=== PATIENT | female | born 1990 | race Caucasian/White ===

== ENCOUNTER 2017-02-05 21:52 | Inpatient (IN) ==
[2017-02-05] MEDS ORDERED: ONDANSETRON 4 MG/2 ML VIAL IV ONE (22:19)
[2017-02-05] MEDS ORDERED: 0.9 % SODIUM CHLORIDE 1,000 ML IV ONE (22:19)
[2017-02-05] MEDS: fentaNYL 100 MCG/2 ML VIAL IV PRN (22:35)
[2017-02-05 23:37] LABS: Basophils # (Auto) 0 K/mcL (0.0-0.3); Basophils % (Auto) 0.1 % (0.0-2.0); Eosinophils # (Auto) 0 K/mcL (0.0-0.7); Eosinophils % (Auto) 0 % (0.0-7.0); Granulocytes % (Auto) 93.3 % (38.0-78.0); Lymphocytes % (Auto) 5.9 % (15.5-49.0); Mean Cell Volume 85.3 fL (80.0-100.0); Mean Corpuscular HGB Conc 33.8 g/dL (31.0-36.0); Mean Corpuscular Hemoglobin 28.8 pg (26.0-34.0); Monocytes # (Auto) 0.1 K/mcL (0.1-0.9); Monocytes % (Auto) 0.7 % (1.0-12.0); Platelet Count 200 K/mcL (140-440); RBC 5.39 M/mcL (4.00-5.20); Red Cell Distribution Width 12.8 % (11.5-14.5)
[2017-02-05 23:43] LABS: Appearance,Urine CLEAR; Bacteria,Urine 0 /hpf (0); Bilirubin,Urine NEG (NEG); Color,Urine YELLOW; Glucose,Urine (UA) >=500 mg/dL (NEG); Leukocyte Esterase,Urine NEG /uL (NEG); Mucus,Urine FEW /hpf (0); Nitrate,Urine NEG (NEG); Protein,Urine >=500 mg/dL (NEG); Specific Gravity,Urine 1.023 (1.000-1.035); Urine Blood 0.03 mg/dL (<0.03); Urine Hyaline Cast 21 /lpf (0-2); Urine RBC 1 /hpf (0-1); Urine Squamous Epithelial Cell < 1 /hpf (0-4); Urine Transitional Epi Cells < 1 /hpf (0-2); Urine WBC 1 /hpf (0-4); Urobilinogen,Urine NEG (NEG)
[2017-02-05 23:59] LABS: ALT/SGPT 16 U/l (0-40); Albumin 4.7 gm/dL (3.2-5.2); Albumin/Globulin Ratio 1.4 (1.0-2.3); Alkaline Phosphatase 132 U/L (39-117); Blood Urea Nitrogen 16 mg/dl (6-20); Lipase 24 U/L (7-60)
[2017-02-06] MEDS ORDERED: PROMETHAZINE 25 MG/ML VIAL IV ONE ×3 (00:27→08:00)
[2017-02-06] MEDS ORDERED: INSULIN REGULAR, HUMAN 1 UNIT/0.01 ML UNIT IV ONE (01:25)
[2017-02-06] MEDS ORDERED: 0.9 % SODIUM CHLORIDE 1,000 ML IV ONE ×2 (01:49→08:12)
[2017-02-06] MEDS: INSULIN REGULAR, HUMAN 50 UNIT in 0.9 % SODIUM CHLORIDE 99.5 ML IV SCH ×3 (02:01→20:01)
[2017-02-06] MEDS ORDERED: INSULIN REGULAR, HUMAN 1 UNIT/0.01 ML UNIT ONE (02:01)
[2017-02-06] MEDS: fentaNYL 100 MCG/2 ML VIAL IV PRN (03:27)
[2017-02-06] MEDS ORDERED: ONDANSETRON 4 MG/2 ML VIAL IV ONE (05:14)
[2017-02-06] MEDS ORDERED: METOCLOPRAMIDE 10 MG/2 ML VIAL IV ONE (06:08)
[2017-02-06] MEDS ORDERED: DEXTROSE 5%-1/2NS 1,000 ML IV SCH ×2 (06:15→10:49)
--- NOTE | 2017-02-06 06:28 | Emergency Department Note ---
General Adult HPI - General Chief complaint: Blood Sugar Problem Stated complaint: Ketoacidosis Time Seen by Provider: 02/05/17 22:18 Mode of arrival: ambulatory - History of Present Illness HPI Narrative: This patient has been vomiting since 7 AM this morning. He is a type I diabetic for last 15 years and thinks she might be in DKA. She does have an insulin pump. Has also had a lot of diarrhea - Related Data Home Medications Medication Instructions Recorded Confirmed insulin aspart 100 unit/mL See Dose Instructions SUB-Q 10/06/14 02/05/17 subcutaneous solution .COMPLEX ml medroxyprogesterone 150 mg/mL 150 mg IM ONCE 05/19/15 02/05/17 intramuscular suspension Previous Rx's Medication Instructions Recorded Omeprazole [PriLOSEC] 20 mg PO ACB #30 capsule 03/23/16 Allergies Allergy/AdvReac Type Severity Reaction Status Date / Time Amoxicillin [AMOXICILLIN] Allergy Intermediate Rash Verified 03/08/16 08:47 vancomycin Allergy Mild Itching Verified 08/22/15 16:46 ibuprofen [IBUPROFEN] Allergy Unknown UNKNOWN Verified 08/22/15 16:46 Review of Systems All systems ED: reviewed and negative except as stated. Past Medical History - Past Medical History [facility] Narrative: Medical History Postconcussion syndrome (Acute) Cellulitis (Acute) DKA (diabetic ketoacidoses) (Acute) Gastroenteritis (Acute) Sepsis (Acute) Hyperlipidemia (Acute) Gastroesophageal reflux (Acute) Diabetic ketoacidosis (Acute) Diabetes type 1, uncontrolled (Acute) Cellulitis and abscess of trunk (Acute) Cellulitis (Acute) Past Surgical History History of wisdom tooth extraction (Acute) Family History Unknown Malignant neoplasm of colon Cerebrovascular accident Medical history: Reports: diabetes, other (DKA,History of obesity, type 1 diabetes 16 years) - Social History smoking status: Former smoker Alcohol use: Reports: None Drug use: Reports: none Physical Exam - General Limitations: no limitations General appearance: alert - Head Head exam: atraumatic - Eye Eye exam: Present: normal appearance - ENT ENT exam: normal exam - Neck Neck exam: Present: normal inspection - Chest Chest inspection: Present: normal inspection - Respiratory Respiratory exam: Present: normal lung sounds bilaterally - Cardiovascular Cardiovascular exam: Present: regular rate, normal rhythm, normal heart sounds - Abdominal Exam Abdominal exam: Present: soft. Absent: distention, tenderness - Neurological Exam Neurological exam: Present: alert - Psychiatric Psychiatric exam: Present: normal affect, normal mood - Skin Skin exam: Present: warm, dry, intact Course Vital Signs Temperature 98.8 F 02/05/17 21:53 Pulse Rate 119 H 02/05/17 21:53 Respiratory Rate 18 02/05/17 21:53 Blood Pressure 135/78 02/05/17 21:53 Pulse Oximetry (%) 98 02/05/17 21:53 Temperature 98.8 F 02/05/17 21:53 Pulse Rate 99 H 02/06/17 07:46 Respiratory Rate 20 02/06/17 07:44 Blood Pressure 163/91 02/06/17 07:46 Pulse Oximetry (%) 100 02/06/17 07:46 Medical Decision Making - MDM Narrative Medical decision making narrative: This patient is in DKA we started insulin drip and gave her 10 units of IV insulin. No beds available here or at [facility] or [facility] so she will be transferred to [facility] in [place]. This patient was unable to be transferred until 9 AM. 8 AM we got word that we now have an ICU bed available here so the patient will be admitted by Dr. Calhoun the hospitalist here. - Lab Data Lab results reviewed: Yes I reviewed the patient's lab results. Result diagrams: 02/05/17 22:45 02/05/17 22:45 Lab Results 02/05/17 02/05/17 02/05/17 Range/Units 22:30 22:45 22:45 WBC 17.0 H (4.5-11.0) K/mcL RBC 5.39 H (4.00-5.20) M/mcL Hgb 15.5 H (12.0-15.0) g/dL Hct 45.9 (36.0-48.0) % MCV 85.3 (80.0-100.0) fL MCH 28.8 (26.0-34.0) pg MCHC 33.8 (31.0-36.0) g/dL RDW 12.8 (11.5-14.5) % Plt Count 200 (140-440) K/mcL MPV 12.7 H (7.4-10.4) fL Gran % 93.3 H (38.0-78.0) % Lymph % (Auto) 5.9 L (15.5-49.0) % [place] % (Auto) 0.7 L (1.0-12.0) % Eos % (Auto) 0 (0.0-7.0) % Baso % (Auto) 0.1 (0.0-2.0) % Gran # 15.8 H (1.8-8.0) K/mcL Lymph # (Auto) 1.0 L (1.5-4.8) K/mcL [place] # (Auto) 0.1 (0.1-0.9) K/mcL Eos # (Auto) 0 (0.0-0.7) K/mcL Baso # (Auto) 0 (0.0-0.3) K/mcL Sodium 138 (133-145) mmol/L Potassium 4.1 (3.3-5.1) mmol/L Chloride 94 L (96-108) mmol/L Carbon Dioxide 12 L (22-30) mmol/L Anion Gap 32.0 H (8-16) BUN 16 (6-20) mg/dl Creatinine 1.2 H (0.6-1.1) mg/dl GFR Calculation 62 Glucose 356 H (70-105) mg/dL Calcium 9.4 (8.6-10.4) mg/dl Total Bilirubin 0.3 (0.0-1.0) mg/dL AST 11 (0-37) U/l ALT 16 (0-40) U/l Alkaline Phosphatase 132 H (39-117) U/L Total Protein 8.1 (5.9-8.4) gm/dL Albumin 4.7 (3.2-5.2) gm/dL Globulin 3.4 (2.2-3.7) gm/dL Albumin/Globulin Ratio 1.4 (1.0-2.3) Lipase 24 (7-60) U/L Beta-Hydroxybutyrate (< 0.27) mmol/L Urine Color Yellow Urine Appearance Clear Urine pH 5.0 (5.0-9.0) Ur Specific [place] 1.023 (1.000-1.035) Urine Protein >=500 A (NEG) mg/dL Urine Glucose (UA) >=500 A (NEG) mg/dL Urine Ketones 80 A (NEG) mg/dL Urine Occult Blood 0.03 A (<0.03) mg/dL Urine Nitrate Neg (NEG) Urine Bilirubin Neg (NEG) mg/dL Urine Urobilinogen Neg (NEG) mg/dL Ur Leukocyte Esterase Neg (NEG) /uL Urine RBC 1 (0-1) /hpf Urine WBC 1 (0-4) /hpf Ur Squamous Epith Cells < 1 (0-4) /hpf Ur Transition Epith Cell < 1 (0-2) /hpf Urine Bacteria 0 (0) /hpf Hyaline Casts 21 H (0-2) /lpf Urine Mucus Few (0) /hpf Ur Culture Indicated? No 02/05/17 Range/Units 22:45 WBC (4.5-11.0) K/mcL RBC (4.00-5.20) M/mcL Hgb (12.0-15.0) g/dL Hct (36.0-48.0) % MCV (80.0-100.0) fL MCH (26.0-34.0) pg MCHC (31.0-36.0) g/dL RDW (11.5-14.5) % Plt Count (140-440) K/mcL MPV (7.4-10.4) fL Gran % (38.0-78.0) % Lymph % (Auto) (15.5-49.0) % [place] % (Auto) (1.0-12.0) % Eos % (Auto) (0.0-7.0) % Baso % (Auto) (0.0-2.0) % Gran # (1.8-8.0) K/mcL Lymph # (Auto) (1.5-4.8) K/mcL [place] # (Auto) (0.1-0.9) K/mcL Eos # (Auto) (0.0-0.7) K/mcL Baso # (Auto) (0.0-0.3) K/mcL Sodium (133-145) mmol/L Potassium (3.3-5.1) mmol/L Chloride (96-108) mmol/L Carbon Dioxide (22-30) mmol/L Anion Gap (8-16) BUN (6-20) mg/dl Creatinine (0.6-1.1) mg/dl GFR Calculation Glucose (70-105) mg/dL Calcium (8.6-10.4) mg/dl Total Bilirubin (0.0-1.0) mg/dL AST (0-37) U/l ALT (0-40) U/l Alkaline Phosphatase (39-117) U/L Total Protein (5.9-8.4) gm/dL Albumin (3.2-5.2) gm/dL Globulin (2.2-3.7) gm/dL Albumin/Globulin Ratio (1.0-2.3) Lipase (7-60) U/L Beta-Hydroxybutyrate 8.30 H (< 0.27) mmol/L Urine Color Urine Appearance Urine pH (5.0-9.0) Ur Specific [place] (1.000-1.035) Urine Protein (NEG) mg/dL Urine Glucose (UA) (NEG) mg/dL Urine Ketones (NEG) mg/dL Urine Occult Blood (<0.03) mg/dL Urine Nitrate (NEG) Urine Bilirubin (NEG) mg/dL Urine Urobilinogen (NEG) mg/dL Ur Leukocyte Esterase (NEG) /uL Urine RBC (0-1) /hpf Urine WBC (0-4) /hpf Ur Squamous Epith Cells (0-4) /hpf Ur Transition Epith Cell (0-2) /hpf Urine Bacteria (0) /hpf Hyaline Casts (0-2) /lpf Urine Mucus (0) /hpf Ur Culture Indicated? Disposition Pt seen by PROGRAM REP/PA only: No Clinical Impression: DKA (diabetic ketoacidoses) Disposition: Xfer As Inpt ([facility]) Referrals: Jordyn Banerjee MD [Primary Care Provider] - Time of Disposition: 08:13
[2017-02-06] MEDS ORDERED: DEXTROSE 50% 50 ML VIAL IV ONE ×3 (07:32→16:10)
[2017-02-06 08:31] LABS: Basophils # (Auto) 0 K/mcL (0.0-0.3); Basophils % (Auto) 0.2 % (0.0-2.0); Eosinophils # (Auto) 0.1 K/mcL (0.0-0.7); Eosinophils % (Auto) 0.3 % (0.0-7.0); Granulocytes % (Auto) 87.2 % (38.0-78.0); Lymphocytes # (Auto) 1.4 K/mcL (1.5-4.8); Mean Cell Volume 85.4 fL (80.0-100.0); Mean Corpuscular HGB Conc 33.9 g/dL (31.0-36.0); Monocytes # (Auto) 0.8 K/mcL (0.1-0.9); Monocytes % (Auto) 4.3 % (1.0-12.0); Platelet Count 199 K/mcL (140-440); RBC 4.81 M/mcL (4.00-5.20); Red Cell Distribution Width 12.8 % (11.5-14.5)
[2017-02-06 08:56] LABS: ALT/SGPT 12 U/l (0-40); Albumin 3.8 gm/dL (3.2-5.2); Albumin/Globulin Ratio 1.3 (1.0-2.3); Alkaline Phosphatase 105 U/L (39-117); Beta Hydroxybutyrate 3.66 mmol/L (< 0.27); Blood Urea Nitrogen 15 mg/dl (6-20)
[2017-02-06] MEDS ORDERED: HYDROmorphone 2 MG/ML SYRINGE ONE (09:00)
[2017-02-06] MEDS ORDERED: HYDROmorphone 2 MG/ML SYRINGE IV PRN (09:09)
--- NOTE | 2017-02-06 11:23 | Internal Med History&Physical ---
Medical - H&P: HPI Patient information: Note initiated : 02/06/17 at 11:19 am Patient: Patricia Toussaint 26 y/o F admitted on for Ketoacidosis. Chief Complaint: [Nausea, vomiting, DKA] History of present illness: Ms. Toussaint is a 26 year old female with a long-standing history of type 1 diabetes, controlled with an insulin pump. She notes she has been under a lot of stress with studying for her masters at school, etc. She has been having issues with her insulin pump, and states the tubing keeps folding in on itself. She went to work night before last and was having difficulty with the pump, and then the tubing fell out. She says she then just manually dosed her insulin. She has had difficulty with nausea for several days. Yesterday she started vomiting, and notes that she was bringing up clear fluid, but then she started to see lots of red streaks in the fluid. She knows she was having quite a bit of epigastric pain when she was vomiting. She says her boyfriend thought perhaps she was reacting to changing her diet. She had been on a low carbohydrate diet, and had given up on that, and had noticed increased glucoses over the last several days. She has been having chills and abdominal pain as well, and has been feeling very fatigued. She notes her throat is very sore, but that started after the vomiting started. She does note that when she is vomiting and having the pain she does feel a little short of breath and feels her heart racing. She is also been having loose stools since yesterday, which is apparent the common symptom with her DKA. She denies any dysuria. ER evaluation showed glucose of 356, with bicarb of 12 and beta hydroxybutyrate level of 8.3. She was placed on IV fluids and IV insulin, and referred for admission. She otherwise denies recent fever, headache, new eye or ear symptoms, lymphadenopathy, dysuria. She was previously on omeprazole for reflux, but says she has not taken that for more than a year. Medical History Cellulitis and abscess of trunk (Acute) 08/26/2014 Diabetes type 1, uncontrolled (Acute) Diabetic ketoacidosis (Acute) Gastroesophageal reflux (Acute) Hyperlipidemia (Acute) Postconcussion syndrome (Acute) Sepsis (Acute) Depression Surgical History History of wisdom tooth extraction (Acute) Medications: Insulin pump Depo Provera shots every 3 months Allergies/Adverse Reactions Amoxicillin [AMOXICILLIN] Allergy (Severe, Verified 05/19/15 13:28) Anaphylaxis ibuprofen [IBUPROFEN] Allergy (Unknown, Verified 05/19/15 13:28) UNKNOWN Family History Grandmother had Malignant neoplasm of colon, Cerebrovascular accident Paternal great-grandmother had diabetes Social History She smoked from about age 17 to age 22, and then quit. She drinks alcohol maybe once or twice a month. She says she smokes marijuana once or twice a month. She currently lives with her boyfriend and his parents. She has been working on her masters degree in social work. Medical - H&P: Meds Home Medications Medication Instructions Recorded Confirmed Type insulin aspart 100 unit/mL See Dose Instructions SUB-Q 10/06/14 02/05/17 History subcutaneous solution .COMPLEX ml medroxyprogesterone 150 mg/mL 150 mg IM ONCE 05/19/15 02/05/17 History intramuscular suspension Omeprazole [PriLOSEC] 20 mg PO ACB #30 capsule 03/23/16 02/05/17 Rx Allergies Allergy/AdvReac Type Severity Reaction Status Date / Time Amoxicillin [AMOXICILLIN] Allergy Intermediate Rash Verified 03/08/16 08:47 vancomycin Allergy Mild Itching Verified 08/22/15 16:46 ibuprofen [IBUPROFEN] Allergy Unknown UNKNOWN Verified 08/22/15 16:46 Medical - H&P: Exam - Constitutional Vitals: Temp Pulse Resp BP Pulse Ox 98.8 F 98 H 13 110/61 99 02/05/17 21:53 02/06/17 09:58 02/06/17 10:01 02/06/17 10:01 02/06/17 09:58 On exam, she is an overweight white female, who is intermittently nauseated during our interview. She is otherwise in no acute distress. Head: Normocephalic, atraumatic. Eyes: PERRLA, EOMI, anicteric. Ears: TMs and canals are clear. Pharynx: Pharynx is clear, teeth are in good repair. Neck: Is supple, without lymphadenopathy, JVD, thyromegaly, bruits. cardiac exam: Shows regular rate and rhythm with normal S1 and S2 without murmurs rubs or gallops. Lungs: Clear to auscultation, without rales, rhonchi, wheezes. Abdomen: Is obese. She has fairly diffuse tenderness to even light palpation. She is particularly tender in the epigastric area but also the suprapubic area. There is some guarding but no obvious rebound. Bowel sounds appear active. Extremities: Show no cyanosis, clubbing, edema. Pulses are intact. Neurologic exam: Is grossly nonfocal. Patient is alert and oriented, calm and cooperative. Skin exam: Shows numerous tattoos, but no signs of infection. Medical - H&P: Reslt - Labs CBC & Chem 7: 02/06/17 07:38 02/06/17 14:06 Labs: Short CBC 02/05/17 02/06/17 Range/Units 22:45 07:38 WBC 17.0 H 18.2 H (4.5-11.0) K/mcL Hgb 15.5 H 13.9 (12.0-15.0) g/dL Hct 45.9 41.1 (36.0-48.0) % Plt Count 200 199 (140-440) K/mcL BMP 02/05/17 02/06/17 22:45 07:38 Sodium 138 143 Potassium 4.1 3.7 Chloride 94 L 106 Carbon Dioxide 12 L 16 L BUN 16 15 Creatinine 1.2 H 0.9 Glucose 356 H 234 H Calcium 9.4 8.8 Liver Function 02/05/17 02/06/17 Range/Units 22:45 07:38 Total Bilirubin 0.3 0.2 (0.0-1.0) mg/dL AST 11 10 (0-37) U/l ALT 16 12 (0-40) U/l Alkaline Phosphatase 132 H 105 (39-117) U/L Albumin 4.7 3.8 (3.2-5.2) gm/dL Urine 02/05/17 Range/Units 22:30 Urine Color Yellow Urine Appearance Clear Urine pH 5.0 (5.0-9.0) Ur Specific [place] 1.023 (1.000-1.035) Urine Protein >=500 A (NEG) mg/dL Urine Glucose (UA) >=500 A (NEG) mg/dL February 06: CBC differential: Shows 15,900 neutrophils. Anion gap was initially high at 32. Follow-up this morning is improved to 21. Beta hydroxybutyrate was 8.3 on arrival, and is 3.66 on follow-up this morning. Next Urinalysis showed greater than 500 mg protein, greater than 500 mg glucose, 80 ketones, negative for nitrites and leukocyte esterase. 21 hyaline casts. Next Chest x-ray: Is read as normal. Medical - H&P: A/P (1) Diarrhea Current visit: No Status: Acute (2) DKA (diabetic ketoacidoses) Current visit: No Status: Acute (3) Diabetes type 1, uncontrolled Current visit: No Status: Chronic - Narrative A/P Narrative: #1. Endocrine. Patient presents with severe metabolic acidosis, due to diabetic ketoacidosis. The cause of this is not entirely clear. Patient does have a markedly elevated white blood cell count, but her main symptom is diarrhea, as with previous episodes. Chest x-ray and urinalysis did not show obvious infection. -Aggressive fluid resuscitation. -Monitor labs every hour. -IV insulin, with adjustments based on acid-base status. -Insulin pump is off for now. -Stool studies. -it sounds like she needs to follow-up with either an homicide investigator or an insulin pump singer songwriter, to figure out why her pump is malfunctioning. 2. CODE STATUS: Full code. 3. DVT prophylaxis: Subcu heparin. 4. GI. history of GERD. She also reports blood in her emesis today. She may well have gastritis or esophagitis. -IV proton pump inhibitor. -Monitor hemoglobin. Diarrhea. She often has loose stools with her episodes of DKA, but we will send stool studies to be sure we are not missing an infection. Next 5. Pulmonary. Reported history of asthma, without recent symptoms. Today's visit has taken approximately 70 minutes so far today, to review her case with the ER MD, review her old records, review test results every 2 hours, interview and examine her, and write orders.
[2017-02-06] MEDS: ONDANSETRON 4 MG/2 ML VIAL IV PRN ×3 (12:12→19:55)
--- NOTE | 2017-02-06 12:18 | XRay Report ---
CLINICAL INFORMATION: Diabetic ketoacidosis nausea and vomiting COMPARISON: 11/23/2012 FINDINGS:The heart size, mediastinum and pulmonary vessels are unremarkable. The lungs are clear. There are no effusions. The bones and soft tissues are within normal limits. IMPRESSION: Normal chest. Interpreted and Authenticated by: Carl Franco 02/06/17
[2017-02-06 12:42] LABS: Blood Urea Nitrogen 14 mg/dl (6-20)
[2017-02-06 14:02] LABS: Blood Urea Nitrogen 13 mg/dl (6-20)
[2017-02-06] MEDS: [UNRECOGNIZED DRUG - OTHER] IV SCH (14:31)
[2017-02-06] MEDS: DEXTROSE 5% IV SCH (14:31)
[2017-02-06] MEDS: POTASSIUM PHOSPHATE IV SCH (14:31)
[2017-02-06 15:11] LABS: Blood Urea Nitrogen 11 mg/dl (6-20)
[2017-02-06] MEDS: PROMETHAZINE 25 MG/ML VIAL IV PRN ×2 (15:13→20:23)
[2017-02-06] MEDS ORDERED: POTASSIUM CHLORIDE 20 MEQ in 0.9 % SODIUM CHLORIDE 250 ML IV ONE (16:30)
[2017-02-06 16:41] LABS: Blood Urea Nitrogen 11 mg/dl (6-20)
[2017-02-06] MEDS: PANTOPRAZOLE 40 MG VIAL IV SCH (17:22)
[2017-02-06 18:49] LABS: Blood Urea Nitrogen 10 mg/dl (6-20)
[2017-02-06 20:49] LABS: Blood Urea Nitrogen 9 mg/dl (6-20)
[2017-02-06 23:08] LABS: Blood Urea Nitrogen 9 mg/dl (6-20)
[2017-02-07] MEDS: ONDANSETRON 4 MG/2 ML VIAL IV PRN ×4 (00:01→17:20)
[2017-02-07] MEDS: POTASSIUM PHOSPHATE IV SCH ×4 (00:38→23:59)
[2017-02-07] MEDS: DEXTROSE 5% IV SCH ×2 (00:38→23:59)
[2017-02-07] MEDS: [UNRECOGNIZED DRUG - OTHER] IV SCH (00:38)
[2017-02-07] MEDS: PROMETHAZINE 25 MG/ML VIAL IV PRN ×3 (02:02→13:01)
[2017-02-07 06:45] LABS: Basophils # (Auto) 0 K/mcL (0.0-0.3); Basophils % (Auto) 0.2 % (0.0-2.0); Eosinophils # (Auto) 0 K/mcL (0.0-0.7); Eosinophils % (Auto) 0.1 % (0.0-7.0); Granulocytes % (Auto) 87.5 % (38.0-78.0); Lymphocytes # (Auto) 1.7 K/mcL (1.5-4.8); Lymphocytes % (Auto) 8.9 % (15.5-49.0); Mean Cell Volume 86.6 fL (80.0-100.0); Mean Corpuscular HGB Conc 33.4 g/dL (31.0-36.0); Mean Corpuscular Hemoglobin 28.9 pg (26.0-34.0); Monocytes # (Auto) 0.6 K/mcL (0.1-0.9); Monocytes % (Auto) 3.3 % (1.0-12.0); Platelet Count 167 K/mcL (140-440); RBC 4.55 M/mcL (4.00-5.20); Red Cell Distribution Width 13.1 % (11.5-14.5)
[2017-02-07] MEDS: 0.9 % SODIUM CHLORIDE 10 ML SYRINGE IV SCH ×4 (07:16→21:48)
[2017-02-07 07:21] LABS: ALT/SGPT 11 U/l (0-40); Albumin 3.6 gm/dL (3.2-5.2); Albumin/Globulin Ratio 1.4 (1.0-2.3); Alkaline Phosphatase 108 U/L (39-117); Bilirubin,Direct < 0.2 mg/dL (0.0-0.3); Blood Urea Nitrogen 7 mg/dl (6-20); Gamma Glutamyl Transpeptidase 8 U/L (5-36); Magnesium 1.4 mg/dL (1.6-2.5); Uric Acid 6.2 mg/dL (2.5-8.0)
[2017-02-07] MEDS: PANTOPRAZOLE 40 MG VIAL IV SCH ×2 (07:43→17:03)
[2017-02-07] MEDS ORDERED: POTASSIUM CHLORIDE 40 MEQ in DEXTROSE 5% IN WATER 500 ML IV ONE (08:30)
[2017-02-07] MEDS ORDERED: MAGNESIUM SULFATE 32.48 MEQ in DEXTROSE 5% IN WATER 100 ML IV ONE (08:31)
[2017-02-07] MEDS: WATER IV SCH ×2 (08:45→15:36)
[2017-02-07] MEDS: DEXTROSE 10% IV SCH ×2 (08:45→15:36)
[2017-02-07] MEDS ORDERED: HEPARIN 5,000 UNIT/ML VIAL SQ SCH (09:00)
[2017-02-07] MEDS ORDERED: cefTRIAXone 1 GM in DEXTROSE 5% IN WATER 50 ML IV SCH (09:00)
--- NOTE | 2017-02-07 09:01 | XRay Report ---
CLINICAL INFORMATION: Diabetic ketoacidosis elevated white blood cell count and vomiting COMPARISON: None. FINDINGS: The GI tract is markedly decompressed compatible with history of poor oral intake and vomiting. There is no free air, soft tissue mass, pathologic calcification or organomegaly IMPRESSION: No acute disease. Decompressed GI tract compatible with prolonged poor oral intake and vomiting Interpreted and Authenticated by: Carl Franco 02/07/17
[2017-02-07] MEDS: INSULIN REGULAR, HUMAN 50 UNIT in 0.9 % SODIUM CHLORIDE 99.5 ML IV SCH ×2 (09:30→14:38)
--- NOTE | 2017-02-07 11:59 | XRay Report ---
CLINICAL INFORMATION: Picc position COMPARISON: 02/06/2017. FINDINGS: Right PICC line tip is quite distal and overlies the tricuspid valve plane. The heart is borderline enlarged. Mediastinum and pulmonary vessels are normal. Lungs are clear. No effusions. IMPRESSION: Acute disease. PICC line tip overlies the tricuspid valve. Nurses instructed to withdraw line 7 cm Interpreted and Authenticated by: Carl Franco 02/07/17
--- NOTE | 2017-02-07 12:14 | Internal Med Progress Note ---
Medical - PN: Subj Patient information: Note initiated : 02/07/17 at 12:10 pm Patient: Patricia Toussaint 26 y/o F admitted on 02/06/17 for Ketoacidosis. Interval history: February 06, 2017: History of present illness: Ms. Toussaint is a 26 year old female with a long-standing history of type 1 diabetes, controlled with an insulin pump. She notes she has been under a lot of stress with studying for her masters at school, etc. She has been having issues with her insulin pump, and states the tubing keeps folding in on itself. She went to work night before last and was having difficulty with the pump, and then the tubing fell out. She says she then just manually dosed her insulin. She has had difficulty with nausea for several days. Yesterday she started vomiting, and notes that she was bringing up clear fluid, but then she started to see lots of red streaks in the fluid. She knows she was having quite a bit of epigastric pain when she was vomiting. She says her boyfriend thought perhaps she was reacting to changing her diet. She had been on a low carbohydrate diet, and had given up on that, and had noticed increased glucoses over the last several days. She has been having chills and abdominal pain as well, and has been feeling very fatigued. She notes her throat is very sore, but that started after the vomiting started. She does note that when she is vomiting and having the pain she does feel a little short of breath and feels her heart racing. She is also been having loose stools since yesterday, which is apparent the common symptom with her DKA. She denies any dysuria. ER evaluation showed glucose of 356, with bicarb of 12 and beta hydroxybutyrate level of 8.3. She was placed on IV fluids and IV insulin, and referred for admission. She otherwise denies recent fever, headache, new eye or ear symptoms, lymphadenopathy, dysuria. She was previously on omeprazole for reflux, but says she has not taken that for more than a year. February 07: The patient's acidosis was improving, and then seemed to get worse overnight. We have had a little bit of trouble getting every 2 hour chemistry results. Apparently the lab was also having trouble drawing her blood. As of 2:00, her anion gap is back to normal, and serum bicarb is back to normal. She continues on an IV insulin drip, plus D10 IV fluids with potassium phosphate. She continues to feel quite poorly, and has persistent nausea and vomiting. This is treated with Phenergan, and Zofran is ineffective, and then this makes her fall back asleep again. When she is awake she continues to report abdominal discomfort. She has had some small amounts of loose stool, and C. difficile and stool cultures have been ordered. Otherwise vital signs have been fairly stable. She is still not able to take in anything by mouth. Insulin pump is turned off. She otherwise denies fever or chills, chest pain or palpitations, shortness of breath or cough, constipation, dysuria, but her history is probably unreliable given how groggy she is.. Since IV access is such a significant problem, PICC line was placed today. Medical History Cellulitis and abscess of trunk (Acute) 08/26/2014 Diabetes type 1, uncontrolled (Acute) Diabetic ketoacidosis (Acute) Gastroesophageal reflux (Acute) Hyperlipidemia (Acute) Postconcussion syndrome (Acute) Sepsis (Acute) Depression - Constitutional Vitals: Vital Signs Temp Pulse Resp BP Pulse Ox 99.3 F H 92 H 22 154/78 20 L 02/07/17 07:02 02/07/17 09:01 02/07/17 09:01 02/07/17 10:28 02/07/17 10:28 Period Temp Pulse Resp BP Sys/Butt Pulse Ox Last 24 Hr 97.9 F-99.4 F 78-94 9-23 129-172/70-103 20-100 Intake and Output 02/06/17 02/07/17 02/07/17 21:59 05:59 13:59 Intake Total 1344 / 1344 1073.0909 / 1073.0909 1122.0909 / 1122.0909 Output Total 125 / 125 1200 / 1200 425 / 425 Balance 1219 / 1219 -126.9091 / -126.9091 697.0909 / 697.0909 Intake & Output: Intake & Output 02/06/17 02/07/17 02/07/17 21:59 05:59 13:59 Intake Total 1344 / 1344 1073.0909 / 1073.0909 1122.0909 / 1122.0909 Output Total 125 / 125 1200 / 1200 425 / 425 Balance 1219 / 1219 -126.9091 / -126.9091 697.0909 / 697.0909 Intake: IV 1344 / 1344 1073.0909 / 1073.0909 1122.0909 / 1122.0909 HumuLIN R 50 UNIT In Sodium 1 / 1 57 / 57 63 / 63 Chloride 0.9% 99.5 ml @ 7 UNIT/ HR 14 mls/hr IV DUR PAU Rx#: [id number] Potassium Phosphate 40 Meq In 1009.0909 / 1009.0909 587 / 587 Dextrose 5%-1/2Ns IV Solution 1 ,000 ml @ 100 mls/hr IV .Q10H6M PAU Rx#:[id number] Rocephin 1 gm In Dextrose 5% in 50 / 50 Water 50 ml @ 100 mls/hr IV DAILY PAU Rx#:[id number] Output: Void Amount 125 / 125 1200 / 1200 Urine/Stool Mix 375 / 375 Emesis 50 / 50 Other: # Voids 1 # Emeses 2 2 1 On exam, she is fairly somnolent. She grimaces when she is awakened. Neck is supple without obvious lymphadenopathy or JVD. Lungs are clear to auscultation. Abdomen is soft, but she continues to grimace with palpation of either her upper or her lower abdomen. Bowel sounds are somewhat hypoactive. Extremities show no edema. Neurologic exam: The patient is fairly sedated from IV Phenergan. Medical - PN: Obj Da - Labs CBC & Chem 7: 02/07/17 03:55 02/07/17 14:00 Labs: Abnormal Lab Results 02/07/17 02/07/17 02/06/17 03:55 03:55 22:00 WBC 18.9 H RBC Hgb MPV 12.9 H Gran % 87.5 H Lymph % (Auto) 8.9 L [place] % (Auto) Gran # 16.5 H Lymph # (Auto) Potassium 3.2 L Chloride Carbon Dioxide 20 L Anion Gap 18.0 H Creatinine Glucose 232 H Calcium 8.4 L Phosphorus 2.2 L 2.6 L Magnesium 1.4 L Alkaline Phosphatase Beta-Hydroxybutyrate Urine Protein Urine Glucose (UA) Urine Ketones Urine Occult Blood Hyaline Casts 02/06/17 02/06/17 02/06/17 22:00 19:59 19:59 WBC RBC Hgb MPV Gran % Lymph % (Auto) [place] % (Auto) Gran # Lymph # (Auto) Potassium Chloride 111 H Carbon Dioxide 15 L 17 L Anion Gap 20.0 H 17.0 H Creatinine Glucose 297 H 143 H Calcium 8.0 L 8.2 L Phosphorus 2.5 L Magnesium Alkaline Phosphatase Beta-Hydroxybutyrate Urine Protein Urine Glucose (UA) Urine Ketones Urine Occult Blood Hyaline Casts 02/06/17 02/06/17 02/06/17 18:06 18:06 15:55 WBC RBC Hgb MPV Gran % Lymph % (Auto) [place] % (Auto) Gran # Lymph # (Auto) Potassium Chloride 109 H Carbon Dioxide 20 L Anion Gap Creatinine Glucose 127 H Calcium 8.3 L Phosphorus 2.1 L 1.9 L Magnesium Alkaline Phosphatase Beta-Hydroxybutyrate Urine Protein Urine Glucose (UA) Urine Ketones Urine Occult Blood Hyaline Casts 02/06/17 02/06/17 02/06/17 15:55 14:06 14:06 WBC RBC Hgb MPV Gran % Lymph % (Auto) [place] % (Auto) Gran # Lymph # (Auto) Potassium Chloride 109 H Carbon Dioxide 20 L Anion Gap Creatinine Glucose 116 H Calcium Phosphorus 1.3 L Magnesium 1.4 L Alkaline Phosphatase Beta-Hydroxybutyrate Urine Protein Urine Glucose (UA) Urine Ketones Urine Occult Blood Hyaline Casts 02/06/17 02/06/17 02/06/17 14:06 12:42 10:34 WBC RBC Hgb MPV Gran % Lymph % (Auto) [place] % (Auto) Gran # Lymph # (Auto) Potassium 2.9 L* Chloride 110 H 110 H Carbon Dioxide 17 L 17 L 17 L Anion Gap 18.0 H Creatinine Glucose 663 H* 208 H 197 H Calcium 7.1 L 8.2 L 8.2 L Phosphorus 1.6 L 1.4 L Magnesium Alkaline Phosphatase Beta-Hydroxybutyrate Urine Protein Urine Glucose (UA) Urine Ketones Urine Occult Blood Hyaline Casts 02/06/17 02/06/17 02/05/17 07:38 07:38 22:45 WBC 18.2 H RBC Hgb MPV 12.4 H Gran % 87.2 H Lymph % (Auto) 8.0 L [place] % (Auto) Gran # 15.9 H Lymph # (Auto) 1.4 L Potassium Chloride Carbon Dioxide 16 L Anion Gap 21.0 H Creatinine Glucose 234 H Calcium Phosphorus Magnesium Alkaline Phosphatase Beta-Hydroxybutyrate 3.66 H 8.30 H Urine Protein Urine Glucose (UA) Urine Ketones Urine Occult Blood Hyaline Casts 02/05/17 02/05/17 02/05/17 22:45 22:45 22:30 WBC 17.0 H RBC 5.39 H Hgb 15.5 H MPV 12.7 H Gran % 93.3 H Lymph % (Auto) 5.9 L [place] % (Auto) 0.7 L Gran # 15.8 H Lymph # (Auto) 1.0 L Potassium Chloride 94 L Carbon Dioxide 12 L Anion Gap 32.0 H Creatinine 1.2 H Glucose 356 H Calcium Phosphorus Magnesium Alkaline Phosphatase 132 H Beta-Hydroxybutyrate Urine Protein >=500 A Urine Glucose (UA) >=500 A Urine Ketones 80 A Urine Occult Blood 0.03 A Hyaline Casts 21 H February 07: Labs from 1400: Sodium 137, potassium 3.6, chloride 101, CO2 22, anion gap 14, BUN 4, creatinine 0.7 CBC: White blood cell count 18,900, hemoglobin 13, hematocrit 39, platelets 167, 000. Absolute granulocyte count 16,500 Chest x-ray: Right PICC line tip is quite distal end overlies the tricuspid valve plane. Nurses are instructed to withdraw 7 cm. Abdominal x-ray:IMPRESSION: No acute disease. Decompressed GI tract compatible with prolonged poor oral intake and vomiting February 06: Nasal MRSA screen is negative. CBC differential: Shows 15,900 neutrophils. Anion gap was initially high at 32. Follow-up this morning is improved to 21. Beta hydroxybutyrate was 8.3 on arrival, and is 3.66 on follow-up this morning. Next Urinalysis showed greater than 500 mg protein, greater than 500 mg glucose, 80 ketones, negative for nitrites and leukocyte esterase. 21 hyaline casts. Next Chest x-ray: Is read as normal. Meds: Medications Ceftriaxone Sodium (Rocephin) 1 gm IV Q24H [facility] Diagnostic Test (Pha) (Accu-Chek) 1 each FS Q1 [facility] Last Admin: 02/07/17 10:50 Dose: 1 each Heparin Sodium (Porcine) (Heparin) 5,000 unit SQ Q12 [facility] Last Admin: 02/07/17 09:06 Dose: 5,000 unit Insulin Human Regular 50 unit/ (Sodium Chloride) 100 mls @ 14 mls/hr IV DUR PAU ; 7 UNIT/HR PRN Reason: Protocol Last Titration: 02/07/17 10:50 Dose: 9 unit/hr, 18 mls/hr Potassium Chloride 40 meq/ (Dextrose) 520 mls @ 130 mls/hr IV ONCE ONE Stop: 02/07/17 12:29 Last Admin: 02/07/17 10:45 Dose: 130 mls/hr Potassium Phosphate 40 meq/ (Dextrose) 1,009.0909 mls @ 150 mls/hr IV .Q6H44M PAU Last Admin: 02/07/17 08:45 Dose: 150 mls/hr Ondansetron HCl (Zofran) 4 mg IV Q4-6HP PRN PRN Reason: Nausea And Vomiting Last Admin: 02/07/17 10:20 Dose: 4 mg Pantoprazole Sodium (Protonix) 40 mg IV BIDAC PAU Last Admin: 02/07/17 07:43 Dose: 40 mg Promethazine HCl (Phenergan) 12.5 mg IV Q4-6HP PRN PRN Reason: Nausea And Vomiting Last Admin: 02/07/17 07:14 Dose: 12.5 mg Sodium Chloride (Saline Flush) 10 ml IV Q8 PAU Last Admin: 02/07/17 07:43 Dose: 10 ml Medical - PN: A/P - Time Spent With Patient Total time spent is greater than 50% in coordination of care (as documented) at patient's floor/unit and/or counseling patient: Greater than 35 minutes (1) Diarrhea Status: Acute Current Visit: No (2) DKA (diabetic ketoacidoses) Status: Acute Current Visit: No (3) Diabetes type 1, uncontrolled Status: Chronic Current Visit: No - Narrative A/P Narrative: #1. Endocrine. Patient presents with severe metabolic acidosis, due to diabetic ketoacidosis. The cause of this is not entirely clear. Patient does have a markedly elevated white blood cell count, but her main symptom is diarrhea, as with previous episodes. Chest x-ray and urinalysis did not show obvious infection. -Patient's acidosis was rather slow to clear, but is improved as of 2:00. Unfortunately, she continues to have nausea and vomiting, so cannot maintain oral hydration. She continues on IV fluids and IV insulin. We will start to transition her back to subcu insulin plus sliding scale if she is able to eat. We will hold off on resuming her insulin pump until she is more awake and more able to eat. -it sounds like she needs to follow-up with either an crate opener or an insulin pump tuck pointer helper, to figure out why her pump is malfunctioning. 2. CODE STATUS: Full code. 3. DVT prophylaxis: Subcu heparin. 4. GI. history of GERD. She also reports blood in her emesis today. She may well have gastritis or esophagitis. -IV proton pump inhibitor. -Monitor hemoglobin. Diarrhea. She often has loose stools with her episodes of DKA, but we will send stool studies to be sure we are not missing an infection. 5. Pulmonary. Reported history of asthma, without recent symptoms. 6. Infectious disease. Patient presented with marked leukocytosis. This continues today, and is of uncertain etiology. It may be caused by her DKA, or occult infection. So far, chest x-ray, abdominal x-ray, urinalysis is unrevealing. I went ahead and started empiric Rocephin today, just to be sure we were not missing an intra- abdominal gram-negative infection. Blood cultures are pending. We are awaiting stool studies as well. Approximately 35 minutes has been spent so far today, interviewing and examining her, reviewing plan of care with nurses and other staff, reviewing several sets of labs, and adjusting medications. Medical - PN: Qual - VTE Deep Vein Thrombosis/Pulmonary Embolism Present on Admission: No
[2017-02-07 13:01] LABS: Blood Urea Nitrogen 5 mg/dl (6-20)
[2017-02-07] MEDS ORDERED: ACETAMINOPHEN 1,000 MG/100 ML BOTTLE IV PRN ×2 (14:34→18:16)
[2017-02-07 14:45] LABS: Blood Urea Nitrogen 4 mg/dl (6-20)
[2017-02-07] MEDS ORDERED: 0.9 % SODIUM CHLORIDE 250 ML IV SCH (15:45)
[2017-02-07] MEDS ORDERED: INSULIN GLARGINE, HUMAN 1 UNIT/0.01 ML SQ ONE (15:58)
[2017-02-07] MEDS ORDERED: DEXTROSE 31 GM ORAL.SUSP PO PRN ×2 (15:59→18:16)
[2017-02-07] MEDS ORDERED: DEXTROSE 50% 50 ML VIAL IV PRN ×2 (15:59→18:16)
[2017-02-07] MEDS ORDERED: POTASSIUM PHOSPHATE IV SCH (16:00)
[2017-02-07] MEDS ORDERED: DEXTROSE 5% IV SCH (16:00)
[2017-02-07] MEDS ORDERED: [UNRECOGNIZED DRUG - OTHER] IV SCH (16:00)
[2017-02-07] MEDS ORDERED: INSULIN LISPRO 1 UNIT/0.01 ML UNIT SQ SCH (17:00)
[2017-02-07 17:01] LABS: Blood Urea Nitrogen 4 mg/dl (6-20)
[2017-02-07] MEDS ORDERED: PROMETHAZINE 25 MG/ML VIAL ONE (20:31)
[2017-02-07] MEDS: 0.9 % SODIUM CHLORIDE 250 ML IV SCH (21:13)
[2017-02-07] MEDS: HEPARIN 5,000 UNIT/ML VIAL SQ SCH (21:47)
[2017-02-07] MEDS: INSULIN LISPRO 1 UNIT/0.01 ML UNIT SQ SCH (21:48)
[2017-02-07] MEDS: [UNRECOGNIZED DRUG - OTHER] IV SCH (23:59)
[2017-02-08] MEDS: ONDANSETRON 4 MG/2 ML VIAL IV PRN ×4 (00:09→23:51)
[2017-02-08] MEDS: INSULIN LISPRO 1 UNIT/0.01 ML UNIT SQ SCH ×7 (00:48→21:41)
[2017-02-08] MEDS: PROMETHAZINE 25 MG/ML VIAL IV PRN ×4 (03:47→21:55)
[2017-02-08 06:02] LABS: Basophils # (Auto) 0 K/mcL (0.0-0.3); Basophils % (Auto) 0.3 % (0.0-2.0); Eosinophils # (Auto) 0 K/mcL (0.0-0.7); Eosinophils % (Auto) 0 % (0.0-7.0); Lymphocytes # (Auto) 2.3 K/mcL (1.5-4.8); Lymphocytes % (Auto) 15.5 % (15.5-49.0); Mean Cell Volume 86.5 fL (80.0-100.0); Mean Corpuscular HGB Conc 33.4 g/dL (31.0-36.0); Mean Corpuscular Hemoglobin 28.9 pg (26.0-34.0); Monocytes # (Auto) 0.6 K/mcL (0.1-0.9); Monocytes % (Auto) 4.2 % (1.0-12.0); Platelet Count 151 K/mcL (140-440); RBC 4.48 M/mcL (4.00-5.20); Red Cell Distribution Width 13.3 % (11.5-14.5)
[2017-02-08] MEDS: 0.9 % SODIUM CHLORIDE 10 ML SYRINGE IV SCH ×7 (06:03→21:43)
[2017-02-08 06:21] LABS: ALT/SGPT 11 U/l (0-40); Albumin 3.3 gm/dL (3.2-5.2); Albumin/Globulin Ratio 1.4 (1.0-2.3); Alkaline Phosphatase 113 U/L (39-117); Bilirubin,Direct < 0.2 mg/dL (0.0-0.3); Blood Urea Nitrogen 5 mg/dl (6-20); Gamma Glutamyl Transpeptidase 7 U/L (5-36); Magnesium 1.9 mg/dL (1.6-2.5); Uric Acid 4.7 mg/dL (2.5-8.0)
[2017-02-08] MEDS: POTASSIUM PHOSPHATE IV SCH (07:00)
[2017-02-08] MEDS: [UNRECOGNIZED DRUG - OTHER] IV SCH (07:00)
[2017-02-08] MEDS: DEXTROSE 5% IV SCH (07:00)
[2017-02-08] MEDS: PANTOPRAZOLE 40 MG VIAL IV SCH ×2 (07:18→17:23)
[2017-02-08] MEDS ORDERED: INSULIN GLARGINE, HUMAN 1 UNIT/0.01 ML SQ ONE (07:38)
[2017-02-08] MEDS ORDERED: cefTRIAXone 1 GM VIAL IV SCH (09:00)
[2017-02-08] MEDS: cefTRIAXone 1 GM VIAL IV SCH (09:53)
[2017-02-08] MEDS: HEPARIN 5,000 UNIT/ML VIAL SQ SCH ×2 (09:56→21:42)
[2017-02-08] MEDS: 0.9 % SODIUM CHLORIDE 250 ML IV SCH (10:10)
[2017-02-08] MEDS ORDERED: POTASSIUM CHLORIDE 20 MEQ in DEXTROSE 5% IN WATER 250 ML IV ONE (10:30)
[2017-02-08] MEDS: POTASSIUM CHLORIDE 20 MEQ in 0.45 % SODIUM CHLORIDE 1,000 ML IV SCH ×2 (11:07→21:09)
[2017-02-08] MEDS: METOCLOPRAMIDE 10 MG/2 ML VIAL IV PRN ×2 (11:10→21:45)
[2017-02-08] MEDS: SUCRALFATE 1 GM/10 ML ORAL.SUSP PO SCH ×3 (11:46→21:42)
--- NOTE | 2017-02-08 13:02 | Internal Med Progress Note ---
Medical - PN: Subj Patient information: Note initiated : 02/08/17 at 1:02 pm Service Date, if different from initiated Date: [] Patient: Patricia Toussaint 26 y/o F admitted on 02/06/17 for Ketoacidosis. Chief Complaint: [] Interval history: February 06, 2017: History of present illness: Ms. Toussaint is a 26 year old female with a long-standing history of type 1 diabetes, controlled with an insulin pump. She notes she has been under a lot of stress with studying for her masters at school, etc. She has been having issues with her insulin pump, and states the tubing keeps folding in on itself. She went to work night before last and was having difficulty with the pump, and then the tubing fell out. She says she then just manually dosed her insulin. She has had difficulty with nausea for several days. Yesterday she started vomiting, and notes that she was bringing up clear fluid, but then she started to see lots of red streaks in the fluid. She knows she was having quite a bit of epigastric pain when she was vomiting. She says her boyfriend thought perhaps she was reacting to changing her diet. She had been on a low carbohydrate diet, and had given up on that, and had noticed increased glucoses over the last several days. She has been having chills and abdominal pain as well, and has been feeling very fatigued. She notes her throat is very sore, but that started after the vomiting started. She does note that when she is vomiting and having the pain she does feel a little short of breath and feels her heart racing. She is also been having loose stools since yesterday, which is apparent the common symptom with her DKA. She denies any dysuria. ER evaluation showed glucose of 356, with bicarb of 12 and beta hydroxybutyrate level of 8.3. She was placed on IV fluids and IV insulin, and referred for admission. She otherwise denies recent fever, headache, new eye or ear symptoms, lymphadenopathy, dysuria. She was previously on omeprazole for reflux, but says she has not taken that for more than a year. February 07: The patient's acidosis was improving, and then seemed to get worse overnight. We have had a little bit of trouble getting every 2 hour chemistry results. Apparently the lab was also having trouble drawing her blood. As of 2:00, her anion gap is back to normal, and serum bicarb is back to normal. She continues on an IV insulin drip, plus D10 IV fluids with potassium phosphate. She continues to feel quite poorly, and has persistent nausea and vomiting. This is treated with Phenergan, and Zofran is ineffective, and then this makes her fall back asleep again. When she is awake she continues to report abdominal discomfort. She has had some small amounts of loose stool, and C. difficile and stool cultures have been ordered. Otherwise vital signs have been fairly stable. She is still not able to take in anything by mouth. Insulin pump is turned off. She otherwise denies fever or chills, chest pain or palpitations, shortness of breath or cough, constipation, dysuria, but her history is probably unreliable given how groggy she is.. Since IV access is such a significant problem, PICC line was placed today. February 08: Today, the patient's acidosis and glucoses are much better controlled. She has been started on Lantus to give her a basal insulin rate. At home her usual basal rate with her pump is about 36 units per day, plus another 30 or so to cover meals. Today, she still is quite nauseated and is still having intermittent vomiting, so it is not clear how much oral intake she will have. She continues on IV fluids and IV antiemetics. She continues to have moderate epigastric and substernal discomfort, mainly with vomiting. Otherwise, she denies fever or chills, headaches or dizziness, palpitations, shortness of breath or cough, diarrhea, dysuria. Leukocytosis is improved today, and she continues on IV Rocephin for empiric coverage. Medical History Cellulitis and abscess of trunk (Acute) 08/26/2014 Diabetes type 1, uncontrolled (Acute) Diabetic ketoacidosis (Acute) Gastroesophageal reflux (Acute) Hyperlipidemia (Acute) Postconcussion syndrome (Acute) Sepsis (Acute) Depression - Constitutional Vitals: Vital Signs Temp Pulse Resp BP Pulse Ox 99.5 F H 89 18 162/93 95 02/08/17 07:15 02/07/17 20:00 02/08/17 07:15 02/08/17 07:15 02/08/17 07:15 Period Temp Pulse Resp BP Sys/Butt Pulse Ox Last 24 Hr 97.9 F-100.1 F 84-89 16-20 125-169/73-94 94-98 Intake and Output 02/07/17 02/08/17 02/08/17 21:59 05:59 13:59 Intake Total 2248.0909 / 2248.0909 1104.5455 / 1104.5455 1232.5455 / 1232.5455 Output Total 550 / 550 Balance 1698.0909 / 1698.0909 1104.5455 / 1104.5455 1232.5455 / 1232.5455 Weight 239 lb Intake & Output: Intake & Output 02/07/17 02/08/17 02/08/17 21:59 05:59 13:59 Intake Total 2248.0909 / 2248.0909 1104.5455 / 1104.5455 1232.5455 / 1232.5455 Output Total 550 / 550 Balance 1698.0909 / 1698.0909 1104.5455 / 1104.5455 1232.5455 / 1232.5455 Weight 239 lb Intake: IV 1948.0909 / 1948.0909 1104.5455 / 1104.5455 1232.5455 / 1232.5455 Sodium Chloride 0.9% 250 ml @ 18 / 18 20 mls/hr IV .[id number] PAU Rx#: [id number] HumuLIN R 50 UNIT In Sodium 88 / 88 Chloride 0.9% 99.5 ml @ 7 UNIT/ HR 14 mls/hr IV DUR PAU Rx#: [id number] Potassium Phosphate 40 Meq In 1222.0909 / 1222.0909 Dextrose 10%-Water IV Solution 1,000 ml @ 150 mls/hr IV . Q6H44M PAU Rx#:[id number] Potassium Phosphate 20 Meq In 1004.5455 / 1004.5455 1004.5455 / 1004.5455 Dextrose 5%-1/2Ns IV Solution 1 ,000 ml @ 150 mls/hr IV .Q6H42M PAU Rx#:[id number] Oral 0 / 0 Other 300 / 300 Output: Void Amount 550 / 550 Other: # Voids 1 1 # Bowel Movements 0 0 # [place] 2 On exam, she is fairly somnolent. She does wake up to talk to me, but as soon as we start moving her, she starts to retch again. Neck is supple without obvious lymphadenopathy or JVD. Lungs are clear to auscultation. Abdomen is soft, but she continues to grimace with palpation of mainly her upper abdomen. Bowel sounds are somewhat hypoactive. There is no obvious guarding or rebound. Extremities show no edema. Neurologic exam: She still appears sleepy, but does wake up and answer questions appropriately. Medical - PN: Obj Da - Labs CBC & Chem 7: 02/08/17 04:00 02/08/17 04:00 Labs: Abnormal Lab Results 02/08/17 02/08/17 02/07/17 04:00 04:00 16:06 WBC 14.7 H RBC Hgb MPV 13.0 H Gran % 80.0 H Lymph % (Auto) Murray % (Auto) Gran # 11.8 H Lymph # (Auto) Potassium Chloride Carbon Dioxide 21 L Anion Gap BUN 5 L 4 L Creatinine Glucose 280 H 159 H Calcium 8.3 L 8.2 L Phosphorus 2.3 L Magnesium Alkaline Phosphatase Total Protein 5.7 L Beta-Hydroxybutyrate Urine Protein Urine Glucose (UA) Urine Ketones Urine Occult Blood Hyaline Casts 02/07/17 02/07/17 02/07/17 14:00 12:10 03:55 WBC RBC Hgb MPV Gran % Lymph % (Auto) Murray % (Auto) Gran # Lymph # (Auto) Potassium 3.2 L Chloride Carbon Dioxide 20 L 20 L Anion Gap 17.0 H 18.0 H BUN 4 L 5 L Creatinine Glucose 247 H 298 H 232 H Calcium 8.1 L 8.0 L 8.4 L Phosphorus 2.3 L 2.5 L 2.2 L Magnesium 1.4 L Alkaline Phosphatase Total Protein Beta-Hydroxybutyrate Urine Protein Urine Glucose (UA) Urine Ketones Urine Occult Blood Hyaline Casts 02/07/17 02/06/17 02/06/17 03:55 22:00 22:00 WBC 18.9 H RBC Hgb MPV 12.9 H Gran % 87.5 H Lymph % (Auto) 8.9 L Murray % (Auto) Gran # 16.5 H Lymph # (Auto) Potassium Chloride Carbon Dioxide 15 L Anion Gap 20.0 H BUN Creatinine Glucose 297 H Calcium 8.0 L Phosphorus 2.6 L Magnesium Alkaline Phosphatase Total Protein Beta-Hydroxybutyrate Urine Protein Urine Glucose (UA) Urine Ketones Urine Occult Blood Hyaline Casts 02/06/17 02/06/17 02/06/17 19:59 19:59 18:06 WBC RBC Hgb MPV Gran % Lymph % (Auto) Murray % (Auto) Gran # Lymph # (Auto) Potassium Chloride 111 H Carbon Dioxide 17 L Anion Gap 17.0 H BUN Creatinine Glucose 143 H Calcium 8.2 L Phosphorus 2.5 L 2.1 L Magnesium Alkaline Phosphatase Total Protein Beta-Hydroxybutyrate Urine Protein Urine Glucose (UA) Urine Ketones Urine Occult Blood Hyaline Casts 02/06/17 02/06/17 02/06/17 18:06 15:55 15:55 WBC RBC Hgb MPV Gran % Lymph % (Auto) Murray % (Auto) Gran # Lymph # (Auto) Potassium Chloride 109 H 109 H Carbon Dioxide 20 L 20 L Anion Gap BUN Creatinine Glucose 127 H 116 H Calcium 8.3 L Phosphorus 1.9 L Magnesium Alkaline Phosphatase Total Protein Beta-Hydroxybutyrate Urine Protein Urine Glucose (UA) Urine Ketones Urine Occult Blood Hyaline Casts 02/06/17 02/06/17 02/06/17 14:06 14:06 14:06 WBC RBC Hgb MPV Gran % Lymph % (Auto) Murray % (Auto) Gran # Lymph # (Auto) Potassium 2.9 L* Chloride Carbon Dioxide 17 L Anion Gap BUN Creatinine Glucose 663 H* Calcium 7.1 L Phosphorus 1.3 L Magnesium 1.4 L Alkaline Phosphatase Total Protein Beta-Hydroxybutyrate Urine Protein Urine Glucose (UA) Urine Ketones Urine Occult Blood Hyaline Casts 02/06/17 02/06/17 02/06/17 12:42 10:34 07:38 WBC RBC Hgb MPV Gran % Lymph % (Auto) Murray % (Auto) Gran # Lymph # (Auto) Potassium Chloride 110 H 110 H Carbon Dioxide 17 L 17 L 16 L Anion Gap 18.0 H 21.0 H BUN Creatinine Glucose 208 H 197 H 234 H Calcium 8.2 L 8.2 L Phosphorus 1.6 L 1.4 L Magnesium Alkaline Phosphatase Total Protein Beta-Hydroxybutyrate 3.66 H Urine Protein Urine Glucose (UA) Urine Ketones Urine Occult Blood Hyaline Casts 02/06/17 02/05/17 02/05/17 07:38 22:45 22:45 WBC 18.2 H RBC Hgb MPV 12.4 H Gran % 87.2 H Lymph % (Auto) 8.0 L Murray % (Auto) Gran # 15.9 H Lymph # (Auto) 1.4 L Potassium Chloride 94 L Carbon Dioxide 12 L Anion Gap 32.0 H BUN Creatinine 1.2 H Glucose 356 H Calcium Phosphorus Magnesium Alkaline Phosphatase 132 H Total Protein Beta-Hydroxybutyrate 8.30 H Urine Protein Urine Glucose (UA) Urine Ketones Urine Occult Blood Hyaline Casts 02/05/17 02/05/17 22:45 22:30 WBC 17.0 H RBC 5.39 H Hgb 15.5 H MPV 12.7 H Gran % 93.3 H Lymph % (Auto) 5.9 L Murray % (Auto) 0.7 L Gran # 15.8 H Lymph # (Auto) 1.0 L Potassium Chloride Carbon Dioxide Anion Gap BUN Creatinine Glucose Calcium Phosphorus Magnesium Alkaline Phosphatase Total Protein Beta-Hydroxybutyrate Urine Protein >=500 A Urine Glucose (UA) >=500 A Urine Ketones 80 A Urine Occult Blood 0.03 A Hyaline Casts 21 H February 07: Blood cultures are negative so far. MRSA screen is negative. Labs from 1400: Sodium 137, potassium 3.6, chloride 101, CO2 22, anion gap 14, BUN 4, creatinine 0.7 CBC: White blood cell count 18,900, hemoglobin 13, hematocrit 39, platelets 167, 000. Absolute granulocyte count 16,500 Chest x-ray: Right PICC line tip is quite distal end overlies the tricuspid valve plane. Nurses are instructed to withdraw 7 cm. Abdominal x-ray:IMPRESSION: No acute disease. Decompressed GI tract compatible with prolonged poor oral intake and vomiting February 06: Nasal MRSA screen is negative. CBC differential: Shows 15,900 neutrophils. Anion gap was initially high at 32. Follow-up this morning is improved to 21. Beta hydroxybutyrate was 8.3 on arrival, and is 3.66 on follow-up this morning. Next Urinalysis showed greater than 500 mg protein, greater than 500 mg glucose, 80 ketones, negative for nitrites and leukocyte esterase. 21 hyaline casts. Next Chest x-ray: Is read as normal. Meds: Medications Ceftriaxone Sodium (Rocephin) 1 gm IV Q24H PAU Last Admin: 02/08/17 09:53 Dose: 1 gm Dextrose (Dextrose 50%) 0 ml IV UD PRN PRN Reason: Hypoglycemia Diagnostic Test (Pha) (Accu-Chek) 1 each FS ACHS [facility] [place] Last Admin: 02/08/17 11:14 Dose: 1 each Glucose (Insta-Glucose) 15 gm PO PRN PRN PRN Reason: Hypoglycemia Heparin Sodium (Porcine) (Heparin) 5,000 unit SQ Q12 [facility] [place] Last Admin: 02/08/17 09:56 Dose: 5,000 unit Heparin Sodium (Porcine) (Heparin Flush) 2 ml IV Q12 [facility] [place] Last Admin: 02/08/17 09:55 Dose: 2 ml Acetaminophen (Ofirmev) 1,000 mg in 100 mls @ 200 mls/hr IV Q6HP PRN PRN Reason: PAIN/FEVER > 101 Last Infusion: 02/08/17 01:00 Dose: Infused Potassium Chloride 20 meq/ (Sodium Chloride) 1,010 mls @ 100 mls/hr IV .Q10H6M [facility] [place] Last Admin: 02/08/17 11:07 Dose: 100 mls/hr Insulin Glargine (Lantus) 15 unit SQ BID [facility] [place] Insulin Human Lispro (Humalog) 0 unit SQ [facility] PRN Reason: Protocol Last Admin: 02/08/17 11:14 Dose: Not Given Metoclopramide HCl (Reglan) 5 mg IV TIDAC PRN PRN Reason: Nausea And Vomiting Last Admin: 02/08/17 11:10 Dose: 5 mg Ondansetron HCl (Zofran) 4 mg IV Q4-6HP PRN PRN Reason: Nausea And Vomiting Last Admin: 02/08/17 08:37 Dose: 4 mg Pantoprazole Sodium (Protonix) 40 mg IV BIDAC [facility] [place] Last Admin: 02/08/17 07:18 Dose: 40 mg Promethazine HCl (Phenergan) 12.5 mg IV Q4-6HP PRN PRN Reason: Nausea And Vomiting Last Admin: 02/08/17 10:08 Dose: 12.5 mg Sodium Chloride (Saline Flush) 10 ml IV Q8 [facility] [place] Last Admin: 02/08/17 11:09 Dose: 10 ml Sucralfate (Carafate) 1 gm PO LOCATED WITHIN [facility] Last Admin: 02/08/17 11:46 Dose: 1 gm Medical - PN: A/P - Time Spent With Patient Total time spent is greater than 50% in coordination of care (as documented) at patient's floor/unit and/or counseling patient: 25 - 35 minutes (1) Diarrhea Status: Acute Current Visit: No (2) DKA (diabetic ketoacidoses) Status: Acute Current Visit: No (3) Diabetes type 1, uncontrolled Status: Chronic Current Visit: No - Narrative A/P Narrative: #1. Endocrine. Patient presents with severe metabolic acidosis, due to diabetic ketoacidosis. The cause of this is not entirely clear. Patient does have a markedly elevated white blood cell count, but her main symptom is diarrhea, as with previous episodes. Chest x-ray and urinalysis did not show obvious infection. -Acidosis has essentially resolved. I hope you incision her back to her insulin pump, but so far she is just not felt well enough to do that, so we are covering her with Lantus and sliding scale insulin. I have added Reglan to her regimen of Zofran and Phenergan, to try to get control of her nausea. Continue IV fluids for now. -it sounds like she needs to follow-up with either an senior sas developer or an insulin pump slip maker, to figure out why her pump is malfunctioning. 2. CODE STATUS: Full code. 3. DVT prophylaxis: Subcu heparin. 4. GI. history of GERD. She also reports blood in her emesis today. She may well have gastritis or esophagitis. -We added Carafate slurry today to be given before meals. -IV proton pump inhibitor. -Monitor hemoglobin. Diarrhea. She often has loose stools with her episodes of DKA, but we will send stool studies to be sure we are not missing an infection. I do not believe we have any stool study results yet. 5. Pulmonary. Reported history of asthma, without recent symptoms. 6. Infectious disease. Patient presented with marked leukocytosis. This continues today, and is of uncertain etiology. It may be caused by her DKA, or occult infection. So far, chest x-ray, abdominal x-ray, urinalysis is unrevealing. I went ahead and started empiric Rocephin today, just to be sure we were not missing an intra- abdominal gram-negative infection. Blood cultures are negative so far. We are awaiting stool studies as well. Approximately 30 minutes has been spent so far today, interviewing and examining her, reviewing plan of care with nurses and other staff, reviewing several sets of labs, and adjusting medications. Medical - PN: Qual - VTE Deep Vein Thrombosis/Pulmonary Embolism Present on Admission: No
[2017-02-08] MEDS: INSULIN GLARGINE, HUMAN 1 UNIT/0.01 ML SQ SCH (21:41)
[2017-02-09 05:54] LABS: Basophils # (Auto) 0 K/mcL (0.0-0.3); Basophils % (Auto) 0.4 % (0.0-2.0); Eosinophils # (Auto) 0 K/mcL (0.0-0.7); Eosinophils % (Auto) 0.2 % (0.0-7.0); Granulocytes % (Auto) 67.2 % (38.0-78.0); Lymphocytes # (Auto) 2.3 K/mcL (1.5-4.8); Lymphocytes % (Auto) 25.7 % (15.5-49.0); Mean Cell Volume 85.4 fL (80.0-100.0); Mean Corpuscular HGB Conc 33.3 g/dL (31.0-36.0); Mean Corpuscular Hemoglobin 28.5 pg (26.0-34.0); Monocytes # (Auto) 0.6 K/mcL (0.1-0.9); Monocytes % (Auto) 6.5 % (1.0-12.0); Platelet Count 148 K/mcL (140-440); RBC 4.55 M/mcL (4.00-5.20); Red Cell Distribution Width 12.7 % (11.5-14.5)
[2017-02-09] MEDS: PANTOPRAZOLE 40 MG VIAL IV SCH ×2 (06:54→16:35)
[2017-02-09] MEDS: SUCRALFATE 1 GM/10 ML ORAL.SUSP PO SCH ×4 (06:58→20:45)
[2017-02-09] MEDS: ONDANSETRON 4 MG/2 ML VIAL IV PRN ×3 (06:59→19:38)
[2017-02-09] MEDS: METOCLOPRAMIDE 10 MG/2 ML VIAL IV PRN (07:16)
[2017-02-09] MEDS: POTASSIUM CHLORIDE 20 MEQ in 0.45 % SODIUM CHLORIDE 1,000 ML IV SCH ×3 (07:20→19:48)
[2017-02-09] MEDS: INSULIN LISPRO 1 UNIT/0.01 ML UNIT SQ SCH ×4 (07:26→20:46)
[2017-02-09 07:52] LABS: ALT/SGPT 10 U/l (0-40); Albumin 3.3 gm/dL (3.2-5.2); Albumin/Globulin Ratio 1.4 (1.0-2.3); Alkaline Phosphatase 102 U/L (39-117); Blood Urea Nitrogen 6 mg/dl (6-20)
[2017-02-09] MEDS: HEPARIN 5,000 UNIT/ML VIAL SQ SCH ×2 (08:31→20:46)
[2017-02-09] MEDS: INSULIN GLARGINE, HUMAN 1 UNIT/0.01 ML SQ SCH (08:31)
[2017-02-09] MEDS: 0.9 % SODIUM CHLORIDE 10 ML SYRINGE IV PRN ×2 (08:32→08:34)
[2017-02-09] MEDS: cefTRIAXone 1 GM VIAL IV SCH (08:38)
[2017-02-09] MEDS: PROMETHAZINE 25 MG/ML VIAL IV PRN ×3 (09:38→23:13)
[2017-02-09] MEDS ORDERED: INSULIN GLARGINE, HUMAN 1 UNIT/0.01 ML SQ ONE (11:02)
--- NOTE | 2017-02-09 12:30 | Internal Med Progress Note ---
Medical - PN: Subj Patient information: Note initiated : 02/09/17 at 12:30 pm Service Date, if different from initiated Date: [] Patient: Patricia Toussaint 26 y/o F admitted on 02/06/17 for Ketoacidosis. Chief Complaint: [] Interval history: February 06, 2017: History of present illness: Ms. Toussaint is a 26 year old female with a long-standing history of type 1 diabetes, controlled with an insulin pump. She notes she has been under a lot of stress with studying for her masters at school, etc. She has been having issues with her insulin pump, and states the tubing keeps folding in on itself. She went to work night before last and was having difficulty with the pump, and then the tubing fell out. She says she then just manually dosed her insulin. She has had difficulty with nausea for several days. Yesterday she started vomiting, and notes that she was bringing up clear fluid, but then she started to see lots of red streaks in the fluid. She knows she was having quite a bit of epigastric pain when she was vomiting. She says her boyfriend thought perhaps she was reacting to changing her diet. She had been on a low carbohydrate diet, and had given up on that, and had noticed increased glucoses over the last several days. She has been having chills and abdominal pain as well, and has been feeling very fatigued. She notes her throat is very sore, but that started after the vomiting started. She does note that when she is vomiting and having the pain she does feel a little short of breath and feels her heart racing. She is also been having loose stools since yesterday, which is apparent the common symptom with her DKA. She denies any dysuria. ER evaluation showed glucose of 356, with bicarb of 12 and beta hydroxybutyrate level of 8.3. She was placed on IV fluids and IV insulin, and referred for admission. She otherwise denies recent fever, headache, new eye or ear symptoms, lymphadenopathy, dysuria. She was previously on omeprazole for reflux, but says she has not taken that for more than a year. February 07: The patient's acidosis was improving, and then seemed to get worse overnight. We have had a little bit of trouble getting every 2 hour chemistry results. Apparently the lab was also having trouble drawing her blood. As of 2:00, her anion gap is back to normal, and serum bicarb is back to normal. She continues on an IV insulin drip, plus D10 IV fluids with potassium phosphate. She continues to feel quite poorly, and has persistent nausea and vomiting. This is treated with Phenergan, and Zofran is ineffective, and then this makes her fall back asleep again. When she is awake she continues to report abdominal discomfort. She has had some small amounts of loose stool, and C. difficile and stool cultures have been ordered. Otherwise vital signs have been fairly stable. She is still not able to take in anything by mouth. Insulin pump is turned off. She otherwise denies fever or chills, chest pain or palpitations, shortness of breath or cough, constipation, dysuria, but her history is probably unreliable given how groggy she is.. Since IV access is such a significant problem, PICC line was placed today. February 08: Today, the patient's acidosis and glucoses are much better controlled. She has been started on Lantus to give her a basal insulin rate. At home her usual basal rate with her pump is about 36 units per day, plus another 30 or so to cover meals. Today, she still is quite nauseated and is still having intermittent vomiting, so it is not clear how much oral intake she will have. She continues on IV fluids and IV antiemetics. She continues to have moderate epigastric and substernal discomfort, mainly with vomiting. Otherwise, she denies fever or chills, headaches or dizziness, palpitations, shortness of breath or cough, diarrhea, dysuria. Leukocytosis is improved today, and she continues on IV Rocephin for empiric coverage. February 09: Today, the patient is starting to feel a bit better, but continues to have significant nausea, and vomits every time she tries to eat a few bites of just about anything. She continues to have epigastric and substernal discomfort, but does say that it seems a little better since she started on the oral Carafate. She otherwise denies fever chills, cough or shortness of breath, chest pain or palpitations. She did have a little bit of loose stool this morning. She continues to have significant abdominal discomfort. Blood glucose is still running high, and we are managing with subcu Lantus plus sliding scale. She says she could start herself back on her pump today if we want her to, but her oral intake is still minimal. -I spoke with Dr. Hines of GI this morning, as well as with Dr. Franco of radiology. We are going to try seeing if she could tolerate some oral contrast, and then do a CT of her abdomen and pelvis. If she can drink enough volume, Dr. Franco says he might get a good look at her esophagus, stomach , duodenum as well. Medical History Cellulitis and abscess of trunk (Acute) 08/26/2014 Diabetes type 1, uncontrolled (Acute) Diabetic ketoacidosis (Acute) Gastroesophageal reflux (Acute) Hyperlipidemia (Acute) Postconcussion syndrome (Acute) Sepsis (Acute) Depression - Constitutional Vitals: Vital Signs 9.0 F H 9Temp Pulse Resp BP Pulse Ox temp 99.0 87 20 151/85 94 02/09/17 11:44 02/08/17 20:00 02/09/17 11:44 02/09/17 11:44 02/09/17 11:44 Period Temp Pulse Resp BP Sys/Butt Pulse Ox Last 24 Hr 97.0 F-99.5 F 76-87 18-20 149-173/68-100 94-97 Intake and Output 02/08/17 02/09/17 02/09/17 21:59 05:59 13:59 Intake Total 1003 / 1003 0 / 0 1010 / 1010 Output Total 800 / 800 300 / 300 1250 / 1250 Balance 203 / 203 -300 / -300 -240 / -240 Weight 242 lb 6.4 oz Intake & Output: Intake & Output 02/08/17 02/09/17 02/09/17 21:59 05:59 13:59 Intake Total 1003 / 1003 0 / 0 1010 / 1010 Output Total 800 / 800 300 / 300 1250 / 1250 Balance 203 / 203 -300 / -300 -240 / -240 Weight 242 lb 6.4 oz Intake: IV 1003 / 1003 1010 / 1010 Potassium Chloride 20 Meq In 1003 / 1003 1010 / 1010 Sodium Chloride 0.45% 1,000 ml @ 100 mls/hr IV .Q10H6M COUNTS INCLUDE 234 BEDS AT THE [facility] Rx# :[id number] Oral 0 / 0 Output: Void Amount 800 / 800 300 / 300 1100 / 1100 Emesis 150 / 150 Other: # Bowel Movements 1 0 # Emeses 1 On exam, she is less somnolent than yesterday. Her nurse notes that she tried to eat about 2 tablespoons of applesauce earlier, and immediately vomited. She did just try again a few minutes ago, and has so far not vomited. Neck is supple without obvious lymphadenopathy or JVD. Lungs are clear to auscultation. Abdomen is soft, but she continues to grimace with palpation of mainly her upper abdomen. Bowel sounds are somewhat hypoactive. There is no obvious guarding or rebound. Extremities show no edema. Neurologic exam: She still appears sleepy, but does wake up and answer questions appropriately. Medical - PN: Obj Da - Labs CBC & Chem 7: 02/09/17 04:00 02/09/17 06:42 Labs: Abnormal Lab Results 02/09/17 02/09/17 02/08/17 06:42 04:00 04:00 WBC MPV 12.7 H Gran % Lymph % (Auto) Gran # Potassium Chloride Carbon Dioxide 21 L Anion Gap BUN 5 L Glucose 312 H 280 H Calcium 8.3 L 8.3 L Phosphorus Magnesium Total Protein 5.7 L 5.7 L 02/08/17 02/07/17 02/07/17 04:00 16:06 14:00 WBC 14.7 H MPV 13.0 H Gran % 80.0 H Lymph % (Auto) Gran # 11.8 H Potassium Chloride Carbon Dioxide Anion Gap BUN 4 L 4 L Glucose 159 H 247 H Calcium 8.2 L 8.1 L Phosphorus 2.3 L 2.3 L Magnesium Total Protein 02/07/17 02/07/17 02/07/17 12:10 03:55 03:55 WBC 18.9 H MPV 12.9 H Gran % 87.5 H Lymph % (Auto) 8.9 L Gran # 16.5 H Potassium 3.2 L Chloride Carbon Dioxide 20 L 20 L Anion Gap 17.0 H 18.0 H BUN 5 L Glucose 298 H 232 H Calcium 8.0 L 8.4 L Phosphorus 2.5 L 2.2 L Magnesium 1.4 L Total Protein 02/06/17 02/06/17 02/06/17 22:00 22:00 19:59 WBC MPV Gran % Lymph % (Auto) Gran # Potassium Chloride Carbon Dioxide 15 L Anion Gap 20.0 H BUN Glucose 297 H Calcium 8.0 L Phosphorus 2.6 L 2.5 L Magnesium Total Protein 02/06/17 02/06/17 02/06/17 19:59 18:06 18:06 WBC MPV Gran % Lymph % (Auto) Gran # Potassium Chloride 111 H 109 H Carbon Dioxide 17 L 20 L Anion Gap 17.0 H BUN Glucose 143 H 127 H Calcium 8.2 L 8.3 L Phosphorus 2.1 L Magnesium Total Protein 02/06/17 02/06/17 02/06/17 15:55 15:55 14:06 WBC MPV Gran % Lymph % (Auto) Gran # Potassium Chloride 109 H Carbon Dioxide 20 L Anion Gap BUN Glucose 116 H Calcium Phosphorus 1.9 L 1.3 L Magnesium Total Protein 02/06/17 02/06/17 02/06/17 14:06 14:06 12:42 WBC MPV Gran % Lymph % (Auto) Gran # Potassium 2.9 L* Chloride 110 H Carbon Dioxide 17 L 17 L Anion Gap BUN Glucose 663 H* 208 H Calcium 7.1 L 8.2 L Phosphorus 1.6 L Magnesium 1.4 L Total Protein 02/06/17 10:34 WBC MPV Gran % Lymph % (Auto) Gran # Potassium Chloride 110 H Carbon Dioxide 17 L Anion Gap 18.0 H BUN Glucose 197 H Calcium 8.2 L Phosphorus 1.4 L Magnesium Total Protein February 08: Stool culture is negative so far. February 07: Blood cultures are negative so far. MRSA screen is negative. Labs from 1400: Sodium 137, potassium 3.6, chloride 101, CO2 22, anion gap 14, BUN 4, creatinine 0.7 CBC: White blood cell count 18,900, hemoglobin 13, hematocrit 39, platelets 167, 000. Absolute granulocyte count 16,500 Chest x-ray: Right PICC line tip is quite distal end overlies the tricuspid valve plane. Nurses are instructed to withdraw 7 cm. Abdominal x-ray:IMPRESSION: No acute disease. Decompressed GI tract compatible with prolonged poor oral intake and vomiting February 06: Nasal MRSA screen is negative. CBC differential: Shows 15,900 neutrophils. Anion gap was initially high at 32. Follow-up this morning is improved to 21. Beta hydroxybutyrate was 8.3 on arrival, and is 3.66 on follow-up this morning. Next Urinalysis showed greater than 500 mg protein, greater than 500 mg glucose, 80 ketones, negative for nitrites and leukocyte esterase. 21 hyaline casts. Next Chest x-ray: Is read as normal. Meds: Medications Ceftriaxone Sodium (Rocephin) 1 gm IV Q24H COUNTS INCLUDE 234 BEDS AT THE [facility] Last Admin: 02/09/17 08:38 Dose: 1 gm Dextrose (Dextrose 50%) 0 ml IV UD PRN PRN Reason: Hypoglycemia Diagnostic Test (Pha) (Accu-Chek) 1 each FS ACHS COUNTS INCLUDE 234 BEDS AT THE [facility] Last Admin: 02/09/17 11:52 Dose: 1 each Glucose (Insta-Glucose) 15 gm PO PRN PRN PRN Reason: Hypoglycemia Heparin Sodium (Porcine) (Heparin) 5,000 unit SQ Q12 COUNTS INCLUDE 234 BEDS AT THE [facility] Last Admin: 02/09/17 08:31 Dose: 5,000 unit Heparin Sodium (Porcine) (Heparin Flush) 2 ml IV Q12 COUNTS INCLUDE 234 BEDS AT THE [facility] Last Admin: 02/09/17 08:33 Dose: 2 ml Acetaminophen (Ofirmev) 1,000 mg in 100 mls @ 200 mls/hr IV Q6HP PRN PRN Reason: PAIN/FEVER > 101 Last Infusion: 02/08/17 01:00 Dose: Infused Potassium Chloride 20 meq/ (Sodium Chloride) 1,010 mls @ 100 mls/hr IV .Q10H6M COUNTS INCLUDE 234 BEDS AT THE [facility] Last Admin: 02/09/17 07:20 Dose: 100 mls/hr Insulin Glargine (Lantus) 20 unit SQ BID COUNTS INCLUDE 234 BEDS AT THE [facility] Insulin Human Lispro (Humalog) 0 unit SQ ACHS COUNTS INCLUDE 234 BEDS AT THE [facility] PRN Reason: Protocol Last Admin: 02/09/17 11:56 Dose: 2 unit Metoclopramide HCl (Reglan) 5 mg IV TIDAC PRN PRN Reason: Nausea And Vomiting Last Admin: 02/09/17 07:16 Dose: 5 mg Ondansetron HCl (Zofran) 4 mg IV Q4-6HP PRN PRN Reason: Nausea And Vomiting Last Admin: 02/09/17 06:59 Dose: 4 mg Pantoprazole Sodium (Protonix) 40 mg IV BIDAC COUNTS INCLUDE 234 BEDS AT THE [facility] Last Admin: 02/09/17 06:54 Dose: 40 mg Pneumococcal Polyvalent Vaccine (Pneumovax 23) 0.5 ml IM .ONCE ONE Stop: 11/05/17 10:01 Promethazine HCl (Phenergan) 12.5 mg IV Q4-6HP PRN PRN Reason: Nausea And Vomiting Last Admin: 02/09/17 09:38 Dose: 12.5 mg Sodium Chloride (Saline Flush) 10 ml IV UD PRN PRN Reason: FLUSH Last Admin: 02/09/17 08:34 Dose: 10 ml Sucralfate (Carafate) 1 gm PO ACHS PAU Last Admin: 02/09/17 11:52 Dose: 1 gm Medical - PN: A/P - Time Spent With Patient Total time spent is greater than 50% in coordination of care (as documented) at patient's floor/unit and/or counseling patient: Greater than 35 minutes (1) Diarrhea Status: Acute Current Visit: No (2) DKA (diabetic ketoacidoses) Status: Acute Current Visit: No (3) Diabetes type 1, uncontrolled Status: Chronic Current Visit: No - Narrative A/P Narrative: #1. Endocrine. Patient presents with severe metabolic acidosis, due to diabetic ketoacidosis. The cause of this is not entirely clear. Patient does have a markedly elevated white blood cell count, but her main symptom is diarrhea, as with previous episodes. Chest x-ray and urinalysis did not show obvious infection. -Acidosis has essentially resolved. Blood glucoses are running a bit on the high side, so I will increase her Lantus dose today. When she is feeling better we will resume her insulin pump. Although there is some concern that it may be malfunctioning. -it sounds like she needs to follow-up with either an jammer operator or an insulin pump bird raiser, to figure out why her pump is malfunctioning. 2. CODE STATUS: Full code. 3. DVT prophylaxis: Subcu heparin. 4. GI. history of GERD. She also reports blood in her emesis . She may well have gastritis or esophagitis. -We added Carafate slurry today to be given before meals. She is getting IV Zofran, Phenergan, Reglan to help control her nausea, but it persists. -IV proton pump inhibitor. -Monitor hemoglobin. -Reviewed her case today with both GI and radiology. We are going to attempt a CT scan of her abdomen and pelvis, and maybe get a look at her esophagus as well. I am not confident, however, that she can hold down oral contrast. Diarrhea. She often has loose stools with her episodes of DKA, and stool studies are still pending at this time. 5. Pulmonary. Reported history of asthma, without recent symptoms. 6. Infectious disease. Patient presented with marked leukocytosis. Etiology was uncertain, but she was started on empiric Rocephin when this did not improve. Today her white count is down to normal. Blood cultures are negative so far. We are awaiting stool studies as well. Approximately 35 minutes has been spent so far today, interviewing and examining her, reviewing plan of care with nurses and other staff, given her case with both GI and radiology. Addendum: Patient CT scan: IMPRESSION: No intra-abdominal or intrapelvic abnormality. Possible focal inflammation in Camper's fascia right midabdomen. Please correlate with physical exam I reviewed her CAT scan with Dr. Sen. He says this finding is most likely due to her insulin pump, but could be important if that is where she is having tenderness. He will stop by 2 look at her in the morning. Medical - PN: Qual - VTE Deep Vein Thrombosis/Pulmonary Embolism Present on Admission: No
[2017-02-09] MEDS ORDERED: IOPAMIDOL 100 ML BOTTLE IV ONE (14:44)
--- NOTE | 2017-02-09 15:06 | Cat Scan Report ---
CLINICAL INFORMATION: Epigastric pain nausea and vomiting diabetic ketoacidosis COMPARISON: None. TECHNIQUE: Following enteric contrast, 80 cc of Isovue-300 were injected intravenously, and 60 seconds later, 2.5 mm helical slices were obtained from the mid heart through the subtrochanteric regions. Following reconstruction, 2.5 mm sagittal, coronal and axial reformatted images were processed and reviewed at bone, lung and soft tissue windows. Five minutes later, 5 mm helical slices were obtained from the mid heart through the kidneys and viewed at soft tissue windows. FINDINGS: Lung bases show no abnormality - no effusion. Visualized heart is normal. Images through the abdomen show the gallbladder and bile ducts, liver, both kidneys, adrenal glands, spleen, pancreas and aorta, including aortic branches, to be normal in size, configuration and attenuation without focal lesion. There is no free air, free fluid and no adenopathy. Images through the pelvis show uterus and both ovaries to be unremarkable. The stomach, small and large bowel including the appendix are unremarkable. There is a small amount of edema or inflammation in Camper's fascia the right midabdomen with small amounts of gas. Bone windows show no osseous abnormality IMPRESSION: No intra-abdominal or intrapelvic abnormality. Possible focal inflammation in Camper's fascia right midabdomen. Please correlate with physical exam Interpreted and Authenticated by: Carl Franco 02/09/17
[2017-02-09] MEDS ORDERED: DEXTROSE 50% 50 ML VIAL IV PRN (18:32)
[2017-02-09] MEDS ORDERED: 0.9 % SODIUM CHLORIDE 10 ML SYRINGE IV PRN (18:32)
[2017-02-09] MEDS ORDERED: DEXTROSE 31 GM ORAL.SUSP PO PRN (18:32)
[2017-02-09] MEDS ORDERED: METOCLOPRAMIDE 10 MG/2 ML VIAL IV PRN (18:32)
[2017-02-09] MEDS ORDERED: INSULIN GLARGINE, HUMAN 1 UNIT/0.01 ML SQ SCH ×2 (21:00)
[2017-02-10] MEDS: PROMETHAZINE 25 MG/ML VIAL IV PRN ×2 (04:39→18:59)
[2017-02-10] MEDS: POTASSIUM CHLORIDE 20 MEQ in 0.45 % SODIUM CHLORIDE 1,000 ML IV SCH ×2 (04:40→15:45)
[2017-02-10 06:27] LABS: Basophils # (Auto) 0 K/mcL (0.0-0.3); Basophils % (Auto) 0.6 % (0.0-2.0); Eosinophils # (Auto) 0.1 K/mcL (0.0-0.7); Lymphocytes # (Auto) 2.1 K/mcL (1.5-4.8); Lymphocytes % (Auto) 27.9 % (15.5-49.0); Mean Cell Volume 85.4 fL (80.0-100.0); Mean Corpuscular HGB Conc 33.7 g/dL (31.0-36.0); Mean Corpuscular Hemoglobin 28.8 pg (26.0-34.0); Monocytes # (Auto) 0.6 K/mcL (0.1-0.9); Monocytes % (Auto) 7.5 % (1.0-12.0); Platelet Count 135 K/mcL (140-440); RBC 4.65 M/mcL (4.00-5.20); Red Cell Distribution Width 12.7 % (11.5-14.5)
[2017-02-10 07:08] LABS: ALT/SGPT 9 U/l (0-40); Albumin 3.4 gm/dL (3.2-5.2); Albumin/Globulin Ratio 1.4 (1.0-2.3); Alkaline Phosphatase 101 U/L (39-117); Bilirubin,Direct < 0.2 mg/dL (0.0-0.3); Blood Urea Nitrogen 5 mg/dl (6-20); Gamma Glutamyl Transpeptidase 10 U/L (5-36); Magnesium 1.8 mg/dL (1.6-2.5); Uric Acid 4.1 mg/dL (2.5-8.0)
[2017-02-10] MEDS: INSULIN LISPRO 1 UNIT/0.01 ML UNIT SQ SCH ×4 (07:47→21:17)
[2017-02-10] MEDS: PANTOPRAZOLE 40 MG VIAL IV SCH ×2 (08:04→17:00)
[2017-02-10] MEDS: ONDANSETRON 4 MG/2 ML VIAL IV PRN ×2 (08:04→17:58)
[2017-02-10] MEDS: ACETAMINOPHEN 1,000 MG/100 ML BOTTLE IV PRN ×2 (08:05→22:53)
[2017-02-10] MEDS: SUCRALFATE 1 GM/10 ML ORAL.SUSP PO SCH ×4 (09:54→22:31)
[2017-02-10] MEDS: HEPARIN 5,000 UNIT/ML VIAL SQ SCH ×2 (09:55→21:18)
[2017-02-10] MEDS: INSULIN GLARGINE, HUMAN 1 UNIT/0.01 ML SQ SCH ×2 (09:56→21:17)
[2017-02-10] MEDS: cefTRIAXone 1 GM VIAL IV SCH (09:57)
[2017-02-10] MEDS ORDERED: PNEUMOCOCCAL 23-VAL P-SAC VAC 0.5 ML VIAL IM ONE (10:00)
[2017-02-10] MEDS ORDERED: FLU VACC QS2017-18 36MOS UP/PF 60 MCG/0.5 ML SYRINGE IM ONE (10:00)
--- NOTE | 2017-02-10 10:12 | Internal Med Progress Note ---
Medical - PN: Subj Patient information: Note initiated : 02/10/17 at 10:12 am Service Date, if different from initiated Date: [] Patient: Patricia Toussaint 26 y/o F admitted on 02/06/17 for Ketoacidosis. Chief Complaint: [] Interval history: February 06, 2017: History of present illness: Ms. Toussaint is a 26 year old female with a long-standing history of type 1 diabetes, controlled with an insulin pump. She notes she has been under a lot of stress with studying for her masters at school, etc. She has been having issues with her insulin pump, and states the tubing keeps folding in on itself. She went to work night before last and was having difficulty with the pump, and then the tubing fell out. She says she then just manually dosed her insulin. She has had difficulty with nausea for several days. Yesterday she started vomiting, and notes that she was bringing up clear fluid, but then she started to see lots of red streaks in the fluid. She knows she was having quite a bit of epigastric pain when she was vomiting. She says her boyfriend thought perhaps she was reacting to changing her diet. She had been on a low carbohydrate diet, and had given up on that, and had noticed increased glucoses over the last several days. She has been having chills and abdominal pain as well, and has been feeling very fatigued. She notes her throat is very sore, but that started after the vomiting started. She does note that when she is vomiting and having the pain she does feel a little short of breath and feels her heart racing. She is also been having loose stools since yesterday, which is apparent the common symptom with her DKA. She denies any dysuria. ER evaluation showed glucose of 356, with bicarb of 12 and beta hydroxybutyrate level of 8.3. She was placed on IV fluids and IV insulin, and referred for admission. She otherwise denies recent fever, headache, new eye or ear symptoms, lymphadenopathy, dysuria. She was previously on omeprazole for reflux, but says she has not taken that for more than a year. February 07: The patient's acidosis was improving, and then seemed to get worse overnight. We have had a little bit of trouble getting every 2 hour chemistry results. Apparently the lab was also having trouble drawing her blood. As of 2:00, her anion gap is back to normal, and serum bicarb is back to normal. She continues on an IV insulin drip, plus D10 IV fluids with potassium phosphate. She continues to feel quite poorly, and has persistent nausea and vomiting. This is treated with Phenergan, and Zofran is ineffective, and then this makes her fall back asleep again. When she is awake she continues to report abdominal discomfort. She has had some small amounts of loose stool, and C. difficile and stool cultures have been ordered. Otherwise vital signs have been fairly stable. She is still not able to take in anything by mouth. Insulin pump is turned off. She otherwise denies fever or chills, chest pain or palpitations, shortness of breath or cough, constipation, dysuria, but her history is probably unreliable given how groggy she is.. Since IV access is such a significant problem, PICC line was placed today. February 08: Today, the patient's acidosis and glucoses are much better controlled. She has been started on Lantus to give her a basal insulin rate. At home her usual basal rate with her pump is about 36 units per day, plus another 30 or so to cover meals. Today, she still is quite nauseated and is still having intermittent vomiting, so it is not clear how much oral intake she will have. She continues on IV fluids and IV antiemetics. She continues to have moderate epigastric and substernal discomfort, mainly with vomiting. Otherwise, she denies fever or chills, headaches or dizziness, palpitations, shortness of breath or cough, diarrhea, dysuria. Leukocytosis is improved today, and she continues on IV Rocephin for empiric coverage. February 09: Today, the patient is starting to feel a bit better, but continues to have significant nausea, and vomits every time she tries to eat a few bites of just about anything. She continues to have epigastric and substernal discomfort, but does say that it seems a little better since she started on the oral Carafate. She otherwise denies fever chills, cough or shortness of breath, chest pain or palpitations. She did have a little bit of loose stool this morning. She continues to have significant abdominal discomfort. Blood glucose is still running high, and we are managing with subcu Lantus plus sliding scale. She says she could start herself back on her pump today if we want her to, but her oral intake is still minimal. -I spoke with Dr. Hines of GI this morning, as well as with Dr. Franco of radiology. We are going to try seeing if she could tolerate some oral contrast, and then do a CT of her abdomen and pelvis. If she can drink enough volume, Dr. Franco says he might get a good look at her esophagus, stomach , duodenum as well. February 10: Today, the patient says she feels a bit better, but she still has frequent episodes of nausea and vomiting. Her blood glucose dropped to 54 this morning, and she was given an oral glucose gel. She had to struggle to keep that down. She continues to have severe nausea. Her upper abdominal pain persists, but is less intense than yesterday. She had an abdominal CT last night that showed some minor inflammation in the area of her insulin pump. I have asked Dr. Sen to check in on her today, to see if that finding is important. Otherwise she is not having fever or chills, chest pain or palpitations, shortness of breath, diarrhea or constipation or dysuria. Medical History Cellulitis and abscess of trunk (Acute) 08/26/2014 Diabetes type 1, uncontrolled (Acute) Diabetic ketoacidosis (Acute) Gastroesophageal reflux (Acute) Hyperlipidemia (Acute) Postconcussion syndrome (Acute) Sepsis (Acute) Depression - Constitutional Vitals: Vital Signs Temp Pulse Resp BP Pulse Ox 98.2 F 75 18 143/93 94 02/10/17 07:31 02/10/17 07:31 02/10/17 07:31 02/10/17 07:31 02/10/17 07:31 Period Temp Pulse Resp BP Sys/Butt Pulse Ox Last 24 Hr 98.2 F-99.2 F 75-88 17-20 123-159/76-93 94-97 Intake and Output 02/09/17 02/10/17 02/10/17 22:59 05:59 13:59 Intake Total Output Total Balance Weight Intake & Output: Intake & Output 02/09/17 02/10/17 02/10/17 22:59 05:59 13:59 Intake Total Output Total Balance Weight Intake: IV Potassium Chloride 20 Meq In Sodium Chloride 0.45% 1,000 ml @ 100 mls/hr IV .Q10H6M [facility] Rx# :[id number] Output: Void Amount Emesis On exam, she is less somnolent than yesterday. Neck is supple without obvious lymphadenopathy or JVD. Lungs are clear to auscultation. Abdomen is soft, but she continues to grimace with palpation of mainly her upper abdomen. Bowel sounds are somewhat hypoactive. There is no obvious guarding or rebound. Extremities show no edema. Neurologic exam: She is less sleepy today. Exam is nonfocal. Medical - PN: Obj Da - Labs CBC & Chem 7: 02/10/17 04:30 02/10/17 04:30 Labs: Abnormal Lab Results 02/10/17 02/10/17 02/09/17 04:30 04:30 06:42 WBC Plt Count 135 L MPV 11.7 H Gran % Gran # Carbon Dioxide Anion Gap BUN 5 L Glucose 312 H Calcium 8.3 L Phosphorus Total Protein 5.7 L 02/09/17 02/08/17 02/08/17 04:00 04:00 04:00 WBC 14.7 H Plt Count MPV 12.7 H 13.0 H Gran % 80.0 H Gran # 11.8 H Carbon Dioxide 21 L Anion Gap BUN 5 L Glucose 280 H Calcium 8.3 L Phosphorus Total Protein 5.7 L 02/07/17 02/07/17 02/07/17 16:06 14:00 12:10 WBC Plt Count MPV Gran % Gran # Carbon Dioxide 20 L Anion Gap 17.0 H BUN 4 L 4 L 5 L Glucose 159 H 247 H 298 H Calcium 8.2 L 8.1 L 8.0 L Phosphorus 2.3 L 2.3 L 2.5 L Total Protein February 09: CT of abdomen and pelvis: IMPRESSION: No intra-abdominal or intrapelvic abnormality. Possible focal inflammation in Camper's fascia right midabdomen. Please correlate with physical exam February 08: Stool culture is negative so far. February 07: Blood cultures are negative so far. MRSA screen is negative. Labs from 1400: Sodium 137, potassium 3.6, chloride 101, CO2 22, anion gap 14, BUN 4, creatinine 0.7 CBC: White blood cell count 18,900, hemoglobin 13, hematocrit 39, platelets 167, 000. Absolute granulocyte count 16,500 Chest x-ray: Right PICC line tip is quite distal end overlies the tricuspid valve plane. Nurses are instructed to withdraw 7 cm. Abdominal x-ray:IMPRESSION: No acute disease. Decompressed GI tract compatible with prolonged poor oral intake and vomiting February 06: Nasal MRSA screen is negative. CBC differential: Shows 15,900 neutrophils. Anion gap was initially high at 32. Follow-up this morning is improved to 21. Beta hydroxybutyrate was 8.3 on arrival, and is 3.66 on follow-up this morning. Next Urinalysis showed greater than 500 mg protein, greater than 500 mg glucose, 80 ketones, negative for nitrites and leukocyte esterase. 21 hyaline casts. Next Chest x-ray: Is read as normal. Meds: Medications Ceftriaxone Sodium (Rocephin) 1 gm IV Q24H [facility] Last Admin: 02/10/17 09:57 Dose: 1 gm Dextrose (Dextrose 50%) 0 ml IV UD PRN PRN Reason: Hypoglycemia Diagnostic Test (Pha) (Accu-Chek) 1 each FS ACHS [facility] Last Admin: 02/10/17 08:15 Dose: 1 each Glucose (Insta-Glucose) 15 gm PO PRN PRN PRN Reason: Hypoglycemia Last Admin: 02/10/17 07:49 Dose: 15 gm Heparin Sodium (Porcine) (Heparin) 5,000 unit SQ Q12 [facility] Last Admin: 02/10/17 09:55 Dose: 5,000 unit Heparin Sodium (Porcine) (Heparin Flush) 2 ml IV Q12 [facility] Last Admin: 02/10/17 09:57 Dose: 2 ml Potassium Chloride 20 meq/ (Sodium Chloride) 1,010 mls @ 100 mls/hr IV .Q10H6M [facility] Last Admin: 02/10/17 04:40 Dose: 100 mls/hr Acetaminophen (Ofirmev) 1,000 mg in 100 mls @ 200 mls/hr IV Q6HP PRN PRN Reason: PAIN/FEVER > 101 Last Admin: 02/10/17 08:05 Dose: 200 mls/hr Insulin Glargine (Lantus) 15 unit SQ BID [facility] Last Admin: 02/10/17 09:56 Dose: 15 unit Insulin Human Lispro (Humalog) 0 unit SQ ACHS [facility] PRN Reason: Protocol Last Admin: 02/10/17 07:47 Dose: Not Given Metoclopramide HCl (Reglan) 5 mg IV TIDAC PRN PRN Reason: Nausea And Vomiting Ondansetron HCl (Zofran) 4 mg IV Q4-6HP PRN PRN Reason: Nausea And Vomiting Last Admin: 02/10/17 08:04 Dose: 4 mg Pantoprazole Sodium (Protonix) 40 mg IV BIDAC PAU Last Admin: 02/10/17 08:04 Dose: 40 mg Promethazine HCl (Phenergan) 12.5 mg IV Q4-6HP PRN PRN Reason: Nausea And Vomiting Last Admin: 02/10/17 04:39 Dose: 12.5 mg Sodium Chloride (Saline Flush) 10 ml IV UD PRN PRN Reason: FLUSH Last Admin: 02/09/17 19:39 Dose: 10 ml Sucralfate (Carafate) 1 gm PO ACHS [facility] Last Admin: 02/10/17 09:54 Dose: 1 gm Medical - PN: A/P - Time Spent With Patient Total time spent is greater than 50% in coordination of care (as documented) at patient's floor/unit and/or counseling patient: 15 - 24 minutes (1) Diarrhea Status: Acute Current Visit: No (2) DKA (diabetic ketoacidoses) Status: Acute Current Visit: No (3) Diabetes type 1, uncontrolled Status: Chronic Current Visit: No - Narrative A/P Narrative: #1. Endocrine. Patient presents with severe metabolic acidosis, due to diabetic ketoacidosis. The cause of this is not entirely clear. Patient does have a markedly elevated white blood cell count, but her main symptom is diarrhea, as with previous episodes. Chest x-ray and urinalysis did not show obvious infection. -Acidosis has essentially resolved. Blood glucoses are running a bit on the high side, so I will increase her Lantus dose today. When she is feeling better we will resume her insulin pump. Although there is some concern that it may be malfunctioning. -it sounds like she needs to follow-up with either an latin professor or an insulin pump plant operations coordinator, to figure out why her pump is malfunctioning. 2. CODE STATUS: Full code. 3. DVT prophylaxis: Subcu heparin. 4. GI. history of GERD. She also reports blood in her emesis . She may well have gastritis or esophagitis. -We added Carafate slurry today to be given before meals. She is getting IV Zofran, Phenergan, Reglan to help control her nausea, but it persists. -IV proton pump inhibitor. -Monitor hemoglobin. -Reviewed her case with both GI and radiology. CT scan was done yesterday. Findings as noted above. Have asked Dr. Sen to consult today, to see if he has any other thoughts on why she continues to have pain, nausea, vomiting. My best guess is that she has ongoing gastritis and esophagitis. -Diarrhea. She often has loose stools with her episodes of DKA, and stool studies are still pending at this time. 5. Pulmonary. Reported history of asthma, without recent symptoms. 6. Infectious disease. Patient presented with marked leukocytosis. Etiology was uncertain, but she was started on empiric Rocephin when this did not improve. Today her white count is down to normal. Blood cultures are negative so far. We are awaiting stool studies as well. Approximately 25 minutes has been spent so far today, interviewing and examining her, reviewing plan of care with nurses and other staff,. Medical - PN: Qual - VTE Deep Vein Thrombosis/Pulmonary Embolism Present on Admission: No
--- NOTE | 2017-02-10 12:11 | General Surgery Consult Note ---
History of Present Illness Patient information: Note initiated : 02/10/17 at 12:07 pm Service Date, if different from initiated Date: [] Patient: Patricia Toussaint 26 y/o F admitted on 02/06/17 for Ketoacidosis. Chief Complaint: [] Reason for consult: other (Nausea and vomiting; subcutaneous air right upper abdomen) Requesting physician: Little Em History of present illness: 26-year-old female with juvenile diabetes type 1 who has been previously controlled on an insulin pump. Prior to being admitted she was having difficulty with her pump and was manually dosing her insulin. She had about 4 day history of nausea with vomiting with episodic diarrhea and abdominal pain. She presented to the emergency room and was found to have hyperglycemia with ketosis and has been treated successfully for ketoacidosis. She has some recurrent epigastric pain and postprandial nausea with vomiting. A CT scan of abdomen was done and was not revealing except for subcutaneous air in the superficial fascia and a very small area in the right upper quadrant of her abdomen. Anatomically this correlates with the last spot that she had her pump placed. Her leukocytosis has resolved and she does not have any tenderness in the area of concern. The nausea and vomiting persists and may suggest acute gastritis or gastric ulceration. Patient is counseled for upper endoscopy and this will be done tomorrow. Review of Systems All systems PM: reviewed and no additional remarkable complaints except as stated Past History Past medical history: Gastroesophageal reflux History of depression Prior history of cellulitis of abdominal wall Diabetes type 1 uncontrolled Past surgical history: no surgical procedure Past family history: Diabetes mellitus Colon cancer Past social history: Never smoker Prior history of alcohol use but none in past year Denies drug use Medications and Allergies Home Medications Medication Instructions Recorded Confirmed Type insulin aspart 100 unit/mL See Dose Instructions SUB-Q 10/06/14 02/05/17 History subcutaneous solution .COMPLEX ml medroxyprogesterone 150 mg/mL 150 mg IM ONCE 05/19/15 02/05/17 History intramuscular suspension Omeprazole [PriLOSEC] 20 mg PO ACB #30 capsule 03/23/16 02/05/17 Rx Allergies Allergy/AdvReac Type Severity Reaction Status Date / Time Amoxicillin [AMOXICILLIN] Allergy Intermediate Rash Verified 03/08/16 08:47 vancomycin Allergy Mild Itching Verified 08/22/15 16:46 ibuprofen [IBUPROFEN] AdvReac Intermediate Other Verified 02/08/17 10:24 Exam Temp Pulse Resp BP Pulse Ox 98.4 F 80 16 144/83 97 02/10/17 11:10 02/10/17 11:10 02/10/17 11:10 02/10/17 11:10 02/10/17 11:10 - General physical appearance well developed, well nourished, no distress, obese - Eyes PERRL, normal ocular movement - ENT normal pinna, normal nares, normal mucosa, no hearing loss, no congestion - Head Head exam IM: Present: atraumatic, normal inspection, normocephalic - Neck no masses, no bruits, trachea midline, no lymphadectomy, no venous distension - Cardiovascular Cardiovascular exam IM: Present: normal rate and rhythm, RRR, +S1, +S2. Absent : gallop, JVD, systolic murmur - Respiratory normal expansion, normal respiratory effort, clear to percussion, clear to auscultation - Abdomen Abdomen: Present: soft, tender (Mild epigastric tenderness with guarding; no inflammation or tenderness in the area of concern on recent CT), bowel sounds Hernia: Present: none - Integumentary Present: no rash, no growths, no abnormal pigmentation, other (Multiple old puncture sites with healing on the anterior abdominal wall from insulin pump insertion sites) - Neurologic Present: normal coordination, normal sensation - Musculoskeletal Present: normal gait, normal posture - Psychiatric Present: oriented to time, oriented to person, oriented to place, speech is normal, memory intact Results - Labs 02/10/17 04:30 02/10/17 04:30 Abnormal lab results 02/10/17 02/10/17 Range/Units 04:30 04:30 Plt Count 135 L (140-440) K/mcL MPV 11.7 H (7.4-10.4) fL BUN 5 L (6-20) mg/dl Diabetes panel 02/10/17 Range/Units 04:30 Sodium 141 (133-145) mmol/L Potassium 3.6 (3.3-5.1) mmol/L Chloride 101 (96-108) mmol/L Carbon Dioxide 28 (22-30) mmol/L BUN 5 L (6-20) mg/dl Creatinine 0.6 (0.6-1.1) mg/dl Glucose 70 (70-105) mg/dL Calcium 8.7 (8.6-10.4) mg/dl AST 11 (0-37) U/l ALT 9 (0-40) U/l Alkaline Phosphatase 101 (39-117) U/L Total Protein 5.9 (5.9-8.4) gm/dL Albumin 3.4 (3.2-5.2) gm/dL Triglycerides 123 (<150) mg/dl Calcium panel 02/10/17 Range/Units 04:30 Calcium 8.7 (8.6-10.4) mg/dl Phosphorus 3.5 (2.7-4.5) mg/dL Albumin 3.4 (3.2-5.2) gm/dL Pituitary panel 02/10/17 Range/Units 04:30 Sodium 141 (133-145) mmol/L Potassium 3.6 (3.3-5.1) mmol/L Chloride 101 (96-108) mmol/L Carbon Dioxide 28 (22-30) mmol/L BUN 5 L (6-20) mg/dl Creatinine 0.6 (0.6-1.1) mg/dl Glucose 70 (70-105) mg/dL Calcium 8.7 (8.6-10.4) mg/dl Adrenal panel 02/10/17 Range/Units 04:30 Sodium 141 (133-145) mmol/L Potassium 3.6 (3.3-5.1) mmol/L Chloride 101 (96-108) mmol/L Carbon Dioxide 28 (22-30) mmol/L BUN 5 L (6-20) mg/dl Creatinine 0.6 (0.6-1.1) mg/dl Glucose 70 (70-105) mg/dL Calcium 8.7 (8.6-10.4) mg/dl Total Bilirubin 0.3 (0.0-1.0) mg/dL AST 11 (0-37) U/l ALT 9 (0-40) U/l Alkaline Phosphatase 101 (39-117) U/L Total Protein 5.9 (5.9-8.4) gm/dL Albumin 3.4 (3.2-5.2) gm/dL All other labs normal. Assessment and Plan (1) Nausea and vomiting Her present nausea and vomiting is not related to her ketoacidosis. She has a separate area in the high epigastrium but suggest gastric pathology. Discussed with the patient the need for upper endoscopy and this will be performed in the morning Status: Acute (2) DKA (diabetic ketoacidoses) Is presently controlled Status: Acute (3) Gastroesophageal reflux Not well controlled on present medication Pantoprazole 40 mg IV every 12 h added Upper endoscopy to be done in the morning Status: Acute (4) Diabetes type 1, uncontrolled Status: Chronic
[2017-02-11] MEDS: POTASSIUM CHLORIDE 20 MEQ in 0.45 % SODIUM CHLORIDE 1,000 ML IV SCH ×3 (01:01→12:38)
[2017-02-11 05:43] LABS: Basophils # (Auto) 0 K/mcL (0.0-0.3); Basophils % (Auto) 0.5 % (0.0-2.0); Eosinophils # (Auto) 0.2 K/mcL (0.0-0.7); Eosinophils % (Auto) 2.8 % (0.0-7.0); Granulocytes % (Auto) 53.7 % (38.0-78.0); Lymphocytes # (Auto) 2.4 K/mcL (1.5-4.8); Mean Cell Volume 84.7 fL (80.0-100.0); Mean Corpuscular HGB Conc 33.5 g/dL (31.0-36.0); Mean Corpuscular Hemoglobin 28.4 pg (26.0-34.0); Monocytes # (Auto) 0.5 K/mcL (0.1-0.9); Platelet Count 143 K/mcL (140-440); RBC 4.37 M/mcL (4.00-5.20); Red Cell Distribution Width 12.8 % (11.5-14.5)
[2017-02-11 06:11] LABS: ALT/SGPT 8 U/l (0-40); Albumin 2.9 gm/dL (3.2-5.2); Albumin/Globulin Ratio 1.3 (1.0-2.3); Alkaline Phosphatase 86 U/L (39-117); Bilirubin,Direct < 0.2 mg/dL (0.0-0.3); Blood Urea Nitrogen 5 mg/dl (6-20); Gamma Glutamyl Transpeptidase 10 U/L (5-36); Magnesium 1.6 mg/dL (1.6-2.5); Uric Acid 4.5 mg/dL (2.5-8.0)
[2017-02-11] MEDS: PANTOPRAZOLE 40 MG VIAL IV SCH ×2 (09:08→18:02)
[2017-02-11] MEDS: cefTRIAXone 1 GM VIAL IV SCH (09:09)
[2017-02-11] MEDS: HEPARIN 5,000 UNIT/ML VIAL SQ SCH ×2 (09:09→21:42)
[2017-02-11] MEDS: INSULIN LISPRO 1 UNIT/0.01 ML UNIT SQ SCH ×4 (09:10→21:50)
[2017-02-11] MEDS: SUCRALFATE 1 GM/10 ML ORAL.SUSP PO SCH ×4 (09:45→21:38)
[2017-02-11] MEDS: METOCLOPRAMIDE 10 MG/2 ML VIAL IV SCH ×4 (09:46→23:30)
--- NOTE | 2017-02-11 10:55 | Internal Med Progress Note ---
Medical - PN: Subj Patient information: Note initiated : 02/11/17 at 10:53 am Service Date, if different from initiated Date: [] Patient: Patricia Toussaint 26 y/o F admitted on 02/06/17 for Ketoacidosis. Chief Complaint: [] Interval history: February 06, 2017: History of present illness: Ms. Toussaint is a 26 year old female with a long-standing history of type 1 diabetes, controlled with an insulin pump. She notes she has been under a lot of stress with studying for her masters at school, etc. She has been having issues with her insulin pump, and states the tubing keeps folding in on itself. She went to work night before last and was having difficulty with the pump, and then the tubing fell out. She says she then just manually dosed her insulin. She has had difficulty with nausea for several days. Yesterday she started vomiting, and notes that she was bringing up clear fluid, but then she started to see lots of red streaks in the fluid. She knows she was having quite a bit of epigastric pain when she was vomiting. She says her boyfriend thought perhaps she was reacting to changing her diet. She had been on a low carbohydrate diet, and had given up on that, and had noticed increased glucoses over the last several days. She has been having chills and abdominal pain as well, and has been feeling very fatigued. She notes her throat is very sore, but that started after the vomiting started. She does note that when she is vomiting and having the pain she does feel a little short of breath and feels her heart racing. She is also been having loose stools since yesterday, which is apparent the common symptom with her DKA. She denies any dysuria. ER evaluation showed glucose of 356, with bicarb of 12 and beta hydroxybutyrate level of 8.3. She was placed on IV fluids and IV insulin, and referred for admission. She otherwise denies recent fever, headache, new eye or ear symptoms, lymphadenopathy, dysuria. She was previously on omeprazole for reflux, but says she has not taken that for more than a year. February 07: The patient's acidosis was improving, and then seemed to get worse overnight. We have had a little bit of trouble getting every 2 hour chemistry results. Apparently the lab was also having trouble drawing her blood. As of 2:00, her anion gap is back to normal, and serum bicarb is back to normal. She continues on an IV insulin drip, plus D10 IV fluids with potassium phosphate. She continues to feel quite poorly, and has persistent nausea and vomiting. This is treated with Phenergan, and Zofran is ineffective, and then this makes her fall back asleep again. When she is awake she continues to report abdominal discomfort. She has had some small amounts of loose stool, and C. difficile and stool cultures have been ordered. Otherwise vital signs have been fairly stable. She is still not able to take in anything by mouth. Insulin pump is turned off. She otherwise denies fever or chills, chest pain or palpitations, shortness of breath or cough, constipation, dysuria, but her history is probably unreliable given how groggy she is.. Since IV access is such a significant problem, PICC line was placed today. February 08: Today, the patient's acidosis and glucoses are much better controlled. She has been started on Lantus to give her a basal insulin rate. At home her usual basal rate with her pump is about 36 units per day, plus another 30 or so to cover meals. Today, she still is quite nauseated and is still having intermittent vomiting, so it is not clear how much oral intake she will have. She continues on IV fluids and IV antiemetics. She continues to have moderate epigastric and substernal discomfort, mainly with vomiting. Otherwise, she denies fever or chills, headaches or dizziness, palpitations, shortness of breath or cough, diarrhea, dysuria. Leukocytosis is improved today, and she continues on IV Rocephin for empiric coverage. February 09: Today, the patient is starting to feel a bit better, but continues to have significant nausea, and vomits every time she tries to eat a few bites of just about anything. She continues to have epigastric and substernal discomfort, but does say that it seems a little better since she started on the oral Carafate. She otherwise denies fever chills, cough or shortness of breath, chest pain or palpitations. She did have a little bit of loose stool this morning. She continues to have significant abdominal discomfort. Blood glucose is still running high, and we are managing with subcu Lantus plus sliding scale. She says she could start herself back on her pump today if we want her to, but her oral intake is still minimal. -I spoke with Dr. Hines of GI this morning, as well as with Dr. Franco of radiology. We are going to try seeing if she could tolerate some oral contrast, and then do a CT of her abdomen and pelvis. If she can drink enough volume, Dr. Franco says he might get a good look at her esophagus, stomach , duodenum as well. February 10: Today, the patient says she feels a bit better, but she still has frequent episodes of nausea and vomiting. Her blood glucose dropped to 54 this morning, and she was given an oral glucose gel. She had to struggle to keep that down. She continues to have severe nausea. Her upper abdominal pain persists, but is less intense than yesterday. She had an abdominal CT last night that showed some minor inflammation in the area of her insulin pump. I have asked Dr. Sen to check in on her today, to see if that finding is important. Otherwise she is not having fever or chills, chest pain or palpitations, shortness of breath, diarrhea or constipation or dysuria. February 11 Patient seen examined, no acute overnight issues, she still has signifciant vomiting and nausea if she tries to eat something. She was able to drink some broth yesterday, but after trying to eat solid food, she had significant wretching, nausea and voimting, some abdominal pain. Her CT is negative, she notes she gets some relief with reglan, but not much by zofran or phenergan. The patient is scheduled for EGD today by Dr Sen Pertinent ROS: Denies headache, dizziness Denies chest pain, palpitations Denies cough or shortness of breath Present abdominal pain, nausea and vomiting. - Constitutional Vitals: Vital Signs Temp Pulse Resp BP Pulse Ox 97.9 F 73 16 120/79 97 02/11/17 06:40 02/11/17 03:34 02/11/17 06:40 02/11/17 06:40 02/11/17 06:40 Period Temp Pulse Resp BP Sys/Butt Pulse Ox Last 24 Hr 97.3 F-99.4 F 73-89 14-16 108-159/66-96 95-97 Intake and Output 02/10/17 02/11/17 02/11/17 21:59 05:59 13:59 Intake Total 1720 / 1720 1550 / 1550 Output Total 1150 / 1150 1000 / 1000 Balance 570 / 570 550 / 550 Weight 256 lb Intake & Output: Intake & Output 02/10/17 02/11/17 02/11/17 21:59 05:59 13:59 Intake Total 1720 / 1720 1550 / 1550 Output Total 1150 / 1150 1000 / 1000 Balance 570 / 570 550 / 550 Weight 256 lb Intake: IV 1010 / 1010 1010 / 1010 Potassium Chloride 20 Meq In 1010 / 1010 1010 / 1010 Sodium Chloride 0.45% 1,000 ml @ 100 mls/hr IV .Q10H6M [facility] Rx# :[id number] Oral 710 / 710 540 / 540 Output: Void Amount 1050 / 1050 1000 / 1000 Emesis 100 / 100 Other: Meal Lunch Percent of Meal Consumed 100% Exam: Constitutional; Afebrile, cooperative, alert, not in distress, obese Eyes- No icterus, , No periorbital swelling Ears- Ext ear normal, hearing normal to conversation. Neck- Midline trachea, supple Respiratory system: Air Entry equal on both sides, No crackles or wheezing, no rhonchi. CVS- Rate rhythm regular, S1,S2 heard, no gallop, no rub. Abdomen- Mild epigastric tenderness present,, no organomegaly, no tenderness, no guarding or rigidity, T[employer]ER- AOOx3, moving all extremities, no gross focal deficit noted. Medical - PN: Obj Da - Labs CBC & Chem 7: 02/11/17 04:00 02/11/17 04:00 Labs: Abnormal Lab Results 02/11/17 02/11/17 02/10/17 04:00 04:00 04:30 Plt Count MPV 11.7 H BUN 5 L 5 L Creatinine 0.5 L Glucose Calcium 7.9 L Total Protein 5.1 L Albumin 2.9 L 02/10/17 02/09/17 02/09/17 04:30 06:42 04:00 Plt Count 135 L MPV 11.7 H 12.7 H BUN Creatinine Glucose 312 H Calcium 8.3 L Total Protein 5.7 L Albumin Laboratory Tests 02/11/17 02/11/17 04:00 04:00 WBC 6.6 Hgb 12.4 Plt Count 143 Sodium 135 Potassium 4.9 Anion Gap 10.0 BUN 5 L Creatinine 0.5 L Meds: Medications Ceftriaxone Sodium (Rocephin) 1 gm IV Q24H [facility] Last Admin: 02/11/17 09:09 Dose: 1 gm Dextrose (Dextrose 50%) 0 ml IV UD PRN PRN Reason: Hypoglycemia Diagnostic Test (Pha) (Accu-Chek) 1 each FS ACHS [facility] Last Admin: 02/11/17 07:30 Dose: 1 each Glucose (Insta-Glucose) 15 gm PO PRN PRN PRN Reason: Hypoglycemia Last Admin: 02/10/17 07:49 Dose: 15 gm Heparin Sodium (Porcine) (Heparin Flush) 2 ml IV Q12 [facility] Last Admin: 02/10/17 21:18 Dose: 2 ml Heparin Sodium (Porcine) (Heparin) 5,000 unit SQ Q12 [facility] Last Admin: 02/11/17 09:09 Dose: Not Given Potassium Chloride 20 meq/ (Sodium Chloride) 1,010 mls @ 100 mls/hr IV .Q10H6M [facility] Last Admin: 02/11/17 02:28 Dose: 100 mls/hr Acetaminophen (Ofirmev) 1,000 mg in 100 mls @ 200 mls/hr IV Q6HP PRN PRN Reason: PAIN/FEVER > 101 Last Admin: 02/10/17 22:53 Dose: 200 mls/hr Insulin Glargine (Lantus) 15 unit SQ HS [facility] Insulin Human Lispro (Humalog) 0 unit SQ [facility] PRN Reason: Protocol Last Admin: 02/11/17 09:10 Dose: Not Given Metoclopramide HCl (Reglan) 10 mg IV Q6 [facility] Last Admin: 02/11/17 09:46 Dose: 10 mg Ondansetron HCl (Zofran) 4 mg IV Q4-6HP PRN PRN Reason: Nausea And Vomiting Last Admin: 02/10/17 17:58 Dose: 4 mg Pantoprazole Sodium (Protonix) 40 mg IV BIDAC [facility] Last Admin: 02/11/17 09:08 Dose: 40 mg Sodium Chloride (Saline Flush) 10 ml IV UD PRN PRN Reason: FLUSH Last Admin: 02/09/17 19:39 Dose: 10 ml Sucralfate (Carafate) 1 gm PO ACHS [facility] Last Admin: 02/11/17 09:45 Dose: Not Given Medical - PN: A/P - Time Spent With Patient Total time spent is greater than 50% in coordination of care (as documented) at patient's floor/unit and/or counseling patient: - Narrative A/P Narrative: A/P DKA- Resolved, no e/o infection, etiology unclear, she was treated with rocephin , for possible infectin, of unknown source? she has completed 7 days of same, will d/c rocephin for now. Nausea/ Vomiting/ Abdominal pain: Due to DKA? patient still having issues despite resolution of her DKA< CT Abdomen is neg, Surgery is planning for EGD in AM, plan to keep her on scheduled reglan 10mg q6hrs, she seems to get some benefit from this medication. If EGD is negative, she likely has some gastroparesis secondary to DM, reglan should help. If not consider low dose nortryptline I will consider Gastric emptying study, Functional Gall bladder study to evaluate for her symptoms should they not resolve with IV reglan. DM: Glucose well controlled, on insulin continue lantus and sliding scale, resume pump at discharge Diarrhea: cultures negative, ok for prn imodium. GERD: on ppi and carafate , await EGD Full code DVT sq heparin. Medical - PN: Qual - VTE Deep Vein Thrombosis/Pulmonary Embolism Present on Admission: No
[2017-02-11] MEDS: INSULIN GLARGINE, HUMAN 1 UNIT/0.01 ML SQ SCH (11:10)
[2017-02-11] MEDS ORDERED: ONDANSETRON 4 MG/2 ML VIAL IV PRN ×2 (15:05→16:05)
[2017-02-11] MEDS ORDERED: IPRATROPIUM/ALBUTEROL 3 ML AMPUL.NEB NEB PRN (15:05)
[2017-02-11] MEDS ORDERED: BENZOCAINE/MENTHOL 1 LOZENGE PO PRN ×2 (15:05→16:05)
[2017-02-11] MEDS ORDERED: fentaNYL 100 MCG/2 ML VIAL IV PRN (15:05)
[2017-02-11] MEDS ORDERED: MEPERIDINE 25 MG/ML SYRINGE IV PRN (15:05)
[2017-02-11] MEDS ORDERED: PROMETHAZINE 25 MG/ML VIAL IV PRN ×2 (15:05→16:05)
[2017-02-11] MEDS ORDERED: LACTATED RINGERS 1,000 ML IV SCH ×2 (15:15→16:05)
[2017-02-11] MEDS ORDERED: PROPOFOL 200 MG/20 ML VIAL IV ONE (15:15)
[2017-02-11] MEDS ORDERED: MIDAZOLAM 2 MG/2 ML VIAL IV ONE (15:15)
[2017-02-11] MEDS ORDERED: LIDOCAINE HCL/PF 100 MG/5 ML SYRINGE IV ONE (15:15)
[2017-02-11] MEDS ORDERED: KETAMINE 100 MG/ML ML IV ONE (15:15)
--- NOTE | 2017-02-11 15:46 | Brief Operative Note ---
Date of procedure: 02/11/17 Pre-op diagnosis: EPIGASTRIC AND SUBSTERNAL PAIN Post-op diagnosis: other (GERD WITH DISTAL ESOPHAGITIS AND SUPERFICIAL ULCERATIONS;GASTROPARESIS WITH EROSIVE GASTRITIS) Procedure: EGD WITH BIOPSIES FOR CLOTEST Grafts/Implants: No Anesthesia: other (GENERAL) Findings: ULCERATIONS OF DISTAL ESOPHAGUS AND GE JUNCTION INFLAMMATION OF ANTRUM AND BODY WITH SUPERFICIAL EROSIONS RETAINED FLUID IN STOMACH WITH GASTROPARESIS WITH NO PERISTALTIC WAVES SEEN DURING ENTIRE EXAM Complications: none Surgeon: Adithya Sen Specimens Removed/Pathology: other (ANTRAL BIOPSIES) Condition: stable Disposition: same day
[2017-02-11] MEDS ORDERED: ACETAMINOPHEN 1,000 MG/100 ML BOTTLE IV PRN (16:05)
[2017-02-11] MEDS ORDERED: DEXTROSE 31 GM ORAL.SUSP PO PRN (16:05)
[2017-02-11] MEDS ORDERED: 0.9 % SODIUM CHLORIDE 10 ML SYRINGE IV PRN (16:05)
[2017-02-11] MEDS ORDERED: DEXTROSE 50% 50 ML VIAL IV PRN (16:05)
[2017-02-11] MEDS ORDERED: POTASSIUM CHLORIDE 20 MEQ in 0.45 % SODIUM CHLORIDE 1,000 ML IV SCH (18:00)
[2017-02-11] MEDS ORDERED: INSULIN GLARGINE, HUMAN 1 UNIT/0.01 ML SQ SCH ×2 (21:00)
[2017-02-12] MEDS: METOCLOPRAMIDE 10 MG/2 ML VIAL IV SCH ×2 (05:56→11:57)
[2017-02-12 06:35] LABS: Basophils # (Auto) 0 K/mcL (0.0-0.3); Basophils % (Auto) 0.2 % (0.0-2.0); Eosinophils # (Auto) 0.1 K/mcL (0.0-0.7); Eosinophils % (Auto) 1.4 % (0.0-7.0); Granulocytes % (Auto) 61.7 % (38.0-78.0); Lymphocytes # (Auto) 1.9 K/mcL (1.5-4.8); Lymphocytes % (Auto) 28.5 % (15.5-49.0); Mean Cell Volume 85.8 fL (80.0-100.0); Mean Corpuscular HGB Conc 33.5 g/dL (31.0-36.0); Mean Corpuscular Hemoglobin 28.7 pg (26.0-34.0); Monocytes # (Auto) 0.5 K/mcL (0.1-0.9); Monocytes % (Auto) 8.2 % (1.0-12.0); Platelet Count 136 K/mcL (140-440); RBC 4.33 M/mcL (4.00-5.20); Red Cell Distribution Width 12.9 % (11.5-14.5)
[2017-02-12 07:24] LABS: ALT/SGPT 10 U/l (0-40); Albumin/Globulin Ratio 1.4 (1.0-2.3); Alkaline Phosphatase 88 U/L (39-117); Bilirubin,Direct < 0.2 mg/dL (0.0-0.3); Blood Urea Nitrogen 4 mg/dl (6-20); Gamma Glutamyl Transpeptidase 7 U/L (5-36); Magnesium 1.5 mg/dL (1.6-2.5); Uric Acid 4.9 mg/dL (2.5-8.0)
[2017-02-12] MEDS: SUCRALFATE 1 GM/10 ML ORAL.SUSP PO SCH ×3 (07:59→16:56)
[2017-02-12] MEDS: INSULIN LISPRO 1 UNIT/0.01 ML UNIT SQ SCH ×3 (08:00→16:55)
[2017-02-12] MEDS: PANTOPRAZOLE 40 MG VIAL IV SCH (08:01)
[2017-02-12] MEDS: HEPARIN 5,000 UNIT/ML VIAL SQ SCH (08:12)
[2017-02-12] MEDS ORDERED: MAGNESIUM SULFATE 2 GM/50 ML BAG IV ONE (08:16)
--- NOTE | 2017-02-12 08:24 | Operative Note ---
DATE OF OPERATION: 02/11/2017 PREOPERATIVE DIAGNOSIS: Epigastric and substernal pain. POSTOPERATIVE DIAGNOSIS: 1. Gastroesophageal reflux disease with distal esophagitis with superficial ulcerations. 2. Gastroparesis with erosive gastritis. PROCEDURE: Esophagogastroduodenoscopy with biopsies and CLOtest. SURGEON: Adithya Sen M.D. FINDINGS: Ulcerations of distal esophagus and GE junction. Inflammation of antrum and body with superficial erosions. Retained fluid in the stomach with gastroparesis with no peristaltic waves seen during entire exam. DESCRIPTION: Under general anesthesia, patient turned to the left lateral decubitus position. Bite block was placed. Timeout procedure was carried out as per protocol. Scope was introduced into the retropharynx and the upper esophagus. There was some fluid in the esophagus that was suctioned. There were acute ulcerations above the GE junction in a linear pattern extending down to the GE junction. There were two small ulcerations and inflammation at the GE junction, mostly on the esophageal side. There were no cavitary lesions. There was retained large volume of fluid in the stomach which was a green-waldron color. This was suctioned. There was diffuse inflammation of the body and antrum of the stomach with superficial erosions scattered along the rugae. A very apparent absence of peristalsis was noted. The inflammation extended to the pylorus. Pylorus opened appropriately. There was minimal inflammation in the duodenal bulb. Second and third portions of the duodenum were unremarkable. Scope was pulled back and retroflex view was done. There was no significant hiatal hernia. The inflammation in the body and antrum were noted. Biopsies were taken. Stomach was insufflated partially, and I waited another 5 minutes and there were no point peristaltic waves noted. Air was suctioned from the stomach and the scope was removed. The patient tolerated the procedure well. She was allowed to awaken and was transferred to the postanesthetic care unit in satisfactory condition. RECOMMENDATIONS: 1. The patient's major problem is gastroparesis with retained liquid without peristaltic activity leads to gastroesophageal reflux. This also leads to increased gastric acid production. I would recommend Carafate four times daily for 3 months. 2. Pantoprazole 40 mg twice daily indefinitely. 3. If #1 and #2 are not effective, I would add metoclopramide 5 mg three times daily. Though this is a suboptimal dose, at her young age long-term use at higher doses would probably lead to increased neurologic side effects. LCS:[email or web address] Job ID: [id number] Doc ID: [id number] Adithya Banerjee MD
[2017-02-12 10:22] LABS: Blood Urea Nitrogen 5 mg/dl (6-20)
[2017-02-12] MEDS ORDERED: FLU VACC QS2017-18 36MOS UP/PF 60 MCG/0.5 ML SYRINGE IM ONE (15:15)
--- NOTE | 2017-02-12 15:15 | Discharge Summary ---
Medical - DS: Prov Patient information: Note initiated : 02/12/17 at 3:02 pm Service Date, if different from initiated Date: [] Patient: Patricia Toussaint 26 y/o F admitted on 02/06/17 for Ketoacidosis. Chief Complaint: [] Date of admission: 02/06/17 10:11 Discharge date: 02/12/17 Primary care physician: Jordyn Banerjee Admitting clinician: Little Em Consults: 02/06/17 08:08 Consult to Physician [CONS] Stat Comment: Consulting Provider: Little Em Reason For Exam: Physician to Consult 02/09/17 18:57 Consult to Physician [CONS] Routine Comment: re: abd pain,N/V abnl CT Consulting Provider: Adithya Sen Reason For Exam: Physician to Consult Discharging clinician: Joseph Baldwin Medical - DS: Meds - Discharge Medications Prescriptions: Metoclopramide [Reglan] 5 mg PO ACHS #120 tab Pantoprazole [Protonix] 40 mg PO BIDAC #60 tab Sucralfate [Carafate] 1 gm PO ACHS #120 tab Active and Home Medications: Home Medications insulin aspart 100 unit/mL subcutaneous solution See Dose Instructions SUB-Q .COMPLEX ml 10/06/14 [History Confirmed 02/05/17 Last Taken Unknown] medroxyprogesterone 150 mg/mL intramuscular suspension 150 mg IM ONCE 05/19/15 [ History Confirmed 02/05/17 Last Taken 07/29/15 16:00] Omeprazole [PriLOSEC] 20 mg PO ACB #30 capsule 03/23/16 [Rx Confirmed 02/05/17 Last Taken Unknown] Medical - DS: Hosp Hospital course: Ms. Toussaint is a 26 year old female with a long-standing history of type 1 diabetes, controlled with an insulin pump. She notes she has been under a lot of stress with studying for her masters at school, etc. She has been having issues with her insulin pump, and states the tubing keeps folding in on itself. She went to work night before last and was having difficulty with the pump, and then the tubing fell out. She says she then just manually dosed her insulin. She has had difficulty with nausea for several days. The day before the admission she started vomiting, and notes that she was bringing up clear fluid, but then she started to see lots of red streaks in the fluid. She knows she was having quite a bit of epigastric pain when she was vomiting. She says her boyfriend thought perhaps she was reacting to changing her diet. She had been on a low carbohydrate diet, and had given up on that, and had noticed increased glucoses over the last several days. She has been having chills and abdominal pain as well, and has been feeling very fatigued. She notes her throat is very sore, but that started after the vomiting started. She does note that when she is vomiting and having the pain she does feel a little short of breath and feels her heart racing. She is also been having loose stools since yesterday, which is apparent the common symptom with her DKA. She denies any dysuria. ER evaluation showed glucose of 356, with bicarb of 12 and beta hydroxybutyrate level of 8.3. She was placed on IV fluids and IV insulin, and referred for admission. The patient admitted with DKA DKA: Treated as per protocol, IV FLuids and insulin drip, and then transitioned to sq insulin. Etiology likely inadequate insulin use. She did have elevated wbc on presentation, but no focus of infection was found. non the less she was treated with rocephin x 7 days. AT the time of discharge the patient will be [id number] back to her insulin pump and she will follow up with her pcp for further management. Intractable Nausea and Vomiting: Noted during the hospitalization which did not improve even after improvement of her DKA symptoms, The patient was placed on IV ppi and carafate. She had CT abdomen which was negative. Surgery eval was done, she had EGD which showed distented stomach and severe gastritis. She likely has gastroparesis secondary to diabetes. She responded well to IV reglan scheduled q6hrs. The patient at the time of dischareg will be sent home of reglan 5mg po achs and has been advised to consider titration down after a week or so if she can tolerate. She will likely need outpatient workup with gastric emptying study to further evaluate this. See hospital course below for detailed information. February 07: The patient's acidosis was improving, and then seemed to get worse overnight. We have had a little bit of trouble getting every 2 hour chemistry results. Apparently the lab was also having trouble drawing her blood. As of 2:00, her anion gap is back to normal, and serum bicarb is back to normal. She continues on an IV insulin drip, plus D10 IV fluids with potassium phosphate. She continues to feel quite poorly, and has persistent nausea and vomiting. This is treated with Phenergan, and Zofran is ineffective, and then this makes her fall back asleep again. When she is awake she continues to report abdominal discomfort. She has had some small amounts of loose stool, and C. difficile and stool cultures have been ordered. Otherwise vital signs have been fairly stable. She is still not able to take in anything by mouth. Insulin pump is turned off. She otherwise denies fever or chills, chest pain or palpitations, shortness of breath or cough, constipation, dysuria, but her history is probably unreliable given how groggy she is.. Since IV access is such a significant problem, PICC line was placed today. February 08: Today, the patient's acidosis and glucoses are much better controlled. She has been started on Lantus to give her a basal insulin rate. At home her usual basal rate with her pump is about 36 units per day, plus another 30 or so to cover meals. Today, she still is quite nauseated and is still having intermittent vomiting, so it is not clear how much oral intake she will have. She continues on IV fluids and IV antiemetics. She continues to have moderate epigastric and substernal discomfort, mainly with vomiting. Otherwise, she denies fever or chills, headaches or dizziness, palpitations, shortness of breath or cough, diarrhea, dysuria. Leukocytosis is improved today, and she continues on IV Rocephin for empiric coverage. February 09: Today, the patient is starting to feel a bit better, but continues to have significant nausea, and vomits every time she tries to eat a few bites of just about anything. She continues to have epigastric and substernal discomfort, but does say that it seems a little better since she started on the oral Carafate. She otherwise denies fever chills, cough or shortness of breath, chest pain or palpitations. She did have a little bit of loose stool this morning. She continues to have significant abdominal discomfort. Blood glucose is still running high, and we are managing with subcu Lantus plus sliding scale. She says she could start herself back on her pump today if we want her to, but her oral intake is still minimal. -I spoke with Dr. Hines of GI this morning, as well as with Dr. Franco of radiology. We are going to try seeing if she could tolerate some oral contrast, and then do a CT of her abdomen and pelvis. If she can drink enough volume, Dr. Franco says he might get a good look at her esophagus, stomach , duodenum as well. February 10: Today, the patient says she feels a bit better, but she still has frequent episodes of nausea and vomiting. Her blood glucose dropped to 54 this morning, and she was given an oral glucose gel. She had to struggle to keep that down. She continues to have severe nausea. Her upper abdominal pain persists, but is less intense than yesterday. She had an abdominal CT last night that showed some minor inflammation in the area of her insulin pump. I have asked Dr. Sen to check in on her today, to see if that finding is important. Otherwise she is not having fever or chills, chest pain or palpitations, shortness of breath, diarrhea or constipation or dysuria. February 11 Patient seen examined, no acute overnight issues, she still has significant vomiting and nausea if she tries to eat something. She was able to drink some broth yesterday, but after trying to eat solid food, she had significant wrenching, nausea and voimting, some abdominal pain. Her CT is negative, she notes she gets some relief with reglan, but not much by zofran or phenergan. The patient is scheduled for EGD today by Dr Sen Discharge diagnosis: DKA, DM gastroparesis, Nausea adn Vomiting. - Time Spent with Patient Total time spent providing and/or coordinating discharge services: Greater than 30 minutes Medical - DS: Exam - Constitutional Vitals: Vital Signs Temp Pulse Resp BP BP Pulse Ox 02/12/17 12:00 97.6 F 120/74 94 02/12/17 07:34 97.5 F 14 122/71 94 02/12/17 03:42 97.9 F 73 14 123/78 94 02/11/17 23:33 98.3 F 92 H 14 171/101 95 02/11/17 20:00 98.5 F 98 H 14 164/89 97 02/11/17 15:34 98.5 F 78 16 166/97 Intake and Output 02/12/17 02/12/17 02/12/17 05:59 13:59 21:59 Intake Total 1070 / 1070 460 / 460 Output Total 550 / 550 800 / 800 Balance 520 / 520 -340 / -340 Intake: IV 1010 / 1010 Oral 60 / 60 460 / 460 Output: Void Amount 550 / 550 800 / 800 Other: Meal Breakfast Percent of Meal Consumed 100% Weight 256 lb Patient Weight 02/13/17 05:59 Weight 256 lb Additional comments: Constitutional; Afebrile, cooperative, alert, not in distress. Eyes- No icterus, , No periorbital swelling Ears- Ext ear normal, hearing normal to conversation. Neck- Midline trachea, supple Respiratory system: Air Entry equal on both sides, No crackles or wheezing, no rhonchi. CVS- Rate rhythm regular, S1,S2 heard, no gallop, no rub. Abdomen- Soft nontender abdomen, no organomegaly, no tenderness, no guarding or rigidity, SLOT SERVICE SPECIALIST- AOOx3, moving all extremities, no gross focal deficit noted. Medical - DS: Data Labs on day of discharge: Labs from last 24 hours 02/12/17 02/12/17 02/12/17 09:07 05:00 05:00 WBC 6.6 RBC 4.33 Hgb 12.4 Hct 37.1 MCV 85.8 MCH 28.7 MCHC 33.5 RDW 12.9 Plt Count 136 L MPV 11.9 H Gran % 61.7 Lymph % (Auto) 28.5 Mchenry % (Auto) 8.2 Eos % (Auto) 1.4 Baso % (Auto) 0.2 Gran # 4.1 Lymph # (Auto) 1.9 Mchenry # (Auto) 0.5 Eos # (Auto) 0.1 Baso # (Auto) 0 Sodium 136 134 Potassium 3.9 5.6 H Chloride 98 98 Carbon Dioxide 26 24 Anion Gap 12.0 12.0 BUN 5 L 4 L Creatinine 0.7 0.6 GFR Calculation 119 125 Glucose 192 H 147 H Uric Acid 4.9 Calcium 8.8 8.0 L Phosphorus 3.0 Magnesium 1.5 L Total Bilirubin 0.3 Direct Bilirubin < 0.2 GGT 7 AST 11 ALT 10 Alkaline Phosphatase 88 Lactate Dehydrogenase 187 Total Protein 5.2 L Albumin 3.0 L Globulin 2.2 Albumin/Globulin Ratio 1.4 Triglycerides 80 Medical - DS: A/P - Patient/Caregiver Discharge Instructions Activity: increase activity as tolerated Diet: Consistent Carbohydrate Additional Instructions: You presented with Diabetic Keto acidosis Take your insulin as per the directions of your PCP, on the insulin pump. You also had low Potassium while in the hospital, advised to consume high K diet We suspect you may have diabetic gastroparesis. You will need further workuup for this. YOu have been started n reglan 5mg ACHS to help with this problem. Please discuss this with your PCP and see if you can be weaned off this medication in 1 -2 weeks. Also please take the pantoprazole and carafate for gastritis. FOllow up with PCP in 7-10 days follow up with Dr Sen in 2-3 weeks. GO to the ER if worsening symptoms or any other acute concerns. - Follow up Plan Follow up with: Jordyn Banerjee MD [Primary Care Provider] - Disposition: Home, Self-Care Prognosis: Fair Rehab Potential: Fair I certify that the patient requires SNF services: No Overall status at discharge: patient is back to baseline Medical - DS: Qual - VTE Deep Vein Thrombosis/Pulmonary Embolism Present on Admission: No
[2017-02-12] MEDS ORDERED: PNEUMOCOCCAL 23-VAL P-SAC VAC 0.5 ML VIAL IM ONE (17:00)
--- NOTE | 2017-02-13 10:25 | Surgical Pathology Report ---
HISTOLOGY SPECIMEN MICROSCOPIC DIAGNOSIS STOMACH, ANTRUM, BIOPSY: -- CHRONIC GASTRITIS, MILD, WITHOUT ACTIVITY. -- NO HELICOBACTER ORGANISMS IDENTIFIED ON ALCIAN YELLOW STAIN (ADEQUATE TECHNICAL CONTROL). (DMT:richard) PROCEDURAL IMPRESSION Ulcerations of distal esophagus and GE junction; inflammation of antrum and body with superficial erosions; retained fluid in the stomach with gastroparesis with no peristaltic waves seen during entire exam. GROSS DESCRIPTION Received in formalin labeled antrum biopsy, are two dougherty-brown tissue fragments 0.2 to 0.3 cm. Totally submitted - one cassette. (STM:richard) Electronically Signed by: Justin Alcaraz M.D.
== END 2017-02-12 17:30 | disposition home or self-care (01) | DRG 638 ==
LOC: ED 21:52 → ICU 02-06 09:58 → MEDSUR 02-11 12:28
PROVIDERS: ADMIT Internal Medicine; ATTEND Internal Medicine

== ENCOUNTER 2017-04-09 07:15 | Inpatient (IN) ==
[2017-04-09] MEDS ORDERED: ONDANSETRON ODT 4 MG TABLET ONE (07:40)
[2017-04-09] MEDS ORDERED: INSULIN REGULAR, HUMAN 1 UNIT/0.01 ML UNIT IV ONE ×2 (07:40→09:45)
[2017-04-09] MEDS ORDERED: 0.9 % SODIUM CHLORIDE 1,000 ML IV ONE ×3 (07:42→11:19)
[2017-04-09] MEDS ORDERED: ONDANSETRON 4 MG/2 ML VIAL IV ONE ×3 (07:45→10:31)
[2017-04-09] MEDS ORDERED: INSULIN REGULAR, HUMAN 50 UNIT in 0.9 % SODIUM CHLORIDE 100 ML IV SCH ×2 (07:45→13:30)
[2017-04-09] MEDS ORDERED: ONDANSETRON 4 MG/2 ML VIAL ONE (07:55)
--- NOTE | 2017-04-09 08:18 | Emergency Department Note ---
General Adult HPI - General Chief complaint: Blood Sugar Problem Stated complaint: Vomiting and elevated blood sugar Time Seen by Provider: 04/09/17 07:39 Source: patient Mode of arrival: ambulatory Limitations: no limitations - History of Present Illness HPI Narrative: 26-year-old female comes in with diarrhea and hematemesis for the last 7 hours. No fever chills. reports that she has had been under a lot of stress lately. She is a type I diabetic on an insulin pump. She states over the last week or so she has had trouble keeping up with her insulin needs. Multiple admissions in the past for DKA - Related Data Home Medications Medication Instructions Recorded Confirmed insulin aspart 100 unit/mL See Dose Instructions SUB-Q 10/06/14 04/09/17 subcutaneous solution .COMPLEX ml medroxyprogesterone 150 mg/mL 150 mg IM ONCE 05/19/15 04/09/17 intramuscular suspension Previous Rx's Medication Instructions Recorded Accu-Chek 1 each FS ACHS strip 03/13/17 Allergies Allergy/AdvReac Type Severity Reaction Status Date / Time Amoxicillin [AMOXICILLIN] Allergy Intermediate Rash Verified 04/09/17 07:20 vancomycin Allergy Mild Itching Verified 04/09/17 07:20 ibuprofen [IBUPROFEN] AdvReac Intermediate Other Verified 04/09/17 07:20 Review of Systems All systems ED: reviewed and negative except as stated. Past Medical History - Past Medical History Attestation: Yes: The following information was validated with the patient. Medical history: Reports: DM (Type I with gastroparesis), other Psychiatric history: Reports: anxiety DELIMER history: Reports: non-contributory Surgical history ED: Reports: no surgical history - Social History smoking status: Former smoker Alcohol use: Reports: Occasionally Drug use: Reports: none Physical Exam Ill-appearing female. Normocephalic atraumatic. Conjunctive are clear sclerae white and anicteric. No nasal discharge or congestion. Oropharynx is with dry buccal mucosa. Dark brown patches on the tongue consistent with hematemesis. Neck is supple without lymphadenopathy or thyromegaly. Heart is mildly tachycardic. Lungs are clear to auscultation bilaterally without wheezes rales rhonchi or respiratory distress. Abdomen is soft nondistended but any pressure increases nausea and tenderness. No pedal edema. +2 radial pulse. Alert but mildly confused; irritable Limitations: no limitations Course Vital Signs Temperature 96.8 F L 04/09/17 07:16 Pulse Rate 117 H 04/09/17 07:16 Respiratory Rate 20 04/09/17 07:16 Blood Pressure 118/61 04/09/17 07:16 Pulse Oximetry (%) 100 04/09/17 07:16 Temperature 96.8 F L 04/09/17 07:16 Pulse Rate 116 H 04/09/17 08:16 Respiratory Rate 20 04/09/17 08:16 Blood Pressure 108/52 04/09/17 08:16 Pulse Oximetry (%) 100 04/09/17 08:16 Medical Decision Making - Medical Records Medical records reviewed: Yes I reviewed the patient's medical records. Cursory review of previous admissions shows multiple episodes of DKA In the recent past - Lab Data Lab results reviewed: Yes I reviewed the patient's lab results. Result diagrams: 04/09/17 07:54 04/09/17 07:54 Lab Results 04/09/17 04/09/17 Range/Units 07:54 07:54 WBC 13.2 H (4.5-11.0) K/mcL RBC 4.70 (4.00-5.20) M/mcL Hgb 13.4 (12.0-15.0) g/dL Hct 41.8 (36.0-48.0) % POC Hct 44.0 (36.0-48.0) % MCV 88.9 (80.0-100.0) fL MCH 28.6 (26.0-34.0) pg MCHC 32.2 (31.0-36.0) g/dL RDW 13.3 (11.5-14.5) % Plt Count 214 (140-440) K/mcL MPV 13.5 H (7.4-10.4) fL Band Neutrophils % Not Reportable POC Sodium 134 (133-145) mmol/L POC Potassium 4.0 (3.3-5.1) mmol/L POC Chloride 96 (96-108) mmol/L POC Total CO2 11 L (22-30) mmol/L POC BUN 23 H (6-20) mg/dl POC Creatinine 0.9 (0.6-1.1) mg/dl POC Glucose > 700 H* (70-105) mg/dL POC WB Ioniz Calcium 1.26 (1.16-1.32) mmol/L ABG shows pH 7.19 PCO2 of 18 PO2 of 118 Disposition Pt seen by CLAY TEMPERER/PA only: No Clinical Impression: DKA (diabetic ketoacidoses) Qualifiers: Diabetes mellitus type: type 1 Diabetes mellitus complication detail: without coma Qualified Code(s): E10.10 - Type 1 diabetes mellitus with ketoacidosis without coma Summary: Started IV fluids and insulin drip after bolus insulin given. Laboratory ordered. Zofran for nausea Continued to have nausea and a second dose of Zofran is given. Blood sugars remained elevated over 700 and so a second bolus of insulin was ordered. A medicine ordered. Shift change came and patient is checked out to Dr. Ochoa. The rest of her labs are still pending Disposition: Still a Patient Condition: Critical Referrals: Jordyn Banerjee MD [Primary Care Provider] -
[2017-04-09 08:31] LABS: Mean Cell Volume 88.9 fL (80.0-100.0); Mean Corpuscular HGB Conc 32.2 g/dL (31.0-36.0); Mean Corpuscular Hemoglobin 28.6 pg (26.0-34.0); Platelet Count 214 K/mcL (140-440); Red Cell Distribution Width 13.3 % (11.5-14.5)
[2017-04-09] MEDS: HYDROmorphone 2 MG/ML SYRINGE IV PRN ×2 (08:38→10:41)
[2017-04-09] MEDS ORDERED: INSULIN REGULAR, HUMAN 1 UNIT/0.01 ML UNIT ONE ×2 (08:50→15:20)
[2017-04-09 09:06] LABS: Lymphocytes % 22 % (15-49); Monocytes % (Manual) 2 % (1-12); Platelet Estimate NORMAL (NORMAL); RBC Morphology NORMAL (NORMAL); Segmented Neutrophils % 76 % (38-78)
[2017-04-09 09:08] LABS: ALT/SGPT 13 U/l (0-40); Albumin 4.1 gm/dL (3.2-5.2); Albumin/Globulin Ratio 1.5 (1.0-2.3); Alkaline Phosphatase 143 U/L (39-117); Blood Urea Nitrogen 22 mg/dl (6-20); Magnesium 1.9 mg/dL (1.6-2.5)
--- NOTE | 2017-04-09 10:54 | XRay Report ---
CLINICAL INFORMATION: Elevated white blood cell count COMPARISON: 03/10/2017 FINDINGS: Heart size, mediastinum and pulmonary vessels are normal. Lungs are clear. No effusions. Bones soft tissues normal IMPRESSION: Negative Interpreted and Authenticated by: Carl Franco 04/09/17
--- NOTE | 2017-04-09 11:04 | Emergency Department Note ---
General Adult HPI - General Chief complaint: Blood Sugar Problem Stated complaint: Vomiting and elevated blood sugar Time Seen by Provider: 04/09/17 07:39 Source: patient Mode of arrival: ambulatory Limitations: no limitations - Related Data Home Medications Medication Instructions Recorded Confirmed insulin aspart 100 unit/mL See Dose Instructions SUB-Q 10/06/14 04/09/17 subcutaneous solution .COMPLEX ml medroxyprogesterone 150 mg/mL 150 mg IM ONCE 05/19/15 04/09/17 intramuscular suspension Previous Rx's Medication Instructions Recorded Accu-Chek 1 each FS ACHS strip 03/13/17 Allergies Allergy/AdvReac Type Severity Reaction Status Date / Time Amoxicillin [AMOXICILLIN] Allergy Intermediate Rash Verified 04/09/17 07:20 vancomycin Allergy Mild Itching Verified 04/09/17 07:20 ibuprofen [IBUPROFEN] AdvReac Intermediate Other Verified 04/09/17 07:20 Past Medical History - Past Medical History Medical history: Reports: DM (Type I with gastroparesis), other Psychiatric history: Reports: anxiety 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 Surgical history ED: Reports: no surgical history - Social History smoking status: Former smoker Alcohol use: Reports: Occasionally Drug use: Reports: none Physical Exam Limitations: no limitations Course Vital Signs Temperature 96.8 F L 04/09/17 07:16 Pulse Rate 117 H 04/09/17 07:16 Respiratory Rate 20 04/09/17 07:16 Blood Pressure 118/61 04/09/17 07:16 Pulse Oximetry (%) 100 04/09/17 07:16 Temperature 96.8 F L 04/09/17 07:16 Pulse Rate 113 H 04/09/17 10:31 Respiratory Rate 20 04/09/17 10:31 Blood Pressure 123/60 04/09/17 10:31 Pulse Oximetry (%) 100 04/09/17 10:31 Medical Decision Making - MDM Narrative Medical decision making narrative: patient has DKA with bicarbonate level VII. PH is 7.1. A chest x-ray and UA are negative. So, getting IV fluids and DKA protocol with IV insulin. Chinmay contacted. So will be admitted to the hospitalist service for DKA - Lab Data Result diagrams: 04/09/17 07:54 04/09/17 07:54 Lab Results 04/09/17 04/09/17 04/09/17 Range/Units 07:53 07:54 07:54 WBC 13.2 H (4.5-11.0) K/mcL RBC 4.70 (4.00-5.20) M/mcL Hgb 13.4 (12.0-15.0) g/dL Hct 41.8 (36.0-48.0) % POC Hct 44.0 (36.0-48.0) % MCV 88.9 (80.0-100.0) fL MCH 28.6 (26.0-34.0) pg MCHC 32.2 (31.0-36.0) g/dL RDW 13.3 (11.5-14.5) % Plt Count 214 (140-440) K/mcL MPV 13.5 H (7.4-10.4) fL Total Counted 100 Seg Neutrophils % 76 (38-78) % Band Neutrophils % Not Reportable Lymphocytes % 22 (15-49) % Monocytes % (Manual) 2 (1-12) % Platelet Estimate Normal (NORMAL) RBC Morphology Normal (NORMAL) VBG Lactic Acid 4.4 H* (0.5-2.2) mmol/L POC Sodium 134 (133-145) mmol/L Sodium 134 (133-145) mmol/L POC Potassium 4.0 (3.3-5.1) mmol/L Potassium 4.1 (3.3-5.1) mmol/L POC Chloride 96 (96-108) mmol/L Chloride 87 L (96-108) mmol/L Carbon Dioxide 7 L* (22-30) mmol/L POC Total CO2 11 L (22-30) mmol/L Anion Gap 40.0 H (8-16) POC BUN 23 H (6-20) mg/dl BUN 22 H (6-20) mg/dl Creatinine 1.2 H (0.6-1.1) mg/dl POC Creatinine 0.9 (0.6-1.1) mg/dl GFR Calculation 62 Glucose 783 H* (70-105) mg/dL POC Glucose > 700 H* (70-105) mg/dL Calcium 9.4 (8.6-10.4) mg/dl POC WB Ioniz Calcium 1.26 (1.16-1.32) mmol/L Magnesium 1.9 (1.6-2.5) mg/dL Total Bilirubin 0.5 (0.0-1.0) mg/dL AST 12 (0-37) U/l ALT 13 (0-40) U/l Alkaline Phosphatase 143 H (39-117) U/L Total Protein 6.8 (5.9-8.4) gm/dL Albumin 4.1 (3.2-5.2) gm/dL Globulin 2.7 (2.2-3.7) gm/dL Albumin/Globulin Ratio 1.5 (1.0-2.3) Beta-Hydroxybutyrate (< 0.27) mmol/L 04/09/17 Range/Units 07:54 WBC (4.5-11.0) K/mcL RBC (4.00-5.20) M/mcL Hgb (12.0-15.0) g/dL Hct (36.0-48.0) % POC Hct (36.0-48.0) % MCV (80.0-100.0) fL MCH (26.0-34.0) pg MCHC (31.0-36.0) g/dL RDW (11.5-14.5) % Plt Count (140-440) K/mcL MPV (7.4-10.4) fL Total Counted Seg Neutrophils % (38-78) % Band Neutrophils % Lymphocytes % (15-49) % Monocytes % (Manual) (1-12) % Platelet Estimate (NORMAL) RBC Morphology (NORMAL) VBG Lactic Acid (0.5-2.2) mmol/L POC Sodium (133-145) mmol/L Sodium (133-145) mmol/L POC Potassium (3.3-5.1) mmol/L Potassium (3.3-5.1) mmol/L POC Chloride (96-108) mmol/L Chloride (96-108) mmol/L Carbon Dioxide (22-30) mmol/L POC Total CO2 (22-30) mmol/L Anion Gap (8-16) POC BUN (6-20) mg/dl BUN (6-20) mg/dl Creatinine (0.6-1.1) mg/dl POC Creatinine (0.6-1.1) mg/dl GFR Calculation Glucose (70-105) mg/dL POC Glucose (70-105) mg/dL Calcium (8.6-10.4) mg/dl POC WB Ioniz Calcium (1.16-1.32) mmol/L Magnesium (1.6-2.5) mg/dL Total Bilirubin (0.0-1.0) mg/dL AST (0-37) U/l ALT (0-40) U/l Alkaline Phosphatase (39-117) U/L Total Protein (5.9-8.4) gm/dL Albumin (3.2-5.2) gm/dL Globulin (2.2-3.7) gm/dL Albumin/Globulin Ratio (1.0-2.3) Beta-Hydroxybutyrate 8.45 H (< 0.27) mmol/L Disposition Pt seen by GLASS PRESSER/PA only: No Clinical Impression: DKA (diabetic ketoacidoses) Qualifiers: Diabetes mellitus type: type 1 Diabetes mellitus complication detail: without coma Qualified Code(s): E10.10 - Type 1 diabetes mellitus with ketoacidosis without coma Disposition: Xfer As Inpt ([facility]) Condition: Critical Referrals: Jordyn Banerjee MD [Primary Care Provider] -
--- NOTE | 2017-04-09 11:05 | Internal Med History&Physical ---
Medical - H&P: [facility] Patient information: Note initiated : 04/09/17 at 11:02 am Service Date, if different from initiated Date: [] Patient: Patricia Toussaint 26 y/o F admitted on for Vomiting, Elevated Blood Sugar. Chief Complaint: nausea, vomiting, hyperglycemia History of present illness: Patient is a 26-year-old female with known type 1 diabetes and history of DKA, gastroesophageal reflux, depression and hypercholesterolemia who presents with nausea and vomiting. Patient had onset of nausea and vomiting with some diarrhea about midnight. She had felt well yesterday. She uses an insulin pump to manage her diabetes. Her CBGs in the last few days but running in the 200-400 range. Her insulin pump has been functioning. She's had no ill contacts. She's had no cough or sputum production, no fevers or chills. No dysuria. She did have some pain across her upper chest radiating into her abdomen at presentation, that is improved currently. In the ED she was found to be in diabetic ketoacidosis, bicarbonate 7, lactic acid 4.4, glucose of 783 and beta hydroxybutyrate 8.45. She initially received fluid resuscitation and insulin in the ED and is being admitted to the intensive care unit for treatment of DKA. Patient had no infectious symptoms. Her glucoses have been running elevated and she has been under a lot of psychosocial stress working on her master's degree. Her insulin pump has been infusing. No other trigger for DKA readily apparent. Review of systems: An 11 point review of systems is performed, except as noted in history of present illness, the remainder is negative. Specifically the patient has had no chest pain/tightness/pressure, no hematemesis, no blood in stool, no focal neurologic symptoms. Medical - H&P: [facility] Medical history: Cellulitis and abscess of trunk (Acute) 08/26/2014 Diabetes type 1, uncontrolled (Acute) Diabetic ketoacidosis (Acute), 02/2017, 03/08/2017 Gastroesophageal reflux (Acute), distal esophagitis and erosive gastritis seen on EGD, February 11, 2017. Diabetic gastroparesis associated with type 1 diabetes mellitus Hyperlipidemia (Acute) Postconcussion syndrome (Acute) Sepsis (Acute) Depression Surgical history: History of wisdom tooth extraction (Acute) Pertinent family history: Grandmother had Malignant neoplasm of colon, Cerebrovascular accident Paternal great-grandmother had diabetes Social history: Smoked from 17 to age 22, then quit. Alcohol use once or twice a month. Lives with her boyfriend and his parents, working on masters degree in social work. Medical - H&P: Meds Home Medications Medication Instructions Recorded Confirmed Type insulin aspart 100 unit/mL See Dose Instructions SUB-Q 10/06/14 04/09/17 History subcutaneous solution .COMPLEX ml medroxyprogesterone 150 mg/mL 150 mg IM ONCE 05/19/15 04/09/17 History intramuscular suspension Accu-Chek 1 each FS ACHS strip 03/13/17 04/09/17 Rx Allergies Allergy/AdvReac Type Severity Reaction Status Date / Time Amoxicillin [AMOXICILLIN] Allergy Intermediate Rash Verified 04/09/17 07:20 vancomycin Allergy Mild Itching Verified 04/09/17 07:20 ibuprofen [IBUPROFEN] AdvReac Intermediate Other Verified 04/09/17 07:20 Medical - H&P: Exam - Constitutional Vitals: Temp Pulse Resp BP Pulse Ox 96.8 F L 113 H 20 123/60 100 04/09/17 07:16 04/09/17 10:31 04/09/17 10:31 04/09/17 10:31 04/09/17 10:31 Exam: General: Drowsy, acutely ill-appearing HEENT: Normocephalic. Pupils are equally round and reactive to light. Sclera are anicteric. No conjunctival injection. Oropharynx is with moist mucous membranes, no lip or gum lesions. Tongue is midline. Neck: Supple, no meningismus. No thyromegaly. Chest: Clear to auscultation bilaterally with no rales or wheezes. No accessory muscle use. Cardiovascular: Tachycardic, regular rhythm without murmur gallop or rub. Carotid pulses are 2+ without bruit. There is no lower extremity edema. Abdomen: Soft, mild to moderate epigastric tenderness without guarding or rebound. Rare bowel sounds. No hepatosplenomegaly. Lymphatic: No cervical or supraclavicular lymphadenopathy. Skin: Warm, dry. No rash. Skin turgor is normal Musculoskeletal: No joint erythema or tenderness. Normal range of motion in the upper and lower extremities. Strength 5/5 in upper and lower extremities. Digits without cyanosis or clubbing. Neuro: Drowsy, oriented X3. Cranial nerves II through XII grossly intact. Sensation intact to light touch. Medical - H&P: Reslt - Labs CBC & Chem 7: 04/09/17 07:54 04/09/17 07:54 Labs: Short CBC 04/09/17 04/09/17 04/09/17 Range/Units 07:53 07:54 07:54 WBC 13.2 H (4.5-11.0) K/mcL RBC 4.70 (4.00-5.20) M/mcL Hgb 13.4 (12.0-15.0) g/dL Hct 41.8 (36.0-48.0) % POC Hct 44.0 (36.0-48.0) % MCV 88.9 (80.0-100.0) fL MCH 28.6 (26.0-34.0) pg MCHC 32.2 (31.0-36.0) g/dL RDW 13.3 (11.5-14.5) % Plt Count 214 (140-440) K/mcL MPV 13.5 H (7.4-10.4) fL Total Counted 100 Seg Neutrophils % 76 (38-78) % Band Neutrophils % Not Reportable Lymphocytes % 22 (15-49) % Monocytes % (Manual) 2 (1-12) % Platelet Estimate Normal (NORMAL) RBC Morphology Normal (NORMAL) VBG Lactic Acid 4.4 H* (0.5-2.2) mmol/L POC Sodium 134 (133-145) mmol/L Sodium 134 (133-145) mmol/L POC Potassium 4.0 (3.3-5.1) mmol/L Potassium 4.1 (3.3-5.1) mmol/L POC Chloride 96 (96-108) mmol/L Chloride 87 L (96-108) mmol/L Carbon Dioxide 7 L* (22-30) mmol/L POC Total CO2 11 L (22-30) mmol/L Anion Gap 40.0 H (8-16) POC BUN 23 H (6-20) mg/dl BUN 22 H (6-20) mg/dl Creatinine 1.2 H (0.6-1.1) mg/dl POC Creatinine 0.9 (0.6-1.1) mg/dl GFR Calculation 62 Glucose 783 H* (70-105) mg/dL POC Glucose > 700 H* (70-105) mg/dL Calcium 9.4 (8.6-10.4) mg/dl POC WB Ioniz Calcium 1.26 (1.16-1.32) mmol/L Magnesium 1.9 (1.6-2.5) mg/dL Total Bilirubin 0.5 (0.0-1.0) mg/dL AST 12 (0-37) U/l ALT 13 (0-40) U/l Alkaline Phosphatase 143 H (39-117) U/L Total Protein 6.8 (5.9-8.4) gm/dL Albumin 4.1 (3.2-5.2) gm/dL Globulin 2.7 (2.2-3.7) gm/dL Albumin/Globulin Ratio 1.5 (1.0-2.3) Beta-Hydroxybutyrate 8.45 (< 0.27) mmol/L - EKG Data -: EKG Reviewed by Myself (ST at 112, QTc 486, no acute ischemic changes) - Impressions CXR: Clear lung serrano, no infiltrate. Reviewed. Medical - H&P: A/P (1) DKA (diabetic ketoacidoses) Current visit: Yes Status: Acute (2) Erosive gastritis Current visit: Yes Status: Acute (3) Diabetes type 1, uncontrolled Current visit: Yes Status: Chronic - Narrative A/P Narrative: 26-year-old female with history of type 1 diabetes, poorly controlled recently, 2 recent hospitalizations with DKA presents with nausea, vomiting. Fairly abrupt onset and is found to be in recurrent DKA. Diabetic ketoacidosis. Unclear trigger, may be related to progressive poor glucose control the last few days and psychosocial stress. No evidence of infection. No evidence of acute coronary syndrome. Insulin pump appears to be working, though that has not been fully ruled out. Significant acidosis with elevated lactate and beta hydroxybutyrate. Consistent with DKA. Do not suspect concurrent sepsis. Plan: 1. Inpatient admission to the ICU 2. Insulin drip, transitioned to dextrose in fluids once glucose becoming controlled 3. Monitor acidosis, transition off of IV insulin when gap closes 4. Monitor electrolytes, replete as needed Leukocytosis. As noted, no evidence of infection. Urine analysis remarkable for ketones but not for evidence of UTI. Suspect this may be stress response. Plan: Monitor. Epigastric pain. Patient's recently diagnosed with erosive gastritis, also carries a diagnosis of gastroparesis. Suspect a combination of the 2. Plan: Acid suppression with PPI CODE STATUS is full code Prophylaxis: Lovenox and PPI.
[2017-04-09] MEDS ORDERED: 0.9 % SODIUM CHLORIDE 1,000 ML IV SCH (11:30)
[2017-04-09] MEDS ORDERED: POTASSIUM CHLORIDE 40 MEQ in DEXTROSE 5% IN WATER 500 ML IV ONE (12:05)
[2017-04-09] MEDS ORDERED: NACL 0.9% W/KCL 20MEQ 1,000 ML IV SCH (12:15)
[2017-04-09] MEDS ORDERED: ACETAMINOPHEN 325 MG TABLET PO PRN (12:56)
[2017-04-09] MEDS: NACL 0.9% W/KCL 20MEQ 1,000 ML IV SCH ×2 (13:00→20:25)
[2017-04-09] MEDS: 0.9 % SODIUM CHLORIDE 10 ML SYRINGE IV SCH ×2 (13:20→22:05)
[2017-04-09] MEDS: ONDANSETRON 4 MG/2 ML VIAL IV PRN ×2 (13:21→19:30)
[2017-04-09] MEDS ORDERED: INSULIN REGULAR, HUMAN 50 UNIT in 0.9 % SODIUM CHLORIDE 99.5 ML IV SCH (13:30)
[2017-04-09] MEDS: INSULIN REGULAR, HUMAN 50 UNIT in 0.9 % SODIUM CHLORIDE 99.5 ML IV SCH ×2 (14:15→20:24)
[2017-04-09] MEDS: PROCHLORPERAZINE 10 MG/2 ML VIAL IV PRN ×2 (14:26→18:28)
[2017-04-09 15:13] LABS: ABG Methemoglobin 0.3 % (0.4-1.5); VBG Base Excess -14.1 (-2.0-2.0); VBG HCO3 11.6 mmol/L (24.0-28.0); VBG Oxygen Saturation 89.2 % (40.0-70.0); VBG PH 7.25 U (7.32-7.42); VBG PO2 67 mmHg (25-40); VBG Total CO2 12.4 mmol/L (25.0-29.0)
--- NOTE | 2017-04-09 15:24 | XRay Report ---
CLINICAL INFORMATION: Central line placement COMPARISON: 04/09/2017 FINDINGS: Right IJ central line tip overlies the azygos last SVC junction. There is no pneumothorax or other complication from line placement. The heart is mildly enlarged, but stable. Mediastinum and pulmonary vessels are unremarkable. Lungs are clear. No effusions. IMPRESSION: Right IJ line in satisfactory position. No complication from line placement. Interpreted and Authenticated by: Carl Franco 04/09/17
[2017-04-09 17:12] LABS: Magnesium 1.6 mg/dL (1.6-2.5)
[2017-04-09] MEDS ORDERED: SODIUM CHLORIDE 0.9% IV ONE (17:16)
[2017-04-09] MEDS ORDERED: MAGNESIUM SULFATE IV ONE (17:16)
[2017-04-09] MEDS ORDERED: POTASSIUM PHOSPHATE 20 MEQ in DEXTROSE 5% IN WATER 250 ML IV ONE (17:16)
[2017-04-09] MEDS ORDERED: DEXTROSE 5%-NS W/20MEQ KCL 1,000 ML IV SCH (17:30)
[2017-04-09] MEDS: METOCLOPRAMIDE 10 MG/2 ML VIAL IV PRN (18:27)
[2017-04-09 19:37] LABS: ABG Methemoglobin 0.3 % (0.4-1.5); VBG Base Excess -5.2 (-2.0-2.0); VBG HCO3 19.6 mmol/L (24.0-28.0); VBG Oxygen Saturation 87.4 % (40.0-70.0); VBG PCO2 35.7 mmHg (41.0-51.0); VBG PH 7.36 U (7.32-7.42); VBG PO2 56 mmHg (25-40); VBG Total CO2 20.7 mmol/L (25.0-29.0)
[2017-04-09] MEDS: FAMOTIDINE/PF 20 MG/2 ML VIAL IV SCH (20:33)
[2017-04-09] MEDS ORDERED: DEXTROSE 50% 50 ML VIAL IV ONE ×2 (23:11→23:20)
[2017-04-10] MEDS: PROCHLORPERAZINE 10 MG/2 ML VIAL IV PRN ×6 (00:34→20:45)
[2017-04-10] MEDS: METOCLOPRAMIDE 10 MG/2 ML VIAL IV PRN ×4 (00:35→23:29)
[2017-04-10] MEDS: ONDANSETRON 4 MG/2 ML VIAL IV PRN ×4 (01:28→23:29)
[2017-04-10 02:03] LABS: ABG Methemoglobin 0.3 % (0.4-1.5); VBG HCO3 15.1 mmol/L (24.0-28.0); VBG Oxygen Saturation 89.2 % (40.0-70.0); VBG PCO2 30.9 mmHg (41.0-51.0); VBG PH 7.31 U (7.32-7.42); VBG PO2 72 mmHg (25-40); VBG Total CO2 16.1 mmol/L (25.0-29.0)
[2017-04-10] MEDS: DEXTROSE 5%-NS W/20MEQ KCL 1,000 ML IV SCH ×7 (02:13→21:54)
[2017-04-10] MEDS: INSULIN REGULAR, HUMAN 50 UNIT in 0.9 % SODIUM CHLORIDE 99.5 ML IV SCH ×3 (05:58→19:07)
[2017-04-10] MEDS: 0.9 % SODIUM CHLORIDE 10 ML SYRINGE IV SCH ×3 (05:59→22:04)
[2017-04-10 06:38] LABS: ALT/SGPT 10 U/l (0-40); Albumin 3.5 gm/dL (3.2-5.2); Albumin/Globulin Ratio 1.7 (1.0-2.3); Alkaline Phosphatase 104 U/L (39-117); Bilirubin,Direct < 0.2 mg/dL (0.0-0.3); Blood Urea Nitrogen 10 mg/dl (6-20); Gamma Glutamyl Transpeptidase 10 U/L (5-36); Uric Acid 7.1 mg/dL (2.5-8.0)
[2017-04-10] MEDS ORDERED: POTASSIUM PHOSPHATE 20 MEQ in DEXTROSE 5% IN WATER 250 ML IV ONE (06:48)
[2017-04-10] MEDS: FAMOTIDINE/PF 20 MG/2 ML VIAL IV SCH ×2 (09:09→21:56)
[2017-04-10] MEDS: ENOXAPARIN 40 MG/0.4 ML SYRINGE SQ SCH (09:09)
[2017-04-10] MEDS: PROMETHAZINE 25 MG/ML VIAL IV PRN ×3 (09:37→19:16)
--- NOTE | 2017-04-10 11:20 | Internal Med Progress Note ---
Medical - PN: Subj Patient information: Note initiated : 04/10/17 at 11:18 am Service Date, if different from initiated Date: [] Patient: Patricia Toussaint 26 y/o F admitted on 04/09/17 for Vomiting, Elevated Blood Sugar. Chief Complaint: f/u DKA Interval history: Apr 09 Patient is a 26-year-old female with known type 1 diabetes and history of DKA, gastroesophageal reflux, depression and hypercholesterolemia who presents with nausea and vomiting. Patient had onset of nausea and vomiting with some diarrhea about midnight. She had felt well yesterday. She uses an insulin pump to manage her diabetes. Her CBGs in the last few days but running in the 200-400 range. Her insulin pump has been functioning. She's had no ill contacts. She's had no cough or sputum production, no fevers or chills. No dysuria. She did have some pain across her upper chest radiating into her abdomen at presentation, that is improved currently. In the ED she was found to be in diabetic ketoacidosis, bicarbonate 7, lactic acid 4.4, glucose of 783 and beta hydroxybutyrate 8.45. She initially received fluid resuscitation and insulin in the ED and is being admitted to the intensive care unit for treatment of DKA. Patient had no infectious symptoms. Her glucoses have been running elevated and she has been under a lot of psychosocial stress working on her master's degree. Her insulin pump has been infusing. No other trigger for DKA readily apparent. Apr 10 Continued on insulin drip overnight. Anion gap is slowly closing, still mild gap this morning. Recheck will be at noon. His been repleted phosphorous, potassium. No rhythm problems. Has continued to be nauseated. Abdominal pain is improved from yesterday. Has known gastroparesis. - Constitutional Vitals: Vital Signs Temp Pulse Resp BP Pulse Ox 98.3 F 103 H 9 L 152/92 97 04/10/17 09:00 04/10/17 07:01 04/10/17 09:00 04/10/17 09:00 04/10/17 07:01 Period Temp Pulse Resp BP Sys/Butt Pulse Ox Last 24 Hr 96.8 F-100.0 F 97-121 9-20 111-159/56-117 95-100 Intake and Output 01/05/2604/10/17 04/10/17 21:59 05:59 13:59 Intake Total 1590.5455 / 1590.5455 331 / 331 2138 Output Total 1050 / 1050 600 / 600 350 / 350 Balance 540.5455 / 540.5455 -269 / -269 1788 Weight 242 lb 9.6 oz Intake & Output: Intake & Output 04/09/17 04/10/17 04/10/17 21:59 05:59 13:59 Intake Total 1590.5455 / 1590.5455 331 / 331 2138 Output Total 1050 / 1050 600 / 600 350 / 350 Balance 540.5455 / 540.5455 -269 / -269 1788 Weight 242 lb 9.6 oz Intake: IV 1590.5455 / 1590.5455 51 / 51 2038 Dextrose 5%-Ns W/20Meq KCl 1, 993 / 993 000 ml @ 150 mls/hr IV .Q6H40M [facility] Rx#:[id number] HumuLIN R 50 UNIT In Sodium 110 / 110 51 / 51 46 / 46 Chloride 0.9% 99.5 ml @ 6.5 UNIT/HR 13 mls/hr IV Q8H [facility] Rx #:[id number] NaCl 0.9% W/KCl 20Meq 1000ML 1, 670 / 670 000 ml @ 150 mls/hr IV .Q6H40M [facility] Rx#:[id number] Potassium Chloride 40 Meq In 498 / 498 Dextrose 5% in Water 500 ml @ 130 mls/hr IV ONCE ONE Rx#: [id number] Potassium Phosphate 20 Meq In 254.5455 / 254.5455 Dextrose 5% in Water 250 ml @ 127.273 mls/hr IV ONCE ONE Rx#: [id number] Oral 0 / 0 280 / 280 100 / 100 Output: Void Amount 425 / 425 300 / 300 Urine/Stool Mix 800 / 800 Emesis 250 / 250 175 / 175 50 / 50 Other: Meal Breakfast Percent of Meal Consumed Refused # Emeses 1 Exam: General: Drowsy, uncomfortable-appearing Chest: Clear, no rales Cardiovascular: Regular, no peripheral edema Abdomen: Bowel sounds present but hypoactive. Mild epigastric tenderness to palpation, no guarding or rebound. Neuro: Drowsy, responds appropriately, moves all extremities. Medical - PN: Obj Da - Labs CBC & Chem 7: 04/09/17 07:54 04/10/17 03:37 Labs: Laboratory Results - last 24 hr 04/09/17 04/09/17 04/09/17 11:11 14:45 14:45 POC Hct 41.0 ABG Methemoglobin VBG pH VBG pCO2 VBG pO2 VBG HCO3 VBG Total CO2 VBG O2 Saturation VBG Base Excess Carboxyhemoglobin Total Hemoglobin O2 Delivery Level POC Sodium 141 Sodium 140 POC Potassium 3.2 L Potassium 4.0 POC Chloride 108 Chloride 101 Carbon Dioxide 10 L* POC Total CO2 10 L Anion Gap 29.0 H POC BUN 20 BUN Creatinine POC Creatinine 0.8 GFR Calculation Glucose POC Glucose 404 H Uric Acid Calcium POC WB Ioniz Calcium 1.24 Phosphorus 3.0 Magnesium 1.6 Total Bilirubin Direct Bilirubin GGT AST ALT Alkaline Phosphatase Lactate Dehydrogenase Total Protein Albumin Globulin Albumin/Globulin Ratio Triglycerides 04/09/17 04/09/17 04/09/17 14:45 19:11 19:11 POC Hct ABG Methemoglobin 0.3 L VBG pH 7.25 L VBG pCO2 27.0 L VBG pO2 67 H VBG HCO3 11.6 L VBG Total CO2 12.4 L VBG O2 Saturation 89.2 H VBG Base Excess -14.1 L Carboxyhemoglobin 2.6 H Total Hemoglobin 11.8 L O2 Delivery Level Not Reportable POC Sodium Sodium 143 POC Potassium Potassium 4.2 POC Chloride Chloride 108 Carbon Dioxide 18 L POC Total CO2 Anion Gap 17.0 H POC BUN BUN Creatinine POC Creatinine GFR Calculation Glucose POC Glucose Uric Acid Calcium POC WB Ioniz Calcium Phosphorus 1.8 L Magnesium Total Bilirubin Direct Bilirubin GGT AST ALT Alkaline Phosphatase Lactate Dehydrogenase Total Protein Albumin Globulin Albumin/Globulin Ratio Triglycerides 04/09/17 04/09/17 04/09/17 19:11 19:11 22:15 POC Hct ABG Methemoglobin 0.3 L VBG pH 7.36 VBG pCO2 35.7 L VBG pO2 56 H VBG HCO3 19.6 L VBG Total CO2 20.7 L VBG O2 Saturation 87.4 H VBG Base Excess -5.2 L Carboxyhemoglobin 2.6 H Total Hemoglobin 11.9 L O2 Delivery Level Not Reportable POC Sodium Sodium POC Potassium Potassium POC Chloride Chloride Carbon Dioxide POC Total CO2 Anion Gap POC BUN BUN Creatinine POC Creatinine GFR Calculation Glucose POC Glucose Uric Acid Calcium POC WB Ioniz Calcium Phosphorus Magnesium 1.6 2.4 Total Bilirubin Direct Bilirubin GGT AST ALT Alkaline Phosphatase Lactate Dehydrogenase Total Protein Albumin Globulin Albumin/Globulin Ratio Triglycerides 04/10/17 04/10/17 04/10/17 01:36 01:36 01:36 POC Hct ABG Methemoglobin 0.3 L VBG pH 7.31 L VBG pCO2 30.9 L VBG pO2 72 H VBG HCO3 15.1 L VBG Total CO2 16.1 L VBG O2 Saturation 89.2 H VBG Base Excess -10.0 L Carboxyhemoglobin 2.9 H Total Hemoglobin 11.9 L O2 Delivery Level Not Reportable POC Sodium Sodium 140 POC Potassium Potassium 4.2 POC Chloride Chloride 106 Carbon Dioxide 14 L POC Total CO2 Anion Gap 20.0 H POC BUN BUN Creatinine POC Creatinine GFR Calculation Glucose POC Glucose Uric Acid Calcium POC WB Ioniz Calcium Phosphorus 3.0 Magnesium Total Bilirubin Direct Bilirubin GGT AST ALT Alkaline Phosphatase Lactate Dehydrogenase Total Protein Albumin Globulin Albumin/Globulin Ratio Triglycerides 04/10/17 03:37 POC Hct ABG Methemoglobin VBG pH VBG pCO2 VBG pO2 VBG HCO3 VBG Total CO2 VBG O2 Saturation VBG Base Excess Carboxyhemoglobin Total Hemoglobin O2 Delivery Level POC Sodium Sodium 140 POC Potassium Potassium 4.0 POC Chloride Chloride 106 Carbon Dioxide 17 L POC Total CO2 Anion Gap 17.0 H POC BUN BUN 10 Creatinine 0.8 POC Creatinine GFR Calculation 101 Glucose 254 H POC Glucose Uric Acid 7.1 Calcium 8.1 L POC WB Ioniz Calcium Phosphorus 2.6 L Magnesium 2.0 Total Bilirubin 0.2 Direct Bilirubin < 0.2 GGT 10 AST 8 ALT 10 Alkaline Phosphatase 104 Lactate Dehydrogenase 181 Total Protein 5.6 L Albumin 3.5 Globulin 2.1 L Albumin/Globulin Ratio 1.7 Triglycerides 52 Meds: Medications Acetaminophen (Tylenol) 650 mg PO Q4-6HP PRN PRN Reason: PAIN/FEVER > 101 Diagnostic Test (Pha) (Accu-Chek) 1 each FS Q1 [facility] Last Admin: 04/10/17 11:09 Dose: 1 each Enoxaparin Sodium (Lovenox) 40 mg SQ DAILY [facility] Last Admin: 04/10/17 09:09 Dose: 40 mg Famotidine (Pepcid) 20 mg IV Q12 [facility] Last Admin: 04/10/17 09:09 Dose: 20 mg Insulin Human Regular 50 unit/ (Sodium Chloride) 100 mls @ 13 mls/hr IV Q8H PAU ; 6.5 UNIT/HR PRN Reason: Protocol Last Titration: 04/10/17 11:09 Dose: 3.5 unit/hr, 7 mls/hr Potassium Chloride/Dextrose/Sod Cl (Dextrose 5%-Ns W/20meq Kcl) 1,000 mls @ 150 mls/hr IV .Q6H40M [facility] Last Admin: 04/10/17 08:50 Dose: 150 mls/hr Metoclopramide HCl (Reglan) 10 mg IV Q6HP PRN PRN Reason: Nausea And Vomiting Last Admin: 04/10/17 06:35 Dose: 10 mg Ondansetron HCl (Zofran) 4 mg IV Q4-6HP PRN PRN Reason: Nausea And Vomiting Last Admin: 04/10/17 06:36 Dose: 4 mg Prochlorperazine Edisylate (Compazine) 10 mg IV Q4HP PRN PRN Reason: Nausea And Vomiting Last Admin: 04/10/17 08:32 Dose: 10 mg Promethazine HCl (Phenergan) 12.5 mg IV Q4HP PRN PRN Reason: Nausea And Vomiting Last Admin: 04/10/17 09:37 Dose: 12.5 mg Sodium Chloride (Saline Flush) 10 ml IV Q8 PAU Last Admin: 04/10/17 05:59 Dose: 10 ml - ABG Interpretation ABG results: 04/09/17 04/09/17 04/10/17 14:45 19:11 01:36 ABG Methemoglobin 0.3 L 0.3 L 0.3 L VBG pH 7.25 L 7.36 7.31 L VBG pCO2 27.0 L 35.7 L 30.9 L VBG pO2 67 H 56 H 72 H VBG HCO3 11.6 L 19.6 L 15.1 L VBG Total CO2 12.4 L 20.7 L 16.1 L VBG O2 Saturation 89.2 H 87.4 H 89.2 H VBG Base Excess -14.1 L -5.2 L -10.0 L Medical - PN: A/P - Time Spent With Patient Total time spent is greater than 50% in coordination of care (as documented) at patient's floor/unit and/or counseling patient: Greater than 35 minutes (1) DKA (diabetic ketoacidoses) Status: Acute Current Visit: Yes (2) Erosive gastritis Status: Acute Current Visit: Yes (3) Diabetes type 1, uncontrolled Status: Chronic Current Visit: Yes - Narrative A/P Narrative: 26-year-old female with history of type 1 diabetes, poorly controlled recently, 2 recent hospitalizations with DKA presents with nausea, vomiting. Fairly abrupt onset and is found to be in recurrent DKA. Diabetic ketoacidosis. Unclear trigger, may be related to progressive poor glucose control the last few days and psychosocial stress. No evidence of infection. Saturday late morning. Plan: Continue with DKA protocol, now with fluids and dextrose, continuing insulin infusion to clear acidemia. Given poor oral intake, may require further IV insulin management overnight. Continue to monitor electrolytes and replete as needed. Leukocytosis. As noted, no evidence of infection. Urine analysis remarkable for ketones but not for evidence of UTI. Suspect this may be stress response. Plan: Monitor. Nausea with vomiting. Has gastroparesis. Suspect common initial DAC, gastritis as well as hyperglycemia. Zofran not that effective. Phenergan and Compazine added to her regimen. Plan: Continue with anti-emetics as needed. Epigastric pain. Patient's recently diagnosed with erosive gastritis, also carries a diagnosis of gastroparesis. Suspect a combination of the two. Pain improved on Saturday. Plan: Acid suppression with PPI CODE STATUS is full code Prophylaxis: Lovenox and PPI. Medical - PN: Qual - VTE Deep Vein Thrombosis/Pulmonary Embolism Present on Admission: No
[2017-04-10 15:06] LABS: Blood Urea Nitrogen 7 mg/dl (6-20); Magnesium 1.9 mg/dL (1.6-2.5)
[2017-04-10] MEDS ORDERED: MAGNESIUM SULFATE 2 GM/50 ML BAG IV ONE ×2 (22:19→23:35)
[2017-04-11] MEDS: PROMETHAZINE 25 MG/ML VIAL IV PRN ×4 (02:12→16:53)
[2017-04-11] MEDS: PROCHLORPERAZINE 10 MG/2 ML VIAL IV PRN ×2 (02:13→06:32)
[2017-04-11] MEDS: DEXTROSE 5%-NS W/20MEQ KCL 1,000 ML IV SCH ×2 (02:25→04:30)
[2017-04-11] MEDS: INSULIN REGULAR, HUMAN 50 UNIT in 0.9 % SODIUM CHLORIDE 99.5 ML IV SCH (04:31)
[2017-04-11] MEDS ORDERED: INSULIN REGULAR, HUMAN 1 UNIT/0.01 ML UNIT ONE (04:31)
[2017-04-11] MEDS: 0.9 % SODIUM CHLORIDE 10 ML SYRINGE IV SCH ×3 (05:55→20:51)
[2017-04-11 06:27] LABS: Basophils # (Auto) 0 K/mcL (0.0-0.3); Basophils % (Auto) 0.3 % (0.0-2.0); Eosinophils # (Auto) 0.1 K/mcL (0.0-0.7); Eosinophils % (Auto) 0.7 % (0.0-7.0); Granulocytes % (Auto) 81.3 % (38.0-78.0); Lymphocytes # (Auto) 1.4 K/mcL (1.5-4.8); Lymphocytes % (Auto) 14.5 % (15.5-49.0); Mean Cell Volume 86.6 fL (80.0-100.0); Mean Corpuscular HGB Conc 33.4 g/dL (31.0-36.0); Monocytes # (Auto) 0.3 K/mcL (0.1-0.9); Monocytes % (Auto) 3.2 % (1.0-12.0); Platelet Count 146 K/mcL (140-440); RBC 4.15 M/mcL (4.00-5.20); Red Cell Distribution Width 13.4 % (11.5-14.5)
[2017-04-11] MEDS: ONDANSETRON 4 MG/2 ML VIAL IV PRN (06:32)
[2017-04-11 06:58] LABS: ALT/SGPT 9 U/l (0-40); Albumin 3.4 gm/dL (3.2-5.2); Albumin/Globulin Ratio 1.7 (1.0-2.3); Alkaline Phosphatase 109 U/L (39-117); Bilirubin,Direct < 0.2 mg/dL (0.0-0.3); Blood Urea Nitrogen 2 mg/dl (6-20); Gamma Glutamyl Transpeptidase 10 U/L (5-36); Magnesium 1.9 mg/dL (1.6-2.5); Uric Acid 4.4 mg/dL (2.5-8.0)
[2017-04-11] MEDS ORDERED: DEXTROSE 31 GM ORAL.SUSP PO PRN ×2 (07:22→11:06)
[2017-04-11] MEDS ORDERED: DEXTROSE 50% 50 ML VIAL IV PRN ×2 (07:22→11:06)
[2017-04-11] MEDS ORDERED: PANTOPRAZOLE 40 MG VIAL IV SCH (07:30)
[2017-04-11] MEDS ORDERED: INSULIN LISPRO 1 UNIT/0.01 ML UNIT SQ SCH (07:30)
[2017-04-11] MEDS ORDERED: METOCLOPRAMIDE 10 MG/2 ML VIAL IV SCH (07:30)
[2017-04-11] MEDS: INSULIN GLARGINE, HUMAN 1 UNIT/0.01 ML SQ SCH ×2 (07:39→08:51)
[2017-04-11] MEDS: ENOXAPARIN 40 MG/0.4 ML SYRINGE SQ SCH (09:43)
[2017-04-11] MEDS ORDERED: POTASSIUM CHLORIDE 40 MEQ in DEXTROSE 5% IN WATER 500 ML IV ONE ×2 (10:18→11:06)
--- NOTE | 2017-04-11 10:22 | Internal Med Progress Note ---
Medical - PN: Subj Patient information: Note initiated : 04/11/17 at 10:19 am Service Date, if different from initiated Date: [] Patient: Patricia Toussaint 26 y/o F admitted on 04/09/17 for Vomiting, Elevated Blood Sugar. Chief Complaint: [] Interval history: Apr 09 Patient is a 26-year-old female with known type 1 diabetes and history of DKA, gastroesophageal reflux, depression and hypercholesterolemia who presents with nausea and vomiting. Patient had onset of nausea and vomiting with some diarrhea about midnight. She had felt well yesterday. She uses an insulin pump to manage her diabetes. Her CBGs in the last few days but running in the 200-400 range. Her insulin pump has been functioning. She's had no ill contacts. She's had no cough or sputum production, no fevers or chills. No dysuria. She did have some pain across her upper chest radiating into her abdomen at presentation, that is improved currently. In the ED she was found to be in diabetic ketoacidosis, bicarbonate 7, lactic acid 4.4, glucose of 783 and beta hydroxybutyrate 8.45. She initially received fluid resuscitation and insulin in the ED and is being admitted to the intensive care unit for treatment of DKA. Patient had no infectious symptoms. Her glucoses have been running elevated and she has been under a lot of psychosocial stress working on her master's degree. Her insulin pump has been infusing. No other trigger for DKA readily apparent. Apr 10 Continued on insulin drip overnight. Anion gap is slowly closing, still mild gap this morning. Recheck will be at noon. His been repleted phosphorous, potassium. No rhythm problems. Has continued to be nauseated. Abdominal pain is improved from yesterday. Has known gastroparesis. Apr 11 Patient seen examined, Sleepy this AM, did not have much appetitie, Anion gap closed, patients insulin drip stopped, on clear liquid diet, sq lantus given, patient will be on lantus and sliding scale insulin for now. The patient still has poor appetitie, in the last admisstion, she had EGD which showed gastritis and took a while to improve, needed scheduled reglan. Will change her prn reglan to ACHS and see if this helps. Change IV pepcid to IV pantoprazole. Xfer to med surg status Pertinent ROS: Denies headache, dizziness Denies chest pain, palpitations Denies cough or shortness of breath Denies abdominal pain, some nausea present, no vomiting this AM, poor appetitie. - Constitutional Vitals: Vital Signs Temp Pulse Resp BP Pulse Ox 98.6 F 98 H 19 96/53 96 04/11/17 03:00 04/11/17 08:01 04/11/17 08:01 04/11/17 08:01 04/11/17 08:01 Period Temp Pulse Resp BP Sys/Butt Pulse Ox Last 24 Hr 98.2 F-98.8 F 75-117 10-25 96-171/53-113 96-100 Intake and Output 04/10/17 04/11/17 04/11/17 21:59 05:59 13:59 Intake Total 1973 1091 / 1091 497 / 497 Output Total 451 / 451 970 / 970 800 / 800 Balance 1523 / 1523 121 / 121 -303 / -303 Weight 244 lb 9.6 oz Intake & Output: Intake & Output 04/10/17 04/11/17 04/11/17 21:59 05:59 13:59 Intake Total 1973 1091 / 1091 497 / 497 Output Total 451 / 451 970 / 970 800 / 800 Balance 1523 / 1523 121 / 121 -303 / -303 Weight 244 lb 9.6 oz Intake: IV 1973 1091 / 1091 497 / 497 Dextrose 5%-Ns W/20Meq KCl 1958 990 / 990 488 / 488 000 ml @ 150 mls/hr IV .[id number] PAU Rx#:[id number] HumuLIN R 50 UNIT In Sodium 15 / 15 51 / 51 9 / 9 Chloride 0.9% 99.5 ml @ 6.5 UNIT/HR 13 mls/hr IV Q8H [facility] Rx #:[id number] MAGNESIUM SULFATE 2 gm In 50 ml 50 / 50 As IV .STK-MED ONE Rx#: [id number] Output: Urine Catheter Amount 300 / 300 Void Amount 600 / 600 Urine/Stool Mix 250 / 250 750 / 750 Emesis 150 / 150 120 / 120 50 / 50 Other: Meal Lunch Percent of Meal Consumed Refused # Bowel Movements 1 # Emeses 2 Medical - PN: Obj Da - Labs CBC & Chem 7: 04/11/17 04:03 04/11/17 04:03 Labs: Abnormal Lab Results 04/11/17 04/11/17 04/10/17 04:03 04:03 12:05 WBC Hct 35.9 L MPV 12.1 H Gran % 81.3 H Lymph % (Auto) 14.5 L Gran # 8.1 H Lymph # (Auto) 1.4 L ABG Methemoglobin VBG pH VBG pCO2 VBG pO2 VBG HCO3 VBG Total CO2 VBG O2 Saturation VBG Base Excess VBG Lactic Acid Carboxyhemoglobin Total Hemoglobin POC Potassium Chloride 110 H 112 H Carbon Dioxide 20 L 19 L POC Total CO2 Anion Gap POC BUN BUN 2 L Creatinine Glucose 197 H 116 H POC Glucose Calcium 7.9 L 8.0 L Phosphorus 2.0 L Alkaline Phosphatase Total Protein 5.4 L Globulin 2.0 L Beta-Hydroxybutyrate 04/10/17 04/10/17 04/10/17 03:37 01:36 01:36 WBC Hct MPV Gran % Lymph % (Auto) Gran # Lymph # (Auto) ABG Methemoglobin 0.3 L VBG pH 7.31 L VBG pCO2 30.9 L VBG pO2 72 H VBG HCO3 15.1 L VBG Total CO2 16.1 L VBG O2 Saturation 89.2 H VBG Base Excess -10.0 L VBG Lactic Acid Carboxyhemoglobin 2.9 H Total Hemoglobin 11.9 L POC Potassium Chloride Carbon Dioxide 17 L 14 L POC Total CO2 Anion Gap 17.0 H 20.0 H POC BUN BUN Creatinine Glucose 254 H POC Glucose Calcium 8.1 L Phosphorus 2.6 L Alkaline Phosphatase Total Protein 5.6 L Globulin 2.1 L Beta-Hydroxybutyrate 04/09/17 04/09/17 04/09/17 19:11 19:11 19:11 WBC Hct MPV Gran % Lymph % (Auto) Gran # Lymph # (Auto) ABG Methemoglobin 0.3 L VBG pH VBG pCO2 35.7 L VBG pO2 56 H VBG HCO3 19.6 L VBG Total CO2 20.7 L VBG O2 Saturation 87.4 H VBG Base Excess -5.2 L VBG Lactic Acid Carboxyhemoglobin 2.6 H Total Hemoglobin 11.9 L POC Potassium Chloride Carbon Dioxide 18 L POC Total CO2 Anion Gap 17.0 H POC BUN BUN Creatinine Glucose POC Glucose Calcium Phosphorus 1.8 L Alkaline Phosphatase Total Protein Globulin Beta-Hydroxybutyrate 04/09/17 04/09/17 04/09/17 14:45 14:45 11:11 WBC Hct MPV Gran % Lymph % (Auto) Gran # Lymph # (Auto) ABG Methemoglobin 0.3 L VBG pH 7.25 L VBG pCO2 27.0 L VBG pO2 67 H VBG HCO3 11.6 L VBG Total CO2 12.4 L VBG O2 Saturation 89.2 H VBG Base Excess -14.1 L VBG Lactic Acid Carboxyhemoglobin 2.6 H Total Hemoglobin 11.8 L POC Potassium 3.2 L Chloride Carbon Dioxide 10 L* POC Total CO2 10 L Anion Gap 29.0 H POC BUN BUN Creatinine Glucose POC Glucose 404 H Calcium Phosphorus Alkaline Phosphatase Total Protein Globulin Beta-Hydroxybutyrate 04/09/17 04/09/17 04/09/17 07:54 07:54 07:54 WBC 13.2 H Hct MPV 13.5 H Gran % Lymph % (Auto) Gran # Lymph # (Auto) ABG Methemoglobin VBG pH VBG pCO2 VBG pO2 VBG HCO3 VBG Total CO2 VBG O2 Saturation VBG Base Excess VBG Lactic Acid Carboxyhemoglobin Total Hemoglobin POC Potassium Chloride 87 L Carbon Dioxide 7 L* POC Total CO2 11 L Anion Gap 40.0 H POC BUN 23 H BUN 22 H Creatinine 1.2 H Glucose 783 H* POC Glucose > 700 H* Calcium Phosphorus Alkaline Phosphatase 143 H Total Protein Globulin Beta-Hydroxybutyrate 8.45 H 04/09/17 07:53 WBC Hct MPV Gran % Lymph % (Auto) Gran # Lymph # (Auto) ABG Methemoglobin VBG pH VBG pCO2 VBG pO2 VBG HCO3 VBG Total CO2 VBG O2 Saturation VBG Base Excess VBG Lactic Acid 4.4 H* Carboxyhemoglobin Total Hemoglobin POC Potassium Chloride Carbon Dioxide POC Total CO2 Anion Gap POC BUN BUN Creatinine Glucose POC Glucose Calcium Phosphorus Alkaline Phosphatase Total Protein Globulin Beta-Hydroxybutyrate Meds: Medications Acetaminophen (Tylenol) 650 mg PO Q4-6HP PRN PRN Reason: PAIN/FEVER > 101 Dextrose (Dextrose 50%) 0 ml IV UD PRN PRN Reason: Hypoglycemia Diagnostic Test (Pha) (Accu-Chek) 1 each FS ACHS PAU Last Admin: 04/11/17 07:40 Dose: 1 each Enoxaparin Sodium (Lovenox) 40 mg SQ DAILY [facility] Last Admin: 04/11/17 09:43 Dose: 40 mg Glucose (Insta-Glucose) 15 gm PO PRN PRN PRN Reason: Hypoglycemia Potassium Chloride 40 meq/ (Dextrose) 520 mls @ 130 mls/hr IV ONCE ONE Stop: 04/11/17 14:17 Insulin Glargine (Lantus) 10 unit SQ BID [facility] Last Admin: 04/11/17 08:51 Dose: Not Given Insulin Human Lispro (Humalog) 0 unit SQ [facility] PRN Reason: Protocol Last Admin: 04/11/17 07:40 Dose: 3 unit Metoclopramide HCl (Reglan) 10 mg IV [facility] Last Admin: 04/11/17 07:40 Dose: 10 mg Ondansetron HCl (Zofran) 4 mg IV Q4-6HP PRN PRN Reason: Nausea And Vomiting Last Admin: 04/11/17 06:32 Dose: 4 mg Pantoprazole Sodium (Protonix) 40 mg IV BIDAC [facility] Last Admin: 04/11/17 08:37 Dose: 40 mg Promethazine HCl (Phenergan) 12.5 mg IV Q4HP PRN PRN Reason: Nausea And Vomiting Last Admin: 04/11/17 09:45 Dose: 12.5 mg Sodium Chloride (Saline Flush) 10 ml IV Q8 [facility] Last Admin: 04/11/17 05:55 Dose: 10 ml - ABG Interpretation ABG results: 04/09/17 04/09/17 04/10/17 14:45 19:11 01:36 ABG Methemoglobin 0.3 L 0.3 L 0.3 L VBG pH 7.25 L 7.36 7.31 L VBG pCO2 27.0 L 35.7 L 30.9 L VBG pO2 67 H 56 H 72 H VBG HCO3 11.6 L 19.6 L 15.1 L VBG Total CO2 12.4 L 20.7 L 16.1 L VBG O2 Saturation 89.2 H 87.4 H 89.2 H VBG Base Excess -14.1 L -5.2 L -10.0 L Medical - PN: A/P - Time Spent With Patient Total time spent is greater than 50% in coordination of care (as documented) at patient's floor/unit and/or counseling patient: - Narrative A/P Narrative: 26-year-old female with history of type 1 diabetes, poorly controlled recently, 2 recent hospitalizations with DKA presents with nausea, vomiting. Fairly abrupt onset and is found to be in recurrent DKA. Diabetic ketoacidosis. Resolved, Unclear trigger, may be related to progressive poor glucose control the last few days and psychosocial stress. No evidence of infection. Plan: D/c Insulin drip and D5 IV fluids, Sq insulin given, monitor glucose ACHS , Hypokalemia: Replace K Leukocytosis. As noted, no evidence of infection. Urine analysis remarkable for ketones but not for evidence of UTI. Suspect this may be stress response. Plan: Monitor. Nausea with vomiting. Has gastroparesis. Plan: Continue with anti-emetics as needed. change to scheduled reglan, which had helped her in the past admission. Epigastric pain. Patient's recently diagnosed with erosive gastritis, also carries a diagnosis of gastroparesis. Suspect a combination of the two. Pain improved on Saturday. Plan: Acid suppression with PPI CODE STATUS is full code Prophylaxis: Lovenox and PPI. Plan to xfer to med surg status Medical - PN: Qual - VTE Deep Vein Thrombosis/Pulmonary Embolism Present on Admission: No
[2017-04-11] MEDS ORDERED: POTASSIUM CHLORIDE 40 MEQ in 0.9 % SODIUM CHLORIDE 500 ML IV ONE (10:45)
[2017-04-11] MEDS ORDERED: ACETAMINOPHEN 325 MG TABLET PO PRN (11:06)
[2017-04-11] MEDS: INSULIN LISPRO 1 UNIT/0.01 ML UNIT SQ SCH ×3 (12:00→20:50)
[2017-04-11] MEDS: METOCLOPRAMIDE 10 MG/2 ML VIAL IV SCH ×3 (12:01→20:49)
[2017-04-11] MEDS: PANTOPRAZOLE 40 MG VIAL IV SCH (16:53)
[2017-04-11] MEDS ORDERED: INSULIN GLARGINE, HUMAN 1 UNIT/0.01 ML SQ SCH (21:00)
[2017-04-12] MEDS: PROMETHAZINE 25 MG/ML VIAL IV PRN ×4 (02:48→22:25)
[2017-04-12] MEDS: 0.9 % SODIUM CHLORIDE 10 ML SYRINGE IV SCH ×3 (06:05→22:27)
[2017-04-12 07:00] LABS: Basophils # (Auto) 0 K/mcL (0.0-0.3); Basophils % (Auto) 0.3 % (0.0-2.0); Eosinophils # (Auto) 0 K/mcL (0.0-0.7); Eosinophils % (Auto) 0 % (0.0-7.0); Granulocytes % (Auto) 72.9 % (38.0-78.0); Lymphocytes # (Auto) 1.6 K/mcL (1.5-4.8); Lymphocytes % (Auto) 22.1 % (15.5-49.0); Mean Cell Volume 86.7 fL (80.0-100.0); Mean Corpuscular HGB Conc 33.5 g/dL (31.0-36.0); Monocytes # (Auto) 0.3 K/mcL (0.1-0.9); Monocytes % (Auto) 4.7 % (1.0-12.0); Platelet Count 156 K/mcL (140-440); RBC 4.17 M/mcL (4.00-5.20); Red Cell Distribution Width 13.4 % (11.5-14.5)
[2017-04-12 07:45] LABS: ALT/SGPT 9 U/l (0-40); Albumin 3.1 gm/dL (3.2-5.2); Albumin/Globulin Ratio 1.3 (1.0-2.3); Alkaline Phosphatase 108 U/L (39-117); Bilirubin,Direct < 0.2 mg/dL (0.0-0.3); Blood Urea Nitrogen 4 mg/dl (6-20); Gamma Glutamyl Transpeptidase 9 U/L (5-36); Magnesium 1.6 mg/dL (1.6-2.5); Uric Acid 4.4 mg/dL (2.5-8.0)
[2017-04-12] MEDS: ENOXAPARIN 40 MG/0.4 ML SYRINGE SQ SCH (08:43)
[2017-04-12] MEDS: INSULIN LISPRO 1 UNIT/0.01 ML UNIT SQ SCH ×5 (08:47→22:26)
[2017-04-12] MEDS: INSULIN GLARGINE, HUMAN 1 UNIT/0.01 ML SQ SCH ×2 (08:48→22:27)
[2017-04-12] MEDS: PANTOPRAZOLE 40 MG VIAL IV SCH ×2 (08:52→16:42)
[2017-04-12] MEDS: 0.45 % SODIUM CHLORIDE 1,000 ML IV SCH ×2 (08:52→18:55)
[2017-04-12] MEDS: METOCLOPRAMIDE 10 MG/2 ML VIAL IV SCH ×4 (08:52→22:23)
--- NOTE | 2017-04-12 11:22 | Internal Med Progress Note ---
Medical - PN: Subj Patient information: Note initiated : 04/12/17 at 11:19 am Service Date, if different from initiated Date: [] Patient: Patricia Toussaint 26 y/o F admitted on 04/09/17 for Vomiting, Elevated Blood Sugar. Chief Complaint: [] Interval history: Apr 09 Patient is a 26-year-old female with known type 1 diabetes and history of DKA, gastroesophageal reflux, depression and hypercholesterolemia who presents with nausea and vomiting. Patient had onset of nausea and vomiting with some diarrhea about midnight. She had felt well yesterday. She uses an insulin pump to manage her diabetes. Her CBGs in the last few days but running in the 200-400 range. Her insulin pump has been functioning. She's had no ill contacts. She's had no cough or sputum production, no fevers or chills. No dysuria. She did have some pain across her upper chest radiating into her abdomen at presentation, that is improved currently. In the ED she was found to be in diabetic ketoacidosis, bicarbonate 7, lactic acid 4.4, glucose of 783 and beta hydroxybutyrate 8.45. She initially received fluid resuscitation and insulin in the ED and is being admitted to the intensive care unit for treatment of DKA. Patient had no infectious symptoms. Her glucoses have been running elevated and she has been under a lot of psychosocial stress working on her master's degree. Her insulin pump has been infusing. No other trigger for DKA readily apparent. Apr 10 Continued on insulin drip overnight. Anion gap is slowly closing, still mild gap this morning. Recheck will be at noon. His been repleted phosphorous, potassium. No rhythm problems. Has continued to be nauseated. Abdominal pain is improved from yesterday. Has known gastroparesis. Apr 11 Patient seen examined, Sleepy this AM, did not have much appetitie, Anion gap closed, patients insulin drip stopped, on clear liquid diet, sq lantus given, patient will be on lantus and sliding scale insulin for now. The patient still has poor appetitie, in the last admisstion, she had EGD which showed gastritis and took a while to improve, needed scheduled reglan. Will change her prn reglan to ACHS and see if this helps. Change IV pepcid to IV pantoprazole. Xfer to med surg status Apr 12 patient seen examined, no acute overnight events, still had some retching, but feels a bit better. advance diet to full liquid diet today glucose high, but otherwise ok, increase sq insulin IV fluids Pertinent ROS: Denies headache, dizziness Denies chest pain, palpitations Denies cough or shortness of breath Denies abdominal pain, present nausea and vomiting. - Constitutional Vitals: Vital Signs Temp Pulse Resp BP Pulse Ox 97.7 F 83 16 155/93 98 04/12/17 08:35 04/12/17 03:55 04/12/17 08:35 04/12/17 08:35 04/12/17 08:35 Period Temp Pulse Resp BP Sys/Butt Pulse Ox Last 24 Hr 97.7 F-99.3 F 83-95 16-24 125-167/74-95 92-98 Intake and Output 04/11/17 04/12/17 04/12/17 21:59 05:59 13:59 Intake Total 820 / 820 Output Total 650 / 650 0 / 0 Balance 170 / 170 0 / 0 Weight 240 lb 14 oz Intake & Output: Intake & Output 04/11/17 04/12/17 04/12/17 21:59 05:59 13:59 Intake Total 820 / 820 Output Total 650 / 650 0 / 0 Balance 170 / 170 0 / 0 Weight 240 lb 14 oz Intake: IV 520 / 520 Oral 300 / 300 Output: Void Amount 650 / 650 0 / 0 Other: # Voids 1 # Bowel Movements 1 # Emeses 2 Exam: Constitutional; Afebrile, cooperative, alert, not in distress. Eyes- No icterus, , No periorbital swelling Ears- Ext ear normal, hearing normal to conversation. Neck- Midline trachea, supple Respiratory system: Air Entry equal on both sides, No crackles or wheezing, no rhonchi. CVS- Rate rhythm regular, S1,S2 heard, no gallop, no rub. Abdomen- Soft nontender abdomen, no organomegaly, no tenderness, no guarding or rigidity, RN ACUTE- AOOx3, moving all extremities, no gross focal deficit noted. Medical - PN: Obj Da - Labs CBC & Chem 7: 04/12/17 03:50 04/12/17 03:50 Labs: Abnormal Lab Results 04/12/17 04/12/17 04/11/17 03:50 03:50 04:03 Hct MPV 12.4 H Gran % Lymph % (Auto) Gran # Lymph # (Auto) ABG Methemoglobin VBG pH VBG pCO2 VBG pO2 VBG HCO3 VBG Total CO2 VBG O2 Saturation VBG Base Excess Carboxyhemoglobin Total Hemoglobin POC Potassium Chloride 110 H Carbon Dioxide 20 L POC Total CO2 Anion Gap BUN 4 L 2 L Glucose 300 H 197 H POC Glucose Calcium 8.3 L 7.9 L Phosphorus 2.0 L Total Protein 5.4 L 5.4 L Albumin 3.1 L Globulin 2.0 L 04/11/17 04/10/17 04/10/17 04:03 12:05 03:37 Hct 35.9 L MPV 12.1 H Gran % 81.3 H Lymph % (Auto) 14.5 L Gran # 8.1 H Lymph # (Auto) 1.4 L ABG Methemoglobin VBG pH VBG pCO2 VBG pO2 VBG HCO3 VBG Total CO2 VBG O2 Saturation VBG Base Excess Carboxyhemoglobin Total Hemoglobin POC Potassium Chloride 112 H Carbon Dioxide 19 L 17 L POC Total CO2 Anion Gap 17.0 H BUN Glucose 116 H 254 H POC Glucose Calcium 8.0 L 8.1 L Phosphorus 2.6 L Total Protein 5.6 L Albumin Globulin 2.1 L 04/10/17 04/10/17 04/09/17 01:36 01:36 19:11 Hct MPV Gran % Lymph % (Auto) Gran # Lymph # (Auto) ABG Methemoglobin 0.3 L 0.3 L VBG pH 7.31 L VBG pCO2 30.9 L 35.7 L VBG pO2 72 H 56 H VBG HCO3 15.1 L 19.6 L VBG Total CO2 16.1 L 20.7 L VBG O2 Saturation 89.2 H 87.4 H VBG Base Excess -10.0 L -5.2 L Carboxyhemoglobin 2.9 H 2.6 H Total Hemoglobin 11.9 L 11.9 L POC Potassium Chloride Carbon Dioxide 14 L POC Total CO2 Anion Gap 20.0 H BUN Glucose POC Glucose Calcium Phosphorus Total Protein Albumin Globulin 04/09/17 04/09/17 04/09/17 19:11 19:11 14:45 Hct MPV Gran % Lymph % (Auto) Gran # Lymph # (Auto) ABG Methemoglobin 0.3 L VBG pH 7.25 L VBG pCO2 27.0 L VBG pO2 67 H VBG HCO3 11.6 L VBG Total CO2 12.4 L VBG O2 Saturation 89.2 H VBG Base Excess -14.1 L Carboxyhemoglobin 2.6 H Total Hemoglobin 11.8 L POC Potassium Chloride Carbon Dioxide 18 L POC Total CO2 Anion Gap 17.0 H BUN Glucose POC Glucose Calcium Phosphorus 1.8 L Total Protein Albumin Globulin 04/09/17 04/09/17 14:45 11:11 Hct MPV Gran % Lymph % (Auto) Gran # Lymph # (Auto) ABG Methemoglobin VBG pH VBG pCO2 VBG pO2 VBG HCO3 VBG Total CO2 VBG O2 Saturation VBG Base Excess Carboxyhemoglobin Total Hemoglobin POC Potassium 3.2 L Chloride Carbon Dioxide 10 L* POC Total CO2 10 L Anion Gap 29.0 H BUN Glucose POC Glucose 404 H Calcium Phosphorus Total Protein Albumin Globulin Meds: Medications Acetaminophen (Tylenol) 650 mg PO Q4-6HP PRN PRN Reason: PAIN/FEVER > 101 Dextrose (Dextrose 50%) 0 ml IV UD PRN PRN Reason: Hypoglycemia Diagnostic Test (Pha) (Accu-Chek) 1 each FS [facility] Last Admin: 04/12/17 08:44 Dose: 1 each Enoxaparin Sodium (Lovenox) 40 mg SQ DAILY [facility] Last Admin: 04/12/17 08:43 Dose: 40 mg Glucose (Insta-Glucose) 15 gm PO PRN PRN PRN Reason: Hypoglycemia Sodium Chloride (Sodium Chloride 0.45%) 1,000 mls @ 100 mls/hr IV .Q10H [facility] Last Admin: 04/12/17 08:52 Dose: 100 mls/hr Insulin Glargine (Lantus) 15 unit SQ BID [facility] Last Admin: 04/12/17 08:48 Dose: 15 unit Insulin Human Lispro (Humalog) 0 unit SQ [facility] PRN Reason: Protocol Last Admin: 04/12/17 08:47 Dose: 10 unit Metoclopramide HCl (Reglan) 10 mg IV ACHS [facility] Last Admin: 04/12/17 08:52 Dose: 10 mg Ondansetron HCl (Zofran) 4 mg IV Q4-6HP PRN PRN Reason: Nausea And Vomiting Pantoprazole Sodium (Protonix) 40 mg IV BIDAC [facility] Last Admin: 04/12/17 08:52 Dose: 40 mg Promethazine HCl (Phenergan) 12.5 mg IV Q4HP PRN PRN Reason: Nausea And Vomiting Last Admin: 04/12/17 08:43 Dose: 12.5 mg Sodium Chloride (Saline Flush) 10 ml IV Q8 [facility] Last Admin: 04/12/17 06:05 Dose: 10 ml - ABG Interpretation ABG results: 04/09/17 04/09/17 04/10/17 14:45 19:11 01:36 ABG Methemoglobin 0.3 L 0.3 L 0.3 L VBG pH 7.25 L 7.36 7.31 L VBG pCO2 27.0 L 35.7 L 30.9 L VBG pO2 67 H 56 H 72 H VBG HCO3 11.6 L 19.6 L 15.1 L VBG Total CO2 12.4 L 20.7 L 16.1 L VBG O2 Saturation 89.2 H 87.4 H 89.2 H VBG Base Excess -14.1 L -5.2 L -10.0 L Medical - PN: A/P - Time Spent With Patient Total time spent is greater than 50% in coordination of care (as documented) at patient's floor/unit and/or counseling patient: - Narrative A/P Narrative: 26-year-old female with history of type 1 diabetes, poorly controlled recently, 2 recent hospitalizations with DKA presents with nausea, vomiting. Fairly abrupt onset and is found to be in recurrent DKA. Diabetic ketoacidosis. Resolved, Unclear trigger, it seems she ran out of her insulin? may be related to progressive poor glucose control the last few days and psychosocial stress. No evidence of infection. Plan: glucose still elevated, increase sq lantus, and increase SSI to medium scale. Monitor. Hypokalemia: Replace K Leukocytosis. As noted, no evidence of infection. Urine analysis remarkable for ketones but not for evidence of UTI. Suspect this may be stress response. Plan: Monitor. Nausea with vomiting. Has gastroparesis. Plan: Continue with anti-emetics as needed. change to scheduled reglan, which had helped her in the past admission. Epigastric pain. Patient's recently diagnosed with erosive gastritis, also carries a diagnosis of gastroparesis. Suspect a combination of the two. Pain improved on Saturday. Plan: Acid suppression with PPI, CODE STATUS is full code Prophylaxis: Lovenox and PPI. Medical - PN: Qual - VTE Deep Vein Thrombosis/Pulmonary Embolism Present on Admission: No
[2017-04-12] MEDS: ONDANSETRON 4 MG/2 ML VIAL IV PRN (16:42)
[2017-04-12] MEDS ORDERED: INSULIN GLARGINE, HUMAN 1 UNIT/0.01 ML SQ ONE (22:31)
[2017-04-13] MEDS: 0.45 % SODIUM CHLORIDE 1,000 ML IV SCH ×3 (04:29→23:54)
[2017-04-13 05:59] LABS: Basophils # (Auto) 0 K/mcL (0.0-0.3); Basophils % (Auto) 0.4 % (0.0-2.0); Eosinophils # (Auto) 0 K/mcL (0.0-0.7); Eosinophils % (Auto) 0.5 % (0.0-7.0); Granulocytes % (Auto) 48.6 % (38.0-78.0); Lymphocytes # (Auto) 3.2 K/mcL (1.5-4.8); Lymphocytes % (Auto) 43.4 % (15.5-49.0); Mean Cell Volume 87.1 fL (80.0-100.0); Mean Corpuscular Hemoglobin 28.7 pg (26.0-34.0); Monocytes # (Auto) 0.5 K/mcL (0.1-0.9); Monocytes % (Auto) 7.1 % (1.0-12.0); Platelet Count 166 K/mcL (140-440); RBC 4.33 M/mcL (4.00-5.20); Red Cell Distribution Width 13.5 % (11.5-14.5)
[2017-04-13] MEDS: 0.9 % SODIUM CHLORIDE 10 ML SYRINGE IV SCH ×3 (06:06→23:53)
[2017-04-13 06:19] LABS: ALT/SGPT 8 U/l (0-40); Albumin 3.2 gm/dL (3.2-5.2); Albumin/Globulin Ratio 1.6 (1.0-2.3); Alkaline Phosphatase 107 U/L (39-117); Bilirubin,Direct < 0.2 mg/dL (0.0-0.3); Blood Urea Nitrogen 5 mg/dl (6-20); Gamma Glutamyl Transpeptidase 11 U/L (5-36); Magnesium 1.5 mg/dL (1.6-2.5); Uric Acid 4.8 mg/dL (2.5-8.0)
[2017-04-13] MEDS ORDERED: POTASSIUM CHLORIDE 80 MEQ in DEXTROSE 5% IN WATER 500 ML IV ONE (07:14)
[2017-04-13] MEDS ORDERED: MAGNESIUM SULFATE 32.48 MEQ in DEXTROSE 5% IN WATER 100 ML IV ONE (07:14)
[2017-04-13] MEDS: INSULIN LISPRO 1 UNIT/0.01 ML UNIT SQ SCH ×4 (07:46→20:53)
[2017-04-13] MEDS: METOCLOPRAMIDE 10 MG/2 ML VIAL IV SCH ×4 (07:52→20:47)
[2017-04-13] MEDS: INSULIN GLARGINE, HUMAN 1 UNIT/0.01 ML SQ SCH ×2 (07:52→21:02)
[2017-04-13] MEDS: PANTOPRAZOLE 40 MG VIAL IV SCH ×2 (07:57→16:47)
[2017-04-13] MEDS: ENOXAPARIN 40 MG/0.4 ML SYRINGE SQ SCH (09:04)
[2017-04-13] MEDS: PROMETHAZINE 25 MG/ML VIAL IV PRN ×4 (09:05→21:58)
--- NOTE | 2017-04-13 11:50 | Internal Med Progress Note ---
Medical - PN: Subj Patient information: Note initiated : 04/13/17 at 11:47 am Service Date, if different from initiated Date: [] Patient: Patricia Toussaint 26 y/o F admitted on 04/09/17 for Vomiting, Elevated Blood Sugar. Chief Complaint: [] Interval history: Apr 09 Patient is a 26-year-old female with known type 1 diabetes and history of DKA, gastroesophageal reflux, depression and hypercholesterolemia who presents with nausea and vomiting. Patient had onset of nausea and vomiting with some diarrhea about midnight. She had felt well yesterday. She uses an insulin pump to manage her diabetes. Her CBGs in the last few days but running in the 200-400 range. Her insulin pump has been functioning. She's had no ill contacts. She's had no cough or sputum production, no fevers or chills. No dysuria. She did have some pain across her upper chest radiating into her abdomen at presentation, that is improved currently. In the ED she was found to be in diabetic ketoacidosis, bicarbonate 7, lactic acid 4.4, glucose of 783 and beta hydroxybutyrate 8.45. She initially received fluid resuscitation and insulin in the ED and is being admitted to the intensive care unit for treatment of DKA. Patient had no infectious symptoms. Her glucoses have been running elevated and she has been under a lot of psychosocial stress working on her master's degree. Her insulin pump has been infusing. No other trigger for DKA readily apparent. Apr 10 Continued on insulin drip overnight. Anion gap is slowly closing, still mild gap this morning. Recheck will be at noon. His been repleted phosphorous, potassium. No rhythm problems. Has continued to be nauseated. Abdominal pain is improved from yesterday. Has known gastroparesis. Apr 11 Patient seen examined, Sleepy this AM, did not have much appetitie, Anion gap closed, patients insulin drip stopped, on clear liquid diet, sq lantus given, patient will be on lantus and sliding scale insulin for now. The patient still has poor appetitie, in the last admisstion, she had EGD which showed gastritis and took a while to improve, needed scheduled reglan. Will change her prn reglan to ACHS and see if this helps. Change IV pepcid to IV pantoprazole. Xfer to med surg status Apr 12 patient seen examined, no acute overnight events, still had some retching, but feels a bit better. advance diet to full liquid diet today glucose high, but otherwise ok, increase sq insulin IV fluids Apr 13 patient seen examined, tired still and having some nausea, but improving gradually she was able to tolerate breakfast this AM, well, she still needs IV nauseas meds to help She usually takes a while to recover from DKA, knowing he from previous admissions the patient has neg CT Abdomen and EGD Showing gastritis recently. (no gall stones) ADvance diet to regular to see if she can tolerate same Continue gentle hydration Hypokalemia replaced. Pertinent ROS: Denies headache, dizziness Denies chest pain, palpitations Denies cough or shortness of breath Denies abdominal pain, Prsent nausea no vomiting. - Constitutional Vitals: Vital Signs Temp Pulse Resp BP Pulse Ox 98.2 F 83 16 135/95 97 04/13/17 08:00 04/13/17 01:24 04/13/17 08:00 04/13/17 08:00 04/13/17 08:00 Period Temp Pulse Resp BP Sys/Butt Pulse Ox Last 24 Hr 97.9 F-98.9 F 83-97 16-20 120-181/69-108 95-98 Intake and Output 04/12/17 04/13/17 04/13/17 21:59 05:59 13:59 Intake Total 1100 / 1100 1005 / 1005 0 / 0 Output Total 1800 / 1800 700 / 700 475 / 475 Balance -700 / -700 305 / 305 -475 / -475 Weight 238 lb 6.4 oz Intake & Output: Intake & Output 04/12/17 04/13/17 04/13/17 21:59 05:59 13:59 Intake Total 1100 / 1100 1005 / 1005 0 / 0 Output Total 1800 / 1800 700 / 700 475 / 475 Balance -700 / -700 305 / 305 -475 / -475 Weight 238 lb 6.4 oz Intake: IV 1000 / 1000 955 / 955 Sodium Chloride 0.45% 1,000 ml 1000 / 1000 955 / 955 @ 100 mls/hr IV .Q10H [facility] Rx#: [id number] Oral 100 / 100 50 / 50 0 / 0 Output: Void Amount 1600 / 1600 700 / 700 475 / 475 Emesis 200 / 200 Other: Meal Dinner Percent of Meal Consumed 0% Feeding Ability Assist with Tray Set Up # Voids 1 Exam: Constitutional; Afebrile, cooperative, alert, not in distress. Eyes- No icterus, , No periorbital swelling Ears- Ext ear normal, hearing normal to conversation. Neck- Midline trachea, supple Respiratory system: Air Entry equal on both sides, No crackles or wheezing, no rhonchi. CVS- Rate rhythm regular, S1,S2 heard, no gallop, no rub. Abdomen- Soft nontender abdomen, no organomegaly, no tenderness, no guarding or rigidity, DIRECT MAIL CLERK- AOOx3, moving all extremities, no gross focal deficit noted. Medical - PN: Obj Da - Labs CBC & Chem 7: 04/13/17 04:10 04/13/17 04:10 Labs: Abnormal Lab Results 04/13/17 04/13/17 04/12/17 04:10 04:10 03:50 Hct MPV 11.2 H Gran % Lymph % (Auto) Gran # Lymph # (Auto) Potassium 2.8 L* Chloride Carbon Dioxide BUN 5 L 4 L Glucose 300 H Calcium 8.2 L 8.3 L Phosphorus Magnesium 1.5 L Total Protein 5.2 L 5.4 L Albumin 3.1 L Globulin 2.0 L 04/12/17 04/11/17 04/11/17 03:50 04:03 04:03 Hct 35.9 L MPV 12.4 H 12.1 H Gran % 81.3 H Lymph % (Auto) 14.5 L Gran # 8.1 H Lymph # (Auto) 1.4 L Potassium Chloride 110 H Carbon Dioxide 20 L BUN 2 L Glucose 197 H Calcium 7.9 L Phosphorus 2.0 L Magnesium Total Protein 5.4 L Albumin Globulin 2.0 L 04/10/17 12:05 Hct MPV Gran % Lymph % (Auto) Gran # Lymph # (Auto) Potassium Chloride 112 H Carbon Dioxide 19 L BUN Glucose 116 H Calcium 8.0 L Phosphorus Magnesium Total Protein Albumin Globulin Meds: Medications Acetaminophen (Tylenol) 650 mg PO Q4-6HP PRN PRN Reason: PAIN/FEVER > 101 Dextrose (Dextrose 50%) 0 ml IV UD PRN PRN Reason: Hypoglycemia Diagnostic Test (Pha) (Accu-Chek) 1 each FS ACHS PAU Last Admin: 04/13/17 07:45 Dose: 1 each Enoxaparin Sodium (Lovenox) 40 mg SQ DAILY [facility] Last Admin: 04/13/17 09:04 Dose: 40 mg Glucose (Insta-Glucose) 15 gm PO PRN PRN PRN Reason: Hypoglycemia Sodium Chloride (Sodium Chloride 0.45%) 1,000 mls @ 100 mls/hr IV .Q10H [facility] Last Admin: 04/13/17 04:29 Dose: 100 mls/hr Potassium Chloride 80 meq/ (Dextrose) 540 mls @ 67.5 mls/hr IV ONCE ONE Stop: 04/13/17 15:13 Last Admin: 04/13/17 07:15 Dose: 67.5 mls/hr Insulin Glargine (Lantus) 15 unit SQ BID [facility] Last Admin: 04/13/17 07:52 Dose: 15 unit Insulin Human Lispro (Humalog) 0 unit SQ ACHS [facility] PRN Reason: Protocol Last Admin: 04/13/17 07:46 Dose: Not Given Metoclopramide HCl (Reglan) 10 mg IV ACHS [facility] Last Admin: 04/13/17 07:52 Dose: 10 mg Ondansetron HCl (Zofran) 4 mg IV Q4-6HP PRN PRN Reason: Nausea And Vomiting Last Admin: 04/12/17 16:42 Dose: 4 mg Pantoprazole Sodium (Protonix) 40 mg IV BIDAC [facility] Last Admin: 04/13/17 07:57 Dose: 40 mg Promethazine HCl (Phenergan) 12.5 mg IV Q4HP PRN PRN Reason: Nausea And Vomiting Last Admin: 04/13/17 09:05 Dose: 12.5 mg Sodium Chloride (Saline Flush) 10 ml IV Q8 [facility] Last Admin: 04/13/17 06:06 Dose: 10 ml - ABG Interpretation ABG results: 04/09/17 04/09/17 04/10/17 14:45 19:11 01:36 ABG Methemoglobin 0.3 L 0.3 L 0.3 L VBG pH 7.25 L 7.36 7.31 L VBG pCO2 27.0 L 35.7 L 30.9 L VBG pO2 67 H 56 H 72 H VBG HCO3 11.6 L 19.6 L 15.1 L VBG Total CO2 12.4 L 20.7 L 16.1 L VBG O2 Saturation 89.2 H 87.4 H 89.2 H VBG Base Excess -14.1 L -5.2 L -10.0 L Medical - PN: A/P - Time Spent With Patient Total time spent is greater than 50% in coordination of care (as documented) at patient's floor/unit and/or counseling patient: - Narrative A/P Narrative: 26-year-old female with history of type 1 diabetes, poorly controlled recently, 2 recent hospitalizations with DKA presents with nausea, vomiting. Fairly abrupt onset and is found to be in recurrent DKA. Diabetic ketoacidosis. Resolved, Unclear trigger, it seems she ran out of her insulin? may be related to progressive poor glucose control the last few days and psychosocial stress. No evidence of infection. Plan: glucose still elevated yesterday, but this AM was good, will keep presnt dose of lantus 15 bid, and Medium scale for ssi , Hypokalemia: Replace K, Hypomagnesemia: Replace, try to keep > 2.0 Leukocytosis. As noted, no evidence of infection. Urine analysis remarkable for ketones but not for evidence of UTI. Suspect this may be stress response. Plan: no further intervention needed. Nausea with vomiting. Has gastroparesis. Plan: Continue with anti-emetics as needed IV reglan ACHS, she Epigastric pain. Patient's recently diagnosed with erosive gastritis, also carries a diagnosis of gastroparesis. Suspect a combination of the two. much improved now. Plan: Acid suppression with PPI, consider carafate if patient symptoms recur or worsen. CODE STATUS is full code Prophylaxis: Lovenox and PPI. Medical - PN: Qual - VTE Deep Vein Thrombosis/Pulmonary Embolism Present on Admission: No
[2017-04-13] MEDS: ONDANSETRON 4 MG/2 ML VIAL IV PRN ×2 (16:48→23:51)
[2017-04-13] MEDS: MAGNESIUM OXIDE 400 MG TABLET PO SCH (21:58)
[2017-04-14] MEDS: 0.9 % SODIUM CHLORIDE 10 ML SYRINGE IV SCH ×3 (05:40→22:00)
[2017-04-14 05:56] LABS: ALT/SGPT 7 U/l (0-40); Albumin 3.2 gm/dL (3.2-5.2); Albumin/Globulin Ratio 1.6 (1.0-2.3); Alkaline Phosphatase 95 U/L (39-117); Bilirubin,Direct < 0.2 mg/dL (0.0-0.3); Blood Urea Nitrogen 5 mg/dl (6-20); Gamma Glutamyl Transpeptidase 9 U/L (5-36); Magnesium 1.8 mg/dL (1.6-2.5); Uric Acid 4.8 mg/dL (2.5-8.0)
[2017-04-14] MEDS ORDERED: POTASSIUM CHLORIDE 40 MEQ in DEXTROSE 5% IN WATER 500 ML IV ONE (07:30)
[2017-04-14] MEDS ORDERED: MAGNESIUM SULFATE 2 GM/50 ML BAG IV ONE (07:30)
[2017-04-14] MEDS ORDERED: ERYTHROMYCIN LACTOBIONATE 250 MG in 0.9 % SODIUM CHLORIDE 100 ML IV SCH (07:45)
[2017-04-14] MEDS: PANTOPRAZOLE 40 MG VIAL IV SCH ×2 (09:22→17:19)
[2017-04-14] MEDS: PROMETHAZINE 25 MG/ML VIAL IV PRN ×2 (09:22→17:19)
[2017-04-14] MEDS: METOCLOPRAMIDE 10 MG/2 ML VIAL IV SCH ×4 (09:23→21:06)
[2017-04-14] MEDS: ENOXAPARIN 40 MG/0.4 ML SYRINGE SQ SCH (09:23)
[2017-04-14] MEDS: MAGNESIUM OXIDE 400 MG TABLET PO SCH ×2 (09:24→21:05)
[2017-04-14] MEDS: INSULIN LISPRO 1 UNIT/0.01 ML UNIT SQ SCH ×4 (09:43→21:05)
[2017-04-14] MEDS: INSULIN GLARGINE, HUMAN 1 UNIT/0.01 ML SQ SCH ×2 (09:44→21:06)
--- NOTE | 2017-04-14 09:53 | Internal Med Progress Note ---
Medical - PN: Subj Patient information: Note initiated : 04/14/17 at 9:50 am Service Date, if different from initiated Date: [] Patient: Patricia Toussaint 26 y/o F admitted on 04/09/17 for Vomiting, Elevated Blood Sugar. Chief Complaint: [] Interval history: Apr 09 Patient is a 26-year-old female with known type 1 diabetes and history of DKA, gastroesophageal reflux, depression and hypercholesterolemia who presents with nausea and vomiting. Patient had onset of nausea and vomiting with some diarrhea about midnight. She had felt well yesterday. She uses an insulin pump to manage her diabetes. Her CBGs in the last few days but running in the 200-400 range. Her insulin pump has been functioning. She's had no ill contacts. She's had no cough or sputum production, no fevers or chills. No dysuria. She did have some pain across her upper chest radiating into her abdomen at presentation, that is improved currently. In the ED she was found to be in diabetic ketoacidosis, bicarbonate 7, lactic acid 4.4, glucose of 783 and beta hydroxybutyrate 8.45. She initially received fluid resuscitation and insulin in the ED and is being admitted to the intensive care unit for treatment of DKA. Patient had no infectious symptoms. Her glucoses have been running elevated and she has been under a lot of psychosocial stress working on her master's degree. Her insulin pump has been infusing. No other trigger for DKA readily apparent. Apr 10 Continued on insulin drip overnight. Anion gap is slowly closing, still mild gap this morning. Recheck will be at noon. His been repleted phosphorous, potassium. No rhythm problems. Has continued to be nauseated. Abdominal pain is improved from yesterday. Has known gastroparesis. Apr 11 Patient seen examined, Sleepy this AM, did not have much appetitie, Anion gap closed, patients insulin drip stopped, on clear liquid diet, sq lantus given, patient will be on lantus and sliding scale insulin for now. The patient still has poor appetitie, in the last admisstion, she had EGD which showed gastritis and took a while to improve, needed scheduled reglan. Will change her prn reglan to ACHS and see if this helps. Change IV pepcid to IV pantoprazole. Xfer to med surg status Apr 12 patient seen examined, no acute overnight events, still had some retching, but feels a bit better. advance diet to full liquid diet today glucose high, but otherwise ok, increase sq insulin IV fluids Apr 13 patient seen examined, tired still and having some nausea, but improving gradually she was able to tolerate breakfast this AM, well, she still needs IV nauseas meds to help She usually takes a while to recover from DKA, knowing he from previous admissions the patient has neg CT Abdomen and EGD Showing gastritis recently. (no gall stones) ADvance diet to regular to see if she can tolerate same Continue gentle hydration Hypokalemia replaced. Apr 14 Pt still having ongoing nausea and vomiting, but feels better this AM, remains on vilma IV reglan achs, also prn anti nausea meds trial of po erythromycin (able to take pills) and not availability of IV erythromycin. The patient otherwise has no other complaints, Consider GI consult if above regime fails. Pertinent ROS: Denies headache, dizziness Denies chest pain, palpitations Denies cough or shortness of breath Denies abdominal pain, nausea or vomiting. - Constitutional Vitals: Vital Signs Temp Pulse Resp BP Pulse Ox 97.9 F 72 16 126/73 93 04/14/17 06:37 04/14/17 03:31 04/14/17 06:37 04/14/17 06:37 04/14/17 06:37 Period Temp Pulse Resp BP Sys/Butt Pulse Ox Last 24 Hr 97.4 F-99 F 72-94 16-20 111-152/67-88 93-98 Intake and Output 04/13/17 04/14/17 04/14/17 21:59 05:59 13:59 Intake Total 1660 / 1660 948 / 948 Output Total 300 / 300 700 / 700 Balance 1360 / 1360 248 / 248 Weight 244 lb Intake & Output: Intake & Output 04/13/17 04/14/17 04/14/17 21:59 05:59 13:59 Intake Total 1660 / 1660 948 / 948 Output Total 300 / 300 700 / 700 Balance 1360 / 1360 248 / 248 Weight 244 lb Intake: IV 1540 / 1540 898 / 898 Sodium Chloride 0.45% 1,000 ml 1000 / 1000 898 / 898 @ 100 mls/hr IV .Q10H [facility] Rx#: [id number] Oral 120 / 120 50 / 50 Output: Void Amount 700 / 700 Emesis 300 / 300 Other: # Voids 1 # Bowel Movements 1 # Emeses 2 Exam: Constitutional; Afebrile, cooperative, alert, not in distress. Eyes- No icterus, , No periorbital swelling Ears- Ext ear normal, hearing normal to conversation. Neck- Midline trachea, supple Respiratory system: Air Entry equal on both sides, No crackles or wheezing, no rhonchi. CVS- Rate rhythm regular, S1,S2 heard, no gallop, no rub. Abdomen- Soft nontender abdomen, no organomegaly, no tenderness, no guarding or rigidity, EXCELSIOR PICKER- AOOx3, moving all extremities, no gross focal deficit noted. Medical - PN: Obj Da - Labs CBC & Chem 7: 04/13/17 04:10 04/14/17 04:13 Labs: Abnormal Lab Results 04/14/17 04/13/17 04/13/17 04:13 04:10 04:10 MPV 11.2 H Potassium 2.8 L* BUN 5 L 5 L Glucose 148 H Calcium 8.1 L 8.2 L Magnesium 1.5 L Total Protein 5.2 L 5.2 L Albumin Globulin 2.0 L 2.0 L 04/12/17 04/12/17 03:50 03:50 MPV 12.4 H Potassium BUN 4 L Glucose 300 H Calcium 8.3 L Magnesium Total Protein 5.4 L Albumin 3.1 L Globulin Meds: Medications Acetaminophen (Tylenol) 650 mg PO Q4-6HP PRN PRN Reason: PAIN/FEVER > 101 Dextrose (Dextrose 50%) 0 ml IV UD PRN PRN Reason: Hypoglycemia Diagnostic Test (Pha) (Accu-Chek) 1 each FS ACHS [facility] Last Admin: 04/14/17 09:25 Dose: 1 each Enoxaparin Sodium (Lovenox) 40 mg SQ DAILY [facility] Last Admin: 04/14/17 09:23 Dose: 40 mg Erythromycin (Erythromycin) 250 mg PO Q6 [facility] Glucose (Insta-Glucose) 15 gm PO PRN PRN PRN Reason: Hypoglycemia Sodium Chloride (Sodium Chloride 0.45%) 1,000 mls @ 100 mls/hr IV .Q10H [facility] Last Admin: 04/13/17 23:54 Dose: 100 mls/hr Potassium Chloride 40 meq/ (Dextrose) 520 mls @ 130 mls/hr IV ONCE ONE Stop: 04/14/17 11:29 Last Admin: 04/14/17 07:30 Dose: 130 mls/hr Insulin Glargine (Lantus) 15 unit SQ BID [facility] Last Admin: 04/14/17 09:44 Dose: 15 unit Insulin Human Lispro (Humalog) 0 unit SQ ACHS [facility] PRN Reason: Protocol Last Admin: 04/14/17 09:43 Dose: 2 unit Magnesium Oxide (Magnesium Oxide) 400 mg PO BID [facility] Last Admin: 04/14/17 09:24 Dose: 400 mg Metoclopramide HCl (Reglan) 10 mg IV ACHS [facility] Last Admin: 04/14/17 09:23 Dose: 10 mg Ondansetron HCl (Zofran) 4 mg IV Q4-6HP PRN PRN Reason: Nausea And Vomiting Last Admin: 04/13/17 23:51 Dose: 4 mg [facility] Admin: 04/14/17 09:22 Dose: 40 mg Promethazine HCl (Phenergan) 12.5 mg IV Q4HP PRN PRN Reason: Nausea And Vomiting Last Admin: 04/14/17 09:22 Dose: 12.5 mg Sodium Chloride (Saline Flush) 10 ml IV Q8 [facility] Last Admin: 04/14/17 05:40 Dose: 10 ml - ABG Interpretation ABG results: 04/09/17 04/09/17 04/10/17 14:45 19:11 01:36 ABG Methemoglobin 0.3 L 0.3 L 0.3 L VBG pH 7.25 L 7.36 7.31 L VBG pCO2 27.0 L 35.7 L 30.9 L VBG pO2 67 H 56 H 72 H VBG HCO3 11.6 L 19.6 L 15.1 L VBG Total CO2 12.4 L 20.7 L 16.1 L VBG O2 Saturation 89.2 H 87.4 H 89.2 H VBG Base Excess -14.1 L -5.2 L -10.0 L Medical - PN: A/P - Time Spent With Patient Total time spent is greater than 50% in coordination of care (as documented) at patient's floor/unit and/or counseling patient: - Narrative A/P Narrative: 26-year-old female with history of type 1 diabetes, poorly controlled recently, 2 recent hospitalizations with DKA presents with nausea, vomiting. Fairly abrupt onset and is found to be in recurrent DKA. Diabetic ketoacidosis. Resolved, It seems she ran out of her insulin? may be related to progressive poor glucose control the last few days and psychosocial stress. No evidence of infection. Plan: Glucose seems reasonably controlled. Hypokalemia: Replace K, Hypomagnesemia: Replace, try to keep > 2.0 Leukocytosis. resolved , no evidence of infection. Urine analysis remarkable for ketones but not for evidence of UTI. Suspect this may be stress response. Plan: no further intervention needed. Nausea with vomiting. Has gastroparesis. Plan: Continue with anti-emetics as needed IV reglan ACHS, she will be started on po erythromycin, if no response then GI consult. Epigastric pain. Patient's recently diagnosed with erosive gastritis, also carries a diagnosis of gastroparesis. Suspect a combination of the two. much improved now. Plan: Acid suppression with PPI, CODE STATUS is full code Prophylaxis: Lovenox and PPI. Medical - PN: Qual - VTE Deep Vein Thrombosis/Pulmonary Embolism Present on Admission: No
[2017-04-14] MEDS: 0.45 % SODIUM CHLORIDE 1,000 ML IV SCH ×2 (12:04→22:25)
[2017-04-14] MEDS: ERYTHROMYCIN LACTOBIONATE 250 MG in 0.9 % SODIUM CHLORIDE 100 ML IV SCH ×2 (16:00→21:05)
[2017-04-14] MEDS ORDERED: NORTRIPTYLINE 10 MG CAPSULE PO SCH (21:00)
[2017-04-15] MEDS: 0.9 % SODIUM CHLORIDE 10 ML SYRINGE IV SCH ×2 (04:15→06:05)
[2017-04-15] MEDS: ERYTHROMYCIN LACTOBIONATE 250 MG in 0.9 % SODIUM CHLORIDE 100 ML IV SCH ×2 (06:05)
[2017-04-15 06:07] LABS: ALT/SGPT 8 U/l (0-40); Albumin 3.3 gm/dL (3.2-5.2); Albumin/Globulin Ratio 1.8 (1.0-2.3); Alkaline Phosphatase 88 U/L (39-117); Bilirubin,Direct < 0.2 mg/dL (0.0-0.3); Blood Urea Nitrogen 8 mg/dl (6-20); Gamma Glutamyl Transpeptidase 9 U/L (5-36); Magnesium 1.9 mg/dL (1.6-2.5); Uric Acid 5.2 mg/dL (2.5-8.0)
[2017-04-15] MEDS: 0.45 % SODIUM CHLORIDE 1,000 ML IV SCH (06:09)
[2017-04-15] MEDS: INSULIN LISPRO 1 UNIT/0.01 ML UNIT SQ SCH (07:44)
[2017-04-15] MEDS: PANTOPRAZOLE 40 MG VIAL IV SCH (08:03)
[2017-04-15] MEDS: METOCLOPRAMIDE 10 MG/2 ML VIAL IV SCH ×2 (08:03→12:23)
[2017-04-15] MEDS: INSULIN GLARGINE, HUMAN 1 UNIT/0.01 ML SQ SCH (08:04)
[2017-04-15] MEDS ORDERED: INSULIN LISPRO 1 UNIT/0.01 ML UNIT SQ SCH (08:59)
--- NOTE | 2017-04-15 08:59 | Discharge Summary ---
Medical - DS: Prov Patient information: Note initiated : 04/15/17 at 8:56 am Service Date, if different from initiated Date: [] Patient: Patricia Toussaint 26 y/o F admitted on 04/09/17 for Vomiting, Elevated Blood Sugar. Chief Complaint: [] Date of admission: 04/09/17 12:45 Discharge date: 04/15/17 Primary care physician: Jordyn Banerjee Admitting clinician: Mariella Carrington Consults: 04/09/17 10:42 Consult to Physician [CONS] Stat Comment: Consulting Provider: Marielal Carrington Reason For Exam: Physician to Consult 04/09/17 11:53 Consult to Physician [CONS] Stat Comment: Consulting Provider: Darwin Umaña Reason For Exam: Physician to Consult Discharging clinician: Joseph Baldwin Medical - DS: Meds - Discharge Medications Prescriptions: Magnesium Oxide 400 mg PO BID #60 tab Metoclopramide [Reglan] 5 mg PO ACHS #120 tab Omeprazole [PriLOSEC] 20 mg PO ACB #30 cap Active and Home Medications: Home Medications insulin aspart 100 unit/mL subcutaneous solution See Dose Instructions SUB-Q .COMPLEX ml 10/06/14 [History Confirmed 04/09/17 Last Taken Unknown] medroxyprogesterone 150 mg/mL intramuscular suspension 150 mg IM ONCE 05/19/15 [ History Confirmed 04/09/17 Last Taken 07/29/15 16:00] Accu-Chek 1 each FS ACHS strip 03/13/17 [Rx Confirmed 04/09/17 Last Taken Unknown] Medical - DS: Hosp Hospital course: Apr 09 Patient is a 26-year-old female with known type 1 diabetes and history of DKA, gastroesophageal reflux, depression and hypercholesterolemia who presented to the ER with nausea and vomiting, Patient had onset of nausea and vomiting with some diarrhea about midnight at presentation. She had felt well yesterday. She uses an insulin pump to manage her diabetes. Her CBGs in the last few days but running in the 200-400 range. Her insulin pump has been functioning. She' s had no ill contacts. In the ED she was found to be in diabetic ketoacidosis, bicarbonate 7, lactic acid 4.4, glucose of 783 and beta hydroxybutyrate 8.45. She initially received fluid resuscitation and insulin in the ED and is being admitted to the intensive care unit for treatment of DKA. Patient had not infectious etiology for the trigger of her DKA, the patient had some leucocytosis which resolved without any treatment. DKA: Was treated with IV fluids and insulin drip, patient responded well to treatment, was transitioned over the sq insulin lantus and humalog. Patient has remained off DKA since. 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 the patient now has her insulin for her insulin pump for atleast 1 month and plans to go online and look for health care coverage. Gastroparesis/ Nausea and vomiting: The patient had intractable nausea and vomiting while in the hospital, which took a while to resolve, she has had a CT abdomen and an EGD scopy (gastritis) in the recent past, its believed she has Diabetic gastroparesis. she will be discharged home on reglan 5mg achs and follow up with PCP and GI for further management, will also start her on prilosec 20mg once daily Hypomagnesemia: Due to Mg losses, poor intake, mag oxide bid x 1 month to replete stores. Today the patient had low glucose overnight which resolved with food intake, she feels well and was able to tolerate all her meals yesterday. Plan to discharge her home today with follow up with GI and PCP in the near future for ongoing management Pt educated that should she loose insurance, there are cheaper alternatives available to her which she can use so that she does not go in DKA. Discharge diagnosis: DKA< gastroparesis - Time Spent with Patient Total time spent providing and/or coordinating discharge services: Greater than 30 minutes Medical - DS: Exam - Constitutional Vitals: Vital Signs Temp Pulse Resp BP BP BP Pulse Ox 04/15/17 06:27 97.5 F 18 135/87 98 04/15/17 04:00 97.8 F 69 18 113/76 96 04/15/17 00:00 98.3 F 83 18 123/74 96 04/14/17 19:28 98 F 90 18 114/66 98 04/14/17 14:51 98.1 F 16 135/69 95 04/14/17 11:33 98.5 F 16 146/89 94 Intake and Output 0104/15/17 04/15/17 21:59 05:59 13:59 Intake Total 500 / 500 1500 / 1500 Output Total 200 / 200 900 / 900 Balance 500 / 500 1300 / 1300 -900 / -900 Intake: IV 100 / 100 1200 / 1200 Sodium Chloride 0.45% 1,000 ml 1000 / 1000 @ 100 mls/hr IV .Q10H PAU Rx#: [id number] Erythrocin Lactobionate 250 mg 100 / 100 200 / 200 In Sodium Chloride 0.9% 100 ml @ 100 mls/hr IV Q6H PAU Rx#: [id number] Oral 400 / 400 300 / 300 Output: Void Amount 200 / 200 900 / 900 Other: # Voids 3 2 Weight 243 lb Medical - DS: Data Labs on day of discharge: Labs from last 24 hours 04/15/17 04:20 Sodium 142 Potassium 3.9 Chloride 104 Carbon Dioxide 25 Anion Gap 13.0 BUN 8 Creatinine 0.7 GFR Calculation 119 Glucose 115 H Uric Acid 5.2 Calcium 8.3 L Phosphorus 4.7 H Magnesium 1.9 Total Bilirubin 0.2 Direct Bilirubin < 0.2 GGT 9 AST 12 ALT 8 Alkaline Phosphatase 88 Lactate Dehydrogenase 174 Total Protein 5.1 L Albumin 3.3 Globulin 1.8 L Albumin/Globulin Ratio 1.8 Triglycerides 156 H Medical - DS: A/P - Patient/Caregiver Discharge Instructions Activity: increase activity as tolerated Diet: Low Fat, Low Fiber, Renal/Consistent Carbs Additional Instructions: You were admitted to the hospital with Diabetic Ketoacidosis, which is now fixed Please take your insulin via the insulin pump as before admission Please follow up with your PCP and adjust the dosing of your insulin pump as needed Please follow up with GI (Aleisha Valdovinos) in 2-3 weeks for evaluation of nausea/ vomiting likely diabetic gastroparesis. If you run out of insulin, there are cheaper options available for around 25 dollars a month with [facility] or other pharmacies, please talk with your PCP for switch, if you are not able to procure insurance. This will help prevent DKA episodes should you run out of insulin. GO to the ER if worsening symptoms, or any other significant concerns. - Follow up Plan Follow up with: Jordyn Banerjee MD [Primary Care Provider] - 04/16/17 9:30 am Disposition: Home, Self-Care Prognosis: Fair Rehab Potential: Fair I certify that the patient requires SNF services: No Overall status at discharge: patient is progressing back to baseline Medical - DS: Qual - VTE Deep Vein Thrombosis/Pulmonary Embolism Present on Admission: No
[2017-04-15] MEDS: ENOXAPARIN 40 MG/0.4 ML SYRINGE SQ SCH (11:33)
[2017-04-15] MEDS: MAGNESIUM OXIDE 400 MG TABLET PO SCH (11:33)
[2017-04-15] MEDS ORDERED: ERYTHROMYCIN BASE 250 MG CAPSULE PO SCH (12:00)
[2017-04-15] MEDS ORDERED: ERYTHROMYCIN BASE 250 MG TABLET PO SCH (12:00)
== END 2017-04-15 14:27 | disposition home or self-care (01) | DRG 639 ==
LOC: ED 07:15 → ICU 12:42 → MEDSUR 04-13 08:23
PROVIDERS: ADMIT Internal Medicine; ATTEND Internal Medicine

== ENCOUNTER 2017-09-29 11:25 | Inpatient (IN) ==
[2017-09-29] MEDS ORDERED: LACTATED RINGERS 1,000 ML IV ONE (11:52)
[2017-09-29] MEDS ORDERED: PROMETHAZINE 25 MG/ML VIAL IV ONE (12:18)
[2017-09-29] MEDS ORDERED: INSULIN REGULAR, HUMAN 50 UNIT in 0.9 % SODIUM CHLORIDE 99.5 ML IV SCH ×2 (12:30→14:29)
--- NOTE | 2017-09-29 12:46 | Emergency Department Note ---
ED Note Addendum Note Addendum: I examined this patient and agree with the assessment and plan of the mid-level provider. This patient has diabetic ketoacidosis and was started on insulin drip hydration and have discussed the case with Dr. Nieto for admission to the ICU.
--- NOTE | 2017-09-29 12:47 | Emergency Department Note ---
Abdominal Pain HPI - General Chief Complaint: Abdominal Pain Stated Complaint: ABD pain, vomiting Time Seen by Provider: 09/29/17 11:42 Source: patient Mode of arrival: ambulatory - History of Present Illness HPI Narrative: Patient presents today with acute nausea, vomiting, abdominal pain and discomfort, reports her blood sugars began to be erratic approximately 2 days ago, woke this morning with a lot of discomfort and pain combined with the nausea and dizziness, vomiting and brought herself to the ER. Reports she has a history of type 1 diabetes, has struggled the last 3-4 months with the nausea vomiting and abdominal pain, reports seems to occur monthly and has been treated here previously for similar. Reports her blood sugars usually run between 120-200. Onset (ago): hour(s) Consistency: constant Location: diffuse Severity: moderate Severity scale (1-10): 7 Quality: cramping Radiation: none Migration to: no migration Improves with: nothing Context: other (Diabetic - Type 1) Associated symptoms: Reports: nausea, vomiting, diarrhea, hematemesis - Related Data Home Medications Medication Instructions Recorded Confirmed insulin aspart U-100 100 unit/mL See Dose Instructions SUB-Q 10/06/14 04/09/17 subcutaneous solution .COMPLEX ml medroxyprogesterone 150 mg/mL 150 mg IM ONCE 05/19/15 04/09/17 intramuscular suspension Previous Rx's Medication Instructions Recorded Accu-Chek 1 each FS ACHS strip 03/13/17 Magnesium Oxide 400 mg PO BID #60 tab 04/15/17 Metoclopramide [Reglan] 5 mg PO ACHS #120 tab 04/15/17 Allergies Allergy/AdvReac Type Severity Reaction Status Date / Time Amoxicillin [AMOXICILLIN] Allergy Intermediate Rash Verified 09/29/17 11:32 ibuprofen [IBUPROFEN] AdvReac Severe GI BLEED Verified 09/29/17 11:32 vancomycin AdvReac Mild Itching Verified 09/29/17 11:32 Review of Systems All systems ED: reviewed and negative except as stated. Abdominal Pain PMH - Past Medical History Medical history: Reports: DM (Type I with gastroparesis), other Psychiatric history: Reports: anxiety [employer] ST[employer]ER history: Reports: non-contributory - Social History Smoking status: Former smoker Alcohol use: Reports: Occasionally Drug use: Reports: none Physical Exam General appearance: anxious, in distress Head: atraumatic, normocephalic Respiratory: Present: normal lung sounds bilaterally Cardiovascular: Present: normal heart sounds Abdominal: Present: distention, tenderness, guarding, rebound, rigidity. Absent : normal bowel sounds Back: Present: tenderness Neurological: Present: alert, oriented X3 Psychiatric: Present: anxious Skin: Present: warm, dry. Absent: rash Course Vital Signs Temperature 97.0 F 09/29/17 11:26 Pulse Rate 130 H 09/29/17 11:26 Respiratory Rate 20 09/29/17 11:26 Blood Pressure 109/68 09/29/17 11:26 Pulse Oximetry (%) 97 09/29/17 11:26 Temperature 97.0 F 09/29/17 11:26 Pulse Rate 115 H 09/29/17 14:25 Respiratory Rate 20 09/29/17 14:25 Blood Pressure 135/72 09/29/17 14:25 Pulse Oximetry (%) 100 09/29/17 14:25 Abdominal Pain - Lab Data Lab results reviewed: Yes I reviewed the patient's lab results. Result diagrams: 09/29/17 12:30 09/29/17 12:30 Lab Results 09/29/17 09/29/17 09/29/17 Range/Units 12:30 12:30 12:30 WBC 11.0 (4.5-11.0) K/mcL RBC 4.76 (4.00-5.20) M/mcL Hgb 13.8 (12.0-15.0) g/dL Hct 42.2 (36.0-48.0) % MCV 88.7 (80.0-100.0) fL MCH 28.9 (26.0-34.0) pg MCHC 32.6 (31.0-36.0) g/dL RDW 13.6 (11.5-14.5) % Plt Count 215 (140-440) K/mcL MPV 12.2 H (7.4-10.4) fL Gran % 68.9 (38.0-78.0) % Lymph % (Auto) 26.8 (15.5-49.0) % Arthur % (Auto) 3.3 (1.0-12.0) % Eos % (Auto) 0.4 (0.0-7.0) % Baso % (Auto) 0.6 (0.0-2.0) % Gran # 7.6 (1.8-8.0) K/mcL Lymph # (Auto) 2.9 (1.5-4.8) K/mcL Arthur # (Auto) 0.4 (0.1-0.9) K/mcL Eos # (Auto) 0 (0.0-0.7) K/mcL Baso # (Auto) 0.1 (0.0-0.3) K/mcL Sodium 134 (133-145) mmol/L Potassium 4.3 (3.3-5.1) mmol/L Chloride 89 L (96-108) mmol/L Carbon Dioxide 7 L* (22-30) mmol/L Anion Gap 38.0 H (8-16) BUN 14 (6-20) mg/dl Creatinine 1.3 H (0.6-1.1) mg/dl GFR Calculation 56 Glucose 678 H* (70-105) mg/dL Calcium 9.3 (8.6-10.4) mg/dl Total Bilirubin 0.4 (0.0-1.0) mg/dL AST 13 (0-37) U/l ALT 12 (0-40) U/l Alkaline Phosphatase 121 H (39-117) U/L Total Protein 6.8 (5.9-8.4) gm/dL Albumin 3.9 (3.2-5.2) gm/dL Globulin 2.9 (2.2-3.7) gm/dL Albumin/Globulin Ratio 1.3 (1.0-2.3) Amylase 20 L (28-100) U/L Lipase 11 (7-60) U/L Beta-Hydroxybutyrate 9.08 H (< 0.27) mmol/L Disposition Pt seen by RETIREMENT OFFICER/PA only: No Clinical Impression: DKA (diabetic ketoacidoses) Summary: Patient admitted into [facility] Discussed this case at length with Dr. Teixeira, he followed as well. Disposition: Xfer As Inpt ([facility]) Condition: Fair
[2017-09-29 12:59] LABS: Basophils # (Auto) 0.1 K/mcL (0.0-0.3); Basophils % (Auto) 0.6 % (0.0-2.0); Eosinophils # (Auto) 0 K/mcL (0.0-0.7); Eosinophils % (Auto) 0.4 % (0.0-7.0); Granulocytes % (Auto) 68.9 % (38.0-78.0); Lymphocytes # (Auto) 2.9 K/mcL (1.5-4.8); Lymphocytes % (Auto) 26.8 % (15.5-49.0); Mean Cell Volume 88.7 fL (80.0-100.0); Mean Corpuscular HGB Conc 32.6 g/dL (31.0-36.0); Mean Corpuscular Hemoglobin 28.9 pg (26.0-34.0); Monocytes # (Auto) 0.4 K/mcL (0.1-0.9); Monocytes % (Auto) 3.3 % (1.0-12.0); Platelet Count 215 K/mcL (140-440); RBC 4.76 M/mcL (4.00-5.20); Red Cell Distribution Width 13.6 % (11.5-14.5)
[2017-09-29 13:21] LABS: ALT/SGPT 12 U/l (0-40); Albumin 3.9 gm/dL (3.2-5.2); Albumin/Globulin Ratio 1.3 (1.0-2.3); Alkaline Phosphatase 121 U/L (39-117); Amylase 20 U/L (28-100); Blood Urea Nitrogen 14 mg/dl (6-20); Lipase 11 U/L (7-60)
--- NOTE | 2017-09-29 13:26 | Internal Med History&Physical ---
Medical - H&P: [facility] Patient information: Note initiated : 09/29/17 at 1:25 pm Service Date, if different from initiated Date: [] Patient: Patricia Toussaint a 27 y/o F admitted on for ABD pain, vomiting. Chief Complaint: [] Chief complaint: Nausea vomiting History of present illness: Ms. Toussaint is a 27 year old F with a history of type 1 diabetes on insulin and recurrent DKA and recently diagnosed gastroparesis who comes in with 48 hours onset of nausea vomiting loss of appetite and abdominal pain. She endorses to symptoms of nausea due to gastroparesis however her symptoms fail to improve with oral Reglan. She subsequently presents to ER where initial workup was significant for DKA with anion gap over 35, bicarbonate 7, blood sugars over 650 and a pH of 7.24. After receiving crystalloids and insulin drip hospitalist service was consulted. At the time of evaluation patient is fairly distressed. Her last 3 episodes of vomiting includes coffee grounds. She endorses to persistent abdominal pain. She denies fever or diarrhea, bloody stool, chest pain, shortness of breath. She further denies productive sputum, dysuria, rash. She denies recent NSAID intake or alcohol use or blood thinners. Review of systems 10 point review of systems was performed and is negative except for ones discussed above Medical - H&P: [facility] Medical history: Medical History Postconcussion syndrome (Chronic) Cellulitis (Acute) DKA (diabetic ketoacidoses) (Acute) Gastroenteritis (Acute) Sepsis (Acute) Hyperlipidemia (Acute) Gastroesophageal reflux (Chronic) Diabetic ketoacidosis (Resolved) Diabetes type 1, uncontrolled (Chronic) Cellulitis and abscess of trunk (Acute) Cellulitis (Acute) Pertinent family history: Grandmother had Malignant neoplasm of colon, Cerebrovascular accident Paternal great-grandmother had diabetes Social history: Smoked from 17 to age 22, then quit. Alcohol use once or twice a month. Lives with her boyfriend and his parents, working on masters degree in social work. Medical - H&P: Meds Home Medications Medication Instructions Recorded Confirmed Type insulin aspart U-100 100 unit/mL See Dose Instructions SUB-Q 10/06/14 04/09/17 History subcutaneous solution .COMPLEX ml medroxyprogesterone 150 mg/mL 150 mg IM ONCE 05/19/15 04/09/17 History intramuscular suspension Accu-Chek 1 each FS ACHS strip 03/13/17 04/09/17 Rx Magnesium Oxide 400 mg PO BID #60 tab 04/15/17 Rx Metoclopramide [Reglan] 5 mg PO ACHS #120 tab 04/15/17 Rx Allergies Allergy/AdvReac Type Severity Reaction Status Date / Time Amoxicillin [AMOXICILLIN] Allergy Intermediate Rash Verified 09/29/17 11:32 ibuprofen [IBUPROFEN] AdvReac Severe GI BLEED Verified 09/29/17 11:32 vancomycin AdvReac Mild Itching Verified 09/29/17 11:32 Medical - H&P: Exam - Constitutional Vitals: Temp Pulse Resp BP Pulse Ox 97.0 F 124 H 26 H 113/51 93 09/29/17 11:26 09/29/17 13:11 09/29/17 13:11 09/29/17 13:01 09/29/17 13:11 General appearance: moderate distress Exam: Abdominal pain and nausea eye movements symmetrical Oral cavity dry Head normocephalic No ear discharge Neck no lymphadenopathy S1 and S2 regular rhythm tachycardia Diminished breath sounds bases Abdomen soft but tender to palpation epigastric area Lower extremity no cyanosis clubbing Skin no suspicious lesion Psych anxious and lethargic Neuro nonfocal Medical - H&P: Reslt - Labs CBC & Chem 7: 09/30/17 02:44 09/29/17 22:30 Labs: Short CBC 09/29/17 Range/Units 12:30 WBC 11.0 (4.5-11.0) K/mcL Hgb 13.8 (12.0-15.0) g/dL Hct 42.2 (36.0-48.0) % Plt Count 215 (140-440) K/mcL BMP 09/29/17 12:30 Sodium 134 Potassium 4.3 Chloride 89 L Carbon Dioxide 7 L* BUN 14 Creatinine 1.3 H Glucose 678 H* Calcium 9.3 Liver Function 09/29/17 Range/Units 12:30 Total Bilirubin 0.4 (0.0-1.0) mg/dL AST 13 (0-37) U/l ALT 12 (0-40) U/l Alkaline Phosphatase 121 H (39-117) U/L Albumin 3.9 (3.2-5.2) gm/dL Medical - H&P: A/P (1) DKA (diabetic ketoacidoses) Current visit: Yes Status: Acute * DKA-continue management per protocol. Basal insulin needs 1.5 units per hour on pump. Continue insulin drip/crystalloids until anion gap bridged and bicarbonate normalized. Check VBG /every 8 hour metabolic panel * Upper GI bleed likely Nelda-Atwood tear- twice a day PPI/NPO/surgery consult. Every 4 H&H * Aggressive electrolyte management/replacement * Full code Plan * ICU admit in light of severe DKA upper GI bleed. Patient critically ill * Aggressive DKA management * Surgery consult * Twice a day PPI/every 4 hours hemoglobin checks * Close hemodynamic monitoring Critical care time spent over 40 minutes on management of DKA in addition to time spent on history and physical
[2017-09-29] MEDS ORDERED: MAGNESIUM SULFATE 2 GM/50 ML BAG IV PRN (14:29)
[2017-09-29] MEDS ORDERED: DEXTROSE 50% 50 ML SYRINGE IV ONE (14:29)
[2017-09-29] MEDS ORDERED: POTASSIUM CHLORIDE 20 MEQ in DEXTROSE 5% IN WATER 250 ML IV ONE (14:29)
[2017-09-29] MEDS ORDERED: POTASSIUM CHLORIDE 40 MEQ in DEXTROSE 5% IN WATER 500 ML IV PRN (14:29)
[2017-09-29] MEDS ORDERED: ACETAMINOPHEN 325 MG TABLET PO PRN (14:29)
[2017-09-29] MEDS ORDERED: POTASSIUM CHLORIDE 20 MEQ PACKET PO PRN (14:29)
[2017-09-29] MEDS ORDERED: MAGNESIUM SULFATE 2 GM/50 ML BAG IV ONE (14:29)
[2017-09-29] MEDS ORDERED: INSULIN REGULAR, HUMAN 50 UNIT in 0.9 % SODIUM CHLORIDE 100 ML IV SCH (14:29)
[2017-09-29] MEDS ORDERED: DEXTROSE 50% 50 ML VIAL IV ONE (14:45)
[2017-09-29] MEDS ORDERED: PROMETHAZINE 25 MG/ML VIAL IV PRN (14:47)
[2017-09-29] MEDS ORDERED: PANTOPRAZOLE 40 MG VIAL IV SCH (15:00)
[2017-09-29] MEDS: PROMETHAZINE 25 MG/ML VIAL IV PRN ×2 (16:37→20:36)
[2017-09-29] MEDS: PANTOPRAZOLE 40 MG VIAL IV SCH (17:02)
[2017-09-29] MEDS: NEUTRA PHOS 1 PACKET PO SCH ×2 (17:03→21:56)
[2017-09-29] MEDS: 0.9 % SODIUM CHLORIDE 10 ML SYRINGE IV SCH ×2 (17:04→22:00)
[2017-09-29] MEDS: INSULIN REGULAR, HUMAN 50 UNIT in 0.9 % SODIUM CHLORIDE 100 ML IV SCH ×2 (17:05→18:48)
[2017-09-29 17:57] LABS: Appearance,Urine CLEAR; Bacteria,Urine 0 /hpf (0); Bilirubin,Urine NEG (NEG); Color,Urine YELLOW; Glucose,Urine (UA) >=500 mg/dL (NEG); Leukocyte Esterase,Urine NEG /uL (NEG); Protein,Urine 30 mg/dL (NEG); Specific Gravity,Urine 1.032 (1.000-1.035); Urine Blood NEG mg/dL (<0.03); Urine RBC 0 /hpf (0-1); Urine Squamous Epithelial Cell 1 /hpf (0-4); Urine WBC < 1 /hpf (0-4); Urobilinogen,Urine NEG (NEG)
[2017-09-29] MEDS: 0.45 % SODIUM CHLORIDE 1,000 ML IV SCH ×2 (18:00→23:13)
[2017-09-29] MEDS ORDERED: METOCLOPRAMIDE 10 MG/2 ML VIAL IV SCH (18:00)
[2017-09-29] MEDS: METOCLOPRAMIDE 10 MG/2 ML VIAL IV SCH (18:33)
[2017-09-29] MEDS: DEXTROSE 5%-1/2NS 1,000 ML IV SCH (19:32)
[2017-09-29] MEDS ORDERED: HEPARIN 5,000 UNIT/ML VIAL SQ SCH (21:00)
[2017-09-29] MEDS: ACETAMINOPHEN 1,000 MG/100 ML BOTTLE IV PRN (21:47)
[2017-09-29] MEDS: DOCUSATE SODIUM 100 MG CAPSULE PO SCH (21:56)
[2017-09-29] MEDS: SENNOSIDES/DOCUSATE SODIUM 1 TAB TABLET PO SCH (21:56)
[2017-09-29 22:57] LABS: ABG Methemoglobin 0.3 % (0.4-1.5); VBG Base Excess -10.2 (-2.0-2.0); VBG HCO3 13.6 mmol/L (24.0-28.0); VBG Oxygen Saturation 94.3 % (40.0-70.0); VBG PCO2 25.1 mmHg (41.0-51.0); VBG PH 7.35 U (7.32-7.42); VBG PO2 113 mmHg (25-40); VBG Total CO2 14.4 mmol/L (25.0-29.0)
[2017-09-29 23:17] LABS: Mean Corpuscular HGB Conc 32.9 g/dL (31.0-36.0); Mean Corpuscular Hemoglobin 28.3 pg (26.0-34.0); Platelet Count 215 K/mcL (140-440); RBC 4.55 M/mcL (4.00-5.20); Red Cell Distribution Width 12.8 % (11.5-14.5)
[2017-09-29 23:26] LABS: ALT/SGPT 12 U/l (0-40); Albumin 3.9 gm/dL (3.2-5.2); Albumin/Globulin Ratio 1.6 (1.0-2.3); Alkaline Phosphatase 104 U/L (39-117); Bilirubin,Direct < 0.2 mg/dL (0.0-0.3); Blood Urea Nitrogen 10 mg/dl (6-20); Gamma Glutamyl Transpeptidase 12 U/L (5-36)
[2017-09-29 23:29] LABS: Band Neutrophils % 3 % (0-10); Lymphocytes % 11 % (15-49); Monocytes % (Manual) 2 % (1-12); Platelet Estimate NORMAL (NORMAL); RBC Morphology NORMAL (NORMAL); Segmented Neutrophils % 84 % (38-78)
[2017-09-29] MEDS: ONDANSETRON 4 MG/2 ML VIAL IV PRN (23:29)
[2017-09-30] MEDS: PROMETHAZINE 25 MG/ML VIAL IV PRN ×4 (00:35→23:20)
[2017-09-30] MEDS: METOCLOPRAMIDE 10 MG/2 ML VIAL IV SCH ×5 (00:47→23:49)
[2017-09-30] MEDS: DEXTROSE 5%-1/2NS 1,000 ML IV SCH ×5 (00:48→20:30)
[2017-09-30 03:04] LABS: ABG Methemoglobin 0.3 % (0.4-1.5); VBG Base Excess -13.4 (-2.0-2.0); VBG HCO3 10.9 mmol/L (24.0-28.0); VBG Oxygen Saturation 94.6 % (40.0-70.0); VBG PCO2 22.4 mmHg (41.0-51.0); VBG PH 7.31 U (7.32-7.42); VBG PO2 109 mmHg (25-40); VBG Total CO2 11.6 mmol/L (25.0-29.0)
[2017-09-30 03:17] LABS: Basophils # (Auto) 0 K/mcL (0.0-0.3); Basophils % (Auto) 0.3 % (0.0-2.0); Eosinophils # (Auto) 0 K/mcL (0.0-0.7); Eosinophils % (Auto) 0 % (0.0-7.0); Lymphocytes # (Auto) 1.4 K/mcL (1.5-4.8); Lymphocytes % (Auto) 12.9 % (15.5-49.0); Mean Cell Volume 87.3 fL (80.0-100.0); Mean Corpuscular HGB Conc 33.4 g/dL (31.0-36.0); Mean Corpuscular Hemoglobin 29.2 pg (26.0-34.0); Monocytes # (Auto) 0.2 K/mcL (0.1-0.9); Monocytes % (Auto) 1.8 % (1.0-12.0); Platelet Count 234 K/mcL (140-440); RBC 4.62 M/mcL (4.00-5.20); Red Cell Distribution Width 13.6 % (11.5-14.5)
[2017-09-30] MEDS: ONDANSETRON 4 MG/2 ML VIAL IV PRN (03:21)
[2017-09-30] MEDS: ACETAMINOPHEN 1,000 MG/100 ML BOTTLE IV PRN (04:20)
[2017-09-30] MEDS: 0.9 % SODIUM CHLORIDE 10 ML SYRINGE IV SCH ×3 (06:19→22:00)
[2017-09-30] MEDS: PANTOPRAZOLE 40 MG VIAL IV SCH ×2 (07:46→17:06)
[2017-09-30] MEDS: 0.45 % SODIUM CHLORIDE 1,000 ML IV SCH ×3 (07:51→23:04)
[2017-09-30] MEDS ORDERED: POTASSIUM PHOSPHATE 40 MEQ in DEXTROSE 5% IN WATER 500 ML IV ONE (07:56)
--- NOTE | 2017-09-30 08:24 | XRay Report ---
CLINICAL INFORMATION: PICC line placement COMPARISON: 04/09/2017 FINDINGS: Heart size normal for technique. Mediastinum and pulmonary vessels are unremarkable. PICC line tip overlies the right atrium. Lungs are clear. No effusions. IMPRESSION: No acute disease. PICC line tip overlies right atrium - the nurses were instructed to withdraw line 3 cm Interpreted and Authenticated by: Carl Franco 09/30/17
[2017-09-30] MEDS: HYDROmorphone 2 MG/ML VIAL IV PRN ×2 (09:19→23:20)
[2017-09-30] MEDS: PROCHLORPERAZINE 10 MG/2 ML VIAL IV PRN ×3 (09:19→20:25)
[2017-09-30] MEDS: NEUTRA PHOS 1 PACKET PO SCH ×3 (09:26→20:57)
[2017-09-30] MEDS: DOCUSATE SODIUM 100 MG CAPSULE PO SCH ×2 (09:26→20:56)
--- NOTE | 2017-09-30 10:12 | Internal Med Progress Note ---
Medical - PN: Subj Patient information: Note initiated : 09/30/17 at 10:10 am Service Date, if different from initiated Date: [] Patient: Patricia Toussaint a 27 y/o F admitted on 09/29/17 for ABD pain, vomiting. Chief Complaint: [] Interval history: Ms. Toussaint is a 27 year old F with a history of type 1 diabetes on insulin and recurrent DKA and recently diagnosed gastroparesis who comes in with 48 hours onset of nausea vomiting loss of appetite and abdominal pain. She endorses to symptoms of nausea due to gastroparesis however her symptoms fail to improve with oral Reglan. She subsequently presents to ER where initial workup was significant for DKA with anion gap over 35, bicarbonate 7, blood sugars over 650 and a pH of 7.24. After receiving crystalloids and insulin drip hospitalist service was consulted. At the time of evaluation patient is fairly distressed. Her last 3 episodes of vomiting includes coffee grounds. She endorses to persistent abdominal pain. She denies fever or diarrhea, bloody stool, chest pain, shortness of breath. She further denies productive sputum, dysuria, rash. She denies recent NSAID intake or alcohol use or blood thinners. 09/30-patient doing a lot better. Improved retching nausea. Minimal coffee ground emesis. Hemoglobin stable at 13. On twice daily PPI. Anion gap at 15 down from 38. pH up to 7.36. Currently on insulin drip at 1.5 basal rate. Bicarbonate up to 15 from 7. Ongoing crystalloids and management per protocol. Beta hydroxybutyrate at 9.08. Electrolytes being aggressively replaced including potassium and phosphorus - Constitutional Vitals: Vital Signs Temp Pulse Resp BP Pulse Ox 98.5 F 105 H 18 167/96 97 09/30/17 08:00 09/30/17 09:46 09/30/17 09:00 09/30/17 09:00 09/30/17 09:46 Period Temp Pulse Resp BP Sys/Butt Pulse Ox Last 24 Hr 97.0 F-99.8 F 105-130 15-29 109-184/51-117 93-100 Intake and Output 09/29/17 09/30/17 09/30/17 21:59 05:59 13:59 Intake Total 1510.5 / 1510.5 1232 / 1232 Output Total 1475 / 1475 550 / 550 Balance 35.5 / 35.5 682 / 682 Weight 215 lb 8 oz Intake & Output: Intake & Output 09/29/17 09/30/17 09/30/17 21:59 05:59 13:59 Intake Total 1510.5 / 1510.5 1232 / 1232 Output Total 1475 / 1475 550 / 550 Balance 35.5 / 35.5 682 / 682 Weight 215 lb 8 oz Intake: IV 1510.5 / 1510.5 1232 / 1232 Dextrose 5%-1/2Ns IV Solution 1 1000 / 1000 ,000 ml @ 100 mls/hr IV .Q10H [facility] Rx#:[id number] HumuLIN R 50 UNIT In Sodium 100.5 / 100.5 Chloride 0.9% 100 ml @ 0.1 UNIT /KG/HR 19.64 mls/hr IV DUR PAU Rx#:[id number] Oral 0 / 0 Output: Void Amount 950 / 950 325 / 325 # of times incontinent of urine 0 / 0 Emesis 525 / 525 175 / 175 Estimated Blood Loss 50 / 50 Other: Stool Size Small Stool Color Brown Stool Consistency Loose # Voids 1 1 # Bowel Movements 1 # of times incontinent of 0 Bowels General appearance: obese Exam: Alert oriented nonlabored breathing nondistended abdomen Minimally anxious No telemetry events except for tachycardia Medical - PN: Obj Da - Labs CBC & Chem 7: 09/30/17 02:44 09/29/17 22:30 Labs: Abnormal Lab Results 09/30/17 09/30/17 09/29/17 02:44 02:44 22:30 WBC 11.2 H MPV 11.4 H Gran % 85.0 H Lymph % (Auto) 12.9 L Gran # 9.5 H Lymph # (Auto) 1.4 L Seg Neutrophils % 84 H Lymphocytes % 11 L ABG Methemoglobin 0.3 L VBG pH 7.31 L VBG pCO2 22.4 L VBG pO2 109 H VBG HCO3 10.9 L* VBG Total CO2 11.6 L VBG O2 Saturation 94.6 H VBG Base Excess -13.4 L Carboxyhemoglobin 2.7 H Chloride Carbon Dioxide Anion Gap Creatinine Glucose Uric Acid Phosphorus Alkaline Phosphatase Amylase Beta-Hydroxybutyrate Urine Protein Urine Glucose (UA) Urine Ketones 09/29/17 09/29/17 09/29/17 22:30 22:30 17:00 WBC MPV Gran % Lymph % (Auto) Gran # Lymph # (Auto) Seg Neutrophils % Lymphocytes % ABG Methemoglobin 0.3 L VBG pH VBG pCO2 25.1 L VBG pO2 113 H VBG HCO3 13.6 L VBG Total CO2 14.4 L VBG O2 Saturation 94.3 H VBG Base Excess -10.2 L Carboxyhemoglobin 3.1 H Chloride Carbon Dioxide 15 L Anion Gap Creatinine Glucose 178 H Uric Acid 10.0 H Phosphorus 1.3 L Alkaline Phosphatase Amylase Beta-Hydroxybutyrate Urine Protein 30 A Urine Glucose (UA) >=500 A Urine Ketones 80 A 09/29/17 09/29/17 09/29/17 12:30 12:30 12:30 WBC MPV 12.2 H Gran % Lymph % (Auto) Gran # Lymph # (Auto) Seg Neutrophils % Lymphocytes % ABG Methemoglobin VBG pH VBG pCO2 VBG pO2 VBG HCO3 VBG Total CO2 VBG O2 Saturation VBG Base Excess Carboxyhemoglobin Chloride 89 L Carbon Dioxide 7 L* Anion Gap 38.0 H Creatinine 1.3 H Glucose 678 H* Uric Acid Phosphorus Alkaline Phosphatase 121 H Amylase 20 L Beta-Hydroxybutyrate 9.08 H Urine Protein Urine Glucose (UA) Urine Ketones Meds: Medications Acetaminophen (Tylenol) 650 mg PO Q4-6HP PRN PRN Reason: PAIN/FEVER > 101 Diagnostic Test (Pha) (Accu-Chek) 1 each FS Q1 [facility] Last Admin: 09/30/17 09:25 Dose: 1 each Docusate Sodium (Colace) 100 mg PO BID [facility] Last Admin: 09/30/17 09:26 Dose: Not Given Heparin Sodium (Porcine) (Heparin Flush) 2 ml IV Q12 [facility] Last Admin: 09/30/17 09:29 Dose: 2 ml Hydromorphone HCl (Dilaudid) 0.2 - 0.5 mg IV Q2HP PRN PRN Reason: PAIN LEVEL > 6 Last Admin: 09/30/17 09:19 Dose: 0.5 mg Dextrose/Sodium Chloride (Dextrose 5%-1/2ns Iv Solution) 1,000 mls @ 100 mls/ hr IV .Q10H [facility]U Last Admin: 09/30/17 05:52 Dose: 100 mls/hr Potassium Chloride 40 meq/ (Dextrose) 520 mls @ 130 mls/hr IV UD PRN PRN Reason: K+ = or < 3.5 Magnesium Sulfate (Magnesium Sulfate) 2 gm in 50 mls @ 50 mls/hr IV UD PRN PRN Reason: MG = or < 1.7 Acetaminophen (Ofirmev) 1,000 mg in 100 mls @ 200 mls/hr IV Q6HP PRN PRN Reason: PAIN/FEVER > 101 Last Infusion: 09/30/17 05:00 Dose: Infused Sodium Chloride (Sodium Chloride 0.45%) 1,000 mls @ 125 mls/hr IV .Q8H [facility] Last Admin: 09/30/17 07:51 Dose: Not Given Insulin Human Regular 50 unit/ (Sodium Chloride) 100.5 mls @ 19.64 mls/hr IV DUR PAU; 0.1 UNIT/KG/HR PRN Reason: Protocol Last Titration: 09/30/17 08:38 Dose: 0.01 unit/kg/hr, 3 mls/hr Potassium Phosphate 40 meq/ (Dextrose) 509.0909 mls @ 127.273 mls/hr IV ONCE ONE Stop: 09/30/17 11:55 Last Admin: 09/30/17 08:31 Dose: 127.273 mls/hr Metoclopramide HCl (Reglan) 5 mg IV Q6 [facility] Last Admin: 09/30/17 06:17 Dose: 5 mg Pantoprazole Sodium (Protonix) 40 mg IV BIDAC [facility] Last Admin: 09/30/17 07:46 Dose: 40 mg Potassium Chloride (Klor-Con) 40 meq PO DAILYP PRN PRN Reason: K+ < 3.5 Potassium/Phosphorus/Sodium (Neutra Phos) 2 packet PO TID [facility] Stop: 10/02/17 09:01 Last Admin: 09/30/17 09:26 Dose: Not Given Prochlorperazine Edisylate (Compazine) 5 - 10 mg IV Q4-6HP PRN PRN Reason: Nausea And Vomiting Last Admin: 09/30/17 09:19 Dose: 10 mg Promethazine HCl (Phenergan) 12.5 mg IV Q4-6HP PRN PRN Reason: Nausea And Vomiting Last Admin: 09/30/17 04:41 Dose: 12.5 mg Senna/Docusate Sodium (Senna Plus Tablet) 1 tab PO HS [facility]U Last Admin: 09/29/17 21:56 Dose: Not Given Sodium Chloride (Saline Flush) 10 ml IV Q8 [facility] Last Admin: 09/30/17 06:19 Dose: 10 ml - ABG Interpretation ABG results: 09/29/17 09/30/17 22:30 02:44 ABG Methemoglobin 0.3 L 0.3 L VBG pH 7.35 7.31 L VBG pCO2 25.1 L 22.4 L VBG pO2 113 H 109 H VBG HCO3 13.6 L 10.9 L* VBG Total CO2 14.4 L 11.6 L VBG O2 Saturation 94.3 H 94.6 H VBG Base Excess -10.2 L -13.4 L Medical - PN: A/P - Time Spent With Patient Total time spent is greater than 50% in coordination of care (as documented) at patient's floor/unit and/or counseling patient: 25 - 35 minutes (1) DKA (diabetic ketoacidoses) Status: Acute Assessment and plan: * DKA-clinical improvement noted within management per protocol. Improving bicarbonate and anion gap and volume status. Continue insulin drip at 1.5 units per hour. Periodic compressive panel * Upper GI bleed likely Nelda-Atwood tear- consult surgery. Continue twice a day PPI/NPO. Hemoglobin stable * Low electrolytes including low phosphorus-on aggressive replacement * Full code Plan * Continue ICU care/DKA management * Electrolyte Replacement * Surgery consult * IV PPI/every 4 hours hemoglobin checks * Close hemodynamic monitoring Current Visit: Yes Medical - PN: Qual - Stroke Symptom Onset Unknown: No - VTE Deep Vein Thrombosis/Pulmonary Embolism Present on Admission: No
[2017-09-30] MEDS ORDERED: DIATRIZOATE MEGLU/DIATRIZO SOD 30 ML BOTTLE PO ONE (14:11)
--- NOTE | 2017-09-30 14:26 | XRay Report ---
CLINICAL INFORMATION: Chest pain evaluate for esophageal perforation TECHNIQUE: Following the Gastrografin was was ingested under fluoroscopic observation while spot films were obtained of the esophagus during deglutition in both the upright position FINDINGS: Tongue elevation and palate depression are normal resulting in propulsion of the barium bolus into the pharynx. The nasopharyngeus closes normally. Pharyngeal stripping, cricopharyngeal opening, primary peristaltic wave and lower esophageal sphincter all are normal. The epiglottis and vocal cords close normally - no evidence of descending aspiration. There is no extravasation to suggest esophageal perforation. The esophagus is normal in contour and caliber without evidence of esophagitis or focal lesion. No hiatal hernia or reflux could be induced. IMPRESSION: Normal esophagram - no evidence of esophageal perforation Interpreted and Authenticated by: Carl Franco 09/30/17
[2017-09-30] MEDS: INSULIN REGULAR, HUMAN 50 UNIT in 0.9 % SODIUM CHLORIDE 100 ML IV SCH (16:28)
[2017-09-30 19:29] LABS: Beta Hydroxybutyrate 3.03 mmol/L (< 0.27); Blood Urea Nitrogen 7 mg/dl (6-20)
[2017-09-30] MEDS ORDERED: POTASSIUM CHLORIDE 40 MEQ in DEXTROSE 5% IN WATER 500 ML IV ONE (20:18)
[2017-09-30] MEDS: SENNOSIDES/DOCUSATE SODIUM 1 TAB TABLET PO SCH (20:57)
[2017-09-30] MEDS ORDERED: POTASSIUM CHLORIDE 20 MEQ/10 ML VIAL IV ONE (22:06)
[2017-10-01] MEDS: DEXTROSE 5%-1/2NS 1,000 ML IV SCH ×3 (00:05→09:11)
[2017-10-01] MEDS: PROCHLORPERAZINE 10 MG/2 ML VIAL IV PRN ×3 (04:17→21:11)
[2017-10-01 05:42] LABS: Basophils # (Auto) 0 K/mcL (0.0-0.3); Basophils % (Auto) 0.2 % (0.0-2.0); Eosinophils # (Auto) 0 K/mcL (0.0-0.7); Eosinophils % (Auto) 0 % (0.0-7.0); Lymphocytes # (Auto) 1.7 K/mcL (1.5-4.8); Lymphocytes % (Auto) 17.8 % (15.5-49.0); Mean Cell Volume 87.9 fL (80.0-100.0); Mean Corpuscular HGB Conc 33.5 g/dL (31.0-36.0); Mean Corpuscular Hemoglobin 29.5 pg (26.0-34.0); Monocytes # (Auto) 0.4 K/mcL (0.1-0.9); Platelet Count 153 K/mcL (140-440); RBC 4.09 M/mcL (4.00-5.20); Red Cell Distribution Width 14.2 % (11.5-14.5)
[2017-10-01] MEDS: 0.9 % SODIUM CHLORIDE 10 ML SYRINGE IV SCH ×3 (05:46→22:00)
[2017-10-01] MEDS: METOCLOPRAMIDE 10 MG/2 ML VIAL IV SCH ×3 (05:46→17:34)
[2017-10-01 05:56] LABS: ALT/SGPT 10 U/l (0-40); Albumin 3.4 gm/dL (3.2-5.2); Albumin/Globulin Ratio 1.5 (1.0-2.3); Alkaline Phosphatase 91 U/L (39-117); Bilirubin,Direct < 0.2 mg/dL (0.0-0.3); Blood Urea Nitrogen 5 mg/dl (6-20); Gamma Glutamyl Transpeptidase 11 U/L (5-36); Uric Acid 6.7 mg/dL (2.5-8.0)
[2017-10-01] MEDS: 0.45 % SODIUM CHLORIDE 1,000 ML IV SCH ×2 (06:43→10:32)
[2017-10-01] MEDS: PANTOPRAZOLE 40 MG VIAL IV SCH ×2 (08:04→17:22)
[2017-10-01] MEDS ORDERED: DEXTROSE 50% 50 ML VIAL IV PRN (08:30)
[2017-10-01] MEDS ORDERED: DEXTROSE 31 GM ORAL.SUSP PO PRN (08:30)
[2017-10-01] MEDS: HYDROmorphone 2 MG/ML VIAL IV PRN ×2 (08:45→22:39)
[2017-10-01] MEDS: DOCUSATE SODIUM 100 MG CAPSULE PO SCH ×2 (09:04→21:04)
[2017-10-01] MEDS: NEUTRA PHOS 1 PACKET PO SCH ×3 (09:14→21:05)
[2017-10-01] MEDS: INSULIN GLARGINE, HUMAN 1 UNIT/0.01 ML SQ SCH (09:15)
--- NOTE | 2017-10-01 10:55 | Internal Med Progress Note ---
Medical - PN: Subj Patient information: Note initiated : 10/01/17 at 10:51 am Service Date, if different from initiated Date: [] Patient: Patricia Toussaint a 27 y/o F admitted on 09/29/17 for ABD Pain, Vomiting /Diabetic Ketoacidoses. Chief Complaint: [] Interval history: Ms. Toussaint is a 27 year old F with a history of type 1 diabetes on insulin and recurrent DKA and recently diagnosed gastroparesis who comes in with 48 hours onset of nausea vomiting loss of appetite and abdominal pain. She endorses to symptoms of nausea due to gastroparesis however her symptoms fail to improve with oral Reglan. She subsequently presents to ER where initial workup was significant for DKA with anion gap over 35, bicarbonate 7, blood sugars over 650 and a pH of 7.24. After receiving crystalloids and insulin drip hospitalist service was consulted. At the time of evaluation patient is fairly distressed. Her last 3 episodes of vomiting includes coffee grounds. She endorses to persistent abdominal pain. She denies fever or diarrhea, bloody stool, chest pain, shortness of breath. She further denies productive sputum, dysuria, rash. She denies recent NSAID intake or alcohol use or blood thinners. 09/30-patient doing a lot better. Improved retching nausea. Minimal coffee ground emesis. Hemoglobin stable at 13. On twice daily PPI. Anion gap at 15 down from 38. pH up to 7.36. Currently on insulin drip at 1.5 basal rate. Bicarbonate up to 15 from 7. Ongoing crystalloids and management per protocol. Beta hydroxybutyrate at 9.08. Electrolytes being aggressively replaced including potassium and phosphorus 10/01 Pt seen examined, no acute overnight issues, this AM gap closed, pt nausea much better, hb has been stable d/c insulin ggt, start on sq insulin, uses a insulin pump at home. Pertinent ROS: Denies headache, dizziness Denies chest pain, palpitations Denies cough or shortness of breath improved nausea and vomiting. - Constitutional Vitals: Vital Signs Temp Pulse Resp BP Pulse Ox 98.1 F 117 H 13 124/86 98 10/01/17 08:00 10/01/17 08:22 10/01/17 10:22 10/01/17 10:01 10/01/17 10:01 Period Temp Pulse Resp BP Sys/Butt Pulse Ox Last 24 Hr 98.1 F-98.9 F 90-125 11-24 103-186/61-118 94-100 Intake and Output 09/30/17 10/01/17 10/01/17 21:59 05:59 13:59 Intake Total 911.5 / 911.5 969 / 969 1000 / 1000 Output Total 500 / 500 375 / 375 400 / 400 Balance 411.5 / 411.5 594 / 594 600 / 600 Weight 225 lb Intake & Output: Intake & Output 09/30/17 10/01/17 10/01/17 21:59 05:59 13:59 Intake Total 911.5 / 911.5 969 / 969 1000 / 1000 Output Total 500 / 500 375 / 375 400 / 400 Balance 411.5 / 411.5 594 / 594 600 / 600 Weight 225 lb Intake: IV 911.5 / 911.5 469 / 469 1000 / 1000 Dextrose 5%-1/2Ns IV Solution 1 887 / 887 448 / 448 1000 / 1000 ,000 ml @ 125 mls/hr IV .Q8H [facility] Rx#:[id number] HumuLIN R 50 UNIT In Sodium 24.5 / 24.5 Chloride 0.9% 100 ml @ 0.1 UNIT /KG/HR 19.64 mls/hr IV DUR PAU Rx#:[id number] IV - Manual Only 500 / 500 Output: Void Amount 150 / 150 200 / 200 Stool 200 / 200 200 / 200 200 / 200 Emesis 150 / 150 175 / 175 Other: Stool Size Small Stool Color Brown Brown Stool Consistency Liquid Liquid # Voids 1 # Bowel Movements 1 Exam: Constitutional; Afebrile, cooperative, alert, not in distress. obese individual Eyes- No icterus, , No periorbital swelling Ears- Ext ear normal, hearing normal to conversation. Neck- Midline trachea, supple Respiratory system: Air Entry equal on both sides, No crackles or wheezing, no rhonchi. CVS- Rate rhythm regular, S1,S2 heard, no gallop, no rub. Abdomen- Soft nontender abdomen, no organomegaly, no tenderness, no guarding or rigidity, [employer]- AOOx3, moving all extremities, no gross focal deficit noted. Medical - PN: Obj Da - Labs CBC & Chem 7: 10/01/17 04:00 10/01/17 04:00 Labs: Abnormal Lab Results 10/01/17 10/01/17 09/30/17 04:00 04:00 18:20 WBC Hct 35.9 L MPV 11.4 H Gran % Lymph % (Auto) Gran # Lymph # (Auto) Seg Neutrophils % Lymphocytes % ABG Methemoglobin VBG pH VBG pCO2 VBG pO2 VBG HCO3 VBG Total CO2 VBG O2 Saturation VBG Base Excess Carboxyhemoglobin Chloride 109 H Carbon Dioxide 20 L 18 L Anion Gap 17.0 H BUN 5 L Creatinine Glucose 227 H 177 H Uric Acid Calcium 8.5 L Phosphorus 2.3 L Alkaline Phosphatase Total Protein 5.6 L Amylase Beta-Hydroxybutyrate 3.03 H Urine Protein Urine Glucose (UA) Urine Ketones 09/30/17 09/30/17 09/29/17 02:44 02:44 22:30 WBC 11.2 H Hct MPV 11.4 H Gran % 85.0 H Lymph % (Auto) 12.9 L Gran # 9.5 H Lymph # (Auto) 1.4 L Seg Neutrophils % 84 H Lymphocytes % 11 L ABG Methemoglobin 0.3 L VBG pH 7.31 L VBG pCO2 22.4 L VBG pO2 109 H VBG HCO3 10.9 L* VBG Total CO2 11.6 L VBG O2 Saturation 94.6 H VBG Base Excess -13.4 L Carboxyhemoglobin 2.7 H Chloride Carbon Dioxide Anion Gap BUN Creatinine Glucose Uric Acid Calcium Phosphorus Alkaline Phosphatase Total Protein Amylase Beta-Hydroxybutyrate Urine Protein Urine Glucose (UA) Urine Ketones 09/29/17 09/29/17 09/29/17 22:30 22:30 17:00 WBC Hct MPV Gran % Lymph % (Auto) Gran # Lymph # (Auto) Seg Neutrophils % Lymphocytes % ABG Methemoglobin 0.3 L VBG pH VBG pCO2 25.1 L VBG pO2 113 H VBG HCO3 13.6 L VBG Total CO2 14.4 L VBG O2 Saturation 94.3 H VBG Base Excess -10.2 L Carboxyhemoglobin 3.1 H Chloride Carbon Dioxide 15 L Anion Gap BUN Creatinine Glucose 178 H Uric Acid 10.0 H Calcium Phosphorus 1.3 L Alkaline Phosphatase Total Protein Amylase Beta-Hydroxybutyrate Urine Protein 30 A Urine Glucose (UA) >=500 A Urine Ketones 80 A 09/29/17 09/29/17 09/29/17 12:30 12:30 12:30 WBC Hct MPV 12.2 H Gran % Lymph % (Auto) Gran # Lymph # (Auto) Seg Neutrophils % Lymphocytes % ABG Methemoglobin VBG pH VBG pCO2 VBG pO2 VBG HCO3 VBG Total CO2 VBG O2 Saturation VBG Base Excess Carboxyhemoglobin Chloride 89 L Carbon Dioxide 7 L* Anion Gap 38.0 H BUN Creatinine 1.3 H Glucose 678 H* Uric Acid Calcium Phosphorus Alkaline Phosphatase 121 H Total Protein Amylase 20 L Beta-Hydroxybutyrate 9.08 H Urine Protein Urine Glucose (UA) Urine Ketones Meds: Medications Acetaminophen (Tylenol) 650 mg PO Q4-6HP PRN PRN Reason: PAIN/FEVER > 101 Dextrose (Dextrose 50%) 0 ml IV UD PRN PRN Reason: Hypoglycemia Diagnostic Test (Pha) (Accu-Chek) 1 each FS ACHS [facility] Docusate Sodium (Colace) 100 mg PO BID [facility] Last Admin: 10/01/17 09:04 Dose: Not Given Glucose (Insta-Glucose) 15 gm PO PRN PRN PRN Reason: Hypoglycemia Heparin Sodium (Porcine) (Heparin Flush) 2 ml IV Q12 [facility] Last Admin: 10/01/17 09:15 Dose: 2 ml Hydromorphone HCl (Dilaudid) 0.2 - 0.5 mg IV Q2HP PRN PRN Reason: PAIN LEVEL > 6 Last Admin: 10/01/17 08:45 Dose: 0.5 mg Potassium Chloride 40 meq/ (Dextrose) 520 mls @ 130 mls/hr IV UD PRN PRN Reason: K+ = or < 3.5 Magnesium Sulfate (Magnesium Sulfate) 2 gm in 50 mls @ 50 mls/hr IV UD PRN PRN Reason: MG = or < 1.7 Acetaminophen (Ofirmev) 1,000 mg in 100 mls @ 200 mls/hr IV Q6HP PRN PRN Reason: PAIN/FEVER > 101 Last Infusion: 09/30/17 05:00 Dose: Infused Sodium Chloride (Sodium Chloride 0.45%) 1,000 mls @ 75 mls/hr IV .[id number] [facility] Last Admin: 10/01/17 10:32 Dose: 75 mls/hr Insulin Glargine (Lantus) 36 unit SQ DAILY [facility] Last Admin: 10/01/17 09:15 Dose: 36 unit Insulin Human Lispro (Humalog) 0 unit SQ ACHS [facility]U PRN Reason: Protocol Metoclopramide HCl (Reglan) 5 mg IV Q6 [facility] Last Admin: 10/01/17 05:46 Dose: 5 mg Pantoprazole Sodium (Protonix) 40 mg IV BIDAC [facility] Last Admin: 10/01/17 08:04 Dose: 40 mg Potassium Chloride (Klor-Con) 40 meq PO DAILYP PRN PRN Reason: K+ < 3.5 Potassium/Phosphorus/Sodium (Neutra Phos) 2 packet PO TID [facility] Stop: 10/02/17 09:01 Last Admin: 10/01/17 09:14 Dose: 2 packet Prochlorperazine Edisylate (Compazine) 5 - 10 mg IV Q4-6HP PRN PRN Reason: Nausea And Vomiting Last Admin: 10/01/17 08:42 Dose: 10 mg Promethazine HCl (Phenergan) 12.5 mg IV Q4-6HP PRN PRN Reason: Nausea And Vomiting Last Admin: 09/30/17 23:20 Dose: 12.5 mg Senna/Docusate Sodium (Senna Plus Tablet) 1 tab PO HS [facility] Last Admin: 09/30/17 20:57 Dose: Not Given Sodium Chloride (Saline Flush) 10 ml IV Q8 [facility] Last Admin: 10/01/17 05:46 Dose: 10 ml - ABG Interpretation ABG results: 09/29/17 09/30/17 22:30 02:44 ABG Methemoglobin 0.3 L 0.3 L VBG pH 7.35 7.31 L VBG pCO2 25.1 L 22.4 L VBG pO2 113 H 109 H VBG HCO3 13.6 L 10.9 L* VBG Total CO2 14.4 L 11.6 L VBG O2 Saturation 94.3 H 94.6 H VBG Base Excess -10.2 L -13.4 L Medical - PN: A/P - Time Spent With Patient Total time spent is greater than 50% in coordination of care (as documented) at patient's floor/unit and/or counseling patient: - Narrative A/P Narrative: a/p DKA- clinical improvement, resolved gap, d/c insulin ggt, start sq insulin, monitor, start liquid diet. Nausea/ vomiting- on multiple meds, on liquid diet, in the past has had issues tolerating po diet. diagnosed with gastroparesis. Upper GI bleed: h/h stable, on IV ppi, monitor, I believe surgery was consulted Electrolyte / Low K, low phos, - replace aggressively. DVT scd Full code Medical - PN: Qual - Stroke Symptom Onset Unknown: No - VTE Deep Vein Thrombosis/Pulmonary Embolism Present on Admission: No
[2017-10-01] MEDS ORDERED: MAGNESIUM SULFATE 2 GM/50 ML BAG IV ONE (11:08)
[2017-10-01] MEDS: PROMETHAZINE 25 MG/ML VIAL IV PRN ×2 (12:04→22:39)
[2017-10-01] MEDS: INSULIN LISPRO 1 UNIT/0.01 ML UNIT SQ SCH ×3 (12:04→21:05)
--- NOTE | 2017-10-01 17:26 | Internal Medicine Consult Note ---
Medical - CN: HPI - Data of Consult Patient: new to practice Consult date: 10/01/17 Requesting Physician: Dr. Baldwin Primary Care Provider: Jordyn Banerjee - Consult Narrative Reason for consult: Nausea and vomiting, hematemesis, DKA. History of present illness: Ms. Toussaint is a 27 year old F admitted with intractable nausea and vomiting believed to be due to diabetic gastroparesis and DKA. She complains of a 6 month hx of intermittent episodes of nausea and vomiting, occurring at least once monthly and often requiring hospitalization. She recognizes food from day prior in her emesis, followed by bile and then coffee ground emesis. She has been hemodynamically stable. If she takes Reglan early enough in the episode, she can sometimes abort symptoms and avoid hospitalization but often is admitted for supportive measures. In between episodes, she feels fine. She tells me she underwent EGD by Dr. Issa Sen 6 months ago and food was seen in the stomach. Nausea and vomiting has improved since improvement in her glycemic control during this hospitalization, but she continues to dry heave throughout this interview. She has diarrhea 1-2 times daily and has been treated for bacterial overgrowth by Dr. Hanks in the remote past. She has not previously been on a TCA. She tried IV erythromcyin during previous hospitalization at [facility], but does not recall if she had resolution of symptoms. There is a remote history of migraine with post concussion syndrome and a history of marijuana use in the past. CC: Saeid Duque - Constitutional Constitutional: Present: as per HPI, headache(s) Additional comments: weight stable - Gastrointestinal Gastrointestinal: Present: as per HPI, coffee ground emesis, diarrhea, vomiting Medical - CN: PMH Medical history: Type I diabetes, poorly controlled despite insulin pump with HbA1C >10 in August 2017 Post concussion syndrome Cellulitis Surgical history: none Pertinent family history: Denies any family history of chronic illness or GI disorder Social history: Single. Master's degree. Medical - CN: Meds Home Medications Medication Instructions Recorded Confirmed Type insulin aspart U-100 100 unit/mL See Dose Instructions SUB-Q 10/06/14 09/30/17 History subcutaneous solution .COMPLEX ml medroxyprogesterone 150 mg/mL 150 mg IM ONCE 05/19/15 09/30/17 History intramuscular suspension Accu-Chek 1 each FS ACHS strip 03/13/17 09/30/17 Rx Magnesium Oxide 400 mg PO BID #60 tab 04/15/17 09/30/17 Rx Metoclopramide [Reglan] 5 mg PO ACHS #120 tab 04/15/17 09/30/17 Rx Allergies Allergy/AdvReac Type Severity Reaction Status Date / Time Amoxicillin [AMOXICILLIN] Allergy Intermediate Rash Verified 09/29/17 11:32 ibuprofen [IBUPROFEN] AdvReac Severe GI BLEED Verified 09/29/17 11:32 vancomycin AdvReac Mild Itching Verified 09/29/17 11:32 Medical - CN: Exam - Constitutional Vitals: Temp Pulse Resp BP Pulse Ox 98.6 F 96 H 14 147/93 96 10/01/17 16:01 10/01/17 16:01 10/01/17 17:02 10/01/17 17:02 10/01/17 17:02 General appearance: average body habitus, mild distress Exam: Dry heaving - Head Head exam: Present: atraumatic, normal inspection, normocephalic - Neck Neck exam: Present: normal inspection. Absent: lymphadenopathy - Respiratory Respiratory exam: Present: normal respiratory exam, CTAB - GI/Abdominal GI/Abdominal exam: Present: normal bowel sounds, soft. Absent: organomegaly, tenderness - Psychiatric Psychiatric exam: Present: normal affect, normal mood - Skin Skin exam: Present: dry Additional comments: tattoos on back Medical - CN: Result - Labs CBC & Chem 7: 10/01/17 04:00 10/01/17 04:00 Labs: Short CBC 10/01/17 Range/Units 04:00 WBC 9.3 (4.5-11.0) K/mcL Hgb 12.0 (12.0-15.0) g/dL Hct 35.9 L (36.0-48.0) % Plt Count 153 (140-440) K/mcL BMP 09/30/17 10/01/17 18:20 04:00 Sodium 143 140 Potassium 3.4 3.8 Chloride 108 109 H Carbon Dioxide 18 L 20 L BUN 7 5 L Creatinine 0.9 0.8 Glucose 177 H 227 H Calcium 8.5 L 8.7 Liver Function 10/01/17 Range/Units 04:00 Total Bilirubin 0.2 (0.0-1.0) mg/dL Direct Bilirubin < 0.2 (0.0-0.3) mg/dL GGT 11 (5-36) U/L AST 10 (0-37) U/l ALT 10 (0-40) U/l Alkaline Phosphatase 91 (39-117) U/L Albumin 3.4 (3.2-5.2) gm/dL - ABG Interpretation ABG results: 09/29/17 09/30/17 22:30 02:44 ABG Methemoglobin 0.3 L 0.3 L VBG pH 7.35 7.31 L VBG pCO2 25.1 L 22.4 L VBG pO2 113 H 109 H VBG HCO3 13.6 L 10.9 L* VBG Total CO2 14.4 L 11.6 L VBG O2 Saturation 94.3 H 94.6 H VBG Base Excess -10.2 L -13.4 L Medical - CN: A/P (1) Nausea and vomiting Status: Acute Assessment and plan: Will further evaluate her nausea and vomiting and hematemesis with EGD tomorrow. Suspect hemorrhagic gastritis secondary to intractable vomiting as the cause of her hematemesis. Obstructing gastric ulcer would also be a unifying diagnosis. Diabetic gastroparesis could contribute to her poor glycemic control. It would be reasonable to try IV erythromycin 3mg/kg but apparently this is not on hospital formulary. Alternately, a trial of a tricyclic can help with gastric accommodation and help with functional nausea, so we will try nortriptyline 10mg at bedtime. Her intermittent episodes of nausea and vomiting raise the possibility of cyclic vomiting syndrome, of which tricyclic therapy is the foundation, or functional nausea and vomiting secondary to post concussion syndrome. IV ketamine can be helpful in breaking a cycle of intractable nausea and vomiting, so this will be administered with her sedation for EGD tomorrow.
[2017-10-01] MEDS ORDERED: AMITRIPTYLINE 10 MG TABLET PO SCH (21:00)
[2017-10-01] MEDS: SENNOSIDES/DOCUSATE SODIUM 1 TAB TABLET PO SCH (21:05)
[2017-10-02] MEDS: METOCLOPRAMIDE 10 MG/2 ML VIAL IV SCH ×4 (00:06→17:35)
[2017-10-02] MEDS: 0.45 % SODIUM CHLORIDE 1,000 ML IV SCH ×2 (00:07→13:04)
[2017-10-02] MEDS: PROCHLORPERAZINE 10 MG/2 ML VIAL IV PRN (04:27)
[2017-10-02] MEDS: HYDROmorphone 2 MG/ML VIAL IV PRN (04:44)
[2017-10-02 05:51] LABS: Basophils # (Auto) 0 K/mcL (0.0-0.3); Basophils % (Auto) 0.8 % (0.0-2.0); Eosinophils # (Auto) 0 K/mcL (0.0-0.7); Eosinophils % (Auto) 0.1 % (0.0-7.0); Granulocytes % (Auto) 56.9 % (38.0-78.0); Lymphocytes % (Auto) 37.3 % (15.5-49.0); Mean Cell Volume 87.4 fL (80.0-100.0); Mean Corpuscular HGB Conc 33.6 g/dL (31.0-36.0); Mean Corpuscular Hemoglobin 29.4 pg (26.0-34.0); Monocytes # (Auto) 0.3 K/mcL (0.1-0.9); Monocytes % (Auto) 4.9 % (1.0-12.0); Platelet Count 130 K/mcL (140-440); RBC 3.81 M/mcL (4.00-5.20); Red Cell Distribution Width 13.5 % (11.5-14.5)
[2017-10-02] MEDS: 0.9 % SODIUM CHLORIDE 10 ML SYRINGE IV SCH ×4 (06:09→20:50)
[2017-10-02 06:14] LABS: ALT/SGPT 9 U/l (0-40); Albumin/Globulin Ratio 1.7 (1.0-2.3); Alkaline Phosphatase 81 U/L (39-117); Bilirubin,Direct < 0.2 mg/dL (0.0-0.3); Blood Urea Nitrogen 4 mg/dl (6-20); Gamma Glutamyl Transpeptidase 9 U/L (5-36); Uric Acid 4.4 mg/dL (2.5-8.0)
[2017-10-02] MEDS ORDERED: MAGNESIUM SULFATE 2 GM/50 ML BAG IV ONE (07:35)
[2017-10-02] MEDS ORDERED: POTASSIUM CHLORIDE 40 MEQ in DEXTROSE 5% IN WATER 500 ML IV ONE (08:00)
[2017-10-02] MEDS: PROMETHAZINE 25 MG/ML VIAL IV PRN (08:41)
[2017-10-02] MEDS: PANTOPRAZOLE 40 MG VIAL IV SCH ×2 (08:41→17:24)
[2017-10-02] MEDS: NEUTRA PHOS 1 PACKET PO SCH (08:43)
[2017-10-02] MEDS: DOCUSATE SODIUM 100 MG CAPSULE PO SCH ×2 (08:57→20:37)
[2017-10-02] MEDS: INSULIN GLARGINE, HUMAN 1 UNIT/0.01 ML SQ SCH (09:01)
[2017-10-02] MEDS: INSULIN LISPRO 1 UNIT/0.01 ML UNIT SQ SCH ×4 (09:04→20:34)
--- NOTE | 2017-10-02 10:28 | Internal Med Progress Note ---
Medical - PN: Subj Patient information: Note initiated : 10/02/17 at 10:26 am Service Date, if different from initiated Date: [] Patient: Patricia Toussaint a 27 y/o F admitted on 09/29/17 for ABD Pain, Vomiting /Diabetic Ketoacidoses. Chief Complaint: [] Interval history: Ms. Toussaint is a 27 year old F with a history of type 1 diabetes on insulin and recurrent DKA and recently diagnosed gastroparesis who comes in with 48 hours onset of nausea vomiting loss of appetite and abdominal pain. She endorses to symptoms of nausea due to gastroparesis however her symptoms fail to improve with oral Reglan. She subsequently presents to ER where initial workup was significant for DKA with anion gap over 35, bicarbonate 7, blood sugars over 650 and a pH of 7.24. After receiving crystalloids and insulin drip hospitalist service was consulted. At the time of evaluation patient is fairly distressed. Her last 3 episodes of vomiting includes coffee grounds. She endorses to persistent abdominal pain. She denies fever or diarrhea, bloody stool, chest pain, shortness of breath. She further denies productive sputum, dysuria, rash. She denies recent NSAID intake or alcohol use or blood thinners. 09/30-patient doing a lot better. Improved retching nausea. Minimal coffee ground emesis. Hemoglobin stable at 13. On twice daily PPI. Anion gap at 15 down from 38. pH up to 7.36. Currently on insulin drip at 1.5 basal rate. Bicarbonate up to 15 from 7. Ongoing crystalloids and management per protocol. Beta hydroxybutyrate at 9.08. Electrolytes being aggressively replaced including potassium and phosphorus 10/01 Pt seen examined, no acute overnight issues, this AM gap closed, pt nausea much better, hb has been stable d/c insulin ggt, start on sq insulin, uses a insulin pump at home. 10/02 pt seen examined, no acute overnight issues, was started on amitrypline yesteday , not much change in symptoms today Plan for EGD today switch to nortrypline erythromycin iv not available, but we can try oral if the patient is able to take just the pills glucose elevated, but dka resolved xfer to med surg Pertinent ROS: Denies headache, dizziness Denies chest pain, palpitations Denies cough or shortness of breath Denies abdominal pain, present nausea or vomiting. - Constitutional Vitals: Vital Signs Temp Pulse Resp BP Pulse Ox 97.9 F 82 12 155/99 99 10/02/17 08:00 10/02/17 02:00 10/02/17 08:00 10/02/17 08:00 10/02/17 08:00 Period Temp Pulse Resp BP Sys/Butt Pulse Ox Last 24 Hr 97.9 F-98.9 F 82-101 0-17 103-181/61-125 96-100 Intake and Output 10/01/17 10/02/17 10/02/17 21:59 05:59 13:59 Intake Total 0 / 0 1000 / 1000 Output Total 675 / 675 325 / 325 725 / 725 Balance -675 / -675 675 / 675 -725 / -725 Weight 224 lb Intake & Output: Intake & Output 10/01/17 10/02/17 10/02/17 21:59 05:59 13:59 Intake Total 0 / 0 1000 / 1000 Output Total 675 / 675 325 / 325 725 / 725 Balance -675 / -675 675 / 675 -725 / -725 Weight 224 lb Intake: IV 1000 / 1000 Sodium Chloride 0.45% 1,000 ml 1000 / 1000 @ 75 mls/hr IV .[id number] [facility] Rx# :[id number] Oral 0 / 0 Output: Void Amount 300 / 300 # of times incontinent of urine 325 / 325 0 / 0 Urine/Stool Mix 375 / 375 725 / 725 Other: Stool Color Brown Brown Stool Consistency Liquid Liquid # Voids 1 1 # Bowel Movements 1 # of times incontinent of 0 Bowels Exam: Constitutional; Afebrile, cooperative, alert, not in distress. Eyes- No icterus, , No periorbital swelling Ears- Ext ear normal, hearing normal to conversation. Neck- Midline trachea, supple Respiratory system: Air Entry equal on both sides, No crackles or wheezing, no rhonchi. CVS- Rate rhythm regular, S1,S2 heard, no gallop, no rub. Abdomen- Soft nontender abdomen, no organomegaly, no tenderness, no guarding or rigidity, [employer]FTING [employer]- AOOx3, moving all extremities, no gross focal deficit noted. Medical - PN: Obj Da - Labs CBC & Chem 7: 10/02/17 04:00 10/02/17 04:00 Labs: Abnormal Lab Results 10/02/17 10/02/17 10/01/17 04:00 04:00 04:00 WBC RBC 3.81 L Hgb 11.2 L Hct 33.3 L Plt Count 130 L MPV 11.3 H Gran % Lymph % (Auto) Gran # Lymph # (Auto) Seg Neutrophils % Lymphocytes % ABG Methemoglobin VBG pH VBG pCO2 VBG pO2 VBG HCO3 VBG Total CO2 VBG O2 Saturation VBG Base Excess Carboxyhemoglobin Potassium 3.2 L Chloride 109 H Carbon Dioxide 20 L Anion Gap BUN 4 L 5 L Creatinine Glucose 250 H 227 H Uric Acid Calcium 7.9 L Phosphorus 2.3 L Alkaline Phosphatase Total Protein 4.8 L 5.6 L Albumin 3.0 L Globulin 1.8 L Amylase Beta-Hydroxybutyrate Urine Protein Urine Glucose (UA) Urine Ketones 10/01/17 09/30/17 09/30/17 04:00 18:20 02:44 WBC 11.2 H RBC Hgb Hct 35.9 L Plt Count MPV 11.4 H 11.4 H Gran % 85.0 H Lymph % (Auto) 12.9 L Gran # 9.5 H Lymph # (Auto) 1.4 L Seg Neutrophils % Lymphocytes % ABG Methemoglobin VBG pH VBG pCO2 VBG pO2 VBG HCO3 VBG Total CO2 VBG O2 Saturation VBG Base Excess Carboxyhemoglobin Potassium Chloride Carbon Dioxide 18 L Anion Gap 17.0 H BUN Creatinine Glucose 177 H Uric Acid Calcium 8.5 L Phosphorus Alkaline Phosphatase Total Protein Albumin Globulin Amylase Beta-Hydroxybutyrate 3.03 H Urine Protein Urine Glucose (UA) Urine Ketones 09/30/17 09/29/17 09/29/17 02:44 22:30 22:30 WBC RBC Hgb Hct Plt Count MPV Gran % Lymph % (Auto) Gran # Lymph # (Auto) Seg Neutrophils % 84 H Lymphocytes % 11 L ABG Methemoglobin 0.3 L 0.3 L VBG pH 7.31 L VBG pCO2 22.4 L 25.1 L VBG pO2 109 H 113 H VBG HCO3 10.9 L* 13.6 L VBG Total CO2 11.6 L 14.4 L VBG O2 Saturation 94.6 H 94.3 H VBG Base Excess -13.4 L -10.2 L Carboxyhemoglobin 2.7 H 3.1 H Potassium Chloride Carbon Dioxide Anion Gap BUN Creatinine Glucose Uric Acid Calcium Phosphorus Alkaline Phosphatase Total Protein Albumin Globulin Amylase Beta-Hydroxybutyrate Urine Protein Urine Glucose (UA) Urine Ketones 09/29/17 09/29/17 09/29/17 22:30 17:00 12:30 WBC RBC Hgb Hct Plt Count MPV Gran % Lymph % (Auto) Gran # Lymph # (Auto) Seg Neutrophils % Lymphocytes % ABG Methemoglobin VBG pH VBG pCO2 VBG pO2 VBG HCO3 VBG Total CO2 VBG O2 Saturation VBG Base Excess Carboxyhemoglobin Potassium Chloride Carbon Dioxide 15 L Anion Gap BUN Creatinine Glucose 178 H Uric Acid 10.0 H Calcium Phosphorus 1.3 L Alkaline Phosphatase Total Protein Albumin Globulin Amylase Beta-Hydroxybutyrate 9.08 H Urine Protein 30 A Urine Glucose (UA) >=500 A Urine Ketones 80 A 09/29/17 09/29/17 12:30 12:30 WBC RBC Hgb Hct Plt Count MPV 12.2 H Gran % Lymph % (Auto) Gran # Lymph # (Auto) Seg Neutrophils % Lymphocytes % ABG Methemoglobin VBG pH VBG pCO2 VBG pO2 VBG HCO3 VBG Total CO2 VBG O2 Saturation VBG Base Excess Carboxyhemoglobin Potassium Chloride 89 L Carbon Dioxide 7 L* Anion Gap 38.0 H BUN Creatinine 1.3 H Glucose 678 H* Uric Acid Calcium Phosphorus Alkaline Phosphatase 121 H Total Protein Albumin Globulin Amylase 20 L Beta-Hydroxybutyrate Urine Protein Urine Glucose (UA) Urine Ketones Meds: Medications Acetaminophen (Tylenol) 650 mg PO Q4-6HP PRN PRN Reason: PAIN/FEVER > 101 Dextrose (Dextrose 50%) 0 ml IV UD PRN PRN Reason: Hypoglycemia Diagnostic Test (Pha) (Accu-Chek) 1 each FS ACHS [facility] Last Admin: 10/02/17 08:57 Dose: 1 each Docusate Sodium (Colace) 100 mg PO BID [facility] Last Admin: 10/02/17 08:57 Dose: Not Given Glucose (Insta-Glucose) 15 gm PO PRN PRN PRN Reason: Hypoglycemia Heparin Sodium (Porcine) (Heparin Flush) 2 ml IV Q12 [facility] Last Admin: 10/02/17 08:42 Dose: 2 ml Hydromorphone HCl (Dilaudid) 0.2 - 0.5 mg IV Q2HP PRN PRN Reason: PAIN LEVEL > 6 Last Admin: 10/02/17 04:44 Dose: 0.5 mg Potassium Chloride 40 meq/ (Dextrose) 520 mls @ 130 mls/hr IV UD PRN PRN Reason: K+ = or < 3.5 Magnesium Sulfate (Magnesium Sulfate) 2 gm in 50 mls @ 50 mls/hr IV UD PRN PRN Reason: MG = or < 1.7 Acetaminophen (Ofirmev) 1,000 mg in 100 mls @ 200 mls/hr IV Q6HP PRN PRN Reason: PAIN/FEVER > 101 Last Infusion: 09/30/17 05:00 Dose: Infused Sodium Chloride (Sodium Chloride 0.45%) 1,000 mls @ 75 mls/hr IV .[id number] [facility] Last Admin: 10/02/17 00:07 Dose: 75 mls/hr Potassium Chloride 40 meq/ (Dextrose) 520 mls @ 130 mls/hr IV ONCE ONE Stop: 10/02/17 11:59 Last Admin: 10/02/17 08:34 Dose: 130 mls/hr Insulin Glargine (Lantus) 36 unit SQ DAILY [facility] Last Admin: 10/02/17 09:01 Dose: 36 unit Insulin Human Lispro (Humalog) 0 unit SQ ACHS [facility] PRN Reason: Protocol Last Admin: 10/02/17 09:04 Dose: 8 unit Metoclopramide HCl (Reglan) 5 mg IV Q6 [facility] Last Admin: 10/02/17 06:09 Dose: 5 mg Nortriptyline HCl (Pamelor) 10 mg PO HS [facility] Pantoprazole Sodium (Protonix) 40 mg IV BIDAC [facility] Last Admin: 10/02/17 08:41 Dose: 40 mg Potassium Chloride (Klor-Con) 40 meq PO DAILYP PRN PRN Reason: K+ < 3.5 Prochlorperazine Edisylate (Compazine) 5 - 10 mg IV Q4-6HP PRN PRN Reason: Nausea And Vomiting Last Admin: 10/02/17 04:27 Dose: 10 mg Promethazine HCl (Phenergan) 12.5 mg IV Q4-6HP PRN PRN Reason: Nausea And Vomiting Last Admin: 10/02/17 08:41 Dose: 12.5 mg Senna/Docusate Sodium (Senna Plus Tablet) 1 tab PO HS [facility] Last Admin: 10/01/17 21:05 Dose: Not Given Sodium Chloride (Saline Flush) 10 ml IV Q8 [facility] Last Admin: 10/02/17 08:42 Dose: 10 ml - ABG Interpretation ABG results: 09/29/17 09/30/17 22:30 02:44 ABG Methemoglobin 0.3 L 0.3 L VBG pH 7.35 7.31 L VBG pCO2 25.1 L 22.4 L VBG pO2 113 H 109 H VBG HCO3 13.6 L 10.9 L* VBG Total CO2 14.4 L 11.6 L VBG O2 Saturation 94.3 H 94.6 H VBG Base Excess -10.2 L -13.4 L Medical - PN: A/P - Time Spent With Patient Total time spent is greater than 50% in coordination of care (as documented) at patient's floor/unit and/or counseling patient: - Narrative A/P Narrative: a/p DKA- resolved Dm with hyperglycemia- on lantus and ssi, uses insulin pump at home, will resume pump at discharge. titrate insulin while in hospital. Nausea/ vomiting- on multiple medsm GI consulted, started on TCA, switch to nortryptline tonight, continue , d/c hydromorphine as opiates can worsen nausea Upper GI bleed: h/h stable, on IV ppi, monitor, EGD by GI today Electrolyte / Low K, low phos, - replace aggressively. DVT scd Full code xfer to med surg status. Medical - PN: Qual - Stroke Symptom Onset Unknown: No - VTE Deep Vein Thrombosis/Pulmonary Embolism Present on Admission: No
[2017-10-02] MEDS ORDERED: PROCHLORPERAZINE 10 MG/2 ML VIAL IV PRN (10:42)
[2017-10-02] MEDS ORDERED: ACETAMINOPHEN 325 MG TABLET PO PRN (10:42)
[2017-10-02] MEDS ORDERED: POTASSIUM CHLORIDE 40 MEQ in DEXTROSE 5% IN WATER 500 ML IV PRN (10:42)
[2017-10-02] MEDS ORDERED: DEXTROSE 31 GM ORAL.SUSP PO PRN (10:42)
[2017-10-02] MEDS ORDERED: ACETAMINOPHEN 1,000 MG/100 ML BOTTLE IV PRN (10:42)
[2017-10-02] MEDS ORDERED: POTASSIUM CHLORIDE 20 MEQ PACKET PO PRN (10:42)
[2017-10-02] MEDS ORDERED: PROMETHAZINE 25 MG/ML VIAL IV PRN (10:42)
[2017-10-02] MEDS ORDERED: MAGNESIUM SULFATE 2 GM/50 ML BAG IV PRN (10:42)
[2017-10-02] MEDS ORDERED: KETAMINE 10 MG/ML ML IV PRN (15:28)
[2017-10-02] MEDS ORDERED: PROPOFOL 200 MG/20 ML VIAL IV SCH (15:30)
[2017-10-02] MEDS ORDERED: MIDAZOLAM 2 MG/2 ML VIAL IV SCH (15:30)
[2017-10-02] MEDS: DEXTROSE 50% 50 ML VIAL IV PRN (17:38)
[2017-10-02] MEDS ORDERED: NORTRIPTYLINE 10 MG CAPSULE PO SCH ×2 (21:00)
[2017-10-02] MEDS ORDERED: SENNOSIDES/DOCUSATE SODIUM 1 TAB TABLET PO SCH (21:00)
[2017-10-03] MEDS: METOCLOPRAMIDE 10 MG/2 ML VIAL IV SCH ×3 (00:09→11:20)
[2017-10-03] MEDS: DEXTROSE 50% 50 ML VIAL IV PRN (00:37)
[2017-10-03] MEDS: 0.45 % SODIUM CHLORIDE 1,000 ML IV SCH ×3 (00:48→09:00)
[2017-10-03 05:21] LABS: Basophils # (Auto) 0.1 K/mcL (0.0-0.3); Basophils % (Auto) 0.9 % (0.0-2.0); Eosinophils # (Auto) 0 K/mcL (0.0-0.7); Eosinophils % (Auto) 0.5 % (0.0-7.0); Granulocytes % (Auto) 42.9 % (38.0-78.0); Lymphocytes # (Auto) 2.8 K/mcL (1.5-4.8); Lymphocytes % (Auto) 49.1 % (15.5-49.0); Mean Cell Volume 87.3 fL (80.0-100.0); Mean Corpuscular HGB Conc 33.9 g/dL (31.0-36.0); Mean Corpuscular Hemoglobin 29.6 pg (26.0-34.0); Monocytes # (Auto) 0.4 K/mcL (0.1-0.9); Monocytes % (Auto) 6.6 % (1.0-12.0); Platelet Count 133 K/mcL (140-440); RBC 4.09 M/mcL (4.00-5.20); Red Cell Distribution Width 13.4 % (11.5-14.5)
[2017-10-03] MEDS: 0.9 % SODIUM CHLORIDE 10 ML SYRINGE IV SCH ×2 (05:42→13:06)
[2017-10-03 05:50] LABS: ALT/SGPT 10 U/l (0-40); Albumin 3.2 gm/dL (3.2-5.2); Albumin/Globulin Ratio 1.6 (1.0-2.3); Alkaline Phosphatase 89 U/L (39-117); Bilirubin,Direct < 0.2 mg/dL (0.0-0.3); Blood Urea Nitrogen 3 mg/dl (6-20); Gamma Glutamyl Transpeptidase 11 U/L (5-36); Uric Acid 4.4 mg/dL (2.5-8.0)
[2017-10-03] MEDS ORDERED: POTASSIUM CHLORIDE 80 MEQ in DEXTROSE 5% IN WATER 1,000 ML IV ONE (06:06)
[2017-10-03] MEDS ORDERED: POTASSIUM CHLORIDE IV ONE (07:00)
[2017-10-03] MEDS ORDERED: SODIUM CHLORIDE 0.45% IV ONE (07:00)
[2017-10-03] MEDS: PANTOPRAZOLE 40 MG VIAL IV SCH ×2 (07:36→16:24)
--- NOTE | 2017-10-03 08:14 | Internal Med Progress Note ---
Medical - PN: Subj Patient information: Note initiated : 10/03/17 at 8:11 am Service Date, if different from initiated Date: [] Patient: Patricia Toussaint a 27 y/o F admitted on 09/29/17 for ABD Pain, Vomiting /Diabetic Ketoacidoses. Chief Complaint: [Intractable nausea and vomiting] Interval history: Ms. Toussaint is a 27 year old F with a history of type 1 diabetes on insulin and recurrent DKA and recently diagnosed gastroparesis who has had intermittent episodes of intractable n/v requiring hospitalization. EGD yesterday showed severe ulcerative reflux esophagitis. Suspect cyclic vomiting syndrome is underlying cause of symptoms. She was given IV ketamine yesterday with EGD sedation and feels dramatically better. Briefly discussed CVS w/ pt, which is treated by nortriptyline. Often, patients achieve good prophylaxis one serum level reaches 150, so dose titration may be needed. She will be started on PPI and follow up with me as an outpatient after discharge. Additional PMFSH (Level 3 Only): Diabetic type I, DKA, post concussion syndrome - Constitutional Vitals: Vital Signs Temp Pulse Resp BP Pulse Ox 97.0 F 78 18 135/87 98 10/03/17 07:35 10/03/17 07:35 10/03/17 07:35 10/03/17 07:35 10/03/17 07:35 Period Temp Pulse Resp BP Sys/Butt Pulse Ox Last 24 Hr 97.0 F-98.9 F 76-99 13-20 108-155/71-103 95-99 Intake and Output 10/02/17 10/03/17 10/03/17 21:59 05:59 13:59 Intake Total 1340 / 1340 Output Total 650 / 650 Balance 690 / 690 Weight 223 lb Intake & Output: Intake & Output 10/02/17 10/03/17 10/03/17 21:59 05:59 13:59 Intake Total 1340 / 1340 Output Total 650 / 650 Balance 690 / 690 Weight 223 lb Intake: IV 1000 / 1000 Sodium Chloride 0.45% 1,000 ml 1000 / 1000 @ 75 mls/hr IV .[id number] Rx# :[id number] Oral 340 / 340 Output: Void Amount 650 / 650 Other: Meal Dinner Percent of Meal Consumed 100% Feeding Ability Independent # Voids 1 1 General appearance: cooperative, no acute distress, obese - Head Head exam: Present: atraumatic, normal inspection, normocephalic - Eye Eye exam: Present: normal appearance - ENT ENT exam: Present: mucous membranes moist - Neck Neck exam: Present: normal inspection - Respiratory Respiratory exam: Absent: accessory muscle use - Psychiatric Psychiatric exam: Present: normal affect, normal mood - Skin Skin exam: Present: dry, warm Medical - PN: Obj Da - Labs CBC & Chem 7: 10/03/17 04:00 10/03/17 04:00 Labs: Abnormal Lab Results 10/03/17 10/03/17 10/02/17 04:00 04:00 04:00 RBC Hgb Hct 35.7 L Plt Count 133 L MPV 11.0 H Lymph % (Auto) 49.1 H Potassium 2.9 L* 3.2 L Chloride Carbon Dioxide Anion Gap BUN 3 L 4 L Glucose 128 H 250 H Calcium 7.9 L Phosphorus Total Protein 5.2 L 4.8 L Albumin 3.0 L Globulin 2.0 L 1.8 L Beta-Hydroxybutyrate 10/02/17 10/01/17 10/01/17 04:00 04:00 04:00 RBC 3.81 L Hgb 11.2 L Hct 33.3 L 35.9 L Plt Count 130 L MPV 11.3 H 11.4 H Lymph % (Auto) Potassium Chloride 109 H Carbon Dioxide 20 L Anion Gap BUN 5 L Glucose 227 H Calcium Phosphorus 2.3 L Total Protein 5.6 L Albumin Globulin Beta-Hydroxybutyrate 09/30/17 18:20 RBC Hgb Hct Plt Count MPV Lymph % (Auto) Potassium Chloride Carbon Dioxide 18 L Anion Gap 17.0 H BUN Glucose 177 H Calcium 8.5 L Phosphorus Total Protein Albumin Globulin Beta-Hydroxybutyrate 3.03 H Meds: Medications Acetaminophen (Tylenol) 650 mg PO Q4-6HP PRN PRN Reason: PAIN/FEVER > 101 Dextrose (Dextrose 50%) 0 ml IV UD PRN PRN Reason: Hypoglycemia Last Admin: 10/03/17 00:37 Dose: 50 ml Diagnostic Test (Pha) (Accu-Chek) 1 each FS ACHS [facility] Last Admin: 10/03/17 07:11 Dose: 1 each Docusate Sodium (Colace) 100 mg PO BID [facility] Last Admin: 10/02/17 20:37 Dose: Not Given Glucose (Insta-Glucose) 15 gm PO PRN PRN PRN Reason: Hypoglycemia Heparin Sodium (Porcine) (Heparin Flush) 2 ml IV Q12 [facility] Last Admin: 10/02/17 20:51 Dose: 2 ml Potassium Chloride 40 meq/ (Dextrose) 520 mls @ 130 mls/hr IV UD PRN PRN Reason: K+ = or < 3.5 Magnesium Sulfate (Magnesium Sulfate) 2 gm in 50 mls @ 50 mls/hr IV UD PRN PRN Reason: MG = or < 1.7 Acetaminophen (Ofirmev) 1,000 mg in 100 mls @ 200 mls/hr IV Q6HP PRN PRN Reason: PAIN/FEVER > 101 Sodium Chloride (Sodium Chloride 0.45%) 1,000 mls @ 75 mls/hr IV .[id number] [facility] Last Admin: 10/03/17 03:51 Dose: 75 mls/hr Potassium Chloride 80 meq/ (Sodium Chloride) 1,040 mls @ 130 mls/hr IV ONCE ONE Stop: 10/03/17 14:59 Last Admin: 10/03/17 07:36 Dose: 130 mls/hr Insulin Glargine (Lantus) 24 unit SQ DAILY [facility] Insulin Human Lispro (Humalog) 0 unit SQ ACHS [facility] PRN Reason: Protocol Last Admin: 10/02/17 20:34 Dose: Not Given Metoclopramide HCl (Reglan) 5 mg IV Q6 [facility] Last Admin: 10/03/17 05:41 Dose: 5 mg Nortriptyline HCl (Pamelor) 10 mg PO HS [facility] Last Admin: 10/02/17 20:51 Dose: 10 mg Pantoprazole Sodium (Protonix) 40 mg IV BIDAC [facility] Last Admin: 10/03/17 07:36 Dose: 40 mg Potassium Chloride (Klor-Con) 40 meq PO DAILYP PRN PRN Reason: K+ < 3.5 Prochlorperazine Edisylate (Compazine) 5 - 10 mg IV Q4-6HP PRN PRN Reason: Nausea And Vomiting Promethazine HCl (Phenergan) 12.5 mg IV Q4-6HP PRN PRN Reason: Nausea And Vomiting Senna/Docusate Sodium (Senna Plus Tablet) 1 tab PO HS [facility] Last Admin: 10/02/17 20:37 Dose: Not Given Sodium Chloride (Saline Flush) 10 ml IV Q8 [facility] Last Admin: 10/03/17 05:42 Dose: 10 ml - ABG Interpretation ABG results: 09/29/17 09/30/17 22:30 02:44 ABG Methemoglobin 0.3 L 0.3 L VBG pH 7.35 7.31 L VBG pCO2 25.1 L 22.4 L VBG pO2 113 H 109 H VBG HCO3 13.6 L 10.9 L* VBG Total CO2 14.4 L 11.6 L VBG O2 Saturation 94.3 H 94.6 H VBG Base Excess -10.2 L -13.4 L Medical - PN: A/P - Time Spent With Patient Total time spent is greater than 50% in coordination of care (as documented) at patient's floor/unit and/or counseling patient: less than 15 minutes (1) Nausea and vomiting Status: Acute Assessment and plan: Continue nortriptyline as above. Follow up as outpatient. Current Visit: Yes (2) Gastroesophageal reflux Status: Chronic Assessment and plan: Likely secondary to #1 and diabetic gastroparesis. Start PPI. Current Visit: Yes Medical - PN: Qual - Stroke Symptom Onset Unknown: No - VTE Deep Vein Thrombosis/Pulmonary Embolism Present on Admission: No
[2017-10-03] MEDS: INSULIN LISPRO 1 UNIT/0.01 ML UNIT SQ SCH ×3 (08:16→16:23)
[2017-10-03] MEDS ORDERED: INSULIN GLARGINE, HUMAN 1 UNIT/0.01 ML SQ SCH ×2 (09:00)
[2017-10-03] MEDS: DOCUSATE SODIUM 100 MG CAPSULE PO SCH (10:11)
--- NOTE | 2017-10-03 13:55 | EGD Procedure Note ---
EGD Procedure Notes - Procedure Information Patient information: Note initiated : 10/03/17 at 1:53 pm Service Date: 10/02/17 Patient: Patricia Toussaint 27 y/o F admitted on 09/29/17 for ABD Pain, Vomiting /Diabetic Ketoacidoses. Pre-op diagnosis general: Nausea and vomiting. Hematemesis. Post-Op Diagnosis general: Cyclic vomiting syndrome. Severe ulcerative reflux esophagitis. Procedure Narrative: The procedure, alternatives and risks were discussed with the patient and the patient's questions were answered. With endoscopist-administered intravenous sedation, the Olympus video endoscope was introduced into the esophagus. The esophagus, stomach, and duodenum were examined sequentially. Ulcers were seen in the distal third of the esophagus. These were biopsied. There was a hemorrhagic gastric fold along the greater curvature, likely from retching. The gastric mucosa, antrum, pyloric ring and duodenum were otherwise normal. The scope was withdrawn. Assessment: Cyclic vomiting syndrome. Severe ulcerative reflux esophagitis. Hemorrhagic gastric fold from retching.
--- NOTE | 2017-10-03 14:00 | Surgical Pathology Report ---
HISTOLOGY SPECIMEN MICROSCOPIC DIAGNOSIS ESOPHAGUS, BIOPSY: -- MODERATE TO SEVERE ACUTE ESOPHAGITIS WITH INFLAMMATORY DEBRIS AND SUPERFICIAL MUCOSAL EROSION. -- NO FUNGAL ORGANISMS IDENTIFIED (PAS STAIN WITH ADEQUATE TECHNICAL CONTROL). -- NO VIRAL CYTOPATHIC EFFECT IDENTIFIED. (RLF:[email or web address]) CLINICAL HISTORY Nausea/cyclic vomiting. PROCEDURAL IMPRESSION Severe ulcerative esophagitis; cyclic vomiting; hemorrhagic fold from retching. GROSS DESCRIPTION Received in formalin labeled esophagus biopsy, are four waldron-dougherty tissue fragments from less than 0.1 to 0.3 cm. They are entirely submitted one cassette. (SCB:[email or web address]) Electronically Signed by: Beatrice Sweeney M.D.
[2017-10-03 15:14] LABS: Blood Urea Nitrogen 3 mg/dl (6-20)
--- NOTE | 2017-10-03 16:05 | Discharge Summary ---
Medical - DS: Prov Patient information: Note initiated : 10/03/17 at 4:00 pm Service Date, if different from initiated Date: [] Patient: Patricia Toussaint 27 y/o F admitted on 09/29/17 for ABD Pain, Vomiting /Diabetic Ketoacidoses. Chief Complaint: [] Date of admission: 09/29/17 14:20 Discharge date: 10/03/17 Primary care physician: Jordyn Banerjee Consults: 09/29/17 12:22 Consult to Physician [CONS] Stat Comment: Consulting Provider: Saeid Duque Reason For Exam: Physician to Consult 10/01/17 12:05 Consult to Physician [CONS] Routine Comment: GI bleed, gastroparesis Consulting Provider: Aleisha Salmon Reason For Exam: Physician to Consult Discharging clinician: Joseph Baldwin Medical - DS: Meds - Discharge Medications Prescriptions: Nortriptyline [Pamelor] 10 mg PO HS #30 cap Omeprazole [Prilosec] 20 mg PO BIDAC #60 cap Active and Home Medications: Home Medications insulin aspart U-100 100 unit/mL subcutaneous solution See Dose Instructions SUB-Q .COMPLEX ml 10/06/14 [History Confirmed 09/30/17 Last Taken 09/30/17] medroxyprogesterone 150 mg/mL intramuscular suspension 150 mg IM ONCE 05/19/15 [ History Confirmed 09/30/17 Last Taken 07/29/15 16:00] Accu-Chek 1 each FS ACHS strip 03/13/17 [Rx Confirmed 09/30/17 Last Taken 09/29] Magnesium Oxide 400 mg PO BID #60 tab 04/15/17 [Rx Confirmed 09/30/17 Last Taken Unknown] Metoclopramide [Reglan] 5 mg PO ACHS #120 tab 04/15/17 [Rx Confirmed 09/30/17 Last Taken 09/29/17] Medical - DS: Hosp Hospital course: MMs. Toussaint is a 27 year old F with a history of type 1 diabetes on insulin and recurrent DKA and recently diagnosed gastroparesis who comes in with 48 hours onset of nausea vomiting loss of appetite and abdominal pain. She endorses to symptoms of nausea due to gastroparesis however her symptoms fail to improve with oral Reglan. She subsequently presents to ER where initial workup was significant for DKA with anion gap over 35, bicarbonate 7, blood sugars over 650 and a pH of 7.24. After receiving crystalloids and insulin drip hospitalist service was consulted. At the time of evaluation patient is fairly distressed. Her last 3 episodes of vomiting includes coffee grounds. She endorses to persistent abdominal pain. She denies fever or diarrhea, bloody stool, chest pain, shortness of breath. She further denies productive sputum, dysuria, rash. Patient admitted tot he ICU for management of DKA, The patient DKA was treated per protocol with IVF, Insulin drip, the patient was transitioned to sq insulin after her anion gap was closed. Electrolytes replaced aggressively. Nausea/ Vomiting/ coffee ground emesis- Noted during this visit, GI consulted EGD done showing severe gastritis, esophagitis, Bx taken pending hpylori. She will be discharged on reglan and nortriptyline. She has been advised to follow up with GI for further management of same. DM- on insulin pump, last night was hypoglycemic, today able to tolerate meals well and glucose is doing well. Will d/c with resumption of insulin pump from tomorrow, she did get her basal insulin coverage today, so she only needs to get her bolus coverage for meals today and start her usual dose of basal and bolus from tomorrow. Discharge diagnosis: DKA< GAstroparesis, - Time Spent with Patient Total time spent providing and/or coordinating discharge services: Medical - DS: Exam - Constitutional Vitals: Vital Signs Temp Pulse Pulse Pulse Resp BP BP 10/03/17 12:00 97.2 F 75 130/82 10/03/17 07:35 97.0 F 78 18 135/87 10/03/17 04:00 98.1 F 76 18 129/87 10/03/17 00:00 97.8 F 94 H 18 114/71 10/02/17 18:55 98.2 F 91 H 20 10/02/17 18:00 98 F 91 H 18 143/90 10/02/17 17:58 122/81 10/02/17 17:40 98.2 F 94 H 18 115/75 10/02/17 17:00 89 16 118/79 10/02/17 16:55 117/81 10/02/17 16:40 117/81 10/02/17 16:25 124/85 10/02/17 16:10 98.9 F 20 144/91 10/02/17 16:03 99 H 95 H 17 149/93 BP BP Pulse Ox 10/03/17 12:00 95 10/03/17 07:35 98 10/03/17 04:00 99 10/03/17 00:00 97 10/02/17 18:55 134/87 97 10/02/17 18:00 98 10/02/17 17:58 96 10/02/17 17:40 99 10/02/17 17:00 96 10/02/17 16:55 97 10/02/17 16:40 95 10/02/17 16:25 96 10/02/17 16:10 95 10/02/17 16:03 131/72 144/96 98 Intake and Output 10/03/17 10/03/17 10/03/17 05:59 13:59 21:59 Intake Total 1340 / 1340 Output Total 650 / 650 550 / 550 Balance 690 / 690 -550 / -550 Intake: IV 1000 / 1000 Sodium Chloride 0.45% 1,000 ml 1000 / 1000 @ 75 mls/hr IV .[id number] [facility] TO [facility] Rx# :[id number] Oral 340 / 340 Output: Urine Catheter Amount 550 / 550 Void Amount 650 / 650 Other: Meal Lunch Percent of Meal Consumed 50% Feeding Ability Independent # Voids 1 Weight 223 lb Patient Weight 10/04/17 05:59 Weight 223 lb Additional comments: Constitutional; Afebrile, cooperative, alert, not in distress. Eyes- No icterus, , No periorbital swelling Ears- Ext ear normal, hearing normal to conversation. Neck- Midline trachea, supple Respiratory system: Air Entry equal on both sides, No crackles or wheezing, no rhonchi. CVS- Rate rhythm regular, S1,S2 heard, no gallop, no rub. 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 Medical - DS: Data Labs on day of discharge: Labs from last 24 hours 10/03/17 10/03/17 10/03/17 14:24 04:00 04:00 WBC 5.8 RBC 4.09 Hgb 12.1 Hct 35.7 L MCV 87.3 MCH 29.6 MCHC 33.9 RDW 13.4 Plt Count 133 L MPV 11.0 H Gran % 42.9 Lymph % (Auto) 49.1 H [place] % (Auto) 6.6 Eos % (Auto) 0.5 Baso % (Auto) 0.9 Gran # 2.5 Lymph # (Auto) 2.8 [place] # (Auto) 0.4 Eos # (Auto) 0 Baso # (Auto) 0.1 Sodium 139 141 Potassium 4.5 2.9 L* Chloride 106 104 Carbon Dioxide 25 24 Anion Gap 8.0 13.0 BUN 3 L 3 L Creatinine 0.5 L 0.6 GFR Calculation 132 124 Glucose 165 H 128 H Uric Acid 4.4 Calcium 8.6 8.6 Phosphorus 3.7 Magnesium 1.9 Total Bilirubin 0.2 Direct Bilirubin < 0.2 GGT 11 AST 11 ALT 10 Alkaline Phosphatase 89 Lactate Dehydrogenase 172 Total Protein 5.2 L Albumin 3.2 Globulin 2.0 L Albumin/Globulin Ratio 1.6 Triglycerides 109 Medical - DS: A/P - Patient/Caregiver Discharge Instructions Activity: increase activity as tolerated Diet: Consistent Carbohydrate Additional Instructions: Discharge Instructions: Call and schedule follow up with Aleisha Salmon for 7-10 days after discharge Please do not take basal insulin today, start basal coverage of insulin from tomorrow, you did get your basal coverage this morning, You will still need to get your bolus insulin coverage for meals. Stay well hydrated Follow up with PCP in 1 -2 weeks Go to the ER if worsening symptoms, chest pain, fever or any other acute concerning symptom. Prescriptions: Nortriptyline [Pamelor] 10 mg PO HS #30 cap Omeprazole [Prilosec] 20 mg PO BIDAC #60 cap - Follow up Plan Follow up with: Jordyn Banerjee MD [Primary Care Provider] - Aleisha Salmon ARNP [Nurse Practitioner] - 10/10/17 8:30 am Disposition: Home, Self-Care Prognosis: Fair Rehab Potential: Fair I certify that the patient requires SNF services: No Overall status at discharge: patient is back to baseline Medical - DS: Qual - VTE Deep Vein Thrombosis/Pulmonary Embolism Present on Admission: No
== END 2017-10-03 05:10 | disposition home or self-care (01) | DRG 637 ==
LOC: ED 11:25 → ICU 14:19 → MEDSUR 10-02 16:08
PROVIDERS: ADMIT Internal Medicine; ATTEND Internal Medicine

== ENCOUNTER 2017-10-20 10:33 | Observation (INO) ==
[2017-10-20] MEDS ORDERED: 0.9 % SODIUM CHLORIDE 1,000 ML IV ONE ×5 (10:39→14:14)
[2017-10-20] MEDS ORDERED: ONDANSETRON 4 MG/2 ML VIAL IV ONE (10:40)
--- NOTE | 2017-10-20 10:42 | Emergency Department Note ---
Nausea/Vomiting/Diarrhea HPI - General Chief complaint: Nausea/Vomiting/Diarrhea Stated complaint: nausea/vomiting/possible DKA Time Seen by Provider: 10/20/17 10:41 Source: patient Mode of arrival: ambulatory Limitations: no limitations - History of Present Illness HPI Narrative: This patient started having nausea and vomiting this morning about 6 AM associated with some abdominal cramping and slight discomfort up in her chest. She is an insulin-dependent diabetic and has an insulin pump. Her blood sugars over 600 here this morning. - Related Data Home Medications Medication Instructions Recorded Confirmed insulin aspart U-100 100 unit/mL See Dose Instructions SUB-Q 10/06/14 10/20/17 subcutaneous solution .COMPLEX ml medroxyprogesterone 150 mg/mL 150 mg IM ONCE 05/19/15 10/20/17 intramuscular suspension Previous Rx's Medication Instructions Recorded Accu-Chek 1 each FS ACHS strip 03/13/17 Magnesium Oxide 400 mg PO BID #60 tab 04/15/17 Metoclopramide [Reglan] 5 mg PO ACHS #120 tab 04/15/17 Nortriptyline [Pamelor] 10 mg PO HS #30 cap 10/03/17 Omeprazole [Prilosec] 20 mg PO BIDAC #60 cap 10/03/17 Allergies Allergy/AdvReac Type Severity Reaction Status Date / Time Amoxicillin [AMOXICILLIN] Allergy Intermediate Rash Verified 10/20/17 10:36 ibuprofen [IBUPROFEN] AdvReac Severe GI BLEED Verified 10/20/17 10:36 vancomycin AdvReac Mild Itching Verified 10/20/17 10:36 Review of Systems All systems ED: reviewed and negative except as stated. Past Medical History - Past Medical History PMF Narrative: Medical History Postconcussion syndrome (Chronic) Cellulitis (Acute) DKA (diabetic ketoacidoses) (Acute) Gastroenteritis (Acute) Sepsis (Acute) Hyperlipidemia (Acute) Gastroesophageal reflux (Chronic) Diabetic ketoacidosis (Resolved) Diabetes type 1, uncontrolled (Chronic) Cellulitis and abscess of trunk (Acute) Cellulitis (Acute) Past Surgical History History of wisdom tooth extraction (Acute) Family History Unknown Malignant neoplasm of colon Cerebrovascular accident Medical history: Reports: DM (Type I with gastroparesis), other Psychiatric history: Reports: anxiety 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 Absent: distention, guarding, rebound, rigidity Abdominal tenderness: Present: diffuse, mild Neurological: Present: alert Psychiatric: Present: normal affect, normal mood Skin: Present: warm, dry, intact Course Vital Signs Temperature 97.0 F 10/20/17 10:34 Pulse Rate 135 H 10/20/17 10:34 Respiratory Rate 26 H 10/20/17 10:34 Blood Pressure 129/74 10/20/17 10:34 Pulse Oximetry (%) 98 10/20/17 10:34 Temperature 97.0 F 10/20/17 10:34 Pulse Rate 111 H 10/20/17 13:31 Respiratory Rate 26 H 10/20/17 10:34 Blood Pressure 124/84 10/20/17 13:31 Pulse Oximetry (%) 99 10/20/17 13:31 Nausea/Vomiting/Diarrhea - MDM Narrative Medical decision making narrative: This patient does have DKA. She has been hydrated and treated with IV insulin and an insulin drip has been started. She will be admitted to the ICU by the hospitalist service. - Lab Data Lab results reviewed: Yes I reviewed the patient's lab results. Result diagrams: 10/20/17 11:05 10/20/17 11:05 Lab Results 10/20/17 10/20/17 Range/Units 11:05 11:05 WBC 10.8 (4.5-11.0) K/mcL RBC 4.34 (4.00-5.20) M/mcL Hgb 12.5 (12.0-15.0) g/dL Hct 39.3 (36.0-48.0) % POC Hct 40.0 (36.0-48.0) % MCV 90.6 (80.0-100.0) fL MCH 28.9 (26.0-34.0) pg MCHC 31.9 (31.0-36.0) g/dL RDW 13.2 (11.5-14.5) % Plt Count 227 (140-440) K/mcL MPV 12.5 H (7.4-10.4) fL Gran % 71.7 (38.0-78.0) % Lymph % (Auto) 22.7 (15.5-49.0) % [place] % (Auto) 4.2 (1.0-12.0) % Eos % (Auto) 0.5 (0.0-7.0) % Baso % (Auto) 0.9 (0.0-2.0) % Gran # 7.7 (1.8-8.0) K/mcL Lymph # (Auto) 2.4 (1.5-4.8) K/mcL [place] # (Auto) 0.4 (0.1-0.9) K/mcL Eos # (Auto) 0 (0.0-0.7) K/mcL Baso # (Auto) 0.1 (0.0-0.3) K/mcL POC Sodium 131 L (133-145) mmol/L Sodium 130 L (133-145) mmol/L POC Potassium 4.2 (3.3-5.1) mmol/L Potassium 4.3 (3.3-5.1) mmol/L POC Chloride 98 (96-108) mmol/L Chloride 87 L (96-108) mmol/L Carbon Dioxide 12 L (22-30) mmol/L POC Total CO2 15 L (22-30) mmol/L Anion Gap 31.0 H (8-16) POC BUN 19 (6-20) mg/dl BUN 19 (6-20) mg/dl Creatinine 1.1 (0.6-1.1) mg/dl POC Creatinine 0.8 (0.6-1.1) mg/dl GFR Calculation 68 Glucose 863 H* (70-105) mg/dL POC Glucose 700 H* (70-105) mg/dL Calcium 9.4 (8.6-10.4) mg/dl POC WB Ioniz Calcium 1.06 L (1.16-1.32) mmol/L Total Bilirubin 0.4 (0.0-1.0) mg/dL AST 10 (0-37) U/l ALT 12 (0-40) U/l Alkaline Phosphatase 159 H (39-117) U/L Total Protein 6.7 (5.9-8.4) gm/dL Albumin 4.0 (3.2-5.2) gm/dL Globulin 2.7 (2.2-3.7) gm/dL Albumin/Globulin Ratio 1.5 (1.0-2.3) Beta-Hydroxybutyrate 5.49 H (< 0.27) mmol/L Disposition Pt seen by DISTRIBUTION A CLASS LINEMAN/PA only: No Clinical Impression: DKA (diabetic ketoacidoses) Disposition: Xfer As Inpt ([facility] [place]) Condition: Fair Referrals: Jordyn Banerjee MD [Primary Care Provider] - Time of Disposition: 13:55
[2017-10-20] MEDS ORDERED: PROMETHAZINE 25 MG/ML VIAL IV ONE (10:51)
[2017-10-20] MEDS ORDERED: INSULIN REGULAR, HUMAN 1 UNIT/0.01 ML UNIT IV ONE ×2 (11:01→12:00)
[2017-10-20 11:31] LABS: Basophils # (Auto) 0.1 K/mcL (0.0-0.3); Basophils % (Auto) 0.9 % (0.0-2.0); Eosinophils # (Auto) 0 K/mcL (0.0-0.7); Eosinophils % (Auto) 0.5 % (0.0-7.0); Granulocytes % (Auto) 71.7 % (38.0-78.0); Lymphocytes # (Auto) 2.4 K/mcL (1.5-4.8); Lymphocytes % (Auto) 22.7 % (15.5-49.0); Mean Cell Volume 90.6 fL (80.0-100.0); Mean Corpuscular HGB Conc 31.9 g/dL (31.0-36.0); Mean Corpuscular Hemoglobin 28.9 pg (26.0-34.0); Monocytes # (Auto) 0.4 K/mcL (0.1-0.9); Monocytes % (Auto) 4.2 % (1.0-12.0); Platelet Count 227 K/mcL (140-440); RBC 4.34 M/mcL (4.00-5.20); Red Cell Distribution Width 13.2 % (11.5-14.5)
[2017-10-20 12:06] LABS: ALT/SGPT 12 U/l (0-40); Albumin/Globulin Ratio 1.5 (1.0-2.3); Alkaline Phosphatase 159 U/L (39-117); Blood Urea Nitrogen 19 mg/dl (6-20)
[2017-10-20 12:16] LABS: Beta Hydroxybutyrate 5.49 mmol/L (< 0.27)
[2017-10-20] MEDS: INSULIN REGULAR, HUMAN 50 UNIT in 0.9 % SODIUM CHLORIDE 99.5 ML IV SCH (12:55)
--- NOTE | 2017-10-20 13:57 | Internal Med History&Physical ---
Medical - H&P: [facility] Patient information: Note initiated : 10/20/17 at 1:55 pm Service Date, if different from initiated Date: [] Patient: Patricia Toussaint a 27 y/o F admitted on for nausea/vomiting/possible DKA. Chief Complaint: [] History of present illness: Ms. Toussaint is a 27 year old insulin-dependent diabetic F Woke up having nausea and vomiting this morning about 6 AM, associated with some abdominal cramping and slight discomfort. Her insulin pump flashing signals that pump line is clotted, overnight. She is found to have blood glucose greater than 600 and apparently in DKA with positive serum beta hydroxybutyrate. All systems: reviewed and no additional remarkable complaints except as stated - Gastrointestinal Additional comments: On nortriptyline for Suspect cyclic vomiting syndrome Medical - H&P: PMH Medical history: DM type I, obesity, postconcussion syndrome, recurrent DKA, gastroparesis GERD, hyperlipidemia Pertinent family history: Colon cancer in grandmother CVA, diabetes in paternal great grandmother Social history: Lives with her boyfriend and his parents, working on masses degree in social work. Smoking status: Former smoker Alcohol use: rarely Medical - H&P: Meds Home Medications Medication Instructions Recorded Confirmed Type insulin aspart U-100 100 unit/mL See Dose Instructions SUB-Q 10/06/14 10/20/17 History subcutaneous solution .COMPLEX ml medroxyprogesterone 150 mg/mL 150 mg IM ONCE 05/19/15 10/20/17 History intramuscular suspension Accu-Chek 1 each FS ACHS strip 03/13/17 10/20/17 Rx Magnesium Oxide 400 mg PO BID #60 tab 04/15/17 10/20/17 Rx Metoclopramide [Reglan] 5 mg PO ACHS #120 tab 04/15/17 10/20/17 Rx Nortriptyline [Pamelor] 10 mg PO HS #30 cap 10/03/17 10/20/17 Rx Omeprazole [Prilosec] 20 mg PO BIDAC #60 cap 10/03/17 10/20/17 Rx Allergies Allergy/AdvReac Type Severity Reaction Status Date / Time Amoxicillin [AMOXICILLIN] Allergy Intermediate Rash Verified 10/20/17 10:36 ibuprofen [IBUPROFEN] AdvReac Severe GI BLEED Verified 10/20/17 10:36 vancomycin AdvReac Mild Itching Verified 10/20/17 10:36 Medical - H&P: Exam - Constitutional Vitals: Temp Pulse Resp BP Pulse Ox 97.0 F 111 H 26 H 124/84 99 10/20/17 10:34 10/20/17 13:31 10/20/17 10:34 10/20/17 13:31 10/20/17 13:31 General appearance: no acute distress, obese - Head Head exam: Present: atraumatic, normocephalic - Eye Eye exam: Present: EOMI Pupils: Present: normal accommodation, PERRL - ENT ENT exam: Present: mucous membranes dry - Neck Neck exam: Present: full ROM. Absent: meningismus - Respiratory Respiratory exam: Present: CTAB. Absent: accessory muscle use - Cardiovascular Cardiovascular exam: Present: +S1, +S2. Absent: gallop, rubs - GI/Abdominal GI/Abdominal exam: Present: normal bowel sounds, soft. Absent: guarding, rebound, tenderness - Extremities Exam Extremities exam: Absent: pedal edema, tenderness Additional comments: No clubbing, cyanosis, or edema - Neurological Exam Neurological exam: Present: alert, CN II-XII intact, oriented X3. Absent: motor sensory deficit - Skin Skin exam: Present: dry, warm. Absent: rash Medical - H&P: Reslt - Labs CBC & Chem 7: 10/20/17 11:05 10/20/17 20:50 Labs: Short CBC 10/20/17 Range/Units 11:05 WBC 10.8 (4.5-11.0) K/mcL Hgb 12.5 (12.0-15.0) g/dL Hct 39.3 (36.0-48.0) % Plt Count 227 (140-440) K/mcL BMP 10/20/17 11:05 Sodium 130 L Potassium 4.3 Chloride 87 L Carbon Dioxide 12 L BUN 19 Creatinine 1.1 Glucose 863 H* Calcium 9.4 Liver Function 10/20/17 Range/Units 11:05 Total Bilirubin 0.4 (0.0-1.0) mg/dL AST 10 (0-37) U/l ALT 12 (0-40) U/l Alkaline Phosphatase 159 H (39-117) U/L Albumin 4.0 (3.2-5.2) gm/dL Medical - H&P: A/P (1) DKA (diabetic ketoacidoses) Current visit: No Status: Acute (2) Diabetic gastroparesis associated with type 1 diabetes mellitus Current visit: No Status: Acute (3) Nausea and vomiting Current visit: No Status: Acute (4) Diabetes type 1, uncontrolled Current visit: No Status: Chronic (5) Obesity Current visit: Yes Status: Acute (6) Hyperlipidemia Current visit: No Status: Acute (7) Gastroesophageal reflux Current visit: No Status: Chronic - Narrative A/P Narrative: Insulin drip, aggressive IV fluid replacement, check and replace electrolytes, repair pump failure with pump computer game designer. Diabetic ADA diet when DKA resolved, and resume home meds, dietitian consults for diabetic diet education.
[2017-10-20] MEDS ORDERED: ONDANSETRON 4 MG/2 ML VIAL IV PRN ×2 (14:26→17:50)
[2017-10-20 15:15] LABS: Appearance,Urine CLEAR; Bacteria,Urine 0 /hpf (0); Bilirubin,Urine NEG (NEG); Color,Urine STRAW; Glucose,Urine (UA) >=500 mg/dL (NEG); Leukocyte Esterase,Urine NEG /uL (NEG); Mucus,Urine FEW /hpf (0); Protein,Urine NEG (NEG); Specific Gravity,Urine 1.028 (1.000-1.035); Urine Blood NEG mg/dL (<0.03); Urine RBC 0 /hpf (0-1); Urine Squamous Epithelial Cell < 1 /hpf (0-4); Urine WBC 0 /hpf (0-4); Urobilinogen,Urine NEG (NEG)
[2017-10-20 16:11] LABS: Blood Urea Nitrogen 14 mg/dl (6-20)
[2017-10-20 16:28] LABS: Estimated Average Glucose(eAG) 280 mg/dL; Hemoglobin A1C 11.4 % HGB (4.0-6.0)
[2017-10-20] MEDS ORDERED: INSULIN REGULAR, HUMAN 50 UNIT in 0.9 % SODIUM CHLORIDE 99.5 ML IV SCH (17:05)
[2017-10-20] MEDS ORDERED: 0.9 % SODIUM CHLORIDE 1,000 ML IV SCH ×2 (17:15→17:50)
[2017-10-20] MEDS ORDERED: INSULIN GLARGINE, HUMAN 1 UNIT/0.01 ML SQ ONE ×3 (17:37→17:57)
[2017-10-20] MEDS ORDERED: METOCLOPRAMIDE 10 MG/2 ML VIAL IV SCH (18:00)
[2017-10-20] MEDS: DEXTROSE 5%-1/2NS 1,000 ML IV SCH (19:15)
[2017-10-20] MEDS: 0.9 % SODIUM CHLORIDE 250 ML IV SCH (19:16)
[2017-10-20] MEDS ORDERED: DEXTROSE 50% 50 ML VIAL IV ONE ×2 (20:09→20:14)
[2017-10-20] MEDS: METOCLOPRAMIDE 10 MG/2 ML VIAL IV SCH (20:35)
[2017-10-20] MEDS: FAMOTIDINE/PF 20 MG/2 ML VIAL IV SCH (20:55)
[2017-10-20] MEDS: NORTRIPTYLINE 10 MG CAPSULE PO SCH (20:55)
[2017-10-20] MEDS: MAGNESIUM OXIDE 400 MG TABLET PO SCH (20:55)
[2017-10-20] MEDS ORDERED: METOCLOPRAMIDE 5 MG TABLET PO SCH ×2 (21:00)
[2017-10-20] MEDS ORDERED: MAGNESIUM OXIDE 400 MG TABLET PO SCH (21:00)
[2017-10-20] MEDS ORDERED: FAMOTIDINE/PF 20 MG/2 ML VIAL IV SCH (21:00)
[2017-10-20] MEDS ORDERED: NORTRIPTYLINE 10 MG CAPSULE PO SCH (21:00)
[2017-10-20 21:27] LABS: Blood Urea Nitrogen 9 mg/dl (6-20)
[2017-10-20] MEDS: 0.9 % SODIUM CHLORIDE 10 ML SYRINGE IV SCH (22:00)
[2017-10-20] MEDS ORDERED: 0.9 % SODIUM CHLORIDE 10 ML SYRINGE IV SCH (22:00)
[2017-10-21] MEDS: DEXTROSE 5%-1/2NS 1,000 ML IV SCH ×5 (00:19→19:50)
[2017-10-21] MEDS: METOCLOPRAMIDE 10 MG/2 ML VIAL IV SCH ×4 (00:22→17:59)
[2017-10-21] MEDS: INSULIN REGULAR, HUMAN 50 UNIT in 0.9 % SODIUM CHLORIDE 99.5 ML IV SCH ×4 (01:40→17:52)
[2017-10-21] MEDS: 0.9 % SODIUM CHLORIDE 10 ML SYRINGE IV SCH ×3 (06:00→21:02)
[2017-10-21 06:19] LABS: ALT/SGPT 8 U/l (0-40); Albumin 3.1 gm/dL (3.2-5.2); Albumin/Globulin Ratio 1.6 (1.0-2.3); Alkaline Phosphatase 91 U/L (39-117); Blood Urea Nitrogen 7 mg/dl (6-20)
[2017-10-21 06:20] LABS: Basophils # (Auto) 0 K/mcL (0.0-0.3); Basophils % (Auto) 0.6 % (0.0-2.0); Eosinophils # (Auto) 0.1 K/mcL (0.0-0.7); Eosinophils % (Auto) 1.1 % (0.0-7.0); Granulocytes % (Auto) 42.3 % (38.0-78.0); Lymphocytes # (Auto) 3.3 K/mcL (1.5-4.8); Lymphocytes % (Auto) 51.6 % (15.5-49.0); Mean Cell Volume 88.1 fL (80.0-100.0); Monocytes # (Auto) 0.3 K/mcL (0.1-0.9); Monocytes % (Auto) 4.4 % (1.0-12.0); Platelet Count 163 K/mcL (140-440); RBC 3.58 M/mcL (4.00-5.20)
[2017-10-21] MEDS ORDERED: OMEPRAZOLE 20 MG CAPSULE PO SCH (07:30)
--- NOTE | 2017-10-21 07:34 | Internal Med Progress Note ---
Medical - PN: Subj Patient information: Note initiated : 10/21/17 at 7:34 am Service Date, if different from initiated Date: [] Patient: Patricia Toussaint 27 y/o F admitted on 10/20/17 for nausea/vomiting/ possible DKA. Chief Complaint: [] Interval history: 27 year old insulin-dependent diabetic F woke up having nausea and vomiting this morning about 6 AM, associated with some abdominal cramping and slight discomfort. Her insulin pump flashing signals that pump line is clotted, overnight. She is found to have blood glucose greater than 600 and positive serum beta hydroxybutyrate, in DKA. She is started on Insulin drip, aggressive IV fluid replacement; her electrolytes are checked and replace placed on PCU observation. We'll check on her insulin pump failure with the pump master plumber. 10/21/17 this morning her hydroxybutyrate are still Positive, will continue with insulin drip and D5 half tenderness, titrate to keep blood glucose in the 100s until serum hydroxybutyrate are negative. Then she can resume ADA recommended diet, and with basal rate (if her insulin pump resume functions) insulin/or subcutaneous Lantus. Social work and RN reported that there may be psychiatric and psychological factors involved with her frequent DKA episodes since her boyfriend's father is a physician, living in the same house.: Encourage her to seek counseling, and offer assistance if these factors are truly involved. - Constitutional Vitals: Vital Signs Temp Pulse Resp BP Pulse Ox 97.5 F 82 13 120/70 97 10/21/17 04:01 10/21/17 07:01 10/21/17 07:01 10/21/17 07:01 10/21/17 07:11 Period Temp Pulse Resp BP Sys/Butt Pulse Ox Last 24 Hr 97.0 F-98.9 F 77-135 0-28 110-156/46-97 94-100 Intake and Output 10/20/17 10/21/17 10/21/17 21:59 05:59 13:59 Intake Total 2256 / 2256 2133 / 2133 4 / 4 Output Total 700 / 700 Balance 1556 / 1556 2133 / 2133 4 / 4 Weight 226 lb 14.4 oz Intake & Output: Intake & Output 10/20/17 10/21/17 10/21/17 21:59 05:59 13:59 Intake Total 2255 / 2255 Output Total 700 / 700 Balance 1556 / 1556 2132 Weight 226 lb 14.4 oz Intake: IV 2256 1982 4 / 4 Sodium Chloride 0.9% 1,000 ml @ 2188 / 2188 250 mls/hr IV .Q4H PAU Rx#: [id number] Dextrose 5%-1/2Ns IV Solution 1 1969 / 1969 ,000 ml @ 200 mls/hr IV .Q5H PAU Rx#:[id number] HumuLIN R 50 UNIT In Sodium 39 / 39 Chloride 0.9% 99.5 ml @ Per Protocol IV DUR PAU Rx#: [id number] Oral 150 / 150 Output: Void Amount 250 / 250 Urine/Stool Mix 450 / 450 Other: Stool Size Large Stool Color Brown Stool Consistency Loose # Bowel Movements 1 - Head Head exam: Present: atraumatic, normocephalic - Eye Eye exam: Present: EOMI Pupils: Present: normal accommodation, PERRL - ENT ENT exam: Present: mucous membranes moist - Neck Neck exam: Present: full ROM. Absent: lymphadenopathy, meningismus - Respiratory Respiratory exam: Present: CTAB. Absent: accessory muscle use - Cardiovascular Cardiovascular exam: Present: +S1, +S2. Absent: gallop, rubs - GI/Abdominal GI/Abdominal exam: Present: normal bowel sounds, soft. Absent: guarding, rebound, tenderness - Extremities Exam Extremities exam: Absent: calf tenderness, pedal edema Additional comments: No clubbing, cyanosis, nor edema - Neurological Exam Neurological exam: Present: alert, CN II-XII intact, oriented X3. Absent: motor sensory deficit - Skin Skin exam: Present: dry, intact, warm Additional comments: multiple tattoo on back and legs. Medical - PN: Obj Da - Labs CBC & Chem 7: 10/21/17 03:45 10/21/17 20:55 Labs: Abnormal Lab Results 10/21/17 10/21/17 10/21/17 03:45 03:45 03:45 RBC 3.58 L Hgb 10.7 L Hct 31.5 L MPV 10.9 H Lymph % (Auto) 51.6 H POC Sodium Sodium Potassium 3.2 L Chloride Carbon Dioxide 20 L POC Total CO2 Anion Gap Glucose 133 H POC Glucose Hemoglobin A1c Calcium 8.0 L POC WB Ioniz Calcium Phosphorus Alkaline Phosphatase Total Protein 5.1 L Albumin 3.1 L Globulin 2.0 L Beta-Hydroxybutyrate 0.59 H Urine Glucose (UA) Urine Ketones 10/20/17 10/20/17 10/20/17 20:50 15:08 15:08 RBC Hgb Hct MPV Lymph % (Auto) POC Sodium Sodium Potassium Chloride Carbon Dioxide 20 L 16 L POC Total CO2 Anion Gap 17.0 H Glucose 144 H 315 H POC Glucose Hemoglobin A1c 11.4 H Calcium 8.2 L 8.4 L POC WB Ioniz Calcium Phosphorus 2.4 L Alkaline Phosphatase Total Protein Albumin Globulin Beta-Hydroxybutyrate Urine Glucose (UA) Urine Ketones 10/20/17 10/20/17 10/20/17 11:10 11:05 11:05 RBC Hgb Hct MPV 12.5 H Lymph % (Auto) POC Sodium 131 L Sodium 130 L Potassium Chloride 87 L Carbon Dioxide 12 L POC Total CO2 15 L Anion Gap 31.0 H Glucose 863 H* POC Glucose 700 H* Hemoglobin A1c Calcium POC WB Ioniz Calcium 1.06 L Phosphorus Alkaline Phosphatase 159 H Total Protein Albumin Globulin Beta-Hydroxybutyrate 5.49 H Urine Glucose (UA) >=500 A Urine Ketones 20 A Meds: Medications Diagnostic Test (Pha) (Accu-Chek) 1 each FS Q1 PAU Last Admin: 10/21/17 07:06 Dose: 1 each Famotidine (Pepcid) 20 mg IV Q12 PAU Last Admin: 10/20/17 20:55 Dose: 20 mg Insulin Human Regular 50 unit/ (Sodium Chloride) 100 mls @ 0 mls/hr IV Q10H PAU ; Per Protocol PRN Reason: Protocol Dextrose/Sodium Chloride (Dextrose 5%-1/2ns Iv Solution) 1,000 mls @ 200 mls/ hr IV .Q5H PAU Last Admin: 10/21/17 05:10 Dose: 200 mls/hr Sodium Chloride (Sodium Chloride 0.9%) 250 mls @ 20 mls/hr IV .[id number] PAU PRN Reason: Protocol Last Admin: 10/20/17 19:16 Dose: 20 mls/hr Magnesium Oxide (Magnesium Oxide) 400 mg PO BID PAU Last Admin: 07/15/18 20:55 Dose: 400 mg Metoclopramide HCl (Reglan) 5 mg IV Q6 [facility] Last Admin: 10/21/17 05:40 Dose: 5 mg Nortriptyline HCl (Pamelor) 10 mg PO HS [facility] Last Admin: 10/20/17 20:55 Dose: 10 mg Omeprazole (Prilosec) 20 mg PO BIDAC PAU Ondansetron HCl (Zofran) 4 mg IV Q4-6HP PRN PRN Reason: Nausea And Vomiting Potassium Chloride (Kdur) 40 meq PO Q2 [facility] Stop: 10/21/17 10:01 Sodium Chloride (Saline Flush) 10 ml IV Q8 [facility] Last Admin: 10/21/17 06:00 Dose: Not Given Medical - PN: A/P - Time Spent With Patient Total time spent is greater than 50% in coordination of care (as documented) at patient's floor/unit and/or counseling patient: 25 - 35 minutes (1) DKA (diabetic ketoacidoses) Status: Acute Current Visit: No (2) Dehydration Status: Acute Current Visit: Yes (3) Diabetic gastroparesis associated with type 1 diabetes mellitus Status: Acute Current Visit: No (4) Hypokalemia Status: Acute Current Visit: Yes (5) Nausea and vomiting Status: Acute Assessment and plan: Recent diagnosis of cyclic vomiting syndrome by GI, placed on nortriptyline. Current Visit: No (6) Diabetes type 1, uncontrolled Status: Chronic Current Visit: No (7) Obesity Status: Acute Current Visit: Yes (8) Hyperlipidemia Status: Acute Current Visit: No (9) Gastroesophageal reflux Status: Chronic Current Visit: No - Narrative A/P Narrative: Plan as above. Medical - PN: Qual - VTE Deep Vein Thrombosis/Pulmonary Embolism Present on Admission: No
[2017-10-21] MEDS: OMEPRAZOLE 20 MG CAPSULE PO SCH ×2 (07:38→16:12)
[2017-10-21] MEDS: FAMOTIDINE/PF 20 MG/2 ML VIAL IV SCH ×2 (07:43→21:02)
[2017-10-21] MEDS: 0.9 % SODIUM CHLORIDE 250 ML IV SCH ×2 (07:45→13:05)
[2017-10-21] MEDS: POTASSIUM CHLORIDE 20 MEQ TABLET PO SCH ×2 (08:02→10:08)
[2017-10-21] MEDS: MAGNESIUM OXIDE 400 MG TABLET PO SCH ×2 (09:49→21:02)
[2017-10-21 10:54] LABS: Blood Urea Nitrogen 5 mg/dl (6-20)
[2017-10-21 16:52] LABS: Blood Urea Nitrogen 4 mg/dl (6-20)
[2017-10-21] MEDS ORDERED: 0.9 % SODIUM CHLORIDE 1,000 ML IV SCH (17:30)
[2017-10-21] MEDS: NORTRIPTYLINE 10 MG CAPSULE PO SCH (21:02)
[2017-10-21 21:40] LABS: Blood Urea Nitrogen 2 mg/dl (6-20)
[2017-10-22] MEDS: METOCLOPRAMIDE 10 MG/2 ML VIAL IV SCH ×4 (00:18→17:25)
[2017-10-22] MEDS ORDERED: DEXTROSE 50% 50 ML VIAL IV PRN (00:42)
[2017-10-22] MEDS ORDERED: DEXTROSE 31 GM ORAL.SUSP PO PRN (00:42)
[2017-10-22] MEDS: 0.9 % SODIUM CHLORIDE 10 ML SYRINGE IV SCH ×3 (05:57→17:25)
[2017-10-22 06:25] LABS: Basophils # (Auto) 0 K/mcL (0.0-0.3); Basophils % (Auto) 0.8 % (0.0-2.0); Eosinophils # (Auto) 0 K/mcL (0.0-0.7); Eosinophils % (Auto) 0.8 % (0.0-7.0); Granulocytes % (Auto) 40.8 % (38.0-78.0); Lymphocytes # (Auto) 2.7 K/mcL (1.5-4.8); Lymphocytes % (Auto) 52.4 % (15.5-49.0); Mean Cell Volume 87.7 fL (80.0-100.0); Mean Corpuscular HGB Conc 34.1 g/dL (31.0-36.0); Mean Corpuscular Hemoglobin 29.9 pg (26.0-34.0); Monocytes # (Auto) 0.3 K/mcL (0.1-0.9); Monocytes % (Auto) 5.2 % (1.0-12.0); Platelet Count 167 K/mcL (140-440); RBC 3.67 M/mcL (4.00-5.20); Red Cell Distribution Width 12.9 % (11.5-14.5)
[2017-10-22] MEDS: 0.9 % SODIUM CHLORIDE 250 ML IV SCH (06:43)
[2017-10-22 06:55] LABS: ALT/SGPT 11 U/l (0-40); Albumin 3.2 gm/dL (3.2-5.2); Albumin/Globulin Ratio 1.7 (1.0-2.3); Alkaline Phosphatase 88 U/L (39-117); Blood Urea Nitrogen 2 mg/dl (6-20)
[2017-10-22] MEDS: OMEPRAZOLE 20 MG CAPSULE PO SCH ×2 (07:12→17:25)
[2017-10-22] MEDS: INSULIN LISPRO 1 UNIT/0.01 ML UNIT SQ SCH ×3 (07:29→17:00)
[2017-10-22] MEDS: MAGNESIUM OXIDE 400 MG TABLET PO SCH ×2 (08:38→19:46)
[2017-10-22] MEDS: FAMOTIDINE/PF 20 MG/2 ML VIAL IV SCH ×2 (08:51→19:46)
[2017-10-22] MEDS ORDERED: INSULIN LISPRO 1 UNIT/0.01 ML UNIT SQ STA (11:35)
[2017-10-22] MEDS ORDERED: POTASSIUM CHLORIDE 20 MEQ PACKET PO ONE (13:56)
--- NOTE | 2017-10-22 19:17 | Discharge Summary ---
Medical - DS: Prov Patient information: Note initiated : 10/22/17 at 7:00 pm Service Date, if different from initiated Date: [] Patient: Patricia Toussaint 27 y/o F admitted on 10/20/17 for Nausea and Vomiting, DKA. Chief Complaint: [] Date of admission: 10/20/17 16:45 Discharge date: 10/22/17 (home) Primary care physician: Jordyn Banerjee Admitting clinician: Marva Car Consults: 10/20/17 12:43 Consult to Physician [CONS] Stat Comment: Consulting Provider: Marva Car Reason For Exam: Physician to Consult Attending physician on discharge: Marva Car Medical - DS: Meds - Discharge Medications Active and Home Medications: Home Medications insulin aspart U-100 100 unit/mL subcutaneous solution See Dose Instructions SUB-Q .COMPLEX ml 10/06/14 [History Confirmed 10/20/17 Last Taken 10/19/17 06: 00] medroxyprogesterone 150 mg/mL intramuscular suspension 150 mg IM ONCE 05/19/15 [ History Confirmed 10/20/17 Last Taken 09/04/17] Accu-Chek 1 each FS ACHS strip 03/13/17 [Rx Confirmed 10/20/17 Last Taken 10/19 06:00] Magnesium Oxide 400 mg PO BID #60 tab 04/15/17 [Rx Confirmed 10/20/17 Last Taken 10/18/17 20:00] Metoclopramide [Reglan] 5 mg PO ACHS #120 tab 04/15/17 [Rx Confirmed 10/20/17 Last Taken 10/19/17 06:00] Nortriptyline [Pamelor] 10 mg PO HS #30 cap 10/03/17 [Rx Confirmed 10/20/17 Last Taken Unknown] Omeprazole [Prilosec] 20 mg PO BIDAC #60 cap 10/03/17 [Rx Confirmed 10/20/17 Last Taken 10/18/17 20:00] Medical - DS: Hosp Hospital course: Mr. Toussaint is a 27 year old F insulin-dependent diabetic F woke up having nausea and vomiting this morning about 6 AM, associated with some abdominal cramping and slight discomfort. Her insulin pump flashing signals that pump line is clotted, overnight. She is found to have blood glucose greater than 600 and positive serum beta hydroxybutyrate, in DKA. She is started on Insulin drip, aggressive IV fluid replacement; her electrolytes are checked and replace placed on PCU observation. We'll check on her insulin pump failure with the pump supervisor lump room. By late evening of 10/21/17, her hydroxybutyrate eventually turned appreciable, and she is resume the back on her basal rates of insulin per home of 1.1 unit/ hr. and she is resume the oral ADA diet. Subsequently her symptoms glucose level had been up in the 200-300 range suggesting her basal rate is completely inadequate. Several adjustments have been made and determined that her basal rate should be 1.5 unit per hour with supplemental NovoLog (or the equivalent short acting insulin) for all meals or snacks. It appeared that her insulin pump dosage adjustment and her understanding may have been inadequate or outdated, needing fine-tuning outpatient castillo. Finally her basal rate is stable 1.5 unit per hour and I recommended her to stay on the basal rate with supplemental pre-or post meal short-acting/NovoLog/Humalog insulin. Her DKA and dehydration is completely resolved, and can be discharged home with follow with her PCP, who manage her insulin pump and diabetes. Her recurrent episodes of DKA's and gastroparesis is likely secondary to uncontrolled serum glucose of blood glucose due to inadequate basal rate from inadequate understanding of her DM 1 management. Her hemoglobin A1c returned to be 11.4, which is grossly very elevated. I explained to her in great length and details, and encourage her to pursue stricter control of her type 1 diabetes to prevent further, patient's and reduce DKA events. She should also follow with her PCP in 1-2 weeks, to address health maintenance and pursuit obesity management for healthy purposes Discharge diagnosis: DKA, due to pumpBlockage and inadequate basal rate Secondary discharge diagnosis: Dehydration, Hypokalemia, resolved Uncontrolled diabetes type 1 GERD, recent diagnosis of cyclic vomiting syndrome, likely secondary to uncontrolled diabetes due to lack of understanding of sugar-insulin management Hyperlipidemia, Obesity - Time Spent with Patient Total time spent providing and/or coordinating discharge services: Greater than 30 minutes Medical - DS: Exam - Constitutional Vitals: Vital Signs Temp Pulse Pulse Resp BP Pulse Ox 10/22/17 18:01 20 136/94 10/22/17 17:01 97 H 19 141/98 100 07/17/18 16:01 99 H 16 153/96 99 07/17/18 15:01 97.3 F 84 16 142/94 100 07/17/18 14:01 95 H 17 148/89 100 07/17/18 14:00 94 H 17 100 07/17/18 13:30 102 H 15 99 07/17/18 13:02 93 H 19 100 07/17/18 13:01 95 H 18 141/92 100 07/17/18 13:00 92 H 19 100 0717/18 12:30 103 H 21 100 07/17/18 12:14 93 H 16 100 07/17/18 12:13 97.8 F 86 15 166/107 100 07/17/18 12:01 76 18 180/114 100 17/18 12:00 79 13 100 17/18 11:30 81 13 99 07/17/18 11:01 85 15 178/109 99 17/18 11:00 82 15 100 /17/18 10:30 103 H 14 99 17/18 10:02 99 H 22 100 17/18 10:01 92 H 16 178/114 99 17/18 10:00 91 H 16 99 0717/18 09:30 97 H 18 99 17/18 09:02 83 16 99 17/18 09:01 84 18 180/117 100 17/18 09:00 79 18 100 17/18 08:30 87 19 100 /17/18 08:02 80 23 H 100 17/18 08:01 83 21 169/107 99 17/18 08:00 83 23 H 99 17/18 07:30 75 14 100 07/17/18 07:02 84 17 99 0717/18 07:01 80 20 168/107 96 07/17/18 07:00 97.1 F 79 16 97 07/17/18 06:30 97 H 19 100 /17/18 06:01 88 15 137/91 95 0717/18 06:00 81 12 99 07/17/18 05:30 88 31 H 95 07/17/18 05:01 18 07/17/18 05:00 14 156/88 07/17/18 04:30 79 12 95 07/17/18 04:02 73 15 98 07/17/18 04:01 98.9 F 78 15 133/79 97 18 04:00 72 14 98 18 03:30 77 15 98 18 03:02 76 22 97 18 03:01 73 20 141/88 97 18 03:00 74 15 100 18 02:30 82 16 96 18 02:01 85 16 120/69 97 18 02:00 83 14 97 18 01:30 77 17 98 18 01:15 71 73 16 96 10/22/17 01:01 71 17 132/87 98 10/22/17 01:00 68 15 99 10/22/17 00:45 71 18 99 10/22/17 00:30 83 21 99 10/22/17 00:15 69 19 99 10/22/17 00:01 97.7 F 26 H 161/110 98 10/22/17 00:00 18 10/21/17 23:45 14 10/21/17 23:15 71 21 99 10/21/17 23:03 71 15 169/113 99 10/21/17 23:01 68 21 174/114 99 10/21/17 23:00 69 22 99 10/21/17 22:45 77 20 100 10/21/17 22:30 79 17 100 10/21/17 22:15 69 19 100 10/21/17 22:01 78 17 159/116 100 10/21/17 22:00 70 17 99 10/21/17 21:45 70 21 100 10/21/17 21:30 79 22 100 10/21/17 21:15 76 18 100 10/21/17 21:01 77 15 148/109 99 10/21/17 21:00 76 24 H 100 10/21/17 20:45 69 22 100 10/21/17 20:30 71 21 100 10/21/17 20:01 97.2 F 66 22 147/100 99 10/21/17 20:00 97.2 F 67 14 99 Intake and Output 10/22/18 /17/18 10/22/17 05:59 13:59 21:59 Intake Total 1344 / 1344 240 / 240 120 / 120 Output Total 1050 / 1050 1800 / 1800 1150 / 1150 Balance 294 / 294 -1560 / -1560 -1030 / -1030 Intake: IV 1194 / 1194 Sodium Chloride 0.9% 1,000 ml @ 327 / 327 50 mls/hr IV .Q20H PAU Rx#: [id number] Dextrose 5%-1/2Ns IV Solution 1 833 / 833 ,000 ml @ 200 mls/hr IV .Q5H PAU Rx#:[id number] HumuLIN R 50 UNIT In Sodium 2 / 2 Chloride 0.9% 99.5 ml @ Per Protocol IV Q10H PAU Rx#: [id number] Oral 150 / 150 240 / 240 120 / 120 Output: Void Amount 1050 / 1050 1800 / 1800 1150 / 1150 Other: Meal snack Breakfast Dinner Percent of Meal Consumed 100% 100% 100% Feeding Ability Assist with Tray Set Up Independent Stool Size Moderate Small Stool Color Brown Yellow Stool Consistency Loose Liquid # Bowel Movements 1 General appearance: no acute distress, obese - Head Head exam: Present: atraumatic, normocephalic - Eye Eye exam: Present: EOMI Pupils: Present: normal accommodation, PERRL - ENT ENT exam: Present: mucous membranes moist - Neck Neck exam: Present: full ROM. Absent: lymphadenopathy, meningismus - Respiratory Respiratory exam: Present: CTAB. Absent: accessory muscle use - Cardiovascular Cardiovascular exam: Present: RRR, +S1, +S2. Absent: gallop, rubs - GI/Abdominal GI/Abdominal exam: Present: normal bowel sounds, soft. Absent: guarding, rebound - Extremities Exam Extremities exam: Absent: pedal edema Additional comments: No clubbing, cyanosis, nor edema - Neurological Exam Neurological exam: Present: alert, CN II-XII intact, oriented X3 - Skin Skin exam: Present: intact, warm Additional comments: Multiple tattoos on the body and legs Medical - DS: Data Labs on day of discharge: Labs from last 24 hours 10/22/17 10/22/17 10/21/17 03:52 03:52 20:55 WBC 5.2 RBC 3.67 L Hgb 11.0 L Hct 32.2 L MCV 87.7 MCH 29.9 MCHC 34.1 RDW 12.9 Plt Count 167 MPV 10.9 H Gran % 40.8 Lymph % (Auto) 52.4 H [place] % (Auto) 5.2 Eos % (Auto) 0.8 Baso % (Auto) 0.8 Gran # 2.1 Lymph # (Auto) 2.7 [place] # (Auto) 0.3 Eos # (Auto) 0 Baso # (Auto) 0 Sodium 140 Potassium 3.4 Chloride 107 Carbon Dioxide 16 L Anion Gap 17.0 H BUN 2 L Creatinine 0.7 GFR Calculation 118 Glucose 179 H Calcium 8.5 L Total Bilirubin 0.2 AST 15 ALT 11 Alkaline Phosphatase 88 Total Protein 5.1 L Albumin 3.2 Globulin 1.9 L Albumin/Globulin Ratio 1.7 Beta-Hydroxybutyrate 0.12 10/21/17 20:55 WBC RBC Hgb Hct MCV MCH MCHC RDW Plt Count MPV Gran % Lymph % (Auto) [place] % (Auto) Eos % (Auto) Baso % (Auto) Gran # Lymph # (Auto) [place] # (Auto) Eos # (Auto) Baso # (Auto) Sodium 136 Potassium 3.6 Chloride 104 Carbon Dioxide 18 L Anion Gap 14.0 BUN 2 L Creatinine 0.5 L GFR Calculation 132 Glucose 173 H Calcium 8.3 L Total Bilirubin AST ALT Alkaline Phosphatase Total Protein Albumin Globulin Albumin/Globulin Ratio Beta-Hydroxybutyrate Medical - DS: A/P - Patient/Caregiver Discharge Instructions Activity: increase activity as tolerated Diet: Low Sodium (2gm), Low Fat, High Fiber, Consistent Carbohydrate - Problem Maintenance (1) DKA (diabetic ketoacidoses) Status: Acute (2) Dehydration Status: Acute (3) Diabetic gastroparesis associated with type 1 diabetes mellitus Status: Acute (4) Hypokalemia Status: Acute (5) Diabetes type 1, uncontrolled Status: Chronic (6) Obesity Status: Acute (7) Hyperlipidemia Status: Acute (8) Nausea and vomiting Status: Acute (9) Gastroesophageal reflux Status: Chronic - Follow up Plan Follow up with: Jordyn Banerjee MD [Primary Care Provider] - 10/30/17 10:45 am (Please check in at 10:30) Disposition: Home, Self-Care Prognosis: Fair Rehab Potential: Good Overall status at discharge: patient is back to baseline (corrected basal rate on insulin pump should be 1.5) Medical - DS: Qual - VTE Deep Vein Thrombosis/Pulmonary Embolism Present on Admission: No
[2017-10-22] MEDS: NORTRIPTYLINE 10 MG CAPSULE PO SCH (19:46)
== END 2017-10-22 20:50 | disposition home or self-care (01) ==
LOC: ED 10:33 → INTOOBSV 16:45 → ICU 16:45
PROVIDERS: ADMIT Emergency Medicine; ATTEND Emergency Medicine

== ENCOUNTER 2021-09-02 23:10 | Inpatient (IN) ==
[2021-09-02] MEDS ORDERED: IOPAMIDOL 100 ML BOTTLE IV ONE (23:11)
[2021-09-02] MEDS ORDERED: 0.9 % SODIUM CHLORIDE 1,000 ML IV ONE (23:24)
[2021-09-02] MEDS ORDERED: METOCLOPRAMIDE 10 MG/2 ML VIAL IV ONE (23:24)
[2021-09-02] MEDS ORDERED: diphenhydrAMINE 50 MG/ML VIAL IV ONE (23:24)
--- NOTE | 2021-09-02 23:29 | Emergency Department Note ---
HPI General Chief complaint: Nausea/Vomiting/Diarrhea Stated complaint: N/V Since 1000 Time Seen by Provider: 09/02/21 23:17 Source: patient Mode of arrival: ambulatory Limitations: no limitations History of Present Illness HPI Narrative: Narrative: 31 yo F w/ h/o DM1 on insulin via pump p/w N/V. She reports one day of N/V which is nonbloody and nonbilious, consisting of PO intake (mostly water). She has been unable to keep anything down. She has had a few episodes of loose watery brown diarrhea and also notes diffuse aching abd pain from vomiting. She has had similar episodes in the past w/ DKA but notes that her blood sugar has been 180- 200 today. Her blood sugar control has improved compared to in the past (when she was admitted multiple times for DKA) and her current level is actually a little high for her. She o/w has no complaints. Related Data Home Medications Medication Instructions Recorded Confirmed insulin aspart U-100 100 unit/mL See Dose Instructions SUB-Q 10/06/14 10/20/17 subcutaneous solution .COMPLEX ml medroxyprogesterone 150 mg/mL 150 mg IM ONCE 05/19/15 10/20/17 intramuscular suspension (Depo-Provera) Previous Rx's Medication Instructions Recorded Accu-Chek 1 ea FS ACHS strip 03/13/17 magnesium oxide 400 mg (241.3 mg 400 mg PO BID #60 tab 04/15/17 magnesium) tablet metoclopramide HCl 5 mg tablet 5 mg PO ACHS #120 tab 04/15/17 nortriptyline 10 mg capsule 10 mg PO HS #30 cap 10/03/17 omeprazole 20 mg capsule,delayed 20 mg PO BIDAC #60 cap 10/03/17 release Allergies Allergy/AdvReac Type Severity Reaction Status Date / Time Amoxicillin [AMOXICILLIN] Allergy Intermediate Rash Verified 10/20/17 10:36 ibuprofen [IBUPROFEN] AdvReac Severe GI BLEED Verified 10/20/17 10:36 vancomycin AdvReac Mild Itching Verified 10/20/17 10:36 Review of Systems ROS ROS Narrative: Narrative: All systems ED: reviewed and negative except as stated. PFSH Narrative Patient History Narrative: Narrative: Medical/Surgical/Family History All Active Problems (Updated 09/03/21 @ 06:58 by Allan Vazquez MD) Postconcussion syndrome (Chronic) Cellulitis (Acute) DKA (diabetic ketoacidoses) (Acute) Gastroenteritis (Acute) Diarrhea (Acute) Nausea and vomiting (Acute) Diabetic gastroparesis associated with type 1 diabetes mellitus (Acute) Erosive gastritis (Acute) DKA (diabetic ketoacidoses) (Acute) Obesity (Acute) Dehydration (Acute) Hypokalemia (Acute) Acute dehydration (Acute) Ketosis (Acute) DM type 1 (diabetes mellitus, type 1) (Acute) History of wisdom tooth extraction (Acute) Sepsis (Acute) Hyperlipidemia (Acute) Gastroesophageal reflux (Chronic) Diabetes type 1, uncontrolled (Chronic) Cellulitis and abscess of trunk (Acute) Cellulitis (Acute) Medical History Cellulitis Abdominal wall Cellulitis Cellulitis and abscess of trunk 08/26/2014 Diabetes type 1, uncontrolled Diabetic ketoacidosis DKA (diabetic ketoacidoses) Gastroenteritis Gastroesophageal reflux Hyperlipidemia Postconcussion syndrome Sepsis Surgical History History of wisdom tooth extraction Family History Unknown Malignant neoplasm of colon Cerebrovascular accident Social History Smoking Status: Former smoker Alcohol Intake Frequency: a few times a month Substance Use: does not use Exam Narrative Narrative: Narrative: General Limitations: no limitations General appearance: Present alert and in no apparent distress Head Head: Present atraumatic and normocephalic ENT ENT: Present normal oropharynx and mucous membranes dry Chest Chest: Present normal inspection and symmetric chest wall rise Respiratory Respiratory: Present normal lung sounds bilaterally; Absent respiratory distress or accessory muscle use Cardiovascular Cardiovascular: Present regular rate, normal rhythm, +S1, +S2 and other (2+ B/L radial pulses); Absent systolic murmur or diastolic murmur Adbominal Abdominal: Present soft, tenderness (diffuse, mild) and normal bowel sounds; Absent distention, guarding, rebound or rigidity Extremities Extremities: Absent pedal edema Neurological Neurological: Present alert and oriented X3 Psychiatric Psychiatric: Present normal affect Skin Skin: Present warm (WNL) and dry Course Vital Signs Vital signs: Vital Signs Temperature 97.5 F 09/02/21 23:11 Pulse Rate 84 09/02/21 23:11 Respiratory Rate 22 09/02/21 23:11 Blood Pressure 160/83 09/02/21 23:11 Pulse Oximetry (%) 84 L 09/02/21 23:11 Temperature 97.5 F 09/02/21 23:11 Pulse Rate 108 H 09/03/21 06:13 Respiratory Rate 22 09/02/21 23:11 Blood Pressure 155/103 09/03/21 06:13 Pulse Oximetry (%) 100 09/03/21 06:13 MDM MDM Narrative Medical decision making narrative: Narrative: 31 yo F w/ h/o DM1 on insulin via pump, cyclic vomiting p/w N/V. DDX - peritonitis, SBO, metabolic/electrolyte d/o, cyclic vomiting Pt presented clinically stable, in NAD. She had no peritoneal findings on exam and did not have hyperdynamic bowel sounds or decreased bowel movements to suggest SBO. CBC was notable for a leukocytosis but w/ no other evidence of infection, no pulmonary sx, UA was negative. CMP was notable for CO2 22, anion gap 23, w/ blood sugar 153. Lactate was WNL. VBG showed normal pH. Ketones were positive on urine and blood. Overall picture was not c/w DKA, and in the absence of PO DM2 medications euglycemic DKA was unlikely. Cyclic vomiting was potential as was a GI bug. Overall I Tx'd pt w/ multiple rounds of IVF and antiemetics but could not control Sx. I d/w the hospitalist who accepted her for admission pending a CT A/P. I have signed her out to Dr Lincoln to F/U on the results of this. Lab Data Result diagrams: 09/02/21 23:48 09/03/21 04:34 Labs: Lab Results 09/02/21 09/02/21 09/03/21 Range/Units 23:48 23:48 02:32 WBC 17.7 H (4.5-11.0) K/mcL RBC 5.31 (3.59-5.38) M/mcL Hgb 15.1 (11.2-15.7) g/dL Hct 45.7 H (34.1-44.9) % MCV 86.1 (80.0-100.0) fL MCH 28.4 (26.0-34.0) pg MCHC 33.0 (31.0-36.0) g/dL RDW 12.4 (11.5-14.5) % Plt Count 210 (140-440) K/mcL MPV 13.4 H (7.4-10.4) fL Neut % (Auto) 91.1 H (38.0-78.0) % Lymph % (Auto) 6.8 L (15.5-49.0) % [place] % (Auto) 1.9 (1.0-12.0) % Eos % (Auto) 0 (0.0-7.0) % Baso % (Auto) 0.2 (0.0-2.0) % Lymph # (Auto) 1.21 L (1.50-4.80) K/mcL [place] # (Auto) 0.33 (0.10-0.90) K/mcL Eos # (Auto) 0 (0.00-0.70) K/mcL Baso # (Auto) 0.04 (0.00-0.30) K/mcL Absolute Neutrophils 16.09 H (1.80-8.00) K/mcL POC VBG pH 7.41 (7.32-7.42) POC VBG pCO2 at Temp 41.2 (41-51) POC VBG pO2 48 H (25-40) POC VBG HCO3 26.1 (24-28) POC VBG Total CO2 27.0 (25-29) POC Venous O2 Sat 84.0 H (40-70) POC VBG Base Excess 1.0 (-2-2) Sodium 138 (133-145) mmol/L Potassium 3.5 (3.3-5.1) mmol/L Chloride 93 L (96-108) mmol/L Carbon Dioxide 22 (22-30) mmol/L Anion Gap 23.0 H (8.0-16.0) BUN 11 (6-20) mg/dL Creatinine 0.8 (0.6-1.1) mg/dL GFR Calculation 98 Glucose 165 H (70-105) mg/dL POC Venous Lactate 0.7 (0.5-2) Calcium 9.7 (8.6-10.4) mg/dL Phosphorus (2.5-4.5) mg/dL Magnesium (1.6-2.5) mg/dL Total Bilirubin 0.6 (0.1-1.0) mg/dL AST 24 (<32) U/L ALT 19 (<40) U/L Alkaline Phosphatase 128 H (39-117) U/L Total Protein 7.5 (5.9-8.4) gm/dL Albumin 4.6 (3.2-5.2) gm/dL Globulin 2.9 (2.2-3.7) gm/dL Albumin/Globulin Ratio 1.6 (1.0-2.3) Lipase 7 (7-60) U/L Beta-Hydroxybutyrate 2.54 H (<0.27) mmol/L Urine Color Urine Appearance (Clear) Urine pH (5.0-9.0) Ur Specific [place] (1.000-1.035) Urine Protein (Negative) mg/dL Urine Glucose (UA) (Negative) mg/dL Urine Ketones (Negative) mg/dL Urine Occult Blood (Negative) mg/dL Urine Nitrate (Negative) Urine Bilirubin (Negative) mg/dL Urine Urobilinogen mg/dL Ur Leukocyte Esterase (Negative) /uL Urine RBC (0-3) /hpf Urine WBC (0-4) /hpf Ur Squamous Epith Cells (0-4) /hpf Urine Bacteria (0) /hpf Hyaline Casts (0-2) /lph Urine Mucus (None) /hpf Ur Culture Indicated? 09/03/21 09/03/21 Range/Units 04:34 04:38 WBC (4.5-11.0) K/mcL RBC (3.59-5.38) M/mcL Hgb (11.2-15.7) g/dL Hct (34.1-44.9) % MCV (80.0-100.0) fL MCH (26.0-34.0) pg MCHC (31.0-36.0) g/dL RDW (11.5-14.5) % Plt Count (140-440) K/mcL MPV (7.4-10.4) fL Neut % (Auto) (38.0-78.0) % Lymph % (Auto) (15.5-49.0) % [place] % (Auto) (1.0-12.0) % Eos % (Auto) (0.0-7.0) % Baso % (Auto) (0.0-2.0) % Lymph # (Auto) (1.50-4.80) K/mcL [place] # (Auto) (0.10-0.90) K/mcL Eos # (Auto) (0.00-0.70) K/mcL Baso # (Auto) (0.00-0.30) K/mcL Absolute Neutrophils (1.80-8.00) K/mcL POC VBG pH (7.32-7.42) POC VBG pCO2 at Temp (41-51) POC VBG pO2 (25-40) POC VBG HCO3 (24-28) POC VBG Total CO2 (25-29) POC Venous O2 Sat (40-70) POC VBG Base Excess (-2-2) Sodium 138 (133-145) mmol/L Potassium 3.5 (3.3-5.1) mmol/L Chloride 98 (96-108) mmol/L Carbon Dioxide 22 (22-30) mmol/L Anion Gap 18.0 H (8.0-16.0) BUN 14 (6-20) mg/dL Creatinine 0.9 (0.6-1.1) mg/dL GFR Calculation 85 Glucose 153 H (70-105) mg/dL POC Venous Lactate (0.5-2) Calcium 8.5 L (8.6-10.4) mg/dL Phosphorus 4.1 (2.5-4.5) mg/dL Magnesium 1.6 (1.6-2.5) mg/dL Total Bilirubin 0.5 (0.1-1.0) mg/dL AST 27 (<32) U/L ALT 16 (<40) U/L Alkaline Phosphatase 111 (39-117) U/L Total Protein 6.8 (5.9-8.4) gm/dL Albumin 4.0 (3.2-5.2) gm/dL Globulin 2.8 (2.2-3.7) gm/dL Albumin/Globulin Ratio 1.4 (1.0-2.3) Lipase (7-60) U/L Beta-Hydroxybutyrate (<0.27) mmol/L Urine Color [place] Urine Appearance Hazy A (Clear) Urine pH 6.0 (5.0-9.0) Ur Specific [place] 1.031 (1.000-1.035) Urine Protein >=500 A (Negative) mg/dL Urine Glucose (UA) >=500 A (Negative) mg/dL Urine Ketones 80 A (Negative) mg/dL Urine Occult Blood 0.03 (Negative) mg/dL Urine Nitrate Negative (Negative) Urine Bilirubin Negative (Negative) mg/dL Urine Urobilinogen Negative mg/dL Ur Leukocyte Esterase Negative (Negative) /uL Urine RBC 28 H (0-3) /hpf Urine WBC 81 H (0-4) /hpf Ur Squamous Epith Cells 1 (0-4) /hpf Urine Bacteria None (0) /hpf Hyaline Casts 36 H (0-2) /lph Urine Mucus Many A (None) /hpf Ur Culture Indicated? yes ED POC Tests ED POC Tests: ISAC - SARS Antigen Negative HCG POC Results Negative Discharge Plan Patient/Caregiver Discharge Instructions Pt seen by [employer]/PA only: No Clinical Impression: Nausea and vomiting, Acute dehydration, Ketosis, DM type 1 (diabetes mellitus, type 1) Patient Disposition: Still a Patient Follow up with: Jordyn Banerjee MD [Primary Care Provider] - Prescriptions: No Action insulin aspart U-100 100 unit/mL solution See Dose Instructions unit SUB-Q .COMPLEX 0RF Rx Instructions: SUB-Q Cartridge delivered via subcutaneous continous insulin pump; administer within 5-10 min before a meal/food and no later than at the start of the meal/snack medroxyprogesterone [Depo-Provera] 150 mg/mL suspension 150 mg IM ONCE 0RF Label Comments: every 3 months - was just administered at end of july Accu-Chek 1 EACH Strip 1 ea FS ACHS 0RF magnesium oxide 400 MG tablet 400 mg PO BID Qty: 60 0RF metoclopramide HCl 5 MG tablet 5 mg PO ACHS Qty: 120 0RF omeprazole 20 MG capsule 20 mg PO BIDAC Qty: 60 3RF nortriptyline 10 MG capsule 10 mg PO HS Qty: 30 0RF
[2021-09-03 00:51] LABS: ALT/SGPT 19 U/L (<40); AST/SGOT 24 U/L (<32); Albumin 4.6 gm/dL (3.2-5.2); Albumin/Globulin Ratio 1.6 (1.0-2.3); Alkaline Phosphatase 128 U/L (39-117); Beta Hydroxybutyrate 2.54 mmol/L (<0.27); Bilirubin,Total 0.6 mg/dL (0.1-1.0); Blood Urea Nitrogen 11 mg/dL (6-20); Calcium 9.7 mg/dL (8.6-10.4); Carbon Dioxide 22 mmol/L (22-30); Chloride 93 mmol/L (96-108); Globulin 2.9 gm/dL (2.2-3.7); Glomerular Filtration Rate 98; Glucose 165 mg/dL (70-105)
[2021-09-03 01:04] LABS: Basophils # (Auto) 0.04 K/mcL (0.00-0.30); Basophils % (Auto) 0.2 % (0.0-2.0); Eosinophils # (Auto) 0 K/mcL (0.00-0.70); Eosinophils % (Auto) 0 % (0.0-7.0); Hematocrit 45.7 % (34.1-44.9); Hemoglobin 15.1 g/dL (11.2-15.7); Lymphocytes # (Auto) 1.21 K/mcL (1.50-4.80); Lymphocytes % (Auto) 6.8 % (15.5-49.0); Mean Cell Volume 86.1 fL (80.0-100.0); Mean Platelet Volume 13.4 fL (7.4-10.4); Monocytes # (Auto) 0.33 K/mcL (0.10-0.90); Monocytes % (Auto) 1.9 % (1.0-12.0); Neutrophils % (Auto) 91.1 % (38.0-78.0); Platelet Count 210 K/mcL (140-440); RBC 5.31 M/mcL (3.59-5.38); Red Cell Distribution Width 12.4 % (11.5-14.5); WBC 17.7 K/mcL (4.5-11.0)
[2021-09-03] MEDS ORDERED: 0.9 % SODIUM CHLORIDE 1,000 ML IV ONE ×2 (02:04→19:21)
[2021-09-03] MEDS ORDERED: PROMETHAZINE 25 MG/ML VIAL IV ONE ×3 (02:09→19:25)
[2021-09-03] MEDS ORDERED: ONDANSETRON 4 MG/2 ML VIAL IV ONE (04:10)
[2021-09-03 05:27] LABS: ALT/SGPT 16 U/L (<40); AST/SGOT 27 U/L (<32); Albumin/Globulin Ratio 1.4 (1.0-2.3); Alkaline Phosphatase 111 U/L (39-117); Bilirubin,Total 0.5 mg/dL (0.1-1.0); Blood Urea Nitrogen 14 mg/dL (6-20); Calcium 8.5 mg/dL (8.6-10.4); Carbon Dioxide 22 mmol/L (22-30); Chloride 98 mmol/L (96-108); Globulin 2.8 gm/dL (2.2-3.7); Glomerular Filtration Rate 85; Glucose 153 mg/dL (70-105); Phosphorous 4.1 mg/dL (2.5-4.5)
[2021-09-03 05:29] LABS: Appearance,Urine HAZY (Clear); Bilirubin,Urine Negative (Negative); Color,Urine AMBER; Culture Indicated,Urine yes; Glucose,Urine (UA) >=500 mg/dL (Negative); Ketones,Urine 80 mg/dL (Negative); Leukocyte Esterase,Urine Negative /uL (Negative); Mucus,Urine MANY /hpf; Nitrate,Urine Negative (Negative); Protein,Urine >=500 mg/dL (Negative); Specific Gravity,Urine 1.031 (1.000-1.035); Urine Blood 0.03 mg/dL (Negative); Urine Hyaline Cast 36 /lph (0-2); Urine RBC 28 /hpf (0-3); Urine Squamous Epithelial Cell 1 /hpf (0-4); Urine WBC 81 /hpf (0-4); Urobilinogen,Urine Negative
[2021-09-03] MEDS ORDERED: METOCLOPRAMIDE 10 MG/2 ML VIAL IV ONE (06:05)
[2021-09-03] MEDS ORDERED: FAMOTIDINE/PF 20 MG/2 ML VIAL IV ONE (06:12)
--- NOTE | 2021-09-03 07:29 | Cat Scan Report ---
CLINICAL INFORMATION: Abdomen pain nausea and vomiting COMPARISON: Abdomen and pelvic CT 08/30/2019 TECHNIQUE: Following enteric contrast, 80 cc of Isovue-370 were injected intravenously, and 60 seconds later, 0.625 mm helical slices were obtained from the mid heart through the subtrochanteric regions. Following reconstruction, 2.5 mm sagittal, coronal and axial reformatted images were processed and reviewed at bone, lung and soft tissue windows. Five minutes later, 0.625 mm helical slices were obtained from the mid heart through the kidneys and viewed at soft tissue windows.The exam was performed using radiation dose optimization techniques including, but not limited to, automated exposure control, adjustment of the mA and/or kV according to patient size and use of iterative reconstruction technique. FINDINGS: The lung bases are clear. No effusions. The visualized heart is grossly normal. Abdominal images show the gallbladder and bile ducts, liver, both kidneys, adrenal glands, spleen, pancreas and aorta, including aortic branches, are normal in size, configuration and attenuation without focal lesion. There is no free air, free fluid or adenopathy. Pelvic images show normal urinary bladder. Uterus and both ovaries are normal in size, configuration and attenuation. The stomach, small bowel, retrocecal appendix and large bowel are grossly normal. Bone windows show no osseous abnormality IMPRESSION: normal exam Interpreted and Authenticated by: Carl Franco 09/03/21
--- NOTE | 2021-09-03 07:48 | Emergency Department Note ---
ED Note Addendum Note Addendum: 31-year-old female was seen by Dr. Vazquez this evening. Please see Dr. Vazquez's history and physical for complete details. Patient has a history of insulin- dependent diabetes mellitus presents with intractable vomiting. Found to be dehydrated and has continued to have nausea vomiting. CT abdomen pelvis was pending at time of shift change. CT abdomen pelvis shows no acute acute process. Patient continues to be nauseated. Case was previously discussed per Dr. Vazquez with hospitalist Dr. Navarrete on and patient will be admitted for the evaluation and treatment.
[2021-09-03] MEDS ORDERED: traMADol 50 MG TABLET PO PRN (09:32)
[2021-09-03] MEDS ORDERED: ALBUTEROL SULFATE 2.5 MG/3 ML NEBULIZER NEB PRN (09:32)
[2021-09-03] MEDS ORDERED: traZODone HCL 50 MG TABLET PO PRN (09:32)
[2021-09-03] MEDS ORDERED: ACETAMINOPHEN 325 MG TABLET PO PRN (09:32)
[2021-09-03] MEDS ORDERED: diphenhydrAMINE 50 MG/ML VIAL IV PRN (09:32)
[2021-09-03] MEDS ORDERED: hydrALAZINE 20 MG/ML VIAL IV PRN (09:32)
[2021-09-03] MEDS ORDERED: DEXTROSE 50% 50 ML VIAL IV PRN (11:12)
[2021-09-03] MEDS ORDERED: DEXTROSE 31 GM ORAL.SUSP PO PRN (11:12)
[2021-09-03] MEDS: 0.45 % SODIUM CHLORIDE 1,000 ML IV SCH ×2 (11:24→19:37)
[2021-09-03] MEDS: METOCLOPRAMIDE 10 MG/2 ML VIAL IV SCH ×2 (11:25→17:31)
[2021-09-03] MEDS: ONDANSETRON 4 MG/2 ML VIAL IV PRN ×2 (11:26→17:32)
[2021-09-03] MEDS ORDERED: INSULIN LISPRO 1 UNIT/0.01 ML UNIT SQ SCH (11:30)
[2021-09-03 12:23] LABS: Blood Urea Nitrogen 14 mg/dL (6-20); Calcium 8.5 mg/dL (8.6-10.4); Carbon Dioxide 22 mmol/L (22-30); Chloride 96 mmol/L (96-108); Glomerular Filtration Rate 85; Glucose 172 mg/dL (70-105)
--- NOTE | 2021-09-03 13:14 | Internal Med History&Physical ---
HPI History of Present Illness Patient information: Note initiated : 09/03/21 at 1:13 pm Service Date, if different from initiated Date: [] Patient: Patricia Toussaint a 31 y/o F admitted on 09/03/21 for N/V Since 1000. Chief Complaint: [] History of present illness: Ms. Toussaint is a 31 year old F This is a 31-year-old female with a history of type 1 diabetes on insulin pump with a previous episodes of DKA patient has been well controlled for the last couple of years and was brought to the ER because of persistent nausea vomiting. Patient unable to take anything by p.o. because of the persistent nausea vomiting she was evaluated in the ER and her blood sugar was 156 and she has mild ketones in the urine and anion gap 23 with a CO2 of 22 lactic acid within normal limits ABG showing normal pH. Patient uses marijuana and has previous history of cyclical vomiting patient will be admitted for further management of possible gastroenteritis versus cyclical vomiting syndrome. Patient underwent a CT which did not show any acute abnormalities Review of systems Constitutional: No reported fatigue no chills, no fever Eyes: no vision changes or pain Cardiovascular: no chest pain, no palpitations Respiratory: no cough or dyspnea Gastrointestinal: Persistent nausea vomiting 1 episode of loose stools. Genitourinary: no dysuria or difficulty voiding Musculoskeletal: no arthralgia or myalgia Integumentary: no skin lesion or wound Neurological: no focal weakness or numbness Psychiatric: no anxiety or depression Physical exam Head: No bruises, normal-appearing nontraumatic, obese Eyes: normal appearance, no scleral icterus. Neck: full ROM Respiratory: no respiratory distress. Cardiovascular: normal rate and rhythm, S1, S2. GI/Abdominal: Soft nontender bowel sounds are normal Extremities: full range of motion, nontender. Neurological: CN II-XII intact, intact motor, intact sensation. Psychiatric: normal mood. Skin: warm, normal color PFSH PFSH All Active Problems (Updated 09/03/21 @ 06:58 by Allan Vazquez MD) Postconcussion syndrome (Chronic) Cellulitis (Acute) DKA (diabetic ketoacidoses) (Acute) Gastroenteritis (Acute) Diarrhea (Acute) Nausea and vomiting (Acute) Diabetic gastroparesis associated with type 1 diabetes mellitus (Acute) Erosive gastritis (Acute) DKA (diabetic ketoacidoses) (Acute) Obesity (Acute) Dehydration (Acute) Hypokalemia (Acute) Acute dehydration (Acute) Ketosis (Acute) DM type 1 (diabetes mellitus, type 1) (Acute) History of wisdom tooth extraction (Acute) Sepsis (Acute) Hyperlipidemia (Acute) Gastroesophageal reflux (Chronic) Diabetes type 1, uncontrolled (Chronic) Cellulitis and abscess of trunk (Acute) Cellulitis (Acute) Medical History Cellulitis Abdominal wall Cellulitis Cellulitis and abscess of trunk 08/26/2014 Diabetes type 1, uncontrolled Diabetic ketoacidosis DKA (diabetic ketoacidoses) Gastroenteritis Gastroesophageal reflux Hyperlipidemia Postconcussion syndrome Sepsis Surgical History History of wisdom tooth extraction Family History Unknown Malignant neoplasm of colon Cerebrovascular accident Social History alcohol intake frequency: a few times a month substance use type: does not use MEDS/ALLERGIES Home Medications and Allergies Home Medications Medication Instructions Recorded Confirmed Type insulin aspart U-100 100 unit/mL See Rx Instructions .ROUTE 10/06/14 09/03/21 History subcutaneous solution .COMPLEX ml Accu-Chek 1 ea FS ACHS strip 03/13/17 09/03/21 Rx metoclopramide HCl 5 mg tablet 5 mg PO ACHS PRN 09/03/21 09/03/21 History Allergies Allergy/AdvReac Type Severity Reaction Status Date / Time Amoxicillin [AMOXICILLIN] Allergy Intermediate Rash Verified 10/20/17 10:36 ibuprofen [IBUPROFEN] AdvReac Severe GI BLEED Verified 10/20/17 10:36 vancomycin AdvReac Mild Itching Verified 10/20/17 10:36 EXAM Constitutional Vitals: Temp Pulse Resp BP Pulse Ox 97.8 F 87 18 103/57 93 09/03/21 12:00 09/03/21 12:00 09/03/21 12:00 09/03/21 12:00 09/03/21 12:00 DATA Data Completed and Pending Labs: Labs from last 24 hours 09/03/21 09/03/21 09/03/21 11:35 04:38 04:34 WBC RBC Hgb Hct MCV MCH MCHC RDW Plt Count MPV Neut % (Auto) Lymph % (Auto) [place] % (Auto) Eos % (Auto) Baso % (Auto) Lymph # (Auto) [place] # (Auto) Eos # (Auto) Baso # (Auto) Absolute Neutrophils POC VBG pH POC VBG pCO2 at Temp POC VBG pO2 POC VBG HCO3 POC VBG Total CO2 POC Venous O2 Sat POC VBG Base Excess Sodium 137 138 Potassium 3.5 3.5 Chloride 96 98 Carbon Dioxide 22 22 Anion Gap 19.0 H 18.0 H BUN 14 14 Creatinine 0.9 0.9 GFR Calculation 85 85 Glucose 172 H 153 H POC Venous Lactate Calcium 8.5 L 8.5 L Phosphorus 4.1 Magnesium 1.6 Total Bilirubin 0.5 AST 27 ALT 16 Alkaline Phosphatase 111 Total Protein 6.8 Albumin 4.0 Globulin 2.8 Albumin/Globulin Ratio 1.4 Lipase Beta-Hydroxybutyrate Urine Color [place] Urine Appearance Hazy A Urine pH 6.0 Ur Specific [place] 1.031 Urine Protein >=500 A Urine Glucose (UA) >=500 A Urine Ketones 80 A Urine Occult Blood 0.03 Urine Nitrate Negative Urine Bilirubin Negative Urine Urobilinogen Negative Ur Leukocyte Esterase Negative Urine RBC 28 H Urine WBC 81 H Ur Squamous Epith Cells 1 Urine Bacteria None Hyaline Casts 36 H Urine Mucus Many A Ur Culture Indicated? yes 09/03/21 09/02/21 09/02/21 02:32 23:48 23:48 WBC 17.7 H RBC 5.31 Hgb 15.1 Hct 45.7 H MCV 86.1 MCH 28.4 MCHC 33.0 RDW 12.4 Plt Count 210 MPV 13.4 H Neut % (Auto) 91.1 H Lymph % (Auto) 6.8 L [place] % (Auto) 1.9 Eos % (Auto) 0 Baso % (Auto) 0.2 Lymph # (Auto) 1.21 L [place] # (Auto) 0.33 Eos # (Auto) 0 Baso # (Auto) 0.04 Absolute Neutrophils 16.09 H POC VBG pH 7.41 POC VBG pCO2 at Temp 41.2 POC VBG pO2 48 H POC VBG HCO3 26.1 POC VBG Total CO2 27.0 POC Venous O2 Sat 84.0 H POC VBG Base Excess 1.0 Sodium 138 Potassium 3.5 Chloride 93 L Carbon Dioxide 22 Anion Gap 23.0 H BUN 11 Creatinine 0.8 GFR Calculation 98 Glucose 165 H POC Venous Lactate 0.7 Calcium 9.7 Phosphorus Magnesium Total Bilirubin 0.6 AST 24 ALT 19 Alkaline Phosphatase 128 H Total Protein 7.5 Albumin 4.6 Globulin 2.9 Albumin/Globulin Ratio 1.6 Lipase 7 Beta-Hydroxybutyrate 2.54 H Urine Color Urine Appearance Urine pH Ur Specific [place] Urine Protein Urine Glucose (UA) Urine Ketones Urine Occult Blood Urine Nitrate Urine Bilirubin Urine Urobilinogen Ur Leukocyte Esterase Urine RBC Urine WBC Ur Squamous Epith Cells Urine Bacteria Hyaline Casts Urine Mucus Ur Culture Indicated? A/P Narrative Plan of Treatment: Persistent nausea vomiting Possible cyclical vomiting versus gastroenteritis next History of marijuana use, DKA in the past Upon presentation no obvious evidence of DKA she has mild ketones which probably due to starvation and nausea vomiting pH within normal limits anion gap mildly elevated bicarb normal limits Plan Patient will be started on Reglan every 6 hourly and Zofran as needed Will continue IV hydration Patient's symptoms already feeling better Started Protonix Clear liquid diet and advance as tolerated Type 1 diabetes Patient has insulin pump and we will monitor her blood glucose otherwise we will have her use insulin pump DVT prophylaxis-SCDs and subcu Lovenox CODE STATUS-full code Time Spent With Patient Time: Total time spent is greater than 50% in coordination of care (as documented) at patient's floor/unit and/or counseling patient: QUALITY VTE Deep Vein Thrombosis/Pulmonary Embolism Present on Admission: No
[2021-09-03] MEDS: 0.9 % SODIUM CHLORIDE 10 ML SYRINGE IV SCH ×2 (14:47→20:50)
[2021-09-03] MEDS ORDERED: PROMETHAZINE 25 MG/ML VIAL ONE (19:38)
[2021-09-03] MEDS ORDERED: cefTRIAXone 1 GM VIAL IV SCH (20:15)
[2021-09-03] MEDS: FAMOTIDINE/PF 20 MG/2 ML VIAL IV SCH (20:49)
[2021-09-03] MEDS: DOCUSATE SODIUM 100 MG CAPSULE PO SCH (20:49)
[2021-09-03] MEDS: MELATONIN 3 MG TABLET PO PRN (20:50)
[2021-09-03 20:55] LABS: Blood Urea Nitrogen 12 mg/dL (6-20); Calcium 8.3 mg/dL (8.6-10.4); Carbon Dioxide 22 mmol/L (22-30); Chloride 96 mmol/L (96-108); Glomerular Filtration Rate 98; Glucose 173 mg/dL (70-105)
[2021-09-03] MEDS: SENNOSIDES 1 TABLET PO SCH (20:56)
[2021-09-04] MEDS: METOCLOPRAMIDE 10 MG/2 ML VIAL IV SCH ×3 (00:20→11:28)
[2021-09-04] MEDS: ONDANSETRON 4 MG/2 ML VIAL IV PRN ×3 (01:44→21:09)
[2021-09-04] MEDS: 0.45 % SODIUM CHLORIDE 1,000 ML IV SCH ×3 (04:45→17:11)
[2021-09-04] MEDS: 0.9 % SODIUM CHLORIDE 10 ML SYRINGE IV SCH ×3 (04:46→21:09)
[2021-09-04 06:56] LABS: Basophils # (Auto) 0.08 K/mcL (0.00-0.30); Basophils % (Auto) 0.6 % (0.0-2.0); Eosinophils # (Auto) 0 K/mcL (0.00-0.70); Eosinophils % (Auto) 0 % (0.0-7.0); Hematocrit 38.7 % (34.1-44.9); Hemoglobin 12.5 g/dL (11.2-15.7); Lymphocytes # (Auto) 1.48 K/mcL (1.50-4.80); Lymphocytes % (Auto) 11.2 % (15.5-49.0); Mean Cell Volume 89.6 fL (80.0-100.0); Mean Corpuscular HGB Conc 32.3 g/dL (31.0-36.0); Mean Platelet Volume 13.5 fL (7.4-10.4); Monocytes % (Auto) 4.5 % (1.0-12.0); Neutrophils % (Auto) 83.7 % (38.0-78.0); Platelet Count 183 K/mcL (140-440); RBC 4.32 M/mcL (3.59-5.38); Red Cell Distribution Width 12.8 % (11.5-14.5); WBC 13.2 K/mcL (4.5-11.0)
[2021-09-04] MEDS ORDERED: LORazepam 2 MG/ML VIAL IV PRN ×2 (07:37→14:35)
[2021-09-04 07:49] LABS: Thyroid Stimulating Hormone 0.92 uIU/mL (0.27-5.01)
[2021-09-04] MEDS: ENOXAPARIN 40 MG/0.4 ML SYRINGE SQ SCH (08:00)
[2021-09-04] MEDS: FAMOTIDINE/PF 20 MG/2 ML VIAL IV SCH ×2 (08:01→21:09)
[2021-09-04] MEDS: cefTRIAXone 1 GM VIAL IV SCH (08:04)
[2021-09-04] MEDS: DOCUSATE SODIUM 100 MG CAPSULE PO SCH ×2 (08:05→21:08)
[2021-09-04 08:28] LABS: ALT/SGPT 14 U/L (<40); AST/SGOT 18 U/L (<32); Albumin 3.4 gm/dL (3.2-5.2); Albumin/Globulin Ratio 1.4 (1.0-2.3); Alkaline Phosphatase 102 U/L (39-117); Bilirubin,Total 0.3 mg/dL (0.1-1.0); Blood Urea Nitrogen 12 mg/dL (6-20); Carbon Dioxide 21 mmol/L (22-30); Chloride 91 mmol/L (96-108); Globulin 2.4 gm/dL (2.2-3.7); Glomerular Filtration Rate 115; Glucose 177 mg/dL (70-105)
[2021-09-04] MEDS ORDERED: POTASSIUM CHLORIDE 60 MEQ in DEXTROSE 5% IN WATER 1,000 ML IV SCH (09:00)
[2021-09-04] MEDS: POTASSIUM CHLORIDE 30 MEQ in DEXTROSE 5% IN WATER 500 ML IV SCH ×2 (10:00→14:09)
--- NOTE | 2021-09-04 10:07 | Internal Med Progress Note ---
SUBJECTIVE Subjective Patient information: Note initiated : 09/04/21 at 10:07 am Service Date, if different from initiated Date: [] Patient: Patricia Toussaint 31 y/o F admitted on 09/03/21 for N/V Since 1000. Chief Complaint: [] Interval history: 31-year-old female with a history of type 1 diabetes on insulin pump with a previous episodes of DKA patient has been well controlled for the last couple of years and was brought to the ER because of persistent nausea vomiting. Patient unable to take anything by p.o. because of the persistent nausea vomiting she was evaluated in the ER and her blood sugar was 156 and she has mild ketones in the urine and anion gap 23 with a CO2 of 22 lactic acid within normal limits ABG showing normal pH. Patient uses marijuana and has previous history of cyclical vomiting patient will be admitted for further management of possible gastroenteritis versus cyclical vomiting syndrome. Patient underwent a CT which did not show any acute abnormalities 09/04 Patient continued having nausea vomiting Started on lorazepam which seems to be helping her Checked her troponin because she was complaining of upper GI pain and was negative x2 Cortisol level within normal limits Blood pressure improved after IV hydration We will use Haldol if she continued having nausea vomiting by later today Review of systems Constitutional: No reported fatigue no chills, no fever Eyes: no vision changes or pain Cardiovascular: no chest pain, no palpitations Respiratory: no cough or dyspnea Gastrointestinal: Continued having intermittent nausea vomiting Genitourinary: no dysuria or difficulty voiding Musculoskeletal: no arthralgia or myalgia Integumentary: no skin lesion or wound Neurological: no focal weakness or numbness Psychiatric: no anxiety or depression Physical exam Head: No bruises, normal-appearing nontraumatic, obese Eyes: normal appearance, no scleral icterus. Neck: full ROM Respiratory: no respiratory distress. Cardiovascular: normal rate and rhythm, S1, S2. GI/Abdominal: Soft nontender bowel sounds are normal Extremities: full range of motion, nontender. Neurological: CN II-XII intact, intact motor, intact sensation. Psychiatric: normal mood. Skin: warm, normal color Constitutional Vitals: Vital Signs Temp Pulse Resp BP Pulse Ox 97.5 F 84 20 167/89 94 09/04/21 08:00 09/04/21 08:00 09/04/21 08:00 09/04/21 08:00 09/04/21 09:32 Period Temp Pulse Resp BP Sys/Butt Pulse Ox Last 24 Hr 97.5 F-98.9 F 73-89 13-24 89-188/57-96 91-98 Intake and Output 09/03/21 09/04/21 09/04/21 21:59 05:59 13:59 Intake Total 1492 800 Output Total 450 Balance 1042 800 Weight 99.79 kg Intake & Output: Intake & Output 09/03/21 09/04/21 09/04/21 21:59 05:59 13:59 Intake Total 1492 800 Output Total 450 Balance 1042 800 Weight 99.79 kg Intake: IV 1492 800 Sodium Chloride 0.45% 1,000 ml 992 800 @ 100 mls/hr IV .Q10H PAU Rx#: [id number] Sodium Chloride 0.9% 1,000 ml @ 500 999 mls/hr IV BOLUS ONE Rx#: [id number] Output: Void Amount 350 Emesis 100 Other: # Voids 1 1 # Emeses 1 OBJ DATA Labs CBC & Chem 7: 09/04/21 05:20 09/04/21 05:20 Labs: Abnormal Lab Results 09/04/21 09/04/21 09/04/21 05:20 05:20 05:20 WBC 13.2 H Hct MPV 13.5 H Neut % (Auto) 83.7 H Lymph % (Auto) 11.2 L Lymph # (Auto) 1.48 L Absolute Neutrophils 11.08 H POC VBG pO2 POC Venous O2 Sat Sodium 129 L Potassium 2.8 L* Chloride 91 L Carbon Dioxide 21 L Anion Gap 17.0 H Glucose 177 H Calcium 8.0 L Alkaline Phosphatase Troponin T 0.03 H Total Protein 5.8 L Beta-Hydroxybutyrate Urine Appearance Urine Protein Urine Glucose (UA) Urine Ketones Urine RBC Urine WBC Hyaline Casts Urine Mucus 09/03/21 09/03/21 09/03/21 19:17 11:35 04:38 WBC Hct MPV Neut % (Auto) Lymph % (Auto) Lymph # (Auto) Absolute Neutrophils POC VBG pO2 POC Venous O2 Sat Sodium Potassium Chloride Carbon Dioxide Anion Gap 17.0 H 19.0 H Glucose 173 H 172 H Calcium 8.3 L 8.5 L Alkaline Phosphatase Troponin T Total Protein Beta-Hydroxybutyrate Urine Appearance Hazy A Urine Protein >=500 A Urine Glucose (UA) >=500 A Urine Ketones 80 A Urine RBC 28 H Urine WBC 81 H Hyaline Casts 36 H Urine Mucus Many A 09/03/21 09/03/21 09/02/21 04:34 02:32 23:48 WBC Hct MPV Neut % (Auto) Lymph % (Auto) Lymph # (Auto) Absolute Neutrophils POC VBG pO2 48 H POC Venous O2 Sat 84.0 H Sodium Potassium Chloride 93 L Carbon Dioxide Anion Gap 18.0 H 23.0 H Glucose 153 H 165 H Calcium 8.5 L Alkaline Phosphatase 128 H Troponin T Total Protein Beta-Hydroxybutyrate 2.54 H Urine Appearance Urine Protein Urine Glucose (UA) Urine Ketones Urine RBC Urine WBC Hyaline Casts Urine Mucus 09/02/21 23:48 WBC 17.7 H Hct 45.7 H MPV 13.4 H Neut % (Auto) 91.1 H Lymph % (Auto) 6.8 L Lymph # (Auto) 1.21 L Absolute Neutrophils 16.09 H POC VBG pO2 POC Venous O2 Sat Sodium Potassium Chloride Carbon Dioxide Anion Gap Glucose Calcium Alkaline Phosphatase Troponin T Total Protein Beta-Hydroxybutyrate Urine Appearance Urine Protein Urine Glucose (UA) Urine Ketones Urine RBC Urine WBC Hyaline Casts Urine Mucus Meds: Medications Acetaminophen (Acetaminophen 325 Mg Tablet) 650 mg PO Q6HP PRN; Protocol PRN Reason: Per Pain Protocol/Fever > 101 Albuterol Sulfate (Albuterol Sulfate 2.5 Mg/3 Ml Nebulizer) 2.5 mg NEB Q2HP PRN PRN Reason: Shortness Of Breath Ceftriaxone Sodium (Ceftriaxone 1 Gm Vial) 1 gm IV Q24H [facility]; Protocol Last Admin: 09/04/21 08:04 Dose: 1 gm Documented by: Dextrose (Dextrose 50% 50 Ml Vial) 0 ml IV UD PRN PRN Reason: Per Sliding Scale Diagnostic Test (Pha) (Accu-Chek 1 Each Strip) 1 each FS ACHS [facility] Last Admin: 09/04/21 08:03 Dose: 1 each Documented by: Diphenhydramine HCl (Diphenhydramine 50 Mg/Ml Vial) 25 mg IV Q6HP PRN PRN Reason: Allergic Symptoms Docusate Sodium (Docusate Sodium 100 Mg Capsule) 100 mg PO BID [facility] Last Admin: 09/04/21 08:05 Dose: Not Given Documented by: Enoxaparin Sodium (Enoxaparin 40 Mg/0.4 Ml Syringe) 40 mg SQ DAILY [facility] Last Admin: 09/04/21 08:00 Dose: 40 mg Documented by: Famotidine (Famotidine/Pf 20 Mg/2 Ml Vial) 20 mg IV Q12 [facility] Last Admin: 09/04/21 08:01 Dose: 20 mg Documented by: Glucose (Dextrose 31 Gm Oral.Susp) 15 gm PO PRN PRN PRN Reason: Hypoglycemia Hydralazine HCl (Hydralazine 20 Mg/Ml Vial) 10 mg IV Q4-6HP PRN PRN Reason: Hypertension Last Admin: 09/04/21 00:30 Dose: 10 mg Documented by: Sodium Chloride (Sodium Chloride 0.45%) 1,000 mls @ 100 mls/hr IV .Q10H [facility] Last Admin: 09/04/21 04:45 Dose: 100 mls/hr Documented by: Potassium Chloride 30 meq/ (Dextrose) 515 mls @ 128.75 mls/hr IV 0900,1300 [facility] Stop: 09/04/21 19:00 Last Admin: 09/04/21 10:00 Dose: 128.75 mls/hr Documented by: Lorazepam (Lorazepam 2 Mg/Ml Vial) 0.5 mg IV Q8HP PRN PRN Reason: ANXIETY/SEDATION Last Admin: 09/04/21 08:02 Dose: 0.5 mg Documented by: Melatonin (Melatonin 3 Mg Tablet) 3 mg PO HSP PRN PRN Reason: Insomnia Last Admin: 09/03/21 20:50 Dose: 3 mg Documented by: Metoclopramide HCl (Metoclopramide 10 Mg/2 Ml Vial) 5 mg IV Q6 [facility] Last Admin: 09/04/21 04:45 Dose: 5 mg Documented by: Ondansetron HCl (Ondansetron 4 Mg/2 Ml Vial) 4 mg IV Q6HP PRN PRN Reason: Nausea And Vomiting Last Admin: 09/04/21 01:44 Dose: 4 mg Documented by: Senna (Sennosides 1 Tablet) 2 tab PO HS [facility] Last Admin: 09/03/21 20:56 Dose: Not Given Documented by: Sodium Chloride (0.9 % Sodium Chloride 10 Ml Syringe) 10 ml IV Q8 [facility] Last Admin: 09/04/21 04:46 Dose: 10 ml Documented by: Tramadol HCl (Tramadol 50 Mg Tablet) 50 mg PO Q4-6HP PRN; Protocol PRN Reason: Pain Trazodone HCl (Trazodone Hcl 50 Mg Tablet) 25 mg PO HSP PRN PRN Reason: Insomnia A/P Narrative Plan of Treatment: Persistent nausea vomiting Possible cyclical vomiting versus gastroenteritis History of marijuana use, DKA in the past- Upon presentation no obvious evidence of DKA she has mild ketones which probably due to starvation and nausea vomiting pH within normal limits anion gap mildly elevated bicarb normal limits Plan Continue Reglan and Zofran Lorazepam as needed as it seems to be helping her nausea vomiting Will consider Haldol and DC the Reglan if she continued having nausea vomiting b y later the day Will continue IV hydration Started Protonix Clear liquid diet and advance as tolerated Anion gap improving Cortisol level within normal limits Troponin x2 negative Probable UTI Her urine analysis suspicious for UTI with elevated leukocyte count Started on ceftriaxone 1 g every 24 hours Urine culture pending Type 1 diabetes Patient has insulin pump and we will monitor her blood glucose otherwise we will have her use insulin pump DVT prophylaxis-SCDs and subcu Lovenox CODE STATUS-full code Time Spent With Patient Time: Total time spent is greater than 50% in coordination of care (as documented) at patient's floor/unit and/or counseling patient: QUALITY VTE Deep Vein Thrombosis/Pulmonary Embolism Present on Admission: No
[2021-09-04] MEDS ORDERED: METOCLOPRAMIDE 10 MG/2 ML VIAL IV PRN (14:36)
[2021-09-04] MEDS: LORazepam 2 MG/ML VIAL IV PRN ×2 (14:47→21:08)
[2021-09-04] MEDS ORDERED: HALOPERIDOL LACTATE 5 MG/ML VIAL ONE (17:40)
[2021-09-04] MEDS: HALOPERIDOL LACTATE 5 MG/ML VIAL IV PRN (17:41)
[2021-09-04 18:26] LABS: Blood Urea Nitrogen 9 mg/dL (6-20); Calcium 8.4 mg/dL (8.6-10.4); Carbon Dioxide 24 mmol/L (22-30); Chloride 95 mmol/L (96-108); Glomerular Filtration Rate 115; Glucose 217 mg/dL (70-105)
[2021-09-04] MEDS: MELATONIN 3 MG TABLET PO PRN (21:08)
[2021-09-04] MEDS: SENNOSIDES 1 TABLET PO SCH (21:09)
[2021-09-04] MEDS: PROCHLORPERAZINE 10 MG/2 ML VIAL IV PRN (23:25)
[2021-09-04] MEDS: NACL 0.9% W/KCL 20MEQ 1,000 ML IV SCH (23:25)
[2021-09-05] MEDS: 0.9 % SODIUM CHLORIDE 10 ML SYRINGE IV SCH ×3 (05:07→20:59)
[2021-09-05] MEDS: ONDANSETRON 4 MG/2 ML VIAL IV PRN ×2 (05:17→12:52)
[2021-09-05] MEDS: HALOPERIDOL LACTATE 5 MG/ML VIAL IV PRN ×2 (05:17→12:52)
[2021-09-05] MEDS: DOCUSATE SODIUM 100 MG CAPSULE PO SCH ×2 (07:47→20:57)
[2021-09-05] MEDS: ENOXAPARIN 40 MG/0.4 ML SYRINGE SQ SCH (08:20)
[2021-09-05] MEDS: LORazepam 2 MG/ML VIAL IV PRN (08:20)
[2021-09-05 08:25] LABS: Basophils # (Auto) 0.11 K/mcL (0.00-0.30); Basophils % (Auto) 1.1 % (0.0-2.0); Eosinophils # (Auto) 0.02 K/mcL (0.00-0.70); Eosinophils % (Auto) 0.2 % (0.0-7.0); Hematocrit 43.8 % (34.1-44.9); Hemoglobin 13.9 g/dL (11.2-15.7); Lymphocytes # (Auto) 2.11 K/mcL (1.50-4.80); Lymphocytes % (Auto) 21.7 % (15.5-49.0); Mean Cell Volume 90.3 fL (80.0-100.0); Mean Corpuscular HGB Conc 31.7 g/dL (31.0-36.0); Mean Platelet Volume 13.9 fL (7.4-10.4); Monocytes # (Auto) 0.75 K/mcL (0.10-0.90); Monocytes % (Auto) 7.7 % (1.0-12.0); Neutrophils % (Auto) 69.3 % (38.0-78.0); Platelet Count 184 K/mcL (140-440); RBC 4.85 M/mcL (3.59-5.38); Red Cell Distribution Width 12.6 % (11.5-14.5); WBC 9.7 K/mcL (4.5-11.0)
[2021-09-05 08:38] LABS: ALT/SGPT 14 U/L (<40); AST/SGOT 19 U/L (<32); Albumin 3.6 gm/dL (3.2-5.2); Albumin/Globulin Ratio 1.4 (1.0-2.3); Alkaline Phosphatase 107 U/L (39-117); Bilirubin,Total 0.4 mg/dL (0.1-1.0); Blood Urea Nitrogen 7 mg/dL (6-20); Calcium 8.7 mg/dL (8.6-10.4); Carbon Dioxide 23 mmol/L (22-30); Chloride 99 mmol/L (96-108); Globulin 2.6 gm/dL (2.2-3.7); Glomerular Filtration Rate 115; Glucose 138 mg/dL (70-105)
[2021-09-05] MEDS: PROCHLORPERAZINE 10 MG/2 ML VIAL IV PRN ×2 (09:14→18:12)
[2021-09-05] MEDS: FAMOTIDINE/PF 20 MG/2 ML VIAL IV SCH ×2 (09:15→21:04)
[2021-09-05] MEDS: cefTRIAXone 1 GM VIAL IV SCH (09:15)
--- NOTE | 2021-09-05 11:31 | Internal Med Progress Note ---
SUBJECTIVE Subjective Patient information: Note initiated : 09/05/21 at 11:30 am Service Date, if different from initiated Date: [] Patient: Patricia Toussaint 31 y/o F admitted on 09/03/21 for N/V Since 1000. Chief Complaint: [] Interval history: 31-year-old female with a history of type 1 diabetes on insulin pump with a previous episodes of DKA patient has been well controlled for the last couple of years and was brought to the ER because of persistent nausea vomiting. Patient unable to take anything by p.o. because of the persistent nausea vomiting she was evaluated in the ER and her blood sugar was 156 and she has mild ketones in the urine and anion gap 23 with a CO2 of 22 lactic acid within normal limits ABG showing normal pH. Patient uses marijuana and has previous history of cyclical vomiting patient will be admitted for further management of possible gastroenteritis versus cyclical vomiting syndrome. Patient underwent a CT which did not show any acute abnormalities 09/04 Patient continued having nausea vomiting Started on lorazepam which seems to be helping her Checked her troponin because she was complaining of upper GI pain and was negative x2 Cortisol level within normal limits Blood pressure improved after IV hydration We will use Haldol if she continued having nausea vomiting by later toda 09/05 Patient continued having persistent nausea and vomiting Started on Compazine Ordered scopolamine patch Her anion gap improved Potassium improved Review of systems Constitutional: No reported fatigue no chills, no fever Eyes: no vision changes or pain Cardiovascular: no chest pain, no palpitations Respiratory: no cough or dyspnea Gastrointestinal: Continued having intermittent nausea vomiting Genitourinary: no dysuria or difficulty voiding Musculoskeletal: no arthralgia or myalgia Integumentary: no skin lesion or wound Neurological: no focal weakness or numbness Psychiatric: no anxiety or depression Physical exam Head: No bruises, normal-appearing nontraumatic, obese Eyes: normal appearance, no scleral icterus. Neck: full ROM Respiratory: no respiratory distress. Cardiovascular: normal rate and rhythm, S1, S2. GI/Abdominal: Soft nontender bowel sounds are normal Extremities: full range of motion, nontender. Neurological: CN II-XII intact, intact motor, intact sensation. Psychiatric: normal mood. Skin: warm, normal color Constitutional Vitals: Vital Signs Temp Pulse Resp BP Pulse Ox 97.8 F 81 12 158/88 95 09/05/21 07:19 05/31/22 07:19 09/05/21 07:19 09/05/21 07:19 09/05/21 07:19 Period Temp Pulse Resp BP Sys/Butt Pulse Ox Last 24 Hr 97.8 F-99.3 F 75-82 12-20 112-161/64-90 91-95 Intake and Output 09/04/21 09/05/21 09/05/21 21:59 05:59 13:59 Intake Total 2029 753 Output Total 1000 1250 200 Balance 1030 -497 -200 Weight 102.058 kg Intake & Output: Intake & Output 09/04/21 09/05/21 09/05/21 21:59 05:59 13:59 Intake Total 2029 753 Output Total 1000 1250 200 Balance 1030 -497 -200 Weight 102.058 kg Intake: IV 2029 603 Sodium Chloride 0.45% 1,000 ml 1000 @ 100 mls/hr IV .Q10H PAU Rx#: [id number] NaCl 0.9% W/KCl 20Meq 1000ML 1, 603 000 ml @ 100 mls/hr IV .Q10H PAU Rx#:[id number] Potassium Chloride 30 Meq In 1030 Dextrose 5% in Water 500 ml @ 128.75 mls/hr IV 0900,1300 PAU Rx#:[id number] Oral 150 Output: Void Amount 700 1250 Emesis 300 200 Other: Urine Appearance Clear Urine Color Light Andreea Dark Andreea Urine Odor Strong # Voids 2 # Unmeasured Emesis 1 # Emeses 1 OBJ DATA Labs CBC & Chem 7: 09/05/21 07:17 09/05/21 07:17 Labs: Abnormal Lab Results 09/05/21 09/05/21 09/04/21 07:17 07:17 17:38 WBC Hct MPV 13.9 H Neut % (Auto) Lymph % (Auto) Lymph # (Auto) Absolute Neutrophils POC VBG pO2 POC Venous O2 Sat Sodium 130 L Potassium Chloride 95 L Carbon Dioxide Anion Gap Glucose 138 H 217 H Calcium 8.4 L Alkaline Phosphatase Troponin T Total Protein Beta-Hydroxybutyrate Urine Appearance Urine Protein Urine Glucose (UA) Urine Ketones Urine RBC Urine WBC Hyaline Casts Urine Mucus 09/04/21 09/04/21 09/04/21 05:20 05:20 05:20 WBC 13.2 H Hct MPV 13.5 H Neut % (Auto) 83.7 H Lymph % (Auto) 11.2 L Lymph # (Auto) 1.48 L Absolute Neutrophils 11.08 H POC VBG pO2 POC Venous O2 Sat Sodium 129 L Potassium 2.8 L* Chloride 91 L Carbon Dioxide 21 L Anion Gap 17.0 H Glucose 177 H Calcium 8.0 L Alkaline Phosphatase Troponin T 0.03 H Total Protein 5.8 L Beta-Hydroxybutyrate Urine Appearance Urine Protein Urine Glucose (UA) Urine Ketones Urine RBC Urine WBC Hyaline Casts Urine Mucus 09/03/21 09/03/21 09/03/21 19:17 11:35 04:38 WBC Hct MPV Neut % (Auto) Lymph % (Auto) Lymph # (Auto) Absolute Neutrophils POC VBG pO2 POC Venous O2 Sat Sodium Potassium Chloride Carbon Dioxide Anion Gap 17.0 H 19.0 H Glucose 173 H 172 H Calcium 8.3 L 8.5 L Alkaline Phosphatase Troponin T Total Protein Beta-Hydroxybutyrate Urine Appearance Hazy A Urine Protein >=500 A Urine Glucose (UA) >=500 A Urine Ketones 80 A Urine RBC 28 H Urine WBC 81 H Hyaline Casts 36 H Urine Mucus Many A 09/03/21 09/03/21 09/02/21 04:34 02:32 23:48 WBC Hct MPV Neut % (Auto) Lymph % (Auto) Lymph # (Auto) Absolute Neutrophils POC VBG pO2 48 H POC Venous O2 Sat 84.0 H Sodium Potassium Chloride 93 L Carbon Dioxide Anion Gap 18.0 H 23.0 H Glucose 153 H 165 H Calcium 8.5 L Alkaline Phosphatase 128 H Troponin T Total Protein Beta-Hydroxybutyrate 2.54 H Urine Appearance Urine Protein Urine Glucose (UA) Urine Ketones Urine RBC Urine WBC Hyaline Casts Urine Mucus 09/02/21 23:48 WBC 17.7 H Hct 45.7 H MPV 13.4 H Neut % (Auto) 91.1 H Lymph % (Auto) 6.8 L Lymph # (Auto) 1.21 L Absolute Neutrophils 16.09 H POC VBG pO2 POC Venous O2 Sat Sodium Potassium Chloride Carbon Dioxide Anion Gap Glucose Calcium Alkaline Phosphatase Troponin T Total Protein Beta-Hydroxybutyrate Urine Appearance Urine Protein Urine Glucose (UA) Urine Ketones Urine RBC Urine WBC Hyaline Casts Urine Mucus Meds: Medications Acetaminophen (Acetaminophen 325 Mg Tablet) 650 mg PO Q6HP PRN; Protocol PRN Reason: Per Pain Protocol/Fever > 101 Albuterol Sulfate (Albuterol Sulfate 2.5 Mg/3 Ml Nebulizer) 2.5 mg NEB Q2HP PRN PRN Reason: Shortness Of Breath Ceftriaxone Sodium (Ceftriaxone 1 Gm Vial) 1 gm IV Q24H [facility]; Protocol Last Admin: 09/05/21 09:15 Dose: 1 gm Documented by: Dextrose (Dextrose 50% 50 Ml Vial) 0 ml IV UD PRN PRN Reason: Per Sliding Scale Diagnostic Test (Pha) (Accu-Chek 1 Each Strip) 1 each FS ACHS [facility] Last Admin: 09/05/21 08:20 Dose: 1 each Documented by: Diphenhydramine HCl (Diphenhydramine 50 Mg/Ml Vial) 25 mg IV Q6HP PRN PRN Reason: Allergic Symptoms Docusate Sodium (Docusate Sodium 100 Mg Capsule) 100 mg PO BID [facility] Last Admin: 09/05/21 07:47 Dose: Not Given Documented by: Enoxaparin Sodium (Enoxaparin 40 Mg/0.4 Ml Syringe) 40 mg SQ DAILY [facility] Last Admin: 09/05/21 08:20 Dose: 40 mg Documented by: Famotidine (Famotidine/Pf 20 Mg/2 Ml Vial) 20 mg IV Q12 [facility] Last Admin: 09/05/21 09:15 Dose: 20 mg Documented by: Glucose (Dextrose 31 Gm Oral.Susp) 15 gm PO PRN PRN PRN Reason: Hypoglycemia Haloperidol Lactate (Haloperidol Lactate 5 Mg/Ml Vial) 1 mg IV Q8HP PRN PRN Reason: Nausea And Vomiting Last Admin: 09/05/21 05:17 Dose: 1 mg Documented by: Hydralazine HCl (Hydralazine 20 Mg/Ml Vial) 10 mg IV Q4-6HP PRN PRN Reason: Hypertension Last Admin: 09/04/21 00:30 Dose: 10 mg Documented by: Potassium Chloride/Sodium Chloride (Nacl 0.9% W/Kcl 20meq 1000ml) 1,000 mls @ 100 mls/hr IV .Q10H [facility] Last Infusion: 09/05/21 05:27 Dose: 0 mls/hr Documented by: Melatonin (Melatonin 3 Mg Tablet) 3 mg PO HSP PRN PRN Reason: Insomnia Last Admin: 09/04/21 21:08 Dose: 3 mg Documented by: Ondansetron HCl (Ondansetron 4 Mg/2 Ml Vial) 4 mg IV Q6HP PRN PRN Reason: Nausea And Vomiting Last Admin: 09/05/21 05:17 Dose: 4 mg Documented by: Prochlorperazine (Prochlorperazine 10 Mg/2 Ml Vial) 5 mg IV Q6HP PRN PRN Reason: Nausea And Vomiting Last Admin: 09/05/21 09:14 Dose: 5 mg Documented by: Scopolamine (Scopolamine 1 Patch Patch) 1 patch TOPICAL Q72H [facility]U Senna (Sennosides 1 Tablet) 2 tab PO HS [facility] Last Admin: 09/04/21 21:09 Dose: Not Given Documented by: Sodium Chloride (0.9 % Sodium Chloride 10 Ml Syringe) 10 ml IV Q8 [facility] Last Admin: 09/05/21 05:07 Dose: Not Given Documented by: Trazodone HCl (Trazodone Hcl 50 Mg Tablet) 25 mg PO HSP PRN PRN Reason: Insomnia A/P Narrative Plan of Treatment: Persistent nausea vomiting Possible cyclical vomiting versus gastroenteritis History of marijuana use, DKA in the past- Upon presentation no obvious evidence of DKA she has mild ketones which probably due to starvation and nausea vomiting pH within normal limits anion gap mildly elevated bicarb normal limits Plan Patient continued having nausea and vomiting her anion gap improving leukocytosis improved Continue Reglan and Zofran Started Compazine 5 mg every 6 hours as needed Started scopolamine patch She also have Haldol 1 mg every 8 hourly IV as needed Will continue IV hydration Continue Protonix Clear liquid diet and advance as tolerated Anion gap improving Cortisol level within normal limits Troponin x2 negative Probable UTI Her urine analysis suspicious for UTI with elevated leukocyte count Started on ceftriaxone 1 g every 24 hours Urine culture pending Type 1 diabetes Patient has insulin pump and we will monitor her blood glucose otherwise we will have her use insulin pump DVT prophylaxis-SCDs and subcu Lovenox CODE STATUS-full code Time Spent With Patient Time: Total time spent is greater than 50% in coordination of care (as documented) at patient's floor/unit and/or counseling patient: QUALITY VTE Deep Vein Thrombosis/Pulmonary Embolism Present on Admission: No
[2021-09-05] MEDS: SCOPOLAMINE 1 PATCH PATCH TOPICAL SCH (11:59)
--- NOTE | 2021-09-05 13:20 | Internal Med Progress Note ---
SUBJECTIVE Subjective Patient information: Note initiated : 09/05/21 at 1:15 pm Service Date, if different from initiated Date: [] Patient: Patricia Toussaint 31 y/o F admitted on 09/03/21 for N/V Since 1000. Chief Complaint: [] Interval history: 31-year-old female with a history of type 1 diabetes on insulin pump with a previous episodes of DKA patient has been well controlled for the last couple of years and was brought to the ER because of persistent nausea vomiting. Patient unable to take anything by p.o. because of the persistent nausea vomiting she was evaluated in the ER and her blood sugar was 156 and she has mild ketones in the urine and anion gap 23 with a CO2 of 22 lactic acid within normal limits ABG showing normal pH. Patient uses marijuana and has previous history of cyclical vomiting patient will be admitted for further management of possible gastroenteritis versus cyclical vomiting syndrome. Patient underwent a CT which did not show any acute abnormalities 09/04 Patient continued having nausea vomiting Started on lorazepam which seems to be helping her Checked her troponin because she was complaining of upper GI pain and was negative x2 Cortisol level within normal limits Blood pressure improved after IV hydration We will use Haldol if she continued having nausea vomiting by later toda 09/05 Patient continued having persistent nausea and vomiting Started on Compazine Ordered scopolamine patch Her anion gap improved Potassium improved 09/06 Constitutional Vitals: Vital Signs Temp Pulse Resp BP Pulse Ox 98.0 F 75 12 145/81 94 09/05/21 12:00 09/05/21 12:00 09/05/21 12:00 09/05/21 12:00 09/05/21 12:00 Period Temp Pulse Resp BP Sys/Butt Pulse Ox Last 24 Hr 97.8 F-99.3 F 75-82 12-20 112-161/64-90 92-95 Intake and Output 09/04/21 09/05/21 09/05/21 21:59 05:59 13:59 Intake Total 2029 753 0 Output Total 1000 1250 200 Balance 1030 -497 -200 Weight 102.058 kg Intake & Output: Intake & Output 09/04/21 09/05/21 09/05/21 21:59 05:59 13:59 Intake Total 2029 753 0 Output Total 1000 1250 200 Balance 1030 -497 -200 Weight 102.058 kg Intake: IV 2030 603 0 Sodium Chloride 0.45% 1,000 ml 1000 @ 100 mls/hr IV .Q10H PAU Rx#: [id number] NaCl 0.9% W/KCl 20Meq 1000ML 1, 603 0 000 ml @ 100 mls/hr IV .Q10H PAU Rx#:[id number] Potassium Chloride 30 Meq In 1030 Dextrose 5% in Water 500 ml @ 128.75 mls/hr IV 0900,1300 PAU Rx#:[id number] Oral 150 Output: Void Amount 700 1250 Emesis 300 200 Other: Urine Appearance Clear Urine Color Light Andreea Dark Andreea Urine Odor Strong # Voids 2 # Unmeasured Emesis 1 # Emeses 1 Exam: General: Alert, Awake, No acute Distress, obese Eyes/N/T: EOMI, Head/Neck: neck supple, CV: RRR, No murmurs, Pulm: Clear b/l, no wheezing/rhonchi/rales Abd: soft, nontender, +BS x4 Ext: no clubbing/cyanosis/edema Neuro: Alert, no focal deficits, moves all extremities, Skin: warm/dry OBJ DATA Labs CBC & Chem 7: 09/05/21 07:17 09/05/21 07:17 Labs: Abnormal Lab Results 09/05/21 09/05/21 09/04/21 07:17 07:17 17:38 WBC Hct MPV 13.9 H Neut % (Auto) Lymph % (Auto) Lymph # (Auto) Absolute Neutrophils POC VBG pO2 POC Venous O2 Sat Sodium 130 L Potassium Chloride 95 L Carbon Dioxide Anion Gap Glucose 138 H 217 H Calcium 8.4 L Alkaline Phosphatase Troponin T Total Protein Beta-Hydroxybutyrate Urine Appearance Urine Protein Urine Glucose (UA) Urine Ketones Urine RBC Urine WBC Hyaline Casts Urine Mucus 09/04/21 09/04/21 09/04/21 05:20 05:20 05:20 WBC 13.2 H Hct MPV 13.5 H Neut % (Auto) 83.7 H Lymph % (Auto) 11.2 L Lymph # (Auto) 1.48 L Absolute Neutrophils 11.08 H POC VBG pO2 POC Venous O2 Sat Sodium 129 L Potassium 2.8 L* Chloride 91 L Carbon Dioxide 21 L Anion Gap 17.0 H Glucose 177 H Calcium 8.0 L Alkaline Phosphatase Troponin T 0.03 H Total Protein 5.8 L Beta-Hydroxybutyrate Urine Appearance Urine Protein Urine Glucose (UA) Urine Ketones Urine RBC Urine WBC Hyaline Casts Urine Mucus 09/03/21 09/03/21 09/03/21 19:17 11:35 04:38 WBC Hct MPV Neut % (Auto) Lymph % (Auto) Lymph # (Auto) Absolute Neutrophils POC VBG pO2 POC Venous O2 Sat Sodium Potassium Chloride Carbon Dioxide Anion Gap 17.0 H 19.0 H Glucose 173 H 172 H Calcium 8.3 L 8.5 L Alkaline Phosphatase Troponin T Total Protein Beta-Hydroxybutyrate Urine Appearance Hazy A Urine Protein >=500 A Urine Glucose (UA) >=500 A Urine Ketones 80 A Urine RBC 28 H Urine WBC 81 H Hyaline Casts 36 H Urine Mucus Many A 09/03/21 09/03/21 09/02/21 04:34 02:32 23:48 WBC Hct MPV Neut % (Auto) Lymph % (Auto) Lymph # (Auto) Absolute Neutrophils POC VBG pO2 48 H POC Venous O2 Sat 84.0 H Sodium Potassium Chloride 93 L Carbon Dioxide Anion Gap 18.0 H 23.0 H Glucose 153 H 165 H Calcium 8.5 L Alkaline Phosphatase 128 H Troponin T Total Protein Beta-Hydroxybutyrate 2.54 H Urine Appearance Urine Protein Urine Glucose (UA) Urine Ketones Urine RBC Urine WBC Hyaline Casts Urine Mucus 09/02/21 23:48 WBC 17.7 H Hct 45.7 H MPV 13.4 H Neut % (Auto) 91.1 H Lymph % (Auto) 6.8 L Lymph # (Auto) 1.21 L Absolute Neutrophils 16.09 H POC VBG pO2 POC Venous O2 Sat Sodium Potassium Chloride Carbon Dioxide Anion Gap Glucose Calcium Alkaline Phosphatase Troponin T Total Protein Beta-Hydroxybutyrate Urine Appearance Urine Protein Urine Glucose (UA) Urine Ketones Urine RBC Urine WBC Hyaline Casts Urine Mucus Meds: Medications Acetaminophen (Acetaminophen 325 Mg Tablet) 650 mg PO Q6HP PRN; Protocol PRN Reason: Per Pain Protocol/Fever > 101 Albuterol Sulfate (Albuterol Sulfate 2.5 Mg/3 Ml Nebulizer) 2.5 mg NEB Q2HP PRN PRN Reason: Shortness Of Breath Ceftriaxone Sodium (Ceftriaxone 1 Gm Vial) 1 gm IV Q24H [facility]; Protocol Last Admin: 09/05/21 09:15 Dose: 1 gm Documented by: Dextrose (Dextrose 50% 50 Ml Vial) 0 ml IV UD PRN PRN Reason: Per Sliding Scale Diagnostic Test (Pha) (Accu-Chek 1 Each Strip) 1 each FS ACHS [facility] Last Admin: 09/05/21 11:59 Dose: 1 each Documented by: Diphenhydramine HCl (Diphenhydramine 50 Mg/Ml Vial) 25 mg IV Q6HP PRN PRN Reason: Allergic Symptoms Docusate Sodium (Docusate Sodium 100 Mg Capsule) 100 mg PO BID [facility] Last Admin: 09/05/21 07:47 Dose: Not Given Documented by: Enoxaparin Sodium (Enoxaparin 40 Mg/0.4 Ml Syringe) 40 mg SQ DAILY [facility] Last Admin: 09/05/21 08:20 Dose: 40 mg Documented by: Famotidine (Famotidine/Pf 20 Mg/2 Ml Vial) 20 mg IV Q12 [facility] Last Admin: 09/05/21 09:15 Dose: 20 mg Documented by: Glucose (Dextrose 31 Gm Oral.Susp) 15 gm PO PRN PRN PRN Reason: Hypoglycemia Haloperidol Lactate (Haloperidol Lactate 5 Mg/Ml Vial) 1 mg IV Q8HP PRN PRN Reason: Nausea And Vomiting Last Admin: 09/05/21 12:52 Dose: 1 mg Documented by: Hydralazine HCl (Hydralazine 20 Mg/Ml Vial) 10 mg IV Q4-6HP PRN PRN Reason: Hypertension Last Admin: 09/04/21 00:30 Dose: 10 mg Documented by: Potassium Chloride/Sodium Chloride (Nacl 0.9% W/Kcl 20meq 1000ml) 1,000 mls @ 100 mls/hr IV .Q10H [facility] Last Infusion: 09/05/21 09:20 Dose: 100 mls/hr Documented by: Melatonin (Melatonin 3 Mg Tablet) 3 mg PO HSP PRN PRN Reason: Insomnia Last Admin: 09/04/21 21:08 Dose: 3 mg Documented by: Ondansetron HCl (Ondansetron 4 Mg/2 Ml Vial) 4 mg IV Q6HP PRN PRN Reason: Nausea And Vomiting Last Admin: 09/05/21 12:52 Dose: 4 mg Documented by: Prochlorperazine (Prochlorperazine 10 Mg/2 Ml Vial) 5 mg IV Q6HP PRN PRN Reason: Nausea And Vomiting Last Admin: 09/05/21 09:14 Dose: 5 mg Documented by: Scopolamine (Scopolamine 1 Patch Patch) 1 patch TOPICAL Q72H [facility] Last Admin: 09/05/21 11:59 Dose: 1 patch Documented by: Senna (Sennosides 1 Tablet) 2 tab PO HS [facility] Last Admin: 09/04/21 21:09 Dose: Not Given Documented by: Sodium Chloride (0.9 % Sodium Chloride 10 Ml Syringe) 10 ml IV Q8 [facility] Last Admin: 09/05/21 05:07 Dose: Not Given Documented by: Trazodone HCl (Trazodone Hcl 50 Mg Tablet) 25 mg PO HSP PRN PRN Reason: Insomnia A/P Narrative Plan of Treatment: A: *Intractable nausea/vomiting: Possibly 2/2 marijuana hyperemesis vs cyclical vomiting vs gastroenteritis -History of marijuana use/DKA in the past (Upon presentation no obvious evidence of DKA) -Cortisol level within normal limits *Probable UTI: *Type 1 diabetes: *Obesity: bmi 33 Plan: -Patient continued having nausea and vomiting her anion gap improving leukocytosis improved -Continue Reglan and Zofran -Started Compazine 5 mg every 6 hours as needed -Started scopolamine patch -She also have Haldol 1 mg every 8 hourly IV as needed -Will continue IV hydration -Continue Protonix -Clear liquid diet and advance as tolerated -ceftriaxone 1 g every 24 hours, Urine culture pending -Patient has insulin pump and we will monitor her blood glucose otherwise we will have her use insulin pump -ppx:Lovenox Time Spent With Patient Time: Total time spent is greater than 50% in coordination of care (as documented) at patient's floor/unit and/or counseling patient: QUALITY VTE Deep Vein Thrombosis/Pulmonary Embolism Present on Admission: No
[2021-09-05] MEDS: NACL 0.9% W/KCL 20MEQ 1,000 ML IV SCH ×2 (13:36→23:14)
[2021-09-05] MEDS: PATIENTS OWN MEDICATION 1 DOSE MISCELL SUB-Q SCH ×2 (17:22→20:58)
[2021-09-05] MEDS: METOCLOPRAMIDE 10 MG TABLET PO PRN (17:29)
[2021-09-05] MEDS: SENNOSIDES 1 TABLET PO SCH (20:59)
[2021-09-05] MEDS: MELATONIN 3 MG TABLET PO PRN (21:04)
[2021-09-06] MEDS: NACL 0.9% W/KCL 20MEQ 1,000 ML IV SCH ×2 (05:41→08:57)
[2021-09-06] MEDS: 0.9 % SODIUM CHLORIDE 10 ML SYRINGE IV SCH ×4 (05:42→21:11)
--- NOTE | 2021-09-06 07:19 | Internal Med Progress Note ---
SUBJECTIVE Subjective Patient information: Note initiated : 09/06/21 at 7:18 am Service Date, if different from initiated Date: [] Patient: Patricia Toussaint 31 y/o F admitted on 09/05/21 for N/V Since 1000. Chief Complaint: [] Interval history: 31-year-old female with a history of type 1 diabetes on insulin pump with a previous episodes of DKA patient has been well controlled for the last couple of years and was brought to the ER because of persistent nausea vomiting. Patient unable to take anything by p.o. because of the persistent nausea vomiting she was evaluated in the ER and her blood sugar was 156 and she has mild ketones in the urine and anion gap 23 with a CO2 of 22 lactic acid within normal limits ABG showing normal pH. Patient uses marijuana and has previous history of cyclical vomiting patient will be admitted for further management of possible gastroenteritis versus cyclical vomiting syndrome. Patient underwent a CT which did not show any acute abnormalities 09/04 Patient continued having nausea vomiting Started on lorazepam which seems to be helping her Checked her troponin because she was complaining of upper GI pain and was negative x2 Cortisol level within normal limits Blood pressure improved after IV hydration We will use Haldol if she continued having nausea vomiting by later toda 09/05 Patient continued having persistent nausea and vomiting Started on Compazine Ordered scopolamine patch Her anion gap improved Potassium improved 09/06 Patient continues to complain of nausea vomiting. Added Ativan last night and will try Benadryl. As well as capsaicin for potential marijuana hyperemesis although does not like she takes very much but does use it daily. Able identify any triggers. She does have some abdominal pain from vomiting. Review of Systems: denies headache/fever/chills//chest pain/cough/dyspnea/diarrhea. Otherwise see above. Constitutional Vitals: Vital Signs Temp Pulse Resp BP Pulse Ox 97.8 F 56 L 12 109/65 93 09/06/21 03:15 09/06/21 03:15 09/06/21 03:15 09/06/21 03:15 09/06/21 03:15 Period Temp Pulse Resp BP Sys/Butt Pulse Ox Last 24 Hr 97.8 F-99.1 F 56-84 12-12 108-158/59-88 93-95 Intake and Output 09/05/21 09/06/21 09/06/21 21:59 05:59 13:59 Intake Total 1383 Output Total 0 Balance 1383 Weight 101.559 kg Intake & Output: Intake & Output 09/05/21 09/06/21 09/06/21 21:59 05:59 13:59 Intake Total 1383 Output Total 0 Balance 1383 Weight 101.559 kg Intake: IV 963 NaCl 0.9% W/KCl 20Meq 1000ML 1, 963 000 ml @ 100 mls/hr IV .Q10H PAU Rx#:[id number] Oral 420 Output: Void Amount 0 Other: # Voids 1 0 # Unmeasured Emesis 2 Exam: General: Alert, Awake, mild Distress, obese Eyes/N/T: EOMI, Head/Neck: neck supple, CV: RRR, No murmurs, Pulm: Clear b/l, no wheezing/rhonchi/rales Abd: soft, nontender, +BS x4 Ext: no clubbing/cyanosis/edema Neuro: Alert, no focal deficits, moves all extremities, Skin: warm/dry OBJ DATA Labs CBC & Chem 7: 09/05/21 07:17 09/05/21 07:17 Labs: Abnormal Lab Results 09/05/21 09/05/21 09/04/21 07:17 07:17 17:38 WBC MPV 13.9 H Neut % (Auto) Lymph % (Auto) Lymph # (Auto) Absolute Neutrophils Sodium 130 L Potassium Chloride 95 L Carbon Dioxide Anion Gap Glucose 138 H 217 H Calcium 8.4 L Troponin T Total Protein 09/04/21 09/04/21 09/04/21 05:20 05:20 05:20 WBC 13.2 H MPV 13.5 H Neut % (Auto) 83.7 H Lymph % (Auto) 11.2 L Lymph # (Auto) 1.48 L Absolute Neutrophils 11.08 H Sodium 129 L Potassium 2.8 L* Chloride 91 L Carbon Dioxide 21 L Anion Gap 17.0 H Glucose 177 H Calcium 8.0 L Troponin T 0.03 H Total Protein 5.8 L 09/03/21 09/03/21 19:17 11:35 WBC MPV Neut % (Auto) Lymph % (Auto) Lymph # (Auto) Absolute Neutrophils Sodium Potassium Chloride Carbon Dioxide Anion Gap 17.0 H 19.0 H Glucose 173 H 172 H Calcium 8.3 L 8.5 L Troponin T Total Protein Meds: Medications Acetaminophen (Acetaminophen 325 Mg Tablet) 650 mg PO Q6HP PRN; Protocol PRN Reason: Per Pain Protocol/Fever > 101 Albuterol Sulfate (Albuterol Sulfate 2.5 Mg/3 Ml Nebulizer) 2.5 mg NEB Q2HP PRN PRN Reason: Shortness Of Breath Ceftriaxone Sodium (Ceftriaxone 1 Gm Vial) 1 gm IV Q24H [facility]; Protocol Last Admin: 09/05/21 09:15 Dose: 1 gm Documented by: Dextrose (Dextrose 50% 50 Ml Vial) 0 ml IV UD PRN PRN Reason: Per Sliding Scale Diagnostic Test (Pha) (Accu-Chek 1 Each Strip) 1 each FS ACHS [facility] Last Admin: 09/05/21 20:56 Dose: 1 each Documented by: Diphenhydramine HCl (Diphenhydramine 50 Mg/Ml Vial) 25 mg IV Q6HP PRN PRN Reason: Allergic Symptoms Docusate Sodium (Docusate Sodium 100 Mg Capsule) 100 mg PO BID [facility] Last Admin: 09/05/21 20:57 Dose: Not Given Documented by: Enoxaparin Sodium (Enoxaparin 40 Mg/0.4 Ml Syringe) 40 mg SQ DAILY [facility] Last Admin: 09/05/21 08:20 Dose: 40 mg Documented by: Famotidine (Famotidine/Pf 20 Mg/2 Ml Vial) 20 mg IV Q12 [facility] Last Admin: 09/05/21 21:04 Dose: 20 mg Documented by: Glucose (Dextrose 31 Gm Oral.Susp) 15 gm PO PRN PRN PRN Reason: Hypoglycemia Haloperidol Lactate (Haloperidol Lactate 5 Mg/Ml Vial) 1 mg IV Q8HP PRN PRN Reason: Nausea And Vomiting Last Admin: 09/05/21 12:52 Dose: 1 mg Documented by: Hydralazine HCl (Hydralazine 20 Mg/Ml Vial) 10 mg IV Q4-6HP PRN PRN Reason: Hypertension Last Admin: 09/04/21 00:30 Dose: 10 mg Documented by: Potassium Chloride/Sodium Chloride (Nacl 0.9% W/Kcl 20meq 1000ml) 1,000 mls @ 100 mls/hr IV .Q10H [facility] Last Admin: 09/06/21 05:41 Dose: Not Given Documented by: Melatonin (Melatonin 3 Mg Tablet) 3 mg PO HSP PRN PRN Reason: Insomnia Last Admin: 09/05/21 21:04 Dose: 3 mg Documented by: Metoclopramide HCl (Metoclopramide 10 Mg Tablet) 5 mg PO ACHS PRN PRN Reason: Stomach Upset Last Admin: 09/05/21 17:29 Dose: 5 mg Documented by: Ondansetron HCl (Ondansetron 4 Mg/2 Ml Vial) 4 mg IV Q6HP PRN PRN Reason: Nausea And Vomiting Last Admin: 09/05/21 12:52 Dose: 4 mg Documented by: Patient Own Medication (Patients Own Medication 1 Dose Miscell) 1 dose SUB-Q ACHS [facility] Last Admin: 09/05/21 20:58 Dose: 1 dose Documented by: Prochlorperazine (Prochlorperazine 10 Mg/2 Ml Vial) 5 mg IV Q6HP PRN PRN Reason: Nausea And Vomiting Last Admin: 09/05/21 18:12 Dose: 5 mg Documented by: Scopolamine (Scopolamine 1 Patch Patch) 1 patch TOPICAL Q72H [facility] Last Admin: 09/05/21 11:59 Dose: 1 patch Documented by: Senna (Sennosides 1 Tablet) 2 tab PO HS [facility] Last Admin: 09/05/21 20:59 Dose: Not Given Documented by: Sodium Chloride (0.9 % Sodium Chloride 10 Ml Syringe) 10 ml IV Q8 [facility] Last Admin: 09/06/21 05:42 Dose: Not Given Documented by: Trazodone HCl (Trazodone Hcl 50 Mg Tablet) 25 mg PO HSP PRN PRN Reason: Insomnia A/P Narrative Plan of Treatment: A: *Intractable nausea/vomiting: Possibly 2/2 cyclical vomiting vs marijuana hyperemesis vs gastroenteritis -History of marijuana use/DKA in the past (Upon presentation no obvious evidence of DKA) -Cortisol level within normal limits *Probable UTI: *Type 1 diabetes: *Obesity: bmi 33 Plan: -Continue Reglan and Zofran, prn Benzo and bendadryl, capsaicin trial -Started Compazine 5 mg every 6 hours as needed -Started scopolamine patch -Continue Protonix -Clear liquid diet and advance as tolerated -ceftriaxone 1 g every 24 hours, Urine culture pending -Patient has insulin pump and we will monitor her blood glucose otherwise we will have her use insulin pump -ppx:Lovenox Time Spent With Patient Time: Total time spent is greater than 50% in coordination of care (as documented) at patient's floor/unit and/or counseling patient: Total time spent with greater than 50% in coordination of care (as documented) at patient's floor/unit and/or counseling patient:: 25 - 35 minutes QUALITY VTE Deep Vein Thrombosis/Pulmonary Embolism Present on Admission: No
[2021-09-06] MEDS: PATIENTS OWN MEDICATION 1 DOSE MISCELL SUB-Q SCH ×4 (07:32→21:10)
[2021-09-06] MEDS: METOCLOPRAMIDE 10 MG TABLET PO PRN (07:33)
[2021-09-06] MEDS: ONDANSETRON 4 MG/2 ML VIAL IV PRN ×2 (07:38→18:51)
[2021-09-06] MEDS: ENOXAPARIN 40 MG/0.4 ML SYRINGE SQ SCH (08:18)
[2021-09-06] MEDS: cefTRIAXone 1 GM VIAL IV SCH (08:18)
[2021-09-06] MEDS: FAMOTIDINE/PF 20 MG/2 ML VIAL IV SCH ×2 (08:19→21:01)
[2021-09-06] MEDS: DOCUSATE SODIUM 100 MG CAPSULE PO SCH ×2 (08:19→21:10)
[2021-09-06] MEDS: PROCHLORPERAZINE 10 MG/2 ML VIAL IV PRN ×2 (08:19→21:04)
[2021-09-06] MEDS: LORazepam 2 MG/ML VIAL IV PRN ×2 (08:56→21:02)
[2021-09-06] MEDS ORDERED: SUCRALFATE 1 GM/10 ML ORAL.SUSP PO ONE (10:30)
[2021-09-06] MEDS ORDERED: CAPSAICIN 0.025% CREAM.TOP 60GM TOPICAL ONE (10:30)
[2021-09-06] MEDS ORDERED: morphine 2 MG/ML VIAL IV PRN (10:43)
--- NOTE | 2021-09-06 13:07 | Discharge Summary ---
Discharge Provider Provider IMPORTANT FOLLOW-UP INFORMATION FOR PCP: Follow-up with GI for persistent nausea, ?EGD. Patient information: Note initiated : 09/06/21 at 1:06 pm Service Date, if different from initiated Date: [] Patient: Patricia Toussaint 31 y/o F admitted on 09/05/21 for N/V Since 1000. Chief Complaint: [] Date of admission: 09/05/21 13:15 Discharge date: 09/08/21 Primary care physician: Jordyn Banerjee Consults: 09/03/21 Consult to Physician [CONS] Stat Comment: Consulting Provider: Leighton Navarrete Reason For Exam: Physician to Consult COURSE Hospital Course Hospital course: Chief Complaint: [] Interval history: 31-year-old female with a history of type 1 diabetes on insulin pump with a previous episodes of DKA patient has been well controlled for the last couple of years and was brought to the ER because of persistent nausea vomiting. Patient unable to take anything by p.o. because of the persistent nausea vomiting she was evaluated in the ER and her blood sugar was 156 and she has mild ketones in the urine and anion gap 23 with a CO2 of 22 lactic acid within normal limits ABG showing normal pH. Patient uses marijuana and has previous history of cyclical vomiting patient will be admitted for further management of possible gastroenteritis versus cyclical vomiting syndrome. Patient underwent a CT which did not show any acute abnormalities 09/04 Patient continued having nausea vomiting Started on lorazepam which seems to be helping her Checked her troponin because she was complaining of upper GI pain and was negative x2 Cortisol level within normal limits Blood pressure improved after IV hydration We will use Haldol if she continued having nausea vomiting by later toda 09/05 Patient continued having persistent nausea and vomiting Started on Compazine Ordered scopolamine patch Her anion gap improved Potassium improved 09/06 Patient continues to complain of nausea vomiting. Added Ativan last night and will try Benadryl. As well as capsaicin for potential marijuana hyperemesis although does not like she takes very much but does use it daily. Able identify any triggers. She does have some abdominal pain from vomiting. 09/07 Patient states she was starting to better yesterday. Tolerating more liquids and having less nausea vomiting, although still present. Had some nausea vomiting last night and that did well for most of the night and was doing well this morning until she started sipping on her liquid breakfast and then developed episode nausea vomiting. 6/3 Patient to follow-up with GI regarding nausea. ?EGD. A: *Intractable nausea/vomitin/2 cyclical vomiting vs gastroparesis vs marijuana hyperemesis vs gastroenteritis -History of marijuana use/DKA in the past (Upon presentation no obvious evidence of DKA) -Cortisol level within normal limits *Type 1 diabetes: -A1c 7.4 *Obesity: bmi 33 Plan: -Patient needs refill prescription for Phenergan and Reglan upon discharge Discharge diagnosis: Intractable nausea vomiting possible cyclic vomiting versus marijuana hyper Secondary discharge diagnosis: Diabetes obesity Time Spent with Patient Time attestation: Total time spent providing and/or coordinating discharge services: Time spent: Greater than 30 minutes EXAM Constitutional Vitals: Temp Pulse Resp BP Pulse Ox 97.2 F 69 12 121/67 95 09/06/21 12:00 09/06/21 12:00 09/06/21 12:00 09/06/21 12:00 09/06/21 12:00 Discharge Plan Patient/Caregiver Discharge Instructions Activity: ambulate only with your walker Diet: Regular Diet Activity Restrictions/Additional Instructions: Follow-up with GI for persistent nausea, ?EGD. Advance diet slowly. Prescriptions: New promethazine 25 mg tablet 25 mg PO Q6H PRN (Reason: nausea and vomiting) Qty: 30 0RF Continued insulin aspart U-100 100 unit/mL solution See Rx Instructions .ROUTE .COMPLEX 0RF Rx Instructions: SUB-Q Cartridge delivered via subcutaneous continous insulin pump; administer within 5-10 min before a meal/food and no later than at the start of the meal/snack INSULIN PUMP, BOLUS Accu-Chek 1 EACH Strip 1 ea FS ACHS 0RF Rx Instructions: DEXACON METER, CONTINOUS Changed metoclopramide HCl 5 MG tablet 5 mg PO ACHS PRN (Reason: Stomach Upset) Qty: 60 0RF Follow Up Plan Follow up with: Jordyn Banerjee MD [Primary Care Provider] - Patient Disposition: Home, Self-Care Prognosis: Fair Overall status at discharge: patient is progressing back to baseline Discharge Orders: Discharge Order (Routine); Ordered 09/08/21 Ordered By: Christopher Dias [facility] VTE Deep Vein Thrombosis/Pulmonary Embolism Present on Admission: No
[2021-09-06] MEDS: METOCLOPRAMIDE 10 MG TABLET PO SCH ×2 (16:24→21:01)
[2021-09-06] MEDS: SENNOSIDES 1 TABLET PO SCH (21:10)
[2021-09-07] MEDS: 0.9 % SODIUM CHLORIDE 10 ML SYRINGE IV SCH (05:39)
[2021-09-07 07:28] LABS: ALT/SGPT 12 U/L (<40); AST/SGOT 16 U/L (<32); Albumin 3.3 gm/dL (3.2-5.2); Albumin/Globulin Ratio 1.6 (1.0-2.3); Alkaline Phosphatase 94 U/L (39-117); Bilirubin,Direct < 0.2 mg/dL (0-0.3); Bilirubin,Total 0.4 mg/dL (0.1-1.0); Blood Urea Nitrogen 6 mg/dL (6-20); Calcium 8.4 mg/dL (8.6-10.4); Carbon Dioxide 27 mmol/L (22-30); Chloride 100 mmol/L (96-108); Globulin 2.1 gm/dL (2.2-3.7); Glomerular Filtration Rate 98; Glucose 200 mg/dL (70-105); Lactate Dehydrogenase 228 U/L (135-225); Phosphorous 2.9 mg/dL (2.5-4.5); Triglycerides 62 mg/dL (<150); Uric Acid 6.7 mg/dL (2.5-8.0)
--- NOTE | 2021-09-07 07:36 | Internal Med Progress Note ---
SUBJECTIVE Subjective Patient information: Note initiated : 09/07/21 at 7:29 am Service Date, if different from initiated Date: [] Patient: Patricia Toussaint 31 y/o F admitted on 09/05/21 for N/V Since 1000. Chief Complaint: [] Interval history: 31-year-old female with a history of type 1 diabetes on insulin pump with a previous episodes of DKA patient has been well controlled for the last couple of years and was brought to the ER because of persistent nausea vomiting. Patient unable to take anything by p.o. because of the persistent nausea vomiting she was evaluated in the ER and her blood sugar was 156 and she has mild ketones in the urine and anion gap 23 with a CO2 of 22 lactic acid within normal limits ABG showing normal pH. Patient uses marijuana and has previous history of cyclical vomiting patient will be admitted for further management of possible gastroenteritis versus cyclical vomiting syndrome. Patient underwent a CT which did not show any acute abnormalities 09/04 Patient continued having nausea vomiting Started on lorazepam which seems to be helping her Checked her troponin because she was complaining of upper GI pain and was negative x2 Cortisol level within normal limits Blood pressure improved after IV hydration We will use Haldol if she continued having nausea vomiting by later toda 09/05 Patient continued having persistent nausea and vomiting Started on Compazine Ordered scopolamine patch Her anion gap improved Potassium improved 09/06 Patient continues to complain of nausea vomiting. Added Ativan last night and will try Benadryl. As well as capsaicin for potential marijuana hyperemesis although does not like she takes very much but does use it daily. Able identify any triggers. She does have some abdominal pain from vomiting. 09/07 Patient states she was starting to better yesterday. Tolerating more liquids and having less nausea vomiting, although still present. Had some nausea vomiting last night and that did well for most of the night and was doing well this morning until she started sipping on her liquid breakfast and then developed episode nausea vomiting. Review of Systems: denies headache/fever/chills//chest pain/cough/dyspnea/diarrhea. Otherwise see above. Constitutional Vitals: Vital Signs Temp Pulse Resp BP Pulse Ox 97.0 F 71 16 143/87 96 09/07/21 02:58 09/07/21 02:58 09/07/21 02:58 09/07/21 02:58 09/07/21 02:58 Period Temp Pulse Resp BP Sys/Butt Pulse Ox Last 24 Hr 96.9 F-98.8 F 67-80 12-16 121-158/67-90 95-99 Intake and Output 09/06/21 09/07/21 09/07/21 21:59 05:59 13:59 Intake Total 965 300 Output Total 700 Balance 265 300 Weight 101.695 kg Intake & Output: Intake & Output 09/06/21 09/07/21 09/07/21 21:59 05:59 13:59 Intake Total 965 300 Output Total 700 Balance 265 300 Weight 101.695 kg Intake: IV 965 NaCl 0.9% W/KCl 20Meq 1000ML 1, 965 000 ml @ 100 mls/hr IV .Q10H PAU Rx#:[id number] Oral 300 Output: Void Amount 400 Emesis 300 Other: # Voids 1 Exam: General: Alert, Awake, mild Distress, obese Eyes/N/T: EOMI, Head/Neck: neck supple, CV: RRR, No murmurs, Pulm: Clear b/l, no wheezing/rhonchi/rales Abd: soft, nontender, +BS x4 Ext: no clubbing/cyanosis/edema Neuro: Alert, no focal deficits, moves all extremities, Skin: warm/dry OBJ DATA Labs CBC & Chem 7: 09/05/21 07:17 09/07/21 05:12 Labs: Abnormal Lab Results 09/07/21 09/05/21 09/05/21 05:12 07:17 07:17 MPV 13.9 H Sodium Potassium Chloride Carbon Dioxide Anion Gap Glucose 200 H 138 H Calcium 8.4 L Lactate Dehydrogenase 228 H Troponin T Total Protein 5.4 L Globulin 2.1 L 09/04/21 09/04/21 09/04/21 17:38 05:20 05:20 MPV Sodium 130 L 129 L Potassium 2.8 L* Chloride 95 L 91 L Carbon Dioxide 21 L Anion Gap 17.0 H Glucose 217 H 177 H Calcium 8.4 L 8.0 L Lactate Dehydrogenase Troponin T 0.03 H Total Protein 5.8 L Globulin Meds: Medications Acetaminophen (Acetaminophen 325 Mg Tablet) 650 mg PO Q6HP PRN; Protocol PRN Reason: Per Pain Protocol/Fever > 101 Albuterol Sulfate (Albuterol Sulfate 2.5 Mg/3 Ml Nebulizer) 2.5 mg NEB Q2HP PRN PRN Reason: Shortness Of Breath Ceftriaxone Sodium (Ceftriaxone 1 Gm Vial) 1 gm IV Q24H [facility]; Protocol Last Admin: 09/06/21 08:18 Dose: 1 gm Documented by: Dextrose (Dextrose 50% 50 Ml Vial) 0 ml IV UD PRN PRN Reason: Per Sliding Scale Diagnostic Test (Pha) (Accu-Chek 1 Each Strip) 1 each FS ACHS [facility] Last Admin: 09/06/21 21:09 Dose: 1 each Documented by: Diphenhydramine HCl (Diphenhydramine 50 Mg/Ml Vial) 25 mg IV Q6HP PRN PRN Reason: Allergic Symptoms Last Admin: 09/06/21 11:35 Dose: 25 mg Documented by: Docusate Sodium (Docusate Sodium 100 Mg Capsule) 100 mg PO BID [facility] Last Admin: 09/06/21 21:10 Dose: Not Given Documented by: Enoxaparin Sodium (Enoxaparin 40 Mg/0.4 Ml Syringe) 40 mg SQ DAILY [facility] Last Admin: 09/06/21 08:18 Dose: 40 mg Documented by: Famotidine (Famotidine/Pf 20 Mg/2 Ml Vial) 20 mg IV Q12 [facility] Last Admin: 09/06/21 21:01 Dose: 20 mg Documented by: Glucose (Dextrose 31 Gm Oral.Susp) 15 gm PO PRN PRN PRN Reason: Hypoglycemia Haloperidol Lactate (Haloperidol Lactate 5 Mg/Ml Vial) 1 mg IV Q8HP PRN PRN Reason: Nausea And Vomiting Last Admin: 09/05/21 12:52 Dose: 1 mg Documented by: Hydralazine HCl (Hydralazine 20 Mg/Ml Vial) 10 mg IV Q4-6HP PRN PRN Reason: Hypertension Last Admin: 09/04/21 00:30 Dose: 10 mg Documented by: Lorazepam (Lorazepam 2 Mg/Ml Vial) 0.5 mg IV Q4-6HP PRN PRN Reason: Nausea Last Admin: 09/06/21 21:02 Dose: 0.5 mg Documented by: Melatonin (Melatonin 3 Mg Tablet) 3 mg PO HSP PRN PRN Reason: Insomnia Last Admin: 09/05/21 21:04 Dose: 3 mg Documented by: Metoclopramide HCl (Metoclopramide 10 Mg Tablet) 5 mg PO [facility] Last Admin: 09/06/21 21:01 Dose: 5 mg Documented by: Morphine Sulfate (Morphine 2 Mg/Ml Vial) 2 mg IV Q4HP PRN; Protocol PRN Reason: Per Pain Protocol Ondansetron HCl (Ondansetron 4 Mg/2 Ml Vial) 4 mg IV Q6HP PRN PRN Reason: Nausea And Vomiting Last Admin: 09/06/21 18:51 Dose: 4 mg Documented by: Patient Own Medication (Patients Own Medication 1 Dose Miscell) 1 dose SUB-Q ACHS [facility] Last Admin: 09/06/21 21:10 Dose: 1 dose Documented by: Prochlorperazine (Prochlorperazine 10 Mg/2 Ml Vial) 5 mg IV Q6HP PRN PRN Reason: Nausea And Vomiting Last Admin: 09/06/21 21:04 Dose: 5 mg Documented by: Scopolamine (Scopolamine 1 Patch Patch) 1 patch TOPICAL Q72H [facility] Last Admin: 09/05/21 11:59 Dose: 1 patch Documented by: Senna (Sennosides 1 Tablet) 2 tab PO HS [facility] Last Admin: 09/06/21 21:10 Dose: Not Given Documented by: Sodium Chloride (0.9 % Sodium Chloride 10 Ml Syringe) 10 ml IV Q8 [facility] Last Admin: 09/07/21 05:39 Dose: Not Given Documented by: Trazodone HCl (Trazodone Hcl 50 Mg Tablet) 25 mg PO HSP PRN PRN Reason: Insomnia A/P Narrative A/P Narrative: A: *Intractable nausea/vomitin/2 cyclical vomiting vs Gastroparesis vs marijuana hyperemesis vs gastroenteritis -History of marijuana use/DKA in the past (Upon presentation no obvious evidence of DKA) -Cortisol level within normal limits *Type 1 diabetes: -A1c 7.4 *Obesity: bmi 33 Plan: -Continue Reglan and Zofran, prn Benzo and bendadryl, capsaicin unavailable -Started Compazine 5 mg every 6 hours as needed -Started scopolamine patch -Continue Protonix -Clear liquid diet and advance as tolerated -Patient has insulin pump and we will monitor her blood glucose otherwise we will have her use insulin pump -Patient needs prescription for Phenergan and Reglan upon discharge -ppx:Lovenox Time Spent With Patient Time: Total time spent is greater than 50% in coordination of care (as documented) at patient's floor/unit and/or counseling patient: Total time spent with greater than 50% in coordination of care (as documented) at patient's floor/unit and/or counseling patient:: 25 - 35 minutes QUALITY VTE Deep Vein Thrombosis/Pulmonary Embolism Present on Admission: No
[2021-09-07] MEDS: PATIENTS OWN MEDICATION 1 DOSE MISCELL SUB-Q SCH ×4 (07:46→21:26)
[2021-09-07] MEDS: METOCLOPRAMIDE 10 MG TABLET PO SCH ×4 (07:48→21:29)
[2021-09-07] MEDS ORDERED: diphenhydrAMINE 25 MG CAPSULE PO PRN ×2 (10:01→10:07)
[2021-09-07] MEDS ORDERED: LORazepam 0.5 MG TABLET PO PRN (10:23)
[2021-09-07] MEDS ORDERED: HALOPERIDOL LACTATE 5 MG/ML VIAL IM PRN (10:26)
[2021-09-07] MEDS ORDERED: ONDANSETRON 4 MG ODT TABLET SL PRN (10:30)
[2021-09-07] MEDS: ENOXAPARIN 40 MG/0.4 ML SYRINGE SQ SCH (11:02)
[2021-09-07] MEDS: DOCUSATE SODIUM 100 MG CAPSULE PO SCH ×2 (11:02→21:25)
[2021-09-07 11:46] LABS: Hemoglobin A1C 7.4 % Hgb (4.0-6.0)
[2021-09-07] MEDS: PROMETHAZINE 25 MG/ML VIAL IM PRN (18:17)
[2021-09-07] MEDS: FAMOTIDINE/PF 20 MG/2 ML VIAL IV SCH (19:44)
[2021-09-07] MEDS: SENNOSIDES 1 TABLET PO SCH (21:25)
[2021-09-08] MEDS: METOCLOPRAMIDE 10 MG TABLET PO SCH ×2 (07:29→11:55)
[2021-09-08] MEDS: PATIENTS OWN MEDICATION 1 DOSE MISCELL SUB-Q SCH ×2 (07:30→11:52)
[2021-09-08] MEDS: DOCUSATE SODIUM 100 MG CAPSULE PO SCH (08:50)
[2021-09-08] MEDS: PROMETHAZINE 25 MG/ML VIAL IM PRN ×2 (09:01→14:34)
[2021-09-08] MEDS ORDERED: INSULIN GLARGINE, HUMAN 1 UNIT/0.01 ML SQ SCH (09:55)
[2021-09-08] MEDS ORDERED: INSULIN LISPRO 1 UNIT/0.01 ML UNIT SQ SCH ×2 (10:00→14:30)
--- NOTE | 2021-09-08 10:19 | Event Note ---
Event Note Event Note: Just now finding out that her insulin pump is out of insulin and she does not have anybody to bring in her vials from home. We are also just finding out that she takes Lantus 12 units every day she has not been taking while here.
[2021-09-08] MEDS: ENOXAPARIN 40 MG/0.4 ML SYRINGE SQ SCH (10:20)
[2021-09-08] MEDS: SCOPOLAMINE 1 PATCH PATCH TOPICAL SCH (11:55)
[2021-09-08] MEDS ORDERED: DEXTROSE 31 GM ORAL.SUSP PO PRN (14:16)
[2021-09-08] MEDS ORDERED: DEXTROSE 50% 50 ML VIAL IV PRN (14:16)
[2021-09-09] MEDS ORDERED: INSULIN GLARGINE, HUMAN 1 UNIT/0.01 ML SQ SCH (09:00)
== END 2021-09-08 15:05 | disposition home or self-care (01) | DRG 392 ==
LOC: MEDSUR 23:10 → ED 23:10 → MEDSUR 09-03 08:45
PROVIDERS: ADMIT Internal Medicine; ATTEND Internal Medicine